=== PATIENT | male | born 1955 | race Caucasian/White ===

== ENCOUNTER 2022-02-07 07:04 | Outpatient (REF) | payer OTHER, MEDICARE, SELFPAY ==
[2022-02-07 11:17] LABS: MANUAL DIFF FLAG NO
[2022-02-07 11:39] LABS: Appearance Urine Clear; Basophils Absolute Auto 0.1 X10*3/uL (0.0-0.2); Basophils Percent Auto 1.2 % (0-2); Color Urine Yellow; Eosinophils Absolute Auto 0.2 X10*3/uL (0.0-0.4); Eosinophils Percent Auto 3.2 % (0-4); Glucose Urine UA Negative (Negative); Hematocrit 40.5 % (42.0-52.0); Hemoglobin 13.2 g/dl (14.0-18.0); Imm Gran Abs Auto 0.02 X10*3/uL (0.00-0.03); Imm Gran Pct Auto 0.4 % (0.0-0.4); Leukocyte Esterase Urine Trace (Negative); Lymphocytes Absolute Auto 1.5 X10*3/uL (1.2-4.9); Mean Corpuscular HGB Conc 32.6 g/dl (31.0-36.0); Mean Corpuscular Hemoglobin 32.6 pg (27.0-33.0); Mean Platelet Volume 10.6 fL (9.4-12.4); Monocytes Absolute Auto 0.7 X10*3/uL (0.1-1.2); Monocytes Percent Auto 13.9 % (2-11); Neutrophils Absolute Auto 2.6 x10*3/uL (2.0-8.3); Neutrophils Percent Auto 51.3 % (45-73); Nitrite Urine Negative (Negative); Platelet Count 344 X10*3/uL (160-400); Red Blood Count 4.05 X10*6/uL (4.60-5.80); Red Cell Distribution Width 12.6 % (11.0-16.0); Specific Gravity - Urine 1.015 (1.005-1.025); UMIC TRIGGER UA YES; Urine Blood Negative (Negative); Urine Ketones Negative (Negative); Urine Protein Negative (Neg-Trace)
[2022-02-07 11:46] LABS: Bacteria Urine None Seen (None Seen); Hyaline Casts Urine 0-2 /LPF (0-2); RBC Urine 0-2 /HPF (0-2); Squamous Epithelial Cell Urine 0-2 /HPF (0-2); WBC Urine 0-5 /HPF (0-5)
[2022-02-07 12:00] LABS: Alanine Aminotransferase 23 U/L (0-40); Alkaline Phosphatase 70 U/L (39-117); Anion Gap 15 (12-20); Aspartate Amino Transferase 21 U/L (5-37); Bilirubin Total 1.3 mg/dL (0.0-1.0); Blood Urea Nitrogen 19 mg/dL (9-16); Calcium 9.3 mg/dL (8.4-10.2); Carbon Dioxide 25 mmol/L (22-29); Chloride 103 mmol/L (96-108); Cholesterol 155 mg/dL; Estimated Glomerular Filt Rate > 60; Glucose Fasting 105 mg/dL (60-99); HDL Cholesterol 47 mg/dL; LDL Cholesterol Calculated 91 mg/dl; Potassium 4.3 mmol/L (3.3-5.1); Sodium 139 mmol/L (135-145); Total Protein 7.1 g/dL (6.5-8.0); Triglycerides 88 mg/dL
[2022-02-07 12:52] LABS: PSA,Total (Free>4and<10) 16.28 ng/mL (0.00-4.00)
== END 2022-02-07 07:05 | disposition home or self-care (01) ==
LOC: HO.HMGCLDS 07:04
PROVIDERS: PCP Internal Medicine; Visit Provider Internal Medicine
DX: E78.00 Pure hypercholesterolemia, unspecified (principal); E03.9 Hypothyroidism, unspecified; I10 Essential (primary) hypertension; N30.00 Acute cystitis without hematuria; R97.20 Elevated prostate specific antigen [PSA]; Z12.5 Encounter for screening for malignant neoplasm of prostate
CPT/HCPCS: 36415; 80053; 80061; 81001; 84153; 85025; 87086

== ENCOUNTER 2022-03-21 11:00 | Outpatient (REF) | payer OTHER, MEDICARE, SELFPAY ==
[2022-03-21 12:27] LABS: PSA,Total (Free>4and<10) 11.16 ng/mL (0.00-4.00)
== END 2022-03-21 11:01 | disposition home or self-care (01) ==
LOC: HO.LNP 11:00
PROVIDERS: Visit Provider Internal Medicine
DX: Z12.5 Encounter for screening for malignant neoplasm of prostate (principal); R97.20 Elevated prostate specific antigen [PSA]
CPT/HCPCS: 84153

== ENCOUNTER 2022-04-11 10:33 | Outpatient (REF) | payer OTHER, MEDICARE, SELFPAY ==
[2022-04-11 12:02] LABS: PSA,Total (Free>4and<10) 9.54 ng/mL (0.00-4.00)
[2022-04-12 09:10] LABS: Free Prostate Spec Ag 1.7 ng/mL; Percent Free Prostate Spec Ag NOT CALCULATED % (calc) (>25); Prostate Specific Ag Total 10.8 ng/mL (< OR = 4.0)
== END 2022-04-11 10:34 | disposition home or self-care (01) ==
LOC: HO.LNP 10:33
PROVIDERS: Visit Provider Internal Medicine
DX: Z12.5 Encounter for screening for malignant neoplasm of prostate (principal); R97.20 Elevated prostate specific antigen [PSA]
CPT/HCPCS: 84153; 84154

== ENCOUNTER 2022-12-06 11:31 | Outpatient (REF) | payer OTHER, MEDICARE, SELFPAY | END 2022-12-06 11:32 | disposition home or self-care (01) | LOC: HO.LNP 11:31 | PROVIDERS: Visit Provider Internal Medicine | DX: Z13.89 Encounter for screening for other disorder (principal) ==

== ENCOUNTER 2022-12-06 11:33 | Outpatient (REF) | payer MEDICARE, OTHER, SELFPAY ==
[2022-12-06 11:36] LABS: MANUAL DIFF FLAG NO
[2022-12-06 12:28] LABS: Basophils Percent Auto 0.7 % (0-2); Eosinophils Absolute Auto 0.3 X10*3/uL (0.0-0.4); Eosinophils Percent Auto 4.8 % (0-4); Hematocrit 43.4 % (42.0-52.0); Hemoglobin 14.3 g/dl (14.0-18.0); Imm Gran Abs Auto 0.02 X10*3/uL (0.00-0.03); Imm Gran Pct Auto 0.3 % (0.0-0.4); Lymphocytes Absolute Auto 1.6 X10*3/uL (1.2-4.9); Lymphocytes Percent Auto 26.6 % (20-40); Mean Corpuscular HGB Conc 32.9 g/dl (31.0-36.0); Mean Corpuscular Hemoglobin 32.8 pg (27.0-33.0); Mean Corpuscular Volume 99.5 fL (80.0-98.0); Mean Platelet Volume 10.7 fL (9.4-12.4); Monocytes Absolute Auto 0.8 X10*3/uL (0.1-1.2); Monocytes Percent Auto 13.1 % (2-11); Neutrophils Absolute Auto 3.2 x10*3/uL (2.0-8.3); Neutrophils Percent Auto 54.5 % (45-73); Platelet Count 242 X10*3/uL (160-400); Red Blood Count 4.36 X10*6/uL (4.60-5.80); Red Cell Distribution Width 12.9 % (11.0-16.0); White Blood Count 5.9 X10*3/uL (4.8-10.8)
[2022-12-06 12:29] LABS: Appearance Urine Clear; Color Urine Yellow; Glucose Urine UA Negative (Negative); Leukocyte Esterase Urine Negative (Negative); Nitrite Urine Negative (Negative); PH 6.5 (5.0-9.0); Specific Gravity - Urine 1.015 (1.005-1.025); Urine Blood Negative (Negative); Urine Ketones Negative (Negative); Urine Protein Negative (Neg-Trace)
[2022-12-06 12:37] LABS: Bacteria Urine None Seen (None Seen); Hyaline Casts Urine 0-2 /LPF (0-2); RBC Urine 0-2 /HPF (0-2); Squamous Epithelial Cell Urine 0-2 /HPF (0-2); WBC Urine 0-5 /HPF (0-5)
[2022-12-06 13:05] LABS: Alanine Aminotransferase 22 U/L (0-40); Albumin Level 4.3 g/dL (3.5-5.0); Alkaline Phosphatase 63 U/L (39-117); Anion Gap 12 (12-20); Aspartate Amino Transferase 23 U/L (5-37); Bilirubin Total 1.1 mg/dL (0.0-1.0); Blood Urea Nitrogen 16 mg/dL (9-16); Calcium 9.7 mg/dL (8.4-10.2); Carbon Dioxide 25 mmol/L (22-29); Chloride 103 mmol/L (96-108); Cholesterol 174 mg/dL; Estimated Glomerular Filt Rate > 60; Glucose Fasting 91 mg/dL (60-99); HDL Cholesterol 59 mg/dL; LDL Cholesterol Calculated 90 mg/dl; Sodium 136 mmol/L (135-145); Total Protein 7.5 g/dL (6.5-8.0); Triglycerides 127 mg/dL
[2022-12-06 13:24] LABS: TSH reflex Free T4 3.17 uIU/mL (0.32-4.0)
[2022-12-06 13:33] LABS: PSA,Total (Free>4and<10) 5.23 ng/mL (0.00-4.00)
[2022-12-08 12:29] LABS: Free Prostate Spec Ag 1.1 ng/mL; Percent Free Prostate Spec Ag 21 % (calc) (>25); Prostate Specific Ag Total 5.2 ng/mL (< OR = 4.0)
== END 2022-12-06 11:34 | disposition home or self-care (01) ==
LOC: HO.LNP 11:33
PROVIDERS: Visit Provider Internal Medicine
DX: Z00.00 Encounter for general adult medical examination without abnormal findings (principal); Z12.5 Encounter for screening for malignant neoplasm of prostate; E78.00 Pure hypercholesterolemia, unspecified; E03.9 Hypothyroidism, unspecified; I10 Essential (primary) hypertension
CPT/HCPCS: 80053; 80061; 81001; 84153; 84154; 84443; 85025

== ENCOUNTER 2023-06-12 12:48 | Outpatient (REF) | payer MEDICARE, OTHER, SELFPAY ==
[2023-06-12 13:30] LABS: Alanine Aminotransferase 26 U/L (0-40); Albumin Level 4.3 g/dL (3.5-5.0); Alkaline Phosphatase 62 U/L (39-117); Aspartate Amino Transferase 22 U/L (5-37); Bilirubin Direct 0.3 mg/dL (0.0-0.5); Bilirubin Total 0.6 mg/dL (0.0-1.0); Cholesterol 159 mg/dL (<200); HDL Cholesterol 53 mg/dL (>40); LDL Cholesterol Calculated 84 mg/dL (<100); Total Protein 7.5 g/dL (6.5-8.0); Triglycerides 114 mg/dL (<150)
[2023-06-12 14:48] LABS: Reflex LDLD? No
== END 2023-06-12 12:49 | disposition home or self-care (01) ==
LOC: HO.LNP 12:48
PROVIDERS: Visit Provider Internal Medicine
DX: E78.00 Pure hypercholesterolemia, unspecified (principal)
CPT/HCPCS: 80061; 80076

== ENCOUNTER 2023-12-11 10:41 | Outpatient (REF) | payer MEDICARE, OTHER, SELFPAY ==
[2023-12-11 10:43] LABS: MANUAL DIFF FLAG NO
[2023-12-11 10:58] LABS: Basophils Percent Auto 0.7 % (0-2); Eosinophils Absolute Auto 0.4 X10*3/uL (0.0-0.4); Eosinophils Percent Auto 6.2 % (0-4); Imm Gran Abs Auto 0.03 X10*3/uL (0.00-0.03); Imm Gran Pct Auto 0.5 % (0.0-0.4); Lymphocytes Absolute Auto 1.8 X10*3/uL (1.2-4.9); Mean Corpuscular HGB Conc 33.3 g/dl (31.0-36.0); Mean Corpuscular Hemoglobin 33.3 pg (27.0-33.0); Mean Corpuscular Volume 99.8 fL (80.0-98.0); Mean Platelet Volume 10.5 fL (9.4-12.4); Monocytes Absolute Auto 0.8 X10*3/uL (0.1-1.2); Monocytes Percent Auto 13.5 % (2-11); Neutrophils Absolute Auto 2.7 x10*3/uL (2.0-8.3); Neutrophils Percent Auto 47.1 % (45-73); Platelet Count 254 X10*3/uL (160-400); Red Blood Count 4.21 X10*6/uL (4.60-5.80); Red Cell Distribution Width 13.2 % (11.0-16.0); White Blood Count 5.7 X10*3/uL (4.8-10.8)
[2023-12-11 10:59] LABS: Appearance Urine Clear; Color Urine Yellow; Glucose Urine UA Negative (Negative); Leukocyte Esterase Urine Negative (Negative); Nitrite Urine Negative (Negative); PH 5.5 (5.0-9.0); Specific Gravity - Urine 1.015 (1.005-1.025); Urine Blood Negative (Negative); Urine Ketones Negative (Negative); Urine Protein Negative (Neg-Trace)
[2023-12-11 11:03] LABS: Bacteria Urine None Seen (None Seen); Hyaline Casts Urine 0-2 /LPF (0-2); RBC Urine 0-2 /HPF (0-2); Squamous Epithelial Cell Urine 0-2 /HPF (0-2); WBC Urine 0-5 /HPF (0-5)
[2023-12-11 11:16] LABS: Alanine Aminotransferase 28 U/L (0-40); Albumin Level 4.3 g/dL (3.5-5.0); Alkaline Phosphatase 59 U/L (39-117); Anion Gap 14 (12-20); Aspartate Amino Transferase 26 U/L (5-37); Bilirubin Total 0.4 mg/dL (0.0-1.0); Blood Urea Nitrogen 14 mg/dL (9-16); Calcium 9.5 mg/dL (8.4-10.2); Carbon Dioxide 22 mmol/L (22-29); Chloride 109 mmol/L (96-108); Cholesterol 150 mg/dL (<200); Estimated Glomerular Filt Rate > 60; Glucose Fasting 89 mg/dL (60-99); HDL Cholesterol 49 mg/dL (>40); LDL Cholesterol Calculated 79 mg/dL (<100); Potassium 3.9 mmol/L (3.3-5.1); Sodium 141 mmol/L (135-145); Total Protein 7.4 g/dL (6.5-8.0); Triglycerides 110 mg/dL (<150)
[2023-12-11 11:46] LABS: PSA,Total (Free>4and<10) 5.15 ng/mL (0.00-4.00)
[2023-12-11 12:19] LABS: Free T4 (Free Thyroxine) 0.95 ng/dL (0.71-1.85)
[2023-12-12 11:03] LABS: Free Prostate Spec Ag 1.6 ng/mL; Percent Free Prostate Spec Ag 26 % (calc) (>25); Prostate Specific Ag Total 6.2 ng/mL (< OR = 4.0)
== END 2023-12-11 10:42 | disposition home or self-care (01) ==
LOC: HO.LNP 10:41
PROVIDERS: Visit Provider Internal Medicine
DX: E78.00 Pure hypercholesterolemia, unspecified (principal); E03.9 Hypothyroidism, unspecified; I10 Essential (primary) hypertension; Z12.5 Encounter for screening for malignant neoplasm of prostate
CPT/HCPCS: 80053; 80061; 81001; 84153; 84154; 84439; 84443; 85025

== ENCOUNTER 2024-06-18 10:33 | Outpatient (REF) | payer MEDICARE, OTHER, SELFPAY ==
[2024-06-18 11:26] LABS: Alanine Aminotransferase 29 U/L (0-40); Albumin Level 4.1 g/dL (3.5-5.0); Alkaline Phosphatase 69 U/L (39-117); Aspartate Amino Transferase 29 U/L (5-37); Bilirubin Direct 0.2 mg/dL (0.0-0.5); Bilirubin Total 0.7 mg/dL (0.0-1.0); Cholesterol 182 mg/dL (<200); HDL Cholesterol 50 mg/dL (>40); LDL Cholesterol Calculated 95 mg/dL (<100); Total Protein 7.7 g/dL (6.5-8.0); Triglycerides 187 mg/dL (<150)
--- OUTSIDE RECORDS SUMMARY | 2024-06-18 11:39 | XMS_ITS ---
Author Organization Edd Benitez MD Address [address] [place] [phone] Care Team Providers Care Preparer Samples And Repairs Name Role Phone Edd Benitez Primary Care Provider [phone] REASON FOR VISIT refill Medications Medication SIG (Take, Route, Frequency, Duration) Notes Start Date End Date Status amLODIPine Besylate 5 MG TAKE 1 TABLET B Y MOUTH EVERY DAY FOR 90 DAYS Orally Once a day for 90 days Active Encounters Encounter Location Date Provider Diagnosis Edd Benitez MD [address] [place] [phone] 04/09/2024 Edd Benitez Primary hypertension I10 Assessments [...] days Next Appt Details Provider Name:Edd escamilla, 06/21/2024 10:45:00 AM, [address] [place] [address], [address], [phone], Provider Name:Edd escamilla, 12/13/2024 08:00:00 AM, [address] [place] [address], [address], [phone], Provider Name:Edd escamilla, 12/20/2024 11:00:00 AM, [address] [place] [address], [phone], Progress Notes * EMILIA CASILLAS ADOB:1955 (68 yo M)Acc No.[id number]:04/09/2024 Patient:?EMILIA CASILLAS :1955???Age:68 Y???Sex:Male Address:[address] [place] [address], [place] [address] * Refills? Refill amLODIPine Besylate Tablet, 5 MG, Orally, 90, TAKE 1 TABLET BY MOUTH EVERY DAY FOR 90 DAYS, Once a day, 90 days, Refills=3 * true * Date:? Generated for You harris/Phoenix/Benitting on:?06/18/2024 11:39 AM EST
--- OUTSIDE RECORDS SUMMARY | 2024-06-18 11:39 | XMS_ITS ---
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 Role Phone Edd Benitez Primary Care Provider REASON FOR VISIT FASTING LIPIDS Encounters Encounter Location Date Provider Diagnosis Edd Benitez MD [address] [place] [address] [place] [phone] 06/18/2024 Edd Benitez Hypercholesteremia E 78.00 Assessments Encounter Date Diagnosis (ICD Code) Assessment Notes Treatment Notes Treatment Clinical Notes Section Notes 06/18/2024 Hypercholesteremia (ICD-10 - E78.00) Plan Of Treatment Pending Test Test Name Order Date Liver Panel 06/18/2024 Lipid Panel with Reflex 06/18/2024 Next Appt Details Provider Name:Edd escamilla, 06/21/2024 10:45:00 AM, [address] [place] [address], [address], [phone], Provider Name:Edd escamilla, 12/13/2024 08:00:00 AM, [address] [place] [address], [address], [phone], Provider Name:Edd escamilla, 12/20/2024 11:00:00 AM, [address] [place] [address], [address], [phone], Progress Notes * EMILIA CASILLAS ADOB:1955 (69 yo M)Acc No.[id number]:06/18/2024 Progress Note Patient:?EMILIA CASILLAS Provider:?Edd Benitez MD :1955???Age:69 Y???Sex:Male Neil e:06/18/2024 Address:[address] [place], [place] [phone] Subjective: * Chief Complaints: * ???1. FASTING LIPIDS. * HPI: ???Communication Needs:?Communication Needs?Does the patient have a hearing impairment?Yes,?If yes, what is the hearing impairment??Other,?Does the patient have a vision impairment??No,?Does the patient have a cognition impairment??No.? * Medical History:? Objective: * Vitals:? Assessment: * Assessment: 1.?Hypercholesteremia - E78. 00??? Plan: * Treatment: * Procedure Codes:?81397 VENIP UNCT, ROUTINE* * * The named appointment provid er may or may not be the originator of this progress note, and it is not deemed complete until electronically signed by the appointment provider. Sign off status: Pending * Provider:?Edd Benitez MD Date:?0 06/18/2024 Generated for You harris/[place]hoenix/Benitting on:?06/18/2024 11:39 AM EST History and Physical Notes * HPI (History of Present Illness) Category Sub-Category Detail Notes Category Not es Communication Needs Communication Needs Does the patient have a hearing impairment: Yes ?If yes, what is the hearing impairment? : Other Does the patient have a vision impairmen t?: No Does the patient have a cognition impair ment?: No
--- OUTSIDE RECORDS SUMMARY | 2024-06-18 11:39 | XMS_ITS | Patient Health Record ---
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 Name Role Phone Edd Benitez MD Primary Care Provider Haleigh Rodriguez Unavailable [phone] Allergies No Known Allergies Reason For Referral No Information Medications Medication SIG (Take, Route, Frequency, Duration) Notes Start Date End Date Status Medrol wesley 4mg as directed orally a s directed for 6 days 06/07/2024 Active Omeprazole 20 MG 1 capsule 1/2 to 1 h our before morning meal Orally Once a day Active Levothyroxine Sodium 100 MCG 1 tablet in the morning on an empty stomach Orally Once a day Active amLODIPine Besylate 5 MG 1 tablet Orally Once a day Active Atorvastatin Calcium 40 MG 1 tablet Oral ly Once a day Active Ciclopirox Olamine 0.77 % 1 application Externally Twice a day to skin of feet including between the toes for 30 days Active Social History Tobacco Use: Social History Observation Description Date Details (start date - stop date) Never Smoker NA - NA Alcohol Screen Question Answer Notes Did you have a drink contain ing alcohol in the past year? Yes How often did you have a dri nk containing alcohol in the past year? 2 to 4 times a month (2 points) Points 2 Interpretation Negative Tobacco use other than smoking: Question Answer Notes Are you an other tobacco user? No Tobacco Control (Standard) Question Answer Notes Tobacco use: Nonsmoker Additional Findings: Tobacco non-user Current no nsmoker Problems Problem Type SNOMED Code ICD Code Onset Dates Problem Status W/U Status Risk Notes Problem Acquired hammer toe of right foot (9814297802263250 ) Other hammer toe(s) (acquired), right foot (M20.41) Active confirmed Problem Gout (80400568) Gout of left foot (M10.9) Active confirmed Rx drug management (4) Problem Gout (94062013) Gout of right foot (M10.9) Active confirmed Rx drug management (4) Problem 939184020 Arthritis of big toe (M19.079) Active confirmed Problem 837535037 Hallux malleus of right foot (M20.31) Active confirmed Problem Localized, primary osteoarthritis of the ankle and/or foot (755759574) Arthritis of joint of lesser toe, right (M19.071) Active confirmed Vital Signs Blood pressure diastolic 65 mm Hg 06/07/2024 Height 5ft 10in in 06/07/2024 Blood pressure systolic 129 mm Hg 06/07/2024 Weight 235 lbs 06/07/2024 BMI 33.72 kg/m2 06/07/2024 Encounters Encounter Location Date Provider Diagnosis [address] [phone] 03/14/2024 Haleigh Banks Pain in right toe(s) M79.674 ; Tinea pedis of both feet B35.3 ; Hallux malleus of right foot M20.31 and Arthritis of big toe M19.[address] [phone] 06/07/2024 Haleigh Banks Pain in joint involving left ankle and foot M25.572 and Gout of left foot M10.[address] [phone] 02/01/2024 Haleigh Banks [address] [phone] 06/04/2024 Haleigh Banks Assessments Encounter Date Diagnosis (ICD Code) Assessment Notes Treatment Notes Treatment Clinical Notes Section Notes 03/14/2024 Pain in right toe(s) (ICD-10 - M79.674) 03/14/2024 Tinea pedis of both feet (ICD-10 - B35.3) 06/07/2024 Gout of left foot (ICD-10 - M10.9) Rx drug management (4) Patient Educated with: GOUT.pdf (GOUT.pdf) Patient Educated with: LOW PURINE DIET.pdf (LOW PURINE DIET.pdf) 06/07/2024 Pain in joint involving left ankle and foot (ICD-10 - M25.572) 03/14/2024 Hallux malleus of right foot (ICD-10 - M20.31) 03/14/2024 Arthritis of big toe (ICD-10 - M19.079) 06/07/2024 Other Patient Educated with: GOUT.pdf (GOUT.pdf) Patient Educated with: LOW PURINE DIET.pdf (LOW PURINE DIET.pdf) Plan Of Treatment Pending Test Test Name Order Date *Uric Acid, Serum 06/07/2024 X ray : Foot, left 3V 06/07/2024 X ray : Foot, right 3V 06/07/2024 X ray : Foot, right 3V 03/14/2024 Insurance Providers Payer Name Payer Address Payer Phone Subscriber Number Group Number Insured Name Patient Relationship to Insured Coverage Start Date Coverage End Date Medicare [employer] [address] [place] [address] [id number] Tr Kim Self - patient is the insured Medical (General) History Medical History History ICD Code Back,Hip,and Knee pain Diverticulosis Gall bladder problems Gout High Blood Pressure Reflux ( GERD) Sciatica thyroid Measles Mumps Hearing loss Surgical History Surgery Date(Month/Year) Gall bladder removal 1994 tympanoplasty 1967
--- OUTSIDE RECORDS SUMMARY | 2024-06-18 11:40 | XMS_ITS ---
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 Name Role Phone Edd Benitez MD Primary Care Provider Haleigh Rodriguez Unavailable [phone] Allergies No Known Allergies REASON FOR VISIT Last PCP visit 01/2024, Foot pain Medications Medication SIG (Take, Route, Frequency, Duration) Notes Start Date End Date Status Medrol wesley 4mg as directed orally a s directed for 6 days 06/07/2024 Active Omeprazole 20 MG 1 capsule 1/2 to 1 h our before morning meal Orally Once a day Active Levothyroxine Sodium 100 MCG 1 tablet in the morning on an empty stomach Orally Once a day Active Atorvastatin Calcium 40 MG 1 tablet Oral ly Once a day Active Ciclopirox Olamine 0.77 % 1 application Externally Twice a day to skin of feet including between the toes for 30 days Active amLODIPine Besylate 5 MG 1 tablet Orally Once a day Active Social History Tobacco Use: Social History [...] Problem Status W/U Status Risk Notes Problem Gout (88632445) Gout of right foot (M10.9) Active confirmed Rx drug management (4) Problem Gout (23482191) Gout of left foot (M10.9) Active confirmed Rx drug management (4) Vital Signs Height 5ft 10in in 06/07/2024 Weight 235 lbs 06/07/2024 BMI 33.72 kg/m2 06/07/2024 Blood pressure systolic 129 mm Hg 06/07/19 25 Blood pressure diastolic 65 mm Hg 025 Encounters Encounter Location Date Provider Diagnosis [facility] [place] [address] [address] 06/07/2024 Haleigh Banks Pain in joint involving left ankle and foot M25.572 and Gout of left foot M10.9 Assessments Encounter Date Diagnosis (ICD Code) Assessment Notes Treatment Notes Treatment Clinical Notes Section Notes 06/07/2024 Pain in joint involving left ankle and foot (ICD-10 - M25.572) 06/07/2024 Gout of left foot (ICD-10 - M10.9) Rx drug management (4) Patient Educated with: GOUT.pdf (GOUT.pdf) Patient Educated with: LOW PURINE DIET.pdf (LOW PURINE DIET.pdf) 06/07/2024 Other Patient Educated with: GOUT.pdf (GOUT.pdf) Patient Educated with: LOW PURINE DIET.pdf (LOW PURINE DIET.pdf) Plan Of Treatment Medication Medication Name Sig Start Date Stop Date Notes Medrol wesley 4mg as directed orally as directed for 6 days 0 06/07/2024 Treatment Notes Assessment Notes Gout of left foot Patient Educated wit h: GOUT.pdf (GOUT.pdf) Patient Educated with: LOW PURINE DIET.pdf (LOW PURINE DIET.pdf) Other Patient Educated wit h: GOUT.pdf (GOUT.pdf) Patient Educated with: LOW PURINE DIET.pdf (LOW PURINE DIET.pdf) Pending Test Test Name Order Date *Uric Acid, Serum 06/07/2024 X ray : Foot, left 3V 06/07/2024 X ray : Foot, right 3V 06/07/2024 Next Appt Details Follow Up: prn, Reason: Progress Notes * Tr CASILLAS ADOB:1955 (68 yo M)Acc No.[id number]:06/07/2024 Progress Note Patient:?Tr CASILLAS Provider:?Haleigh Banks DPM :1955???Age:68 Y???Sex:Male Neil e:06/07/2024 Address:[address] [place] [address] vito [id number] Pcp:Edd Benitez MD Subjective: * Chief Complaints: * ???Last PCP visit 01/2024Foot pain * HPI: ???Foot Pain:?Nature:?aching, swelling, tenderness, throbbing.?Location:?Great toe joint, B/L.?Duration:?several days.?Onset:?sudden, unknown, denies trauma.?Course:?worse.?Aggravated:?any pressure.?Treatments:?rest/alter normal daily activity.? * ROS:?General/Constitutional:?Nausea?denies.?Vomiting?denies.?Hunger Thirst?denies.?Loss appetite?denies.?Chills?denies.?Fatigue?denies.?Fever?denies.?Night Sweats?denies.?Unexplained weight loss?denies.?Unexplained weight gain?denies.?HEENTM:?Dentures?denies.?Dizziness?denies.?Glasses/contacts?admits.?Retinopathy?de nies.?Blurred/double vision?denies.?TMJ?denies.?Discharge/drainage?denies.?Implants?denies.?Sore throat?denies.?Dental implants?denies.?Hard of hearing ?admits.?Difficulty chewing/swallowing/speaking?denies.?Nose bleeds?denies.?Sore mouth?denies.?Respiratory:?On Oxygen?denies.?Pneumonia/pleurisy?denies.?Bronchitis?denies.?Emphysema?denies.?C oughing?denies.?Cough blood?denies.?Shortness of breath?denies.?Wheezing?denies.?Cardiovascular:?Pacemaker?denies.?MVP?denies.?WPW?denies.?CHF?denies.?Heart attack?denies.?Septal defect?denies.?Rapid beat?denies.?Chest pain ?denies.?Atrial Fib.?denies.?Murmur/Palpitations?denies.?Gastrointestinal:?Hemorrhoids?admits.?Stomach/Abdominal pain?denies.?Dark blood stool?denies.?Irritable bowel ?denies.?Constipation?denies.?Diarrhea?denies.?Hematology:?Swelling?denies.?Clots?denies.?Varicose Veins?denies.?Bruising?denies.?Bleeding problem?denies.?Genitourinary:?Blood urine?denies.?Frequent/Painfu/urination/bladder control?denies.?Kidney stones?denies.?Infection (UTI)?denies.?Nephropathy?denies.?sex trans dis (STD)?denies.?Prostate?admits.?Musculoskeletal:?Hammertoes?denies.?Bunions?denies.?Back Pain?admits.?Muscle Cramps/ Resting?denies.?Muscle cramps / walking?denies.?Generalized aches and pains?denies.?Weakness?denies.?Integ.:?Contreras?denies.?Scars?denies.?Corns/calluses?admits.?Ingrown nails?denies.?Painful nails?denies.?Open Sores?denies.?Rashes?denies.?Neurologic:?Difficulty sleeping?denies.?Brain disorder?denies.?Numbness?denies.?Balance trouble?denies.?Confusion?denies.?Fainting/blackouts?denies.?Tingling?denies.?Tr emors?denies.? * Medical History:? * Surgical History:?Gall bladd er removal 1995tympanoplasty 1967 * Hospitalization/Major Diagno stic Procedure:?No Hospitalization History. * Family History:?Mother: dece ased, diagnosed with Unspecified essential hypertension, Unspecified cerebral artery occlusion with cerebral infarction, Family history of arthritis.?Father: , diagnosed with Other malignant neoplasm of unspecified site.?Siblings: Foot problems, diagnosed with Other malignant neoplasm of unspecified site.? * Social History:?Tobacco Use:?Tobacco use other than smoking?Are you an other tobacco user??No ?Tobacco Control (Standard)?Tobacco use:?Nonsmoker ?Additional Findings: Tobacco non-user?Current nonsmoker ???Drugs/Alcohol:?Drugs?Have you used drugs other than those for medical reasons in the past 12 months??No ?Alcohol Screen?Did you have a drink containing alcohol in the past year??Yes ?How often did you have a drink containing alcohol in the past year??2 to 4 times a month (2 points) ?Points?2 ?Interpretation?Negative ???Miscellaneous:?Caffeine: yes, 1-2 cups per day. ?Exercise: no. ?Marital status: single. 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 * Medications:?TakingOmeprazol e 20 MG Capsule Delayed Release 1 capsule 1/2 to 1 hour before morning meal Orally Once a day Levothyroxine Sodium 100 MCG Tablet 1 tablet in the morning on an empty stomach Orally Once a day amLODIPine Besylate 5 MG Tablet 1 tablet Orally Once a day Atorvastatin Calcium 40 MG Tablet 1 tablet Orally Once a day Ciclopirox Olamine 0.77 % Cream 1 application Externally Twice a day to skin of feet including between the toes Medication List reviewed and reconciled with the patientTaking Omeprazole 20 MG Capsule Delayed Release 1 capsule 1/2 to 1 hour before morning meal Orally Once a day Taking Levothyroxine Sodium 100 MCG Tablet 1 tablet in the morning on an empty stomach Orally Once a day Taking amLODIPine Besylate 5 MG Tablet 1 tablet Orally Once a day Taking Atorvastatin Calcium 40 MG Tablet 1 tablet Orally Once a day Taking Ciclopirox Olamine 0.77 % Cream 1 application Externally Twice a day to skin of feet including between the toes Medication List reviewed and reconciled with the patient * Allergies:?N.K.D.A.yes[Aller gies Verified] Objective: * Vitals:?Ht: 5ft 10in, Wt:235 , BMI:33.72, Shoe size: 11, BP:129/65mm Hg, Ht-cm: 177.8 cm, Wt-k.59 kg. * Examination: ???Orthopedic: ?MUSCLE STRENGTH:?5/5 all groups in a symmetrical fashion, B/L.?GAIT ABNORMALITY:? antalgic.?BUNION:? (+) Pain on palpation, inflammation present, ROM is guarded due to discomfort, 1st MPJ.?DIGITAL DEFORMITIES:?Digital contracture, PIPJ, 2-5 B/L, reducible with WB, or to push-up test, no over, nor underlapping, Hallux contracture at IPJ, right, tenderness with range motion.?FOOTWEAR:? shoe gear properties exacerbate patients foot/toe deformity.?Dermatologic: ?SKIN FINDINGS:?Skin shows sign(s) of,inflammation, erythema, edema and tenderness to first MPJ, Left foot.?X-Rays - IMAGING REPORT: ?Clinical Indication(s):? Evaluate for Fracture, Evaluate for Osteomyelitis,?Evaluate for possible Gout.?Views:?3 views of Foot, AP, LAT, MO??Taken by trained?Podiatric Parer (?[place]).?Findings:? increase in soft tissue contour and density at the symptomatic site, radiolucent soft tissue gas absent.?HAV:?there is no Quinton sign present in the 1st MTH.?Fracture:?Negative fractures identified.?Signs of Osteomyelitis?Absent.?General Examination: ?GENERAL APPEARANCE:?Reveals a pleasant, alert, well-nourished, well- developed, well hydrated individual, who demonstrates proper attention to hygiene/body habitus, and is in no acute distress, Pt serves as own?historian for office visit today.?ORIENTED:?person, place, and time.?Neurological: ?SENSORY:?Neurological exam reveals intact sensorium, pain sensation normal, vibration sensation intact, pinprick sensation is normal in the lower extremities, Pt denies, anesthesia, burning, paresthesia, tingling, B/L.?DEEP TENDON REFLEXES:?Achilles, 2/4, B/L.?Vascular: ?DP PULSES (B):?2/4, B/L.?PT PULSES (B):?2/4, B/L.?CAPILLARY FILL TIME:?immediate, all digits, B/L.?TROPHIC CONDITION-TEXTURE/ELASTICITY/TURGOR/HAIR GROWTH (B):?normal, B/L.?TEMPERTURE GRADIENT (C):?warm to cool, proximal to distal, B/L.?PIGMENTATION:?normal, B/L.?EDEMA (C):?absent, B/L.? Assessment: * Assessment: 1.?Gout of left foot - M10.9 (Primary)???Specify :Acute problem, Complicated w/ Multiple Tx Options(4) Dx New problem, Prognosis Uncertain (4)???Notes :Rx drug management (4)???2.?Pain in joint involving left ankle and foot - M25.572??? Plan: * Treatment: 2.?Pain in joint involving l eft ankle and foot?Imaging: X ray : Foot, left 3V 3.?Others? Notes: Patient Educated with: GOUT.pdf (GOUT.pdf) Patient Educated with: LOW PURINE DIET.pdf (LOW PURINE DIET.pdf)?? * Imaging:? * ?Imaging: X ray : Foot, right 3V * Procedure Codes:?48958 X-RAY EXAM OF LEFT FOOT 3V, Modifiers: 26 , LT * Preventive Medicine:? ??Counseling:?Discussion:?-14: Office or other outpatient visit for the evaluation and management of an established patient, which required a medically appropriate history and/or examination and MODERATE level of DECISION MAKING for: 1 OR MORE CHRONIC PROBLEM(S) THATS WORSENING, 2 STABLE CHRONIC PROBLEMS, A NEWLY DIAGNOSED PROBLEM WITH UNCERTAIN PROGNOSIS, AN ACUTE COMPLICATED INJURY WITH MULTIPLE TREATMENT OPTIONS, OR AN ACUTE PROBLEM WITH ACCOMPANYING SYSTEMIC SYMPTOMS, THAT POSE(S) A MODERATE RISK OF MORBIDITY. THIS CONDITION MAY ALSO INCLUDE RX DRUG MANAGEMENT, OR A DECISON FOR MINOR SURGERY. The visit on the day of the encounter encompassed interpreting the data and educating the patient as to the nature of their condition, treatment options available according to their individual PMH, meds, allergies, and overall health/living conditions, as well as any potential risks or complications that may occur from a failure to adhere to, and participate in, the recommended course of therapy. The discussion included a complete verbal, and/or written explanation of the examination results, any x-rays taken, the proposed diagnosis, and outline of the treatment plan. A schedule for future care needs was also explained. The patient verbalized an understanding of the instructions at this time and agreed to be an active participant in their treatment. If the patient should think of any questions or concerns after the visit, I have encouraged the patient to call the office.?Gout:?I explained to the patient the possible etiologies for Gout, including genetic, excess dietary protein, excess dietary sugar, alcohol, diuretic medications, dehydration, and/or previous surgery. An information sheet re: the foods to enjoy as well as avoid was dispensed and detailed at the time of visit. We discussed the risks/benefits of all the different treatment options for Gout including: No treatment at all, Rest, Ice, NSAIDs(only if well tolerated after meals), Oral steroids, Colchicine, New/supportive Shoegear, Foot/Ankle AFO Bracing, Arch support/shoe inserts, Custom orthoses, Topical analgesics including Aspercream/Voltaren gel/Custom compounded combination therapy, and Dietary modification. Advantages and disadvantages of each option were discussed and the patients questions re: shoegear, custom vs prefabricated inserts, activity level, PO vs Topical medications (and their respective potential complications/drug interactions/side effects including the possible interaction with statin medications ), diet, and consistency in home treatment regimens for optimal success were answered to their verbally confirmed satisfaction.?P.R.I.C.E.:?The patient was counseled on the use of P.R.I.C.E. and NSAIDS (if well tolerated) to aid in the recovery from their painful condition.?Steriod Injection:?I explained that a steroid and local anesthetic injections are administered to relieve pain and inflammation and thereby meant to improve function. I explained the possible complications including but not limited to signs/symptoms of steroid flare, infection, bruising, atrophy, discoloration of skin, change/deviation in toe position, and that additional injections may be necessary, cortisone post-injection informative educational handout was dispensed to and reviewed with the patient.? ??Screening/Special Tests:?Fall Risk?Screening:?No falls in the past year ?FALLS: Screening for Future Fall Risk?Have you had any falls with injury in the past year??No * Follow Up:?prn * Images: * Sign off status: Completed true * Provider:?Haleigh Banks DPM Date:?0 06/07/2024 Generated for You harris/[place]/Moni on:?06/18/2024 11:40 AM EST History and Physical Notes * HPI (History of Present Illness) Category Sub-Category Detail Notes Category Not es Foot Pain Nature: aching, swelling, tenderness , throbbing Location: Great toe joint, B/L Duration: several days Onset: sudden, unknown, den ies trauma Course: worse Aggravated: any pressure Treatments: rest/alter normal da ramo activity Examination Category Sub-Category Detail Notes Category Not es Neurological SENSORY: Neurological exa m reveals intact sensorium, pain sensation normal, vibration sensation intact, pinprick sensation is normal in the lower extremities, Pt denies, anesthesia, burning, paresthesia, tingling, B/L DEEP TENDON REFLEXES: Achilles, 2/4, B/L Dermatologic SKIN FINDINGS: Skin shows sign( s) of, inflammation, erythema, edema and tenderness to first MPJ, Left foot Orthopedic GAIT ABNORMALITY: antalgic BUNION: (+) Pain on palpatio n, inflammation present, ROM is guarded due to discomfort, 1st MPJ FOOTWEAR: shoe gear properties exacerbate patients foot/toe deformity DIGITAL DEFORMITIES: Digital contracture , PIPJ, 2-5 B/L, reducible with WB, or to push-up test, no over, nor underlapping, Hallux contracture at IPJ, right, tenderness with range motion MUSCLE STRENGTH: 5/5 all groups in a symmetrical fashion, B/L General Examination GENERAL APPEARANCE: Reveals a pleasant, alert, well- nourished, well-developed, well hydrated individual, who demonstrates proper attention to hygiene/body habitus, and is in no acute distress, Pt serves as own historian for office visit today ORIENTED: person, place, and t daina Vascular DP PULSES (B): 2/4, B/L PT PULSES (B): 2/4, B/L CAPILLARY FILL TIME: immediate, all digi ts, B/L TEMPERTURE GRADIENT (C): warm to cool, p roximal to distal, B/L TROPHIC CONDITION-TEXTURE/ELASTICITY/TURGOR/HAIR GROWTH (B): normal, B/L EDEMA (C): absent, B/L PIGMENTATION: normal, B/L X-Rays - IMAGING REPORT Findings: increase in soft tissue contour and density at the symptomatic site, radiolucent soft tissue gas absent Fracture: Negative fractures i dentified Signs of Osteomyelitis Absent HAV: there is no Quinton s ign present in the 1st MTH Views: 3 views of Foot, AP, LAT, MO Taken by trained Podiatric Parer ( [place]) Clinical Indication(s): Evaluate for Fra cture, Evaluate for Osteomyelitis, Evaluate for possible Gout
--- OUTSIDE RECORDS SUMMARY | 2024-06-18 11:40 | XMS_ITS ---
Author Organization [facility] jaqui Pendleton Address [address] [facility] [place] [address] Care Team Providers Care Innovation Analyst Name Role Phone Edd Benitez MD Primary Care Provider Haleigh Rodriguez Unavailable [phone] Allergies No Known Allergies REASON FOR VISIT Painful Toe(s), Skin Problem Medications Medication SIG (Take, Route, Frequency, Duration) Notes Start Date End Date Status Atorvastatin Calcium 40 MG 1 tablet Oral ly Once a day Active Levothyroxine Sodium 100 MCG 1 tablet in the morning on an empty stomach Orally Once a day Active amLODIPine Besylate 5 MG 1 tablet Orally Once a day Active Omeprazole 20 MG 1 capsule 1/2 to 1 h our before morning meal Orally Once a day Active Ciclopirox Olamine 0.77 % 1 application Externally Twice a day to skin of feet including between the toes for 30 days Active Social History Tobacco Use: Social History Observation Description Date Details (start date - stop date) Never Smoker NA - NA Tobacco Use/Smoking Question Answer Notes Are you a: nonsmoker Alcohol Screen Question Answer Notes Did you have a drink contain ing alcohol in the past year? Yes How often did you have a dri nk containing alcohol in the past year? 2 to 4 times a month (2 points) Points 2 Interpretation Negative Tobacco use other than smoking: Question Answer Notes Are you an other tobacco user? No Problems Problem Type SNOMED Code ICD Code Onset Dates Problem Status W/U Status Risk Notes Problem Acquired hammer toe of right foot (6981317600277012) Other hammer toe(s) (acquired), right foot (M20.41) Active confirmed Problem Localized, primary osteoarthritis of the ankle and/or foot (478879097) Arthritis of joint of lesser toe, right (M19.071) Active confirmed Problem [id number] Hallux malleus of right foot (M20.31) Active confirmed Problem 572926941 Arthritis of big toe (M19.079) Active confirmed Vital Signs Height 5ft 10in in 03/14/2024 Weight 240 lbs 03/14/2024 BMI 34.43 kg/m2 03/14/2024 Encounters Encounter Location Date Provider Diagnosis [facility] [place] [address] [address] 03/14/2024 Haleigh Banks Pain in right toe(s) M79.674 ; Tinea pedis of both feet B35.3 ; Hallux malleus of right foot M20.31 and Arthritis of big toe M19.079 Assessments Encounter Date Diagnosis (ICD Code) Assessment Notes Treatment Notes Treatment Clinical Notes Section Notes 03/14/2024 Pain in right toe(s) (ICD-10 - M79.674) 03/14/2024 Tinea pedis of both feet (ICD-10 - B35.3) 03/14/2024 Hallux malleus of right foot (ICD-10 - M20.31) 03/14/2024 Arthritis of big toe (ICD-10 - M19.079) Plan Of Treatment Medication Medication Name Sig Start Date Stop Date Notes Ciclopirox Olamine 0.77 % 1 application Externally Twice a day to skin of feet including between the toes for 30 days Pending Test Test Name Order Date X ray : Foot, right 3V 03/14/2024 Next Appt Details Follow Up: prn, Reason: Progress Notes * Tr CASILLAS ADOB:1955 (68 yo M)Acc No.[id number]:03/14/2024 Progress Notes Patient:?Tr Casillas Provider:?Haleigh Banks DPM :1955???Age:68 Y???Sex:Male Neil e:03/14/2024 Address:[address] [place] [id number] Pcp:Edd Benitez MD Subjective: * Chief Complaints: * ???Painful Toe(s)Skin Proble m * HPI: ???Toe pain:?Nature:?tenderness.?Location:?Right foot.?Duration:?several months.?Course:?worse.?Aggravated by:?any pressure, shoes.?Treatments:?rest/alter normal daily activity, change in shoes.?Skin problems:?Nature:?scaling , redness.?Location:?B/L .?Duration:?several days.?Course:?worse.? * ROS:?General/Constitutional:?Nausea?denies.?Vomiting?denies.?Hunger Thirst?denies.?Loss appetite?denies.?Chills?denies.?Fatigue?denies.?Fever?denies.?Night Sweats?denies.?Unexplained weight loss?denies.?Unexplained [...] removal 1995tympanoplasty 1967 * Hospitalization/Major Diagno stic Procedure:?Denies Past Hospitalization * Family History:?Mother: dece ased, diagnosed with Family history of arthritis, Unspecified essential hypertension, Unspecified cerebral artery occlusion with cerebral infarction.?Father: , diagnosed with Other malignant neoplasm of unspecified site.?Siblings: Foot problems, diagnosed with Other malignant neoplasm of unspecified site.? * Social History:?Tobacco Use:?Tobacco Use/Smoking?Are you a:?nonsmoker ?Tobacco use other than smoking?Are you an other tobacco user??No ???Drugs/Alcohol:?Drugs?Have you used drugs other than those for medical reasons in the past 12 months??No ?Alcohol Screen?Did you have a drink containing alcohol in the past year??Yes ?How often did you have a drink containing alcohol in the past year??2 to 4 times a month (2 points) ?Points?2 ?Interpretation?Negative ???Miscellaneous:?Caffeine: yes, 1-2 cups per day. ?no Exercise. ?Marital status: single. 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 * Medications:?TakingOmeprazol e 20 MG Capsule Delayed Release 1 capsule 1/2 to 1 hour before morning meal Orally Once a dayLevothyroxine Sodium 100 MCG Tablet 1 tablet in the morning on an empty stomach Orally Once a dayamLODIPine Besylate 5 MG Tablet 1 tablet Orally Once a dayAtorvastatin Calcium 40 MG Tablet 1 tablet Orally Once a dayTaking Omeprazole 20 MG Capsule Delayed Release 1 capsule 1/2 to 1 hour before morning meal Orally Once a dayTaking Levothyroxine Sodium 100 MCG Tablet 1 tablet in the morning on an empty stomach Orally Once a dayTaking amLODIPine Besylate 5 MG Tablet 1 tablet Orally Once a dayTaking Atorvastatin Calcium 40 MG Tablet 1 tablet Orally Once a day * Allergies:?N.K.D.A.yes[Aller gies Verified] Objective: * Vitals:?Ht: 5ft 10in, Wt:240 , BMI:34.43, Shoe size: 11, Ht-cm: 177.8 cm, Wt-k.86 kg. * Examination: ???General Examination: ?GENERAL APPEARANCE:?Reveals a pleasant, alert, well-nourished, well- developed, well hydrated individual, who demonstrates proper attention to hygiene/body habitus, and is in no acute distress, Pt serves as own?historian for office visit today.?ORIENTED:?person, place, and time.?Dermatologic: ?SKIN FINDINGS:? Skin shows sign(s) of, erythema, scaling, in a moccasin fashion, no fissure(s) present, B/L?.?Neurological: ?SENSORY:?Neurological exam reveals intact sensorium, pain sensation normal, vibration sensation intact, pinprick sensation is normal in the lower extremities, Pt denies, anesthesia, burning, paresthesia, tingling, B/L.?DEEP TENDON REFLEXES:?Achilles, 2/4, B/L.?Vascular: ?DP PULSES(B):?2/4, B/L.?PT PULSES(B):?2/4, B/L.?CAPILLARY FILL TIME:?immediate, all digits, B/L.?TROPHIC CONDITION-TEXTURE/ELASTICITY/TURGOR/HAIR GROWTH(B):?normal, B/L.?TEMPERTURE GRADIENT(C):?warm to cool, proximal to distal, B/L.?PIGMENTATION:?normal, B/L.?EDEMA(C):?absent, B/L.?Orthopedic: ?MUSCLE STRENGTH:?5/5 all groups in a symmetrical fashion, B/L.?DIGITAL DEFORMITIES:?Digital contracture, PIPJ, 2-5 B/L, reducible with WB, or to push-up test, no over, nor underlapping, Hallux contracture at IPJ, right, tenderness with range motion.?FOOTWEAR:? shoe gear properties exacerbate patients foot/toe deformity.?X-Rays - IMAGING REPORT: ?Clinical Indication(s):? Evaluate Biomechanical Deformity.?Views:? 3 views of Foot, AP, LO, MO, RIGHT.?Findings:? normal bone and soft tissue density consistent for patients age and sex.?Digits:?show asymmetrical joint space narrowing at the IPJ consistent with clinical finding of hammertoe deformity, hallux, show enlarged/hypertrophied phalangeal head(s) consistent for clinical finding of hammertoe deformity.?Fracture:? Negative fractures identified.? 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 Plan: * Treatment: 2.?Tinea pedis of both feet? Start Ciclopirox Olamine Cream, 0.77 %, 1 application, Externally, Twice a day to skin of feet including between the toes, 30 days, 60, Refills 2.?? * Procedure Codes:?58220 X-RAY EXAM OF RIGHT FOOT 3V, Modifiers: 26 , RT * Preventive Medicine:? ??Counseling:?Discussion:?-04: Office or other outpatient visit for the evaluation and management of a new patient, which required a medically appropriate history [...] have encouraged the patient to call the office.?Digital Surgery:?Digital surgery was discussed with the patient, including the risks of surgery(below), vs not having surgery (persistent pain, deformity, risk for skin ulceration/infection, loss of toe), the potential surg complications, the anesthesia, and the usual post-op course. No guarentees were given. We discussed the potential procedure complications including, but not limited to: pain, swelling, bleeding, scarring, numbness, infection, delayed/non healing, floppy/unstable/shorthened toe, recurrence, failure of the procedure, overcorrection leading to plantarflexed/downward positioned toe, recurrence, need for further surgery, as well as the possibility for loss of the toe itself. We discussed the use of local anesthesia, and the usual post-op course for healing. No guarentees were given. The patient verbally indicated a full understanding of the above conversation, and any other of their questions were answered to their satisfaction. Alternatives to the procedure were also discussed, including conservative care. I also discussed the usual post-operative course and gave no guarantees regarding outcome.?Digital Treatment:?HT- I explained to the patient the possible etiologies of Hammertoes, including genetics/foot type/shoegear/activity level/exercise routine and the risks/benefits of all the different treatment options for their pain including: No treatment at all, Rest, Ice, New/supportive/wider/deeper Shoegear, Digital Padding/Strapping/Taping/Bracing/Gel protective sleeves, Foot/Ankle AFO Bracing, Stretching exercises, Deep Tissue Massage, Arch support/shoe inserts with splay metatarsal padding, and Custom orthoses. I insisted that any digital devices be removed daily and not worn overnight for safety. The patient is to carefully examine the toes daily for any skin irritation while using any splinting or padding device. The advantages and disadvantages of each option were discussed and the patients questions re: shoegear, padding, custom vs prefabricated inserts, activity level, and consistency in home treatment regimens for optimal success were answered to their verbally confirmed satisfaction.?Shoe Gear Counseling:?The patient and I reviewed the types of shoes they should be wearing. My recommendation included obtaining a well-fitted shoe with a good supportive, non-foldable nor twistable sole, plenty of toe/room for the forefoot, and proper arch support. Based on todays examination, I recommended the patient look for new shoes, by having their feet professionally measured. We discussed that generally the best time of the day for a shoe fitting is the afternoon. Different shoes types and brands to best match the patients occupation and vocation were discussed. Specific brand selection will be up to the patient, their individual foot condition/deformities, and fit. The patient and I reviewed the standard new shoe break in period by wearing them for a few hours a day while checking for redness or sores as wear time is increased. The patient verbally confirmed to understanding the information discussed.?Tinea Pedis:?The patient was counseled on the diagnosis, potential etiologies, and treatment options for their skin condition. We discussed the risks and benefits of each option from performing no treatment, to utilizing OTC topical skin creams, prescription topical creams, customized compounded topical medications, and, if necessary, to utilize oral antifungal therapy. We discussed the advantages and disadvantages of each possible treatment and importance for adherence to all the recommended therapies for optimum success and avoid potential complications such as open sore/infection/possible hospitalization. We discussed the potential effectiveness of each topical preparation as well as each ones possible side effects and/or patient medication interactions if oral therapy is selected. Patient questions re: the advantages and disadvantages of each treatment choice, medication use/dosage, successful outcomes, and application consistency were reviewed and the patient verbalized that all answers were clearly understood. The patient was told they can help alleviate symptoms by utilizing moisture absorbant innersoles with activated charcoal and baking soda, applying antifungal sprays daily, aerating toe web spaces at night by putting cotton or lambs wool between the toes, alternating shoe gear daily if possible so they can dry out, changing socks at least once during the day, wearing well-ventilated shoes or sandals. The patient has decided to apply antifungal skin creams to their feet as directed. Rx was sent to their pharmacy at the time of visit.? * Follow Up:?prn * Images: * Sign off status: Completed true * Provider:Garcia Banks DPM Date:? Generated for You harris/Phoenix/Moni on:?06/18/2024 11:39 AM EST History and Physical Notes * HPI (History of Present Illness) Category Sub-Category Detail Notes Category Not es Toe pain Nature: tenderness Location: Right foot Duration: several months Course: worse Aggravated by: any pressure, shoes Treatments: rest/alter normal da ramo activity, change in shoes Skin problems Nature: scaling , redness Location: B/L Duration: several days Course: worse Examination Category Sub-Category Detail Notes Category Not es Neurological SENSORY: Neurological exa m reveals intact sensorium, pain sensation normal, vibration sensation intact, pinprick sensation is normal in the lower extremities, Pt denies, anesthesia, burning, paresthesia, tingling, B/L DEEP TENDON REFLEXES: Achilles, 2/4, B/L Dermatologic SKIN FINDINGS: Skin shows sign( s) of, erythema, scaling, in a moccasin fashion, no fissure(s) present, B/L Orthopedic FOOTWEAR: shoe gear proper ties exacerbate patients foot/toe deformity DIGITAL DEFORMITIES: Digital [...] normal, B/L X-Rays - IMAGING REPORT Findings: normal b one and soft tissue density consistent for patients age and sex Fracture: Negative fractures i dentified Digits: show asymmetrical jamee int space narrowing at the IPJ consistent with clinical finding of hammertoe deformity, hallux, show enlarged/hypertrophied phalangeal head(s) consistent for clinical finding of hammertoe deformity Views: 3 views of Foot, AP, LO, MO, RIGHT Clinical Indication(s): Evaluate Biomech anical Deformity
--- OUTSIDE RECORDS SUMMARY | 2024-06-18 11:40 | XMS_ITS ---
Author Organization Edd Benitez MD Address [address] [place] [address] Drive [address] [place] [phone] Care Team Providers Care Prehemmer Name Role Phone Edd Benitez Primary Care Provider Medications Medication SIG (Take, Route, Fr equency, Duration) Notes Start Date End Date Status Omeprazole 20 MG 1 capsule 30 minutes before morning meal Orally Once a day for 90 days 06/15/2023 Active Encounters Encounter Location Date Provider Diagnosis Edd Benitez MD [address] [place] [address] [place] [phone] 03/21/2024 Edd Benitez Gastroesophageal ref lux disease [...] 06/15/2023 Next Appt Details Provider Name:Edd escamilla, 06/21/2024 10:45:00 AM, [address] [place] [address], [address], [phone], Provider Name:Edd escamilla, 12/13/2024 08:00:00 AM, [address] [place] [address], [address], [phone], Provider Name:Edd escamilla, 12/20/2024 11:00:00 AM, [address] [place] [address], [address], [phone], Progress Notes * SONJAEMILIA FOLEY ADOB:1955 (68 yo M)Acc No.[id number]:03/21/2024 Patient:?EMILIA CASILLAS :1955???Age:68 Y???Sex:Male Address:[address] [place] [address], [address] * Refills? Refill Omeprazole Capsule Delayed Release, 20 MG, Orally, 90, 1 capsule 30 minutes before morning meal, Once a day, 90 days, Refills=4 * true * Date:? Generated for You harris/Phoenix/Shansmitting on:?06/18/2024 11:40 AM EST
--- OUTSIDE RECORDS SUMMARY | 2024-06-18 11:40 | XMS_ITS | Continuity of Care Document ---
Author Organization [facility] Address [address] [place] [address] Phone Care Team Providers Care Dredge Mate Name Role Phone Tanner Tierney MD Unavailable [...] Estab Mod-hi 2 [facility], [address] [place], [place], [id number] , tel: [phone] [place] [facility] BPH (chief complaint) Enlarged prostate without lower urinary tract symptoms 2 Niall Hart. [address] [facility], [address] [place] [address], [address], . tel:[phone] Referring Provider: Tanner Olmstead, [address] [facility] [address] [place] [address], [address]. tel:[phone] [facility], [address] [place], [place], [id number] , [place] tel: [phone] [place] [facility] BPH (chief complaint) Enlarged prostate without lower urinary tract symptoms 2 Niall Hart. [address] [place] [address], [address] [place] [address], [address], . tel:[phone] Referring Provider: Tanner Olmstead, [address] [place] [address] Suite [facility], [place], [address]. tel:[phone] Office E&m Estab Mod-hi 2 [facility], [address] [place], [place], [id number] , [place] tel: [phone] [place] [facility] 7 Kidney stones (chief complaint) Elevated prostate specific antigen [PSA]Calculus of kidneyEnlarged prostate without lower urinary tract symptoms 1 Niall Hart. [address] [place] [address], [address], [address], [place]. tel:[phone] Referring Provider: Tanner Olmstead, [address] [place] [address], [address]. tel:[phone] [facility], [address] [place], [place], [id number] , [place] tel: [phone] [facility] [facility] 7 Kidney stones (chief complaint) Calculus of kidney 1 Niall Hart. [address] [place] [address], [address], [address], [place]. tel:[phone] Referring Provider: Amos Shannon, [address], [place], [address]. tel:[phone] [facility], [address] [place] [address], [id number] , [place] tel: [phone] [place] [facility] No Information 1 Niall Hart. [address] [place] [address], [address], [address], [place]. tel:[phone] Office E&m Estab Mod-dc 2 [facility], [address] [place] [address], [id number] , [place] tel: [phone] [place] [facility] BPH (chief complaint)Er ectile dysfunction (chief complaint)Pr ostate cancer (chief complaint) Dietary counseling and surveillanceCalcu masood of kidney Dec-3 0-[address], [address], [address], [place]. tel:[phone] Referring Provider: Amos Shannon, [address], [place], [address]. tel:[phone] [facility], [address] [place] [address], [id number] , tel: [phone] [place] [facility] 7 Elevated PSA (chief complaint) Elevated prostate specific antigen [PSA] Dec-[address], [address], [address], [place]. tel:[phone] Referring Provider: Elisha Melton [address], [place], [address]. tel:[phone] Office E&m [facility] 2 [facility], [address] [place] [address], [id number] , [place] tel: [phone] [place] [facility] 7 BPH (chief complaint)Er ectile dysfunction (chief complaint)Pr ostate cancer (chief complaint) Enlarged prostate without lower urinary tract symptoms Sep[facility]0 [facility] [address], [address], [address], [place]. tel:[phone] Referring Provider: Elisha Melton [address], [place], [address]. tel:[phone] [facility], [address] [place] [address], [id number] , [place] tel: [phone] [place] [facility] No Information Sep-0 [address], [address], [address], . tel:[phone] Office E&m Estab Mod-hi 2 [facility], [address] [place], [place], [id number] , [place] tel: [phone] [place] [facility] 7 BPH (chief complaint)El evated PSA (chief complaint) Elevated prostate specific antigen [PSA] [address], [address], [address], [place]. tel:[phone] Referring Provider: Amos Shannon, [address], [place], [address]. tel:[phone] Office E&m Estab Mod-hi 2 [facility], [address] [place] [address], [id number] , [place] tel: [phone] [place] [facility] 7 Flank pain (chief complaint) Enlarged prostate without lower urinary tract symptoms [address], [address], [facility], . tel:[phone] Referring Provider: Amos Shannon, [address], [place], [address]. tel:[phone] [facility], [address] [place] [address], [id number] , [place] tel: [phone] [place] [facility] 7 Calculus of kidney [address], [address], [address], [place]. tel:[phone] Referring Provider: Amos Shannon, [address], [place], [address]. tel:[phone] Office E&m Estab Mod-hi 2 [facility], [address] [place] [address], [id number] , [place] tel: [phone] [place] [facility] 7 Flank pain (chief complaint) Calculus of kidney Sep-2 [address], [address], . tel:[phone] Referring Provider: Amos Shannon, [address], [place], [address]. tel:[phone] Office E&m [facility]-dc 2 [facility], [address] [place] [address], [id number] , tel: [phone] [place] [facility] 7 Elevated PSA (chief complaint) Dietary counseling and surveillanceEssen tial (primary) hypertensionEnlar ged prostate without lower urinary tract symptoms [address], [address], [place]. tel:[phone] Referring Provider: Amos Shannon, [address] [facility], [place], [facility]. tel:[phone] [facility] [place], [address] [place] [address], [id number] , tel: [phone] [place] [facility] 7 Elevated prostate specific antigen [PSA] [address], [address], [place]. tel:[phone] Office E&m [facility]-dc 2 [facility], [address] [place] [address], [id number] , tel: [phone] [place] [facility] 7 BPH (chief complaint)Ki dney stones (chief complaint) Elevated prostate specific antigen [PSA] [address], [address], [address], [place]. tel:[phone] Referring Provider: Amos Shannon, [address], [place], [facility]. tel:[phone] [facility], [address] [place] [address], [id number] , tel: [phone] [place] [facility] 7 Enlarged prostate without lower urinary tract symptoms [address], [place], [address], . tel:[phone] Referring Provider: Amos Shannon, [address], [place], [address]. tel:[phone] Office E&m [facility] [place], [address] [place] [address], [id number] , [place] tel:[phone] [place] [facility] 7 BPH (chief complaint)Ki dney stones (chief complaint) Calculus of kidney [address], [address], [address], [place]. tel:[phone] Referring Provider: Amos Shannon, [address] [facility], [place], [address]. tel:[phone] [facility], [address] [place] [address], [id number] , [place] tel: [phone] [place] [facility] 7 Enlarged prostate without lower urinary tract symptoms [address], [address], [address], [place]. tel:[phone] Referring Provider: Amos Shannon, [address], [place], [address]. tel:[phone] Office E&m [facility] [place], [address] [place] [address], [id number] , [place] tel:[phone] [place] [facility] 7 BPH (chief complaint) Enlarged prostate without lower urinary tract symptoms [address], [address], [address], [place]. tel:[phone] Referring Provider: Elisha Mel[address] [facility], [place], [address]. tel:[phone] [facility], [address] [place] [address], [id number] , [place] tel: [phone] [place] [facility] Elevated prostate specific antigen [PSA] [address], [address], [address], . tel:[phone] Referring Provider: [address], [place], [address]. tel:[phone] Offic Cons New/estab Low 30 Mi [facility], [facility] [place], [id number] , [place] tel: [phone] [place] [facility] 7 BPH (chief complaint)El evated PSA (chief complaint)Pr ostatitis (chief complaint) Elevated prostate specific antigen [PSA]Dietary counseling and surveillanceEssen tial (primary) hypertension [address], [address], [address], . tel:[phone] Referring Provider: [address], [place], [address]. tel:[phone] [facility], [address] [place] [address], [id number] , [place] tel: [phone] [place] [facility] No Information [address], [address], [address], . tel:[phone] Office E&m Estab Minor 10 [facility], [address] [place] [address], [id number] , [place] tel: [phone] [place] [facility] 7 Prostate Screening for Cancer [address], [address], [address], [place]. tel:[phone] Referring Provider: [address], [place], [address]. tel:[phone] [facility], [address] [place] [address], [id number] , tel: [phone] [place] [facility] 7 Renal Calculus Sep 5-200 9 [facility]. [address] [place] [address], [address] [place] [address], [address], [place]. tel:[phone] Referring Provider: Amos Shannon, [address], [place], [address]. tel:[phone] [facility], [address] [place], [id number] , [place] tel: [phone] [facility]. Renal Calculus 7200 9 Curttha Andrae. [address] [place], [address], [place]. tel:[phone] Referring Provider: Amos Shannon, [address], [place], [address]. tel:[phone] Office E&m Estab Low-mod [facility], [address] [place] [address], [id number] , [place] tel: [phone] [place] [facility] No Information 0200 9 Niall Hart. [address] [place] [address], [address], [address], [place]. tel:[phone] Referring Provider: Amos Shannon, [address], [place], [address]. tel:[phone] [facility], [address] [place] [address], [id number] , [place] tel: [phone] [place] [facility] Renal Calculus 200 9 Shantha Andrae. [address] [place], [address], [place]. tel:[phone] Referring Provider: Tanner Olmstead, [address] [facility] [address] [place] [address], [address]. tel:[phone] Level 4- [facility] Office [facility], [address] [place] [address], [id number] , [place] tel: [phone] [place] [facility] No Information 9 Niall Hart. [address] [place] [address], [address], [address], [place]. tel:[phone] Referring Provider: Amos Shannon, [address], [place], [address]. 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 emigdio RK on kub offe red litho no pain wants to wait psa end 2017 Related to Calculus of kidney tiny sebaceous cyst perineum no infection looks niormal normal layne Related to Elevated prostate specific antigen [PSA] Giving encouragement to exercise Related to Hypertension, Unspecified Giving encouragement to exercise 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 Patient Care Teams Name Effective Dates (start - stop) Status Members No Information
--- OUTSIDE RECORDS SUMMARY | 2024-06-18 11:40 | XMS_ITS | Patient Health Record ---
Author Organization Edd Benitez MD Address [address] [place], [place] [id number] Care Team Providers Care Adobe Architect Name Role Phone Edd Benitez Primary Care Provider Allergies No Known Allergies Results Component Value Reference Range Notes PSA Free and Total Reviewed date:12/12/2023 12:17:30 PM Interpretation: Performing Lab:[facility], [address] [place] [phone] Notes/Report: Prostate Specific Ag Total 6.2 < OR = 4.0 ng/ mL Percent Free Prostate Spec Ag 26 >25 % (calc ) PSA(ng/mL) Free PSA(%) Estimated(x) Probability of Cancer(as%) 0-2.5 (*) Approx. 1 2.6-4.0(1) 0-27(2) 24(3) 4.1-10(4) 0-10 56 11-15 28 16-20 20 21-25 16 >or =26 8 >10(+) N/A >50 References:(1)Yang et al.:Urology 60: 469-474 (2002) (2)Yang et al.:J.Urol 168: 922-925 (2001) Free PSA(%) Sensitivity(%) Specificity(%) < or = 25 85 19 < or = 30 93 9 (3)Yang et al.:AMISHA 277: 8456-3726 (1996) (4)Catalona et al.:AMISHA 279: 8105-1363 (1997) (x)These estimates vary with age, ethnicity, family history and PABLITO results. (*)The diagnostic usefulness of % Free PSA has not been established in patients with total PSA below 2.6 ng/mL (+)In men with PSA above 10 ng/mL, prostate cancer risk is determined by total PSA alone. The Total PSA value from this assay system is standardized against the equimolar PSA standard. The test result will be approximately 20% higher when compared to the WHO-standardized Total PSA (Siemens assay). Comparison of serial PSA results should be interpreted with this fact in mind. PSA was performed using the Tomi [place] Immunoassay method. Values obtained from different assay methods cannot be used interchangeably. PSA levels, regardless of value, should not be interpreted as absolute evidence of the presence or absence of disease. THIS TEST WAS PERFORMED AT: [facility] [address] [place] [phone] VAN RAMIREZ MD Free Prostate Spec Ag 1.6 Free T4 (Free Thyroxine) Reviewed date:12/11/2023 12:33:36 PM Interpretation: Performing Lab:[facility], [address] [place] [phone] Notes/Report: Free T4 (Free Thyroxine) 0.95 0.71-1.85 ng/dL Complete Blood Count Auto Di ff Reviewed date:12/11/2023 12:41:37 PM Interpretation: Performing Lab:[facility], [address] [place] [phone] Notes/Report: White Blood Count 5.7 4.8-10.8 X10*3/uL Red Blood Count 4.21 4.60-5.80 X10*6/uL Hemoglobin 14.0 14.0-18.0 g/dl Hematocrit 42.0 42.0-52.0 % Mean Corpuscular Volume 99.8 80.0-98.0 fL Mean Corpuscular Hemoglobin 33.3 27.0-33.0 pg Mean Corpuscular HGB Conc 33.3 31.0-36.0 g/dl Red Cell Distribution Width 13.2 11.0-16.0 % Platelet Count 254 160-400 X10*3/uL Mean Platelet Volume 10.5 9.4-12.4 fL Neutrophils Percent Auto 47.1 45-73 % Imm Gran Pct Auto 0.5 0.0-0.4 % Lymphocytes Percent Auto 32.0 20-40 % Monocytes Percent Auto 13.5 2-11 % Eosinophils Percent Auto 6.2 0-4 % Basophils Percent Auto 0.7 0-2 % NRBC Pct Auto 0.0 0.0-0.2 /100WBC Neutrophils Absolute Auto 2.7 2.0-8.3 x10*3/u L Imm Gran Abs Auto 0.03 0.00-0.03 X10*3/uL Lymphocytes Absolute Auto 1.8 1.2-4.9 X10*3/u L Monocytes Absolute Auto 0.8 0.1-1.2 X10*3/uL Eosinophils Absolute Auto 0.4 0.0-0.4 X10*3/u L Basophils Absolute Auto 0.0 0.0-0.2 X10*3/uL NRBC Abs Auto 0.000 0.0-0.012 X10*3/uL Comprehensive Darragh. Panel Fa Reviewed date:12/11/2023 12:40:59 PM Interpretation: Performing Lab:[address] [phone] Notes/Report: Sodium 141 135-145 mmol/L Potassium 3.9 3.3-5.1 mmol/L Chloride 109 96-108 mmol/L Carbon Dioxide 22 22-29 mmol/L Anion Gap 14 12-20 Blood Urea Nitrogen 14 9-16 mg/dL Creatinine 1.14 0.5-1.4 mg/dL Estimated Glomerular Filt Rate > 60 NOTE: For -Nepalese individuals, multiply the result by 1.210. Chronic Kidney Disease: Estimated GFR < 60 mL/min/1.73m2 Severe Kidney Disease: Estimated GFR < 15 mL/min/1.73m2 Glucose Fasting 89 60-99 mg/dL Calcium 9.5 8.4-10.2 mg/dL Bilirubin Total 0.4 0.0-1.0 mg/dL Aspartate Amino Transferase 26 5-37 U/L Alanine Aminotransferase 28 0-40 U/L Total Protein 7.4 6.5-8.0 g/dL Albumin Level 4.3 3.5-5.0 g/dL Alkaline Phosphatase 59 39-117 U/L Lipid Panel Reviewed date:12/11/2023 12:37:36 PM Interpretation: Performing Lab:[address] [phone] Notes/Report: Triglycerides 110 <150 mg/dL Desirable Triglyceride: less than 150 mg/dL Borderline High Triglyceride 150-199 mg/dL High Triglyceride: 200-499 mg/dL Very High Triglyceride: greater than or equal to 5OO mg/dL Cholesterol 150 <200 mg/dL Desirable Cholesterol: less than 200 mg/dL Borderline High Cholesterol: 200-239 mg/dL High Cholesterol: greater than 239 mg/dL LDL Cholesterol Calculated 79 <100 mg/dL Desirable LDL: less than 100 mg/dL Near Optimal/Above Optimal LDL: 110-129 mg/dL Borderline High LDL: 130-159 mg/dL High LDL: 160-189 mg/dL Very High LDL: greater than or equal to 190 mg/dL HDL Cholesterol 49 >40 mg/dL Desirable HDL: greater than 40 mg/dL Note: This HDL assay may give artificially low results in patients with liver disease. PSA,Total (Free>4and<10) Reviewed date:12/11/2023 12:36:31 PM Interpretation: Performing Lab:[facility], [address] [place] [phone] Notes/Report: PSA,Total (Free>4and<10) 5.15 0.00-4.00 ng/mL PSA methodology: [place] Alinity i Chemiluminescent Microparticle Immunoassay (CMIA) TSH reflex Free T4 Reviewed date:12/11/2023 12:34:30 PM Interpretation: Performing Lab:[facility], [address] [place] [phone] Notes/Report: TSH reflex Free T4 4.40 0.32-4.0 uIU/mL UA ClnCatch+Micro w/rflx Cul t Reviewed date:12/11/2023 05:37:16 PM Interpretation: Performing Lab:[facility], [address] [place] [phone] Notes/Report: Urine, Clean Catch Color Urine Yellow Appearance Urine Clear PH 5.5 5.0-9.0 Glucose Urine UA Negative Negative mg/dL Urine Blood Negative Negative Specific Munden - Urine 1.015 1.005-1.025 Urine Protein Negative Neg-Trace mg/dL Urine Ketones Negative Negative mg/dL Nitrite Urine Negative Negative Leukocyte Esterase Urine Negative Negative RBC Urine 0-2 0-2 /HPF WBC Urine 0-5 0-5 /HPF Squamous Epithelial Cell Urine 0-2 0-2 /HPF Bacteria Urine None Seen None Seen Hyaline Casts Urine 0-2 0-2 /LPF Occult Blood, Stool, Guaiac Reviewed date:01/15/2024 02:57:39 PM Interpretation:Negative Performing Lab: Notes/Report: Negative Occult Blood, Stool, Guaiac Neg x2 Hold Gold (Not yet reviewed by provider) Interpretation: Performing Lab:[facility], [address] [place] [phone] Notes/Report: Hold Gold See Note Specimen held untested for 24 hours; Call to request Chemistry testing. Reason For Referral No Information Medications Medication SIG (Take, Route, Frequency, Duration) Notes Start Date End Date Status Indomethacin 50 MG 1 capsule with food or milk Orally 3 times a day for 10 days 01/08/2024 Active amLODIPine Besylate 5 MG TAKE 1 TABLET B Y MOUTH EVERY DAY FOR 90 DAYS Orally Once a day for 90 days Active Omeprazole 20 MG 1 capsule 30 minutes before morning meal Orally Once a day for 90 days 06/15/2023 Active Levothyroxine Sodium 100 MCG TAKE 1 TABL ET BY MOUTH EVERY DAY IN THE MORNING ON EMPTY STOMACH Orally Once a day for 90 days Active Atorvastatin Calcium 40 MG TAKE 1 TABLET BY MOUTH EVERY DAY FOR 90 DAYS Orally Once a day Active Immunizations Vaccine Route Administration Date Status Comme nts SARS-COV-2 Moderna Unknown 07/08/2020 Administered SARS-COV-2 Moderna Unknown 08/05/2020 Administered SARS-COV-2 Moderna Unknown 03/17/2021 Administered Fluarix Quadrivalent Unknown 02/06/2022 Administered Influenza High Dose Unknown 12/30/2022 [facility] SARS-COV-2 Moderna Unknown 12/30/2022 [facility] RSV Unknown 05/17/2023 [facility] Prevnar 20 Unknown 12/01/2023 [facility] Social History Tobacco Use: Social History Observation Description Date Details (start date - stop date) Never Smoker NA - NA Tobacco Use/Smoking Question Answer Notes Patient is a nonsmoker Additional Findings: Tobacco Non-User Cu rrent non-smoker, currently using no form of tobacco Alcohol Screen Question Answer Notes Did you have a drink contain ing alcohol in the past year? Yes How often did you have a dri nk containing alcohol in the past year? Monthly or less (1 point) How many drinks did you have on a typical day when you were drinking in the past year? 1 or 2 drinks (0 point) How often did you have 6 or more drinks on one occasion in the past year? Never (0 point) Points 1 Interpretation Negative Problems Problem Type SNOMED Code ICD Code Onset Dates Problem Status W/U Status Risk Notes Problem 938910054 Lumbar disc dise ase (M51.9) Active confirmed Problem 113932620 Gastroesophageal reflux disease without esophagitis (K21.9) Active confirmed Problem 101586424 Acquired hypothyroidism (E03.9) Active confirmed Problem 15787604 Hypercholesterem ia (E78.00) Active confirmed Problem 46144189 Acute idiopathic gout involving toe, unspecified laterality (M10.079) Active confirmed Problem 095966514 Gastroesophageal reflux disease with esophagitis without hemorrhage (K21.00) Active confirmed Problem 46566115 Primary hyperten yusef (I10) Active confirmed Problem 77629033 Disc disease, degenerative, lumbar or lumbosacral (M51.37) Active confirmed Vital Signs Blood pressure diastolic 80 mm Hg 01/08/2024 rigoberto ght is down 5 pounds since 12-15-23 Height 70.5 in 01/08/2024 weight is down 5 pounds since 12-15-23 Blood pressure systolic 122 mm Hg 01/08/2024 weig ht is down 5 pounds since 12-15-23 Weight 245 lbs 01/08/2024 weight is down 5 pounds since 12-15-23 BMI 34.65 kg/m2 01/08/2024 weight is down 5 pounds since 12-15-23 Encounters Encounter Location Date Provider Diagnosis Edd Benitez MD [address] [place] [address] Drive [address] [place] [id number] 12/11/2023 Edd Benitez Hypercholesteremia E 78.00 ; Acquired hypothyroidism E03.9 and Primary hypertension I10 Edd Benitez MD [address] [place] [address] Drive [address] [place] [id number] 06/18/2024 Edd Benitez Hypercholesteremia E 78.00 Edd Benitez MD [address] [place] [address] Drive [address] [place] [id number] 12/15/2023 Edd Benitez Primary hypertension I10 ; Hypercholesteremia E78.00 ; Acquired hypothyroidism E03.9 ; Gastroesophageal reflux disease with esophagitis without hemorrhage K21.00 ; Colon cancer screening Z12.11 and Encounter for screening for depression Z13.31 Edd Benitez MD [address] [place] [id number] 01/08/2024 Edd Benitez Acute idiopathic gou t involving toe, unspecified laterality M10.079 Edd Benitez MD [address] [place] [id number] 09/11/2023 Edd Benitez MD [address] [place] [id number] 12/25/2023 Edd Benitez Colon cancer screeni ng Z12.11 Edd Benitez MD [address] [place] [id number] 02/16/2024 Edd Benitez Acquired hypothyroid ism E03.9 Edd Benitez MD [address] [place] [id number] 03/21/2024 Edd Benitez Gastroesophageal ref lux disease with esophagitis without hemorrhage K21.00 Edd Benitez MD [address] [place] [id number] 04/09/2024 Edd Benitez Primary hypertension I10 Assessments Encounter Date Diagnosis (ICD Code) Assessment Notes Treatment Notes Treatment Clinical Notes Section Notes 12/11/2023 Hypercholesteremia (ICD-10 - E78.00) 12/11/2023 Acquired hypothyroidism (ICD-10 - E03.9) 06/18/2024 Hypercholesteremia (ICD-10 - E78.00) 12/15/2023 Primary hypertension (ICD-10 - I10) has done well on meds, will contonue current regiment 12/15/2023 Hypercholesteremia (ICD-10 - E78.00) doing well, will continue current regiment 01/08/2024 Acute idiopathic gou t involving toe, unspecified laterality (ICD-10 - M10.079) patient verbalized understanding of medication and directions for use 12/25/2023 Colon cancer screening (ICD-10 - Z12.11) 02/16/2024 Acquired hypothyroidism (ICD-10 - E03.9) 03/21/2024 Gastroesophageal reflux disease with esophagitis without hemorrhage (ICD-10 - K21.00) 04/09/2024 Primary hypertension (ICD-10 - I10) 12/11/2023 Primary hypertension (ICD-10 - I10) 12/15/2023 Acquired hypothyroidism (ICD-10 - E03.9) doing well tsh slightly high. will observe 12/15/2023 Gastroesophageal reflux disease with esophagitis without hemorrhage (ICD-10 - K21.00) stable, will cntinbue current regiment 12/15/2023 Colon cancer screening (ICD-10 - Z12.11) no stool, sent home good cards, to return to office 12/15/2023 Encounter for screening for depression (ICD-10 - Z13.31) negative screen Plan Of Treatment Pending Test Test Name Order Date CT ABD WITH CONTRAST 02/18/2022 CT ABD W&WO CONTRAST 02/04/2022 CT ABD & PELVIS WWO CONTRAST 02/21/2022 Liver Panel 06/18/2024 Lipid Panel with Reflex 06/18/2024 Hold Gold 06/18/2024 Next Appt Details Provider Name:Edd alvarezr, 06/21/2024 10:45:00 AM, [address] [place] [address], [address], [phone], Provider Name:Edd Briggs ier, 12/13/2024 08:00:00 AM, [address] [place] [address], [address], [phone], Provider Name:Edd Briggs ier, 12/20/2024 11:00:00 AM, [address] [place] [address], [address], [phone], Insurance Providers Payer Name Payer Address Payer Phone Subscriber Number Group Number Insured Name Patient Relationship to Insured Coverage Start Date Coverage End Date MEDICARE NHIC [address] [place] [address] [id number] EMILIA CASILLAS Self - patient is the insured [facility] [address] [place] [address] [id number] EMILIA CASILLAS Self - patient is the insured Medical (General) History Medical History History ICD Code colonoscopy 2020 due in 2024 psa 2020 was 4
--- OUTSIDE RECORDS SUMMARY | 2024-06-18 11:40 | XMS_ITS ---
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 Generated for Billyi kimberly/Jenniferg/eTransmitting on:?06/18/2024 11:40 AM EST
--- OUTSIDE RECORDS SUMMARY | 2024-06-18 11:41 | XMS_ITS | Data Portability ---
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 Audiometric testing repeated today which shows bilateral mixed hearing loss, the majority of which is conductive in nature. We discussed the likelihood that the conductive component of the hearing loss could be due to ossicular erosion or fixation and that the conductive component of the hearing loss has a possibility of remedied surgically. Patient is very interested in learning more about surgical options, so I will obtain CT scan of the temporal bones to assess the status of the ossicular chain and middle ear spaces. We would then be able to discuss surgical options in more detail which could include ossiculoplasty versus laser stapedotomy with vein graft. [email or web address] Not available 11/09/2023 17:17:58 02/22/2024 02/22/2024 Both tympanic membranes show some scarring, but otherwise no signs of significant tympanic membrane or middle ear pathology. CAT scan of the temporal bones shows absent incus bilaterally, related to his childhood ear operations. No other signs of pathology in the middle ear or inner ear. Today I spoke with the patient at length about the physical findings, audiometric findings and radiologic findings. We went over his last audiogram in detail. We discussed the options of continued observation using his current hearing aid technology versus getting new hearing aids versus proceeding with transcanal ossiculoplasty. The pros and cons of each of these options were discussed at length. Risks and benefits of ossiculoplasty discussed in detail.. We specifically discussed the fact that he has a baseline level of high-frequency sensorineural hearing loss which will likely still require amplification even with a perfect ossiculoplasty result. We discussed the indications for ossiculoplasty and discussed some of the methods for reconstructing the ossicular chain, including the use of titanium or hydroxyapatite prostheses. We discussed the risks that despite the procedure, the patient may be left with a persistent hearing loss which can range from mild to severe. We discussed the risks, benefits, and complications associated with this surgery including the risks of bleeding, infection, implant extrusion or migration, taste disturbance, temporary or permanent facial nerve paralysis or paresis, cerebrospinal fluid leak, encephalocele, temporary or permanent tinnitus, temporary or permanent conductive or sensorineural hearing loss, temporary or permanent balance disturbance, and need for reoperation. After full discussion, he would like to go home and think about his options prior to considering any further intervention. I did offer to set up a hearing aid evaluation with one of our audiologists to discuss new hearing aid technology, but he did not want to set this up at the moment. He will contact us through the portal if he would like to proceed with a hearing aid evaluation or proceed with surgery. [email or web address] Not available 02/22/2024 14:25:44 Plan of Treatment Reminders Order Date Submit Date Provider Last Modified By Organization Details Last Modified Time Details Appointments None recorded. Lab None recorded. Referral None recorded. Procedures None recorded. Surgeries None recorded. Imaging CT, temporal bone, w/o contrast 2023 024 [email or web address] Not available 15:46:02 Medication Orders None recorded. Patient TargetsNo targets recorded. Patient InstructionsNo instructions recorded. Reason for Referral None Reported. Results Created Date Observation Date Name Description Value Unit Range Abnormal Flag Note LastModifiedBy Organization Detail LastModifiedTime 11/20/19 24 03/13/2023 audio gram No observ ation record ed. [email or web address] Not Available 05/2023 15:47:44 12/22/19 24 11/09/2023 audio gram No observ ation record ed. [email or web address] Not Available 2023 21:34:19 03/11/20 24 02/22/2024 CT, tempo ral bone, w/o contr ast No observ ation record ed. [email or web address] [facility] [address] [address], [place], [address], 03/12/2024 08:28:57 Result Notes None recorded. Problems Name Problem SNOMED Code Status Onset Date Resolution Date Notes Provider Name and Address Organization Details Recorded Time Mixed conductive and sensorineural hearing loss, bilateral 153741475 Active 2023 AWA BAILEY MD [address] [place] [address], [phone], [facility] 4 15:50:39 Partial loss of ear ossicles 96001697 Active 2023 AWA BAILEY MD [address] [place] [address], [phone], [facility] 14:23:59 Problem Notes None recorded. Procedures Surgical History Date Name Laterality Status Provider Name and Address Organization Details Recorded Time 02/22/[address] temporal bones - Xoran completed AWA BAILEY MD [address] [place] [address], [phone], [facility] 02/22/2024 13:36:35 02/22/20 24 Air & Bone Audio (96264) completed AWA BAILEY MD [address] [place] [address], [phone], [facility] 02/21/2024 21:34:31 02/22/20 24 Tymps & Reflexes (19828) completed AWA BAILEY MD [address] [place] [address], [phone], [facility] 02/21/2024 21:34:32 02/22/20 24 SRT & Speech Recognition (12599) completed AWA BAILEY MD [address] [place] [address], [phone], [facility] - [facility] 02/21/2024 21:34:32 11/09/19 24 Air & Bone Audio (93747) completed Carin Sanchez [place] - [facility] 11/09/2023 16:52:09 11/09/19 24 Tymps & Reflexes (97914) completed Carin Sanchez [place] - [facility] 11/09/2023 16:51:42 11/09/19 24 SRT & Speech Recognition (38536) completed Carin Sanchez [place] - [facility] 11/09/2023 16:52:24 Ear Surgery completed AWA BAILEY MD 100 [facility], [place], [phone], [facility] - [facility] 11/09/2023 16:55:22 cholecystectomy completed Connie Garber [place] - [facility] 11/09/2023 15:35:12 Imaging Results Imaging Date Name Status LastModified by Organiz ation Details LastModified Time 03/13/2023 audiogram completed [email or web address] Information not available 11/20/2023 15:47:44 11/09/2023 audiogram completed [email or web address] Information no t available 02/21/2024 21:34:19 02/22/2024 CT, temporal bone, w/o contrast completed [email or web address] [facility], [place], [address], 03/12/2024 08:28:57 Procedure Notes None recorded. Medical Equipment None Reported. Allergies No known drug allergies Medications Name Sig Start Date Stop Date Status Note LastModified by Organization Details LastModified Time atorvastatin 40 mg tablet Take 1 tablet every day by oral route. active Not Available Not Available No t Available amlodipine 5 mg tablet Take 1 tablet every day by oral route. active Not Available Not Available No t Available omeprazole 20 mg capsule,delayed release Take 1 capsule every day by oral route. active Not Available Not Available No t Available levothyroxine 100 mcg capsule Take 1 capsule every day by oral route. active Not Available Not Available No t Available Vitals Date Recorded Body height Body weight Provider Name and Address Organization Details Last Updated DateTime 11/09/2023 179.07 cm 173749.32 g Connie Garber [place] - [facility] 11/09/2023 15:37:06 Date Recorded Body height Body weight Provider Name and Address Organization Details Last Updated DateTime 02/22/2024 179.07 cm 261888.13 g Connie Garber [place] - [facility] 02/22/2024 13:59:32 Social History None recorded. Functional Status None recorded. Mental Status None recorded. Family History Nothing Reported. Medical History Condition Response Thyroid Problems Y Hypertension Y Kidney Disease Y GERD/Reflux Y Past Encounters Encounter ID Performer Location Encounter Start Date Encounter Closed Date Diagnosis/Indication Diagnosis SNOMED-CT Code Diagnosis ICD10 Code Diagnosis Note [id number] AWA BAILEY MD [facility] [address] [place] [address] 11/09/2023 14:56:16 11/09/2023 17:03:18 Mixed conductive and sensorineural hearing loss, bilateral 143619992 H90.6 Audiologic al evaluation results: Right ear: {{Normal* Mild Moder ate Modera tely-sever e Severe P rofound}} {{hearing sloping to a mild slopi ng to a moderate s loping to moderately severe slo ping to severe slo ping to profound* flat high frequency low frequency mid frequency cookie bite salazar curve}} {{with sen sorineural hearing loss with condu ctive hearing loss with mixed hearing loss with*}} {{excellen t* good fa ir poor no t measurable }} word recognitio n. Left ear: {{Normal M ild* Moder ate Modera tely-sever e Severe P rofound}} {{hearing sloping to a mild slopi ng to a moderate s loping to moderately severe slo ping to severe* sl oping to profound f lat high frequency low frequency mid frequency cookie bite salazar curve}} {{with sen sorineural hearing loss with condu ctive hearing loss with mixed hearing loss with*}} {{excellen t* good fa ir poor no t measurable }} word recognitio n. Tympanomet ry: Right Ear:{{Type A* Type As Type Ad Type C Type C, shallow & rounded Ty pe B Type B with large volume Cou ld not maintain a hermetic seal}} Left Ear:{{Type A* Type As Type Ad Type C Type C, shallow & rounded Ty pe B Type B with large volume Cou ld not maintain a hermetic seal}} AWA BAILEY MD [facility] [address] [place] [address] 02/22/2024 12:53:08 02/22/2024 14:24:26 Mixed conductive and sensorineural hearing loss, bilateral 043403891 H90.6 Partial lo ss of ear ossicles 18131049 H74.323 Health Concerns Section Related Observation LastModified by Organization Detai ls LastModified Time None Recorded Concern Status LastModified by Organization Details LastModified Time None Recorded Advance Directives Directive None Recorded Payers Encounter Date Sequence Insurance Name Policy Number Policy Ramirez Covered Member ID Ramirez Member ID Guarantor Name 11/09/2023 2 [place] [facility] Tr Julio [id number] Tr Julio 11/09/2023 1 [place] [employer] Robert Julio [id number] Tr Julio 02/22/2024 2 [place] [facility] Tr Julio [id number] Tr Julio 02/22/2024 1 [place] [employer] Robert Julio [id number] Tr Julio Notes Date Note Type Note Provider Name and Address Organization Details Recorded Time 11/09/2023 text/html 68-year-old male referred for evaluation of his hearing. Patient had chronic childhood ear infections requiring operations on both of his ears when he was in grade school. He began wearing hearing aids in his early 50s and is now on his third set of hearing aids. Currently moved to the area and establish care with [facility] [employer] [facility]. Audiogram 8 months ago showed bilateral mixed hearing loss with a rather significant conductive component bilaterally. Patient referred to me for further evaluation of his ears. No recent pain or discharge AWA BAILEY MD [address], [address], [place] - [facility] 11/09/2023 17:18:34 02/22/2024 text/html 68-year-old male referred for evaluation of his hearing. Patient had chronic childhood ear infections requiring operations on both of his ears when he was in grade school. He began wearing hearing aids in his early 50s and is now on his third set of hearing aids. Currently moved to the area and establish care with [facility]. Audiogram back in October showed bilateral mixed hearing loss with a rather significant conductive component bilaterally. Patient comes in today for CAT scan of the temporal bones to assess for the cause of the conductive component of his hearing loss in anticipation of possible surgical interventionThat currently using binaural BTE amplification better about 6 years old. Devices are being managed through [facility] [employer]. AWA BAILEY MD [address] [place] [address], [place], [address], [facility] - [facility] 02/22/2024 14:26:21
[2024-06-18 12:46] LABS: Uric Acid 9.7 mg/dL (3.4-7.0)
[2024-06-18 14:08] LABS: Reflex LDLD? No
== END 2024-06-18 10:34 | disposition home or self-care (01) ==
LOC: HO.LNP 10:33
PROVIDERS: Visit Provider Internal Medicine
DX: E78.00 Pure hypercholesterolemia, unspecified (principal)
CPT/HCPCS: 80061; 80076; 84550

== ENCOUNTER 2024-08-27 14:29 | Outpatient (AMB) | payer MEDICARE, MEDICAID, SELFPAY ==
--- NOTE | 2024-08-27 14:31 | A.OFFVIS_ITS ---
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 He has been fairly active in the past recently has been more sedentary. However says remains active in day-to-day life. He was no exertional symptoms of chest pain. He has longstanding history of hypertension and hyperlipidemia which as per him as both been well controlled. His last LDL in May this year was 95. He has never had any prior cardiovascular events. Denies any symptoms of worsening shortness of breath. No heart failure symptoms. Recently his twin brother was noted to have obstructive coronary artery disease that require treatment. He had also had couple of people in his near [place] who had recent cardiovascular events any got concerned. He denies any prolonged palpitations. Denies lightheadedness, syncope. [facility] Medical History Hyperlipidemia HTN (hypertension) Review of Systems Const Denies chills, Denies daytime sleepiness, Denies fatigue, Denies fever(s), Denies frequent falls, Denies poor appetite, Denies snoring, Denies stops breathing during sleep, Denies weakness, Denies weight gain and Denies weight loss Eyes Denies loss of vision ENT Denies dizziness and Denies hearing loss Card Denies chest pain, Denies claudication, Denies leg edema, Denies lightheadedness, Denies palpitations, Denies dyspnea, Denies dyspnea on exertion and Denies orthopnea Resp Denies cough, Denies excessive phlegm production, Denies dyspnea, Denies dyspnea on exertion, Denies snoring and Denies wheezing GI Denies abdominal pain, Denies hematochezia, Denies change in bowel habits, Denies nausea and Denies vomiting Denies dysuria and Denies urinary frequency Musc Denies arthralgias, Denies muscle weakness, Denies numbness and Denies other (frequent falls) Skin/Breast Denies nail changes and Denies rash Neuro Denies Abnormal speech present, Denies dizziness, Denies frequent falls, Denies loss of vision, Denies memory loss, Denies numbness and Denies weakness Psych Denies depression and Denies memory loss Endo Denies fatigue and Denies palpitations Fredo/Lymph Reports easy bruising and Reports other (anemia) Aller/Immun Denies wheezing Physical Exam Vital Signs: Last Vital Signs Pulse 83 08/27/24 14:32 BP 120/80 08/27/24 14:32 BMI result Body Mass Index 34.3 Const General: cooperative, comfortable, no acute distress, well developed, alert, awake, Physically active and well groomed Nutritional Appearance: well nourished and overweight Orientation/consciousness: patient oriented x3 Limitations: no limitations HEENT Head: Yes normocephalic and Yes atraumatic Neck Neck: Yes trachea midline, Yes supple and Yes no JVD Resp Effort & Inspection: normal respiratory effort Auscultation: clear to auscultation bilaterally Cardio Jugular venous distension: no JVD Palpation: normal PMI Rate: regular rate Rhythm: regular rhythm Heart sounds: S1 normal heart sound present, S2 normal heart sound present, no click, no gallops and no murmurs GI Auscultation: normal bowel sounds Skin General skin exam: no rashes or lesions noted Neuro General: patient oriented x3 and no focal motor deficits Speech: No Abnormal speech present Extrem General: Yes no clubbing, cyanosis or edema Psych Appearance: grossly normal Office Procedures EKG Details: EKG shows normal sinus rhythm with normal EKG 58187-[id number], Complete Assessment & Plan Assessment & Plan (1) Hyperlipidemia: Code(s): E78.5 - Hyperlipidemia, unspecified Category: Medical Plan: Longstanding hyperlipidemia as well as hypertension in this elderly gentleman with high likelihood of underlying coronary artery disease. His baseline EKGs normal in his apparently not having any obvious symptoms although his exercise activity has reduced in the last year or 2. I would suggest that undergo a stress test to evaluate for silent myocardial ischemia which could be prognostically significant that may require further intervention. If his stress test within normal limits also suggest him to pursue coronary calcium score for evaluation of underlying coronary atherosclerosis and for further prognostication. Although suggest an echocardiogram given longstanding hypertension to evaluate for hypertensive heart disease. This was discussed with him. Understands agrees. Meanwhile if he was underlying significant atherosclerosis his LDL target goal would be less than 55 mg/dL. Discussed with him. Blood pressure is currently well optimized encouraged to maintain activity level as tolerated and participate in weight loss program. Will follow up in the clinic in 6 weeks time, sooner p.r.n.. Thank you for allowing me to partake in his care Orders: Orders CA echo transthoracic complete Today I10 - Essential (primary) hypertension CT Coronary Calcium Score 4 Weeks E78.5 - Hyperlipidemia, unspecified CA stress test Today I10 - Essential (primary) hypertension Coding Level of Care Code New Pt Level 4 (96745) Complex EM visit Add On G2211 Diagnoses Hyperlipidemia E78.5 CPT Codes EKG - CPT: 19292-Sfjjohnbezqscxvpf, Complete ([id number])
[2024-08-27 14:32] VITALS: BP 120/80; PULSE 83; BMI 34.3
--- OUTSIDE RECORDS SUMMARY | 2024-08-27 17:38 | XMS_ITS ---
Author Organization Edd Benitez MD Address [address] [place], [place] [phone] Care Team Providers Care Grinding Machine Operator Portable Name Role Phone Edd Benitez Primary Care Provider Results Component Value Reference Range Notes Liver Panel Reviewed date:06/18/2024 02:31:04 PM Interpretation: Performing Lab:[facility], [address] [place] [id number] Notes/Report: Bilirubin Total 0.7 0.0-1.0 mg/dL Bilirubin Direct 0.2 0.0-0.5 mg/dL Aspartate Amino Transferase 29 5-37 U/L Alanine Aminotransferase 29 0-40 U/L Total Protein 7.7 6.5-8.0 g/dL Albumin Level 4.1 3.5-5.0 g/dL Alkaline Phosphatase 69 39-117 U/L Lipid Panel with Reflex Reviewed date:06/18/2024 04:29:16 PM Interpretation: Performing Lab:[facility], [address] [place] [phone] Notes/Report: Triglycerides 187 <150 mg/dL Desirable Triglyceride: [...] Location Date Provider Diagnosis Edd Benitez MD [address] [place] [address] [address] [place], [place] [phone] 06/18/2024 Edd Benitez Hypercholesteremia E 78.00 Assessments Encounter Date Diagnosis (ICD Code) Assessment Notes Treatment Notes Treatment Clinical Notes Section Notes 06/18/2024 Hypercholesteremia (ICD-10 - E78.00) Plan Of Treatment Next Appt Details Provider Name:Edd escamilla, 12/13/2024 08:00:00 AM, [address] [place] [address], [address], [place], [place], [phone], Provider Name:Edd escamilla, 12/20/2024 11:00:00 AM, [address] [place] [address], [address], [place], [place], [phone], Progress Notes * EMILIA CASILLAS ADOB:1955 (69 yo M)Acc No.[id number]:06/18/2024 Progress Note Patient:?EMILIA CASILLAS Provider:?Edd Benitez MD :1955???Age:69 Y???Sex:Male Neil e:06/18/2024 Address:[address] [place], [place] [phone] Subjective: * Chief Complaints: * ???1. FASTING LIPIDS. * HPI: ???Communication Needs:?Communication Needs?Does the patient have a hearing impairment?Yes,?If yes, what is the hearing impairment??Other,?Does the patient have a vision impairment??No,?Does the patient have a cognition impairment??No.? * Medical History:? Objective: * Vitals:? Assessment: * Assessment: 1.?Hypercholesteremia - E78. 00 (Primary)??? Plan: * Treatment: * Procedure Codes:?22393 VENIP UNCT, ROUTINE* * * The named appointment provid er may or may not be the originator of this progress note, and it is not deemed complete until electronically signed by the appointment provider. Sign off status: Pending * Provider:?Edd Benitez MD Date:?0 06/18/2024 Generated for You harris/Phoenix/Shansmcandace on:?08/27/2024 05:38 PM EDT History and Physical Notes * [...]
--- OUTSIDE RECORDS SUMMARY | 2024-08-27 17:38 | XMS_ITS ---
Author Organization Edd Benitez MD Address [address] [place] [phone] Care Team Providers Care Hydroelectric Operator Name Role Phone Edd Benitez Primary Care Provider REASON FOR VISIT refill Medications Medication SIG (Take, Route, Frequency, Duration) Notes Start Date End Date Status amLODIPine Besylate 5 MG TAKE 1 TABLET B Y MOUTH EVERY DAY FOR 90 DAYS Orally Once a day for 90 days Active Encounters Encounter Location Date Provider Diagnosis Edd Benitez MD [address] [place] [address] [place] [phone] 04/09/2024 Edd Benitez Primary hypertension I10 Assessments [...] Details Provider Name:Edd escamilla, 12/13/2024 08:00:00 AM, [address] [place] [address], [address], [phone], Provider Name:Edd escamilla, 12/20/2024 11:00:00 AM, [address] [place] [address], [address], [phone], Progress Notes * EMILIA CASILLAS ADOB:1955 (68 yo M)Acc No.[id number]:04/09/2024 Patient:?EMILIA CASILLAS :1955???Age:68 Y???Sex:Male Address:[address] [place] [address], [place], [phone] * Refills? Refill amLODIPine Besylate Tablet, 5 MG, Orally, 90, TAKE 1 TABLET BY MOUTH EVERY DAY FOR 90 DAYS, Once a day, 90 days, Refills=3 * true * Date:? Generated for You harris/Phoenix/eTransmitting on:?08/27/2024 05:38 PM EDT
--- OUTSIDE RECORDS SUMMARY | 2024-08-27 17:38 | XMS_ITS | Patient Health Record ---
Author Organization Edd Benitez MD Address [address] [place], [place] [id number] Care Team Providers Care Industrial Health And Safety Professor Name Role Phone Edd Benitez Primary Care Provider Allergies No Known Allergies Results Component Value Reference Range Notes PSA Free and Total Reviewed date:12/12/2023 12:17:30 PM Interpretation: Performing Lab:[facility], [address] [place] [phone] Notes/Report: Prostate Specific Ag Total 6.2 < OR = 4.0 ng/ mL Percent Free Prostate Spec Ag 26 >25 % (calc ) PSA(ng/mL) Free PSA(%) Estimated(x) Probability of Cancer(as%) 0-2.5 (*) Approx. 1 2.6-4.0(1) 0-27(2) 24(3) 4.1-10(4) 0-10 56 11-15 28 16-20 20 21-25 16 >or =26 8 >10(+) N/A >50 References:(1)Yang et al.:Urology 60: 469-474 (2002) (2)Shahidaona et al.:J.Urol 168: 922-925 (2001) Free PSA(%) Sensitivity(%) Specificity(%) < or = 25 85 19 < or = 30 93 9 (3)Yang et al.:AMISHA 277: 2904-4133 (1996) (4)Catalona et al.:AMISHA 279: 2032-4229 (1997) (x)These estimates vary with age, ethnicity, [...] mind. PSA was performed using the Tomi Cottonwood Immunoassay method. Values obtained from different assay methods cannot be used interchangeably. PSA levels, regardless of value, should not be interpreted as absolute evidence of the presence or absence of disease. THIS TEST WAS PERFORMED AT: [employer] [address] [place] [phone] VAN RAMIREZ MD Free Prostate Spec Ag 1.6 Free T4 (Free Thyroxine) Reviewed date:12/11/2023 12:33:36 PM Interpretation: Performing Lab:[facility], [address] [place] [phone] Notes/Report: Free T4 (Free Thyroxine) 0.95 0.71-1.85 ng/dL Complete Blood Count Auto Di ff Reviewed date:12/11/2023 12:41:37 PM Interpretation: Performing Lab:[facility], [address] [place] [phone] Notes/Report: White Blood Count 5.7 4.8-10.8 X10*3/uL [...] NRBC Abs Auto 0.000 0.0-0.012 X10*3/uL Comprehensive [place]. Panel Fa Reviewed date:12/11/2023 12:40:59 PM Interpretation: Performing Lab:[address] [phone] Notes/Report: Sodium 141 135-145 mmol/L Potassium 3.9 3.3-5.1 mmol/L Chloride 109 96-108 mmol/L Carbon Dioxide 22 22-29 mmol/L Anion Gap 14 12-20 Blood Urea Nitrogen 14 9-16 mg/dL Creatinine 1.14 0.5-1.4 mg/dL Estimated Glomerular Filt Rate > 60 NOTE: For -Nigerien individuals, multiply the result by 1.210. Chronic [...] Panel Reviewed date:12/11/2023 12:37:36 PM Interpretation: Performing Lab:[address] [phone] Notes/Report: Triglycerides 110 <150 mg/dL Desirable Triglyceride: [...] (Free>4and<10) Reviewed date:12/11/2023 12:36:31 PM Interpretation: Performing Lab:[facility], [address] [place] [phone] Notes/Report: PSA,Total (Free>4and<10) 5.15 0.00-4.00 ng/mL PSA methodology: Peraza Alinity i Chemiluminescent Microparticle Immunoassay (CMIA) TSH reflex Free T4 Reviewed date:12/11/2023 12:34:30 PM Interpretation: Performing Lab:[facility], [address] [place] [phone] Notes/Report: TSH reflex Free T4 4.40 0.32-4.0 uIU/mL UA ClnCatch+Micro w/rflx Cul t Reviewed date:12/11/2023 05:37:16 PM Interpretation: Performing Lab:[facility], [address] [place] [phone] Notes/Report: Urine, Clean Catch Color Urine Yellow Appearance Urine Clear PH 5.5 5.0-9.0 Glucose Urine UA Negative Negative mg/dL Urine Blood Negative Negative Specific [place] - Urine 1.015 1.005-1.025 Urine Protein Negative [...] Negative Occult Blood, Stool, Guaiac Neg x2 Uric Acid Reviewed date:06/18/2024 04:29:05 PM Interpretation: Performing Lab:[facility], [address] [place] [phone] Notes/Report: Uric Acid 9.7 3.4-7.0 mg/dL Hold Gold Reviewed date:06/18/2024 01:00:20 PM Interpretation: Performing Lab:[facility], [address] [place] [phone] Notes/Report: Hold Gold See Note Specimen held untested for 24 hours; Call to request Chemistry testing. Liver Panel Reviewed date:06/18/2024 02:31:04 PM Interpretation: Performing Lab:[facility], [address] [place] [phone] Notes/Report: Bilirubin Total 0.7 0.0-1.0 mg/dL Bilirubin Direct 0.2 0.0-0.5 mg/dL Aspartate Amino Transferase 29 5-37 U/L Alanine Aminotransferase 29 0-40 U/L Total Protein 7.7 6.5-8.0 g/dL Albumin Level 4.1 3.5-5.0 g/dL Alkaline Phosphatase 69 39-117 U/L Lipid Panel with Reflex Reviewed date:06/18/2024 04:29:16 PM Interpretation: Performing Lab:[facility], [address] [place] [phone] Notes/Report: Triglycerides 187 <150 mg/dL Desirable Triglyceride: [...] low results in patients with liver disease. Reason For Referral Reason HYPERCHOLESTERIMIA Diagnosis 1 Hypercholesteremia ( E78.00) Referral Organization Edd Benitez MD Referring Provider First Name Edd Referring Provider Last Name Emmanuel Referring Provider Speciality Internal edicine Referred Provider AUGUSTINA WARE Referred Provider Specialty Cardiology General Notes Sondra Workman 06/21/2024 11:22:25 AM >REFERRAL FAXED TO [facility], Sondra Workman 07/30/2024 10:05:35 AM >I CHECKED WITH KAILYN, HE HAS NOT BEEN SCHEDULED YET , WILL RECHECK, Sondra Workman 08/22/2024 01:25:40 PM >PER KAILYN AT [facility] , THEY HAVE LEFT HIM 2 MESSAGES AND HAVE NOT HEARD BACK YET. KAILYN SAID THEY WILL LEAVE ONE MORE MESSAGE, Sondra Workman 08/22/2024 01:31:56 PM >I ALSO LEFT FATHER SONJA A MESSAGE TO [facility] A 08/26/2024 09:45:18 AM >APPT SCHEDULED WITH [facility] PER KAILYN, PATIENT IS AWARE Referral Priority Routine Referral Appointment Date 08/27/2024 Reason needs a colonoscopy Diagnosis 1 Colon cancer screeni kimberly (Z12.11) Referral Organization Edd Benitez MD Referring Provider First Name Edd Referring Provider Last Name Emmanuel Referring Provider Speciality Internal edicine Referred Provider Lamont Moran Referred Provider Specialty Gastroentero logy General Notes Jennifer Castillo 0 07/29/2024 11:57:04 AM >info faxed, Jennifer Castillo 08/05/2024 08:15:40 AM >REFERRAL INFO MAILED TO PATIENT Referral Priority Routine Referral Appointment Date 11/20/2024 Medications Medication SIG (Take, Route, Frequency, Duration) [...] a day for 90 days 06/15/2023 Active Immunizations Vaccine Route Administration Date Status [...] Problem Status W/U Status Risk Notes Problem 447883555 Lumbar disc dise ase (M51.9) Active confirmed Problem 888460487 Gastroesophageal reflux disease without esophagitis (K21.9) Active confirmed Problem 766838313 Acquired hypothyroidism (E03.9) Active confirmed Problem 51129127 Hypercholesterem ia (E78.00) Active confirmed Problem 92897019 Acute idiopathic gout involving toe, unspecified laterality (M10.079) Active confirmed Problem 005487827 Gastroesophageal reflux disease with esophagitis without hemorrhage (K21.00) Active confirmed Problem 82099988 Primary hyperten yusef (I10) Active confirmed Problem 50793667 Disc disease, degenerative, lumbar or lumbosacral (M51.37) Active confirmed Problem 17952704 Controlled gout (M10.9) Active confirmed Vital Signs Blood pressure diastolic 78 mm Hg 06/21/2024 rigoberto ght is down 6 pounds since 01-08-24 Height 70.5 in 06/21/2024 weight is down 6 pounds since 01-08-24 Blood pressure systolic 122 mm Hg 06/21/2024 weig ht is down 6 pounds since 01-08-24 Weight 239 lbs 06/21/2024 weight is down 6 pounds since 01-08-24 BMI 33.8 kg/m2 06/21/2024 weight is down 6 pounds since 01-08-24 Encounters Encounter Location Date Provider Diagnosis Edd Benitez MD [address] [place] [id number] 12/11/2023 Edd Benitez Hypercholesteremia E 78.00 ; Acquired hypothyroidism E03.9 and Primary hypertension I10 Edd Benitez MD [address] [facility] [id number] 06/18/2024 Edd Benitez Hypercholesteremia E 78.00 Edd Benitez MD [address] [facility] [id number] 12/15/2023 Edd Benitez Primary hypertension I10 ; Hypercholesteremia E78.00 ; Acquired hypothyroidism E03.9 ; Gastroesophageal reflux disease with esophagitis without hemorrhage K21.00 ; Colon cancer screening Z12.11 and Encounter for screening for depression Z13.31 Edd Benitez MD [address] [facility] [place] [id number] 01/08/2024 Edd Benitez Acute idiopathic gou t involving toe, unspecified laterality M10.079 Edd Benitez MD [address] [facility] [place] [id number] 06/21/2024 Edd Benitez Gastroesophageal ref lux disease with esophagitis without hemorrhage K21.00 ; Controlled gout M10.9 and Hypercholesteremia E78.00 Edd Benitez MD [address] [place] [id number] 09/11/2023 Edd Benitez MD [address] [place] [id number] 12/25/2023 Edd Benitez Colon cancer screeni ng Z12.11 Edd Benitez MD [address] [place] [id number] 02/16/2024 Edd Benitez Acquired hypothyroid ism E03.9 Edd Benitez MD [address] [place] [id number] 03/21/2024 Edd Benitez Gastroesophageal ref lux disease with esophagitis without hemorrhage K21.00 Edd Benitez MD [address] [place] [id number] 04/09/2024 Edd Benitez Primary hypertension I10 Assessments [...] understanding of medication and directions for use 06/21/2024 Gastroesophageal reflux disease with esophagitis without hemorrhage (ICD-10 - K21.00) 06/21/2024 Controlled gout (ICD-10 - M10.9) discussed the treatment and doesn't appear to need an allopurinal 12/25/2023 Colon cancer screening (ICD-10 - Z12.11) 02/16/2024 Acquired hypothyroidism (ICD-10 - E03.9) 03/21/2024 Gastroesophageal reflux disease with esophagitis without hemorrhage (ICD-10 - K21.00) 04/09/2024 Primary hypertension (ICD-10 - I10) 12/11/2023 Primary hypertension (ICD-10 - I10) 12/15/2023 Acquired hypothyroidism (ICD-10 - E03.9) doing well tsh slightly high. will observe 06/21/2024 Hypercholesteremia (ICD-10 - E78.00) referral to dr peres/ REFERRAL FAXED TO [facility] 12/15/2023 Gastroesophageal reflux disease with esophagitis without [...] CT ABD & PELVIS WWO CONTRAST 02/21/2022 Next Appt Details Provider Name:Edd Briggs ier, 12/13/2024 08:00:00 AM, [address] [place] [address], [address], [phone], Provider Name:Edd Briggs ier, 12/20/2024 11:00:00 AM, [address] [place] [address], [place] [address], [place], [place], [phone], Insurance Providers Payer Name Payer Address Payer Phone Subscriber Number Group Number Insured Name Patient Relationship to Insured Coverage Start Date Coverage End Date [employer] [address] [place] [address] [id number] EMILIA CASILLAS Self - patient is the insured [facility] [address] [place] [address] [id number] EMILIA CASILLAS Self - patient is the insured Medical (General) History Medical History History ICD Code colonoscopy 2020 due in 2024 psa 2020 was 4
--- OUTSIDE RECORDS SUMMARY | 2024-08-27 17:38 | XMS_ITS | Patient Health Record ---
Author Organization [facility] jaqui [place] Address [address] [facility] [place] [address] Care Team Providers Care Merchandise Worker Name Role Phone Edd Benitez MD Primary Care Provider Haleigh Rodriguez Unavailable [phone] Allergies No Known Allergies Reason For Referral [...] Problem Acquired hammer toe of right foot (2853275998536610 ) Other hammer toe(s) (acquired), right foot (M20.41) Active confirmed Problem Gout (79436153) Gout of left foot (M10.9) Active confirmed Rx drug management (4) Problem Gout (72845701) Gout of right foot (M10.9) Active confirmed Rx drug management (4) Problem 948998839 Arthritis of big toe (M19.079) Active confirmed Problem 704027371 Hallux malleus of right foot (M20.31) Active confirmed Problem Localized, primary osteoarthritis of the ankle and/or foot (904288315) Arthritis of joint of lesser toe, right (M19.071) Active confirmed Vital Signs Blood pressure diastolic 65 mm Hg 06/07/2024 Height 5ft 10in in 06/07/2024 Blood pressure systolic 129 mm Hg 06/07/2024 Weight 235 lbs 06/07/2024 BMI 33.72 kg/m2 06/07/2024 Encounters Encounter Location Date Provider Diagnosis [address] [address] 03/14/2024 Haleigh Banks Pain in right toe(s) M79.674 ; Tinea pedis of both feet B35.3 ; Hallux malleus of right foot M20.31 and Arthritis of big toe M19.[address] [phone] 06/07/2024 Haleigh Banks Pain in joint involving left ankle and foot M25.572 and Gout of left foot M10.[address] [address] 02/01/2024 Haleigh Banks [address] [address] 06/04/2024 Haleigh Banks [address] [address] 06/20/2024 Haleigh Banks Assessments Encounter Date Diagnosis (ICD [...] Medicare [employer] [address] [place] [address] [id number] Tr Kim Self - patient is the insured Medical (General) History Medical History History ICD Code Back,Hip,and Knee pain Diverticulosis Gall bladder problems Gout High Blood Pressure Reflux ( GERD) Sciatica thyroid Measles Mumps Hearing loss Surgical History Surgery Date(Month/Year) Gall bladder removal 1994 tympanoplasty 1966
--- OUTSIDE RECORDS SUMMARY | 2024-08-27 17:39 | XMS_ITS ---
Author Organization [facility] jaqui [place] Address [address] [place] [address] Care Team Providers Care Brokerage Manager Name Role Phone Edd Benitez MD Primary Care Provider Haleigh Rodriguez Unavailable [phone] Allergies No Known Allergies REASON FOR VISIT [...] Status W/U Status Risk Notes Problem Gout (99414507) Gout of right foot (M10.9) Active confirmed Rx drug management (4) Problem Gout (01376146) Gout of left foot (M10.9) Active confirmed Rx drug management (4) Vital Signs Height 5ft 10in in 06/07/2024 Weight 235 lbs 06/07/2024 BMI 33.72 kg/m2 06/07/2024 Blood pressure systolic 129 mm Hg 06/07/19 25 Blood pressure diastolic 65 mm Hg 025 Encounters Encounter Location Date Provider Diagnosis [facility] [address] [address] 06/07/2024 Haleigh Banks Pain in joint involving [...] * Tr CASILLAS ADOB:1955 (68 yo M)Acc No.[id number]:06/07/2024 Progress Note Patient:?Tr CASILLAS Provider:?Haleigh Banks DPM :1955???Age:68 Y???Sex:Male Neil e:06/07/2024 Address:[address] [place] [address] vito [phone] Pcp:Edd Benitez MD Subjective: * Chief Complaints: [...] day. ?Exercise: no. ?Marital status: single. 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 * Medications:?TakingOmeprazol e 20 MG Capsule Delayed [...] of Foot, AP, LAT, MO??Taken by trained?Podiatric Application Support Developer (?[place]).?Findings:? increase in soft tissue contour and [...] ray : Foot, right 3V * Procedure Codes:?48527 X-RAY EXAM OF LEFT FOOT 3V, Modifiers: [...] DPM Date:?0 06/07/2024 Generated for You harris/Phoenix/Moni on:?08/27/2024 05:38 PM EDT History and Physical [...] is guarded due to discomfort, 1st MPJ FOOTWEAR EVALUATION: shoe gear propertie s exacerbate patients foot/toe deformity DIGITAL DEFORMITIES: Digital [...] AP, LAT, MO Taken by trained Podiatric Application Support Developer ( [place]) Clinical Indication(s): Evaluate for Fra cture, Evaluate for Osteomyelitis, Evaluate for possible Gout
--- OUTSIDE RECORDS SUMMARY | 2024-08-27 17:39 | XMS_ITS | Data Portability ---
Author Organization [place] [facility], [facility] Address [address] [place] [address] Care Team Providers Care Enterprise Application Administrator Name Role Phone HAILY KRISHNA Primary Care Provider Assessment Encounter Date Assessment Date Assessment LastModified [...] ossiculoplasty versus laser stapedotomy with vein graft. [email or web address] Not available 11/09/2023 17:17:58 02/22/2024 02/22/2024 Both [...] hearing aid evaluation or proceed with surgery. [email or web address] Not available 02/22/2024 14:25:44 Plan of Treatment Reminders Order Date Submit Date Provider Last Modified By Organization Details Last Modified Time Details Appointments None recorded. Lab None recorded. Referral None recorded. Procedures None recorded. Surgeries None recorded. Imaging CT, temporal bone, w/o contrast 2023 024 Not available 15:46:02 Medication Orders None recorded. Patient TargetsNo targets recorded. Patient InstructionsNo instructions recorded. Reason for Referral None Reported. Results Created Date Observation Date Name Description Value Unit Range Abnormal Flag Note LastModifiedBy Organization Detail LastModifiedTime 11/20/19 24 03/13/2023 audio gram No observ ation record ed. [email or web address] Not Available 05/2023 15:47:44 12/22/19 24 11/09/2023 audio gram No observ ation record ed. [email or web address] Not Available 2023 21:34:19 03/11/20 24 02/22/2024 CT, tempo ral bone, w/o contr ast No observ ation record ed. [email or web address] [facility] [address] [address], [place], [address], 03/12/2024 08:28:57 Result Notes None recorded. Problems Name Problem SNOMED Code Status Onset Date Resolution Date Notes Provider Name and Address Organization Details Recorded Time Mixed conductive and sensorineural hearing loss, bilateral 865526195 Active 2023 AWA BAILEY MD [address] [place] [address], [phone], [facility] [place] 4 15:50:39 Partial loss of ear ossicles 83187682 Active 2023 AWA BAILEY MD [address] [place] [address], [phone], [facility] 14:23:59 Problem Notes None recorded. Procedures Surgical History Date Name Laterality Status Provider Name and Address Organization Details Recorded Time 02/22/[address] temporal bones - Xoran completed AWA BAILEY MD [address] [place] [address], [phone], [facility] 02/22/2024 13:36:35 02/22/20 24 Air & Bone Audio (36709) completed AWA BAILEY MD [address] [place] [address], [phone], [facility] 02/21/2024 21:34:31 02/22/20 24 Tymps & Reflexes (57372) completed AWA BAILEY MD [address] [place] [address], [phone], [facility] 02/21/2024 21:34:32 02/22/20 24 SRT & Speech Recognition (63640) completed AWA BAILEY MD [address] [place] [address], [phone], [facility] - [facility] 02/21/2024 21:34:32 11/09/19 24 Air & Bone Audio (23073) completed Carin Sanchez [place] - [facility] 11/09/2023 16:52:09 11/09/19 24 Tymps & Reflexes (08104) completed Carin Sanchez [place] - [facility] 11/09/2023 16:51:42 11/09/19 24 SRT & Speech Recognition (25983) completed Carin Sanchez [place] - [facility] 11/09/2023 16:52:24 Ear Surgery completed AWA BAILEY MD [address] [facility], [place], [address], [facility] - [facility] 11/09/2023 16:55:22 cholecystectomy completed Connie Garber [place] - [facility] 11/09/2023 15:35:12 Imaging Results Imaging Date Name Status LastModified by Organiz ation Details LastModified Time 03/13/2023 audiogram completed [email or web address] Information not available 11/20/2023 15:47:44 11/09/2023 audiogram completed [email or web address] Information no t available 02/21/2024 21:34:19 02/22/2024 CT, temporal bone, w/o contrast completed [email or web address] [facility] [address] [facility], [place], [address], 03/12/2024 08:28:57 Procedure Notes None recorded. Medical [...] Details Last Updated DateTime 11/09/2023 179.07 cm 847860.32 g Connie Garber [place] - [facility] 11/09/2023 15:37:06 Date Recorded Body height Body weight Provider Name and Address Organization Details Last Updated DateTime 02/22/2024 179.07 cm 087260.13 g Connie Garber [place] - [facility] 02/22/2024 13:59:32 Social History None recorded. Functional Status None recorded. Mental Status None recorded. Family History Nothing Reported. Medical History Condition Response Kidney Disease Y Thyroid Problems Y GERD/Reflux Y Hypertension Y Past Encounters Encounter ID Performer Location Encounter Start Date Encounter Closed Date Diagnosis/Indication Diagnosis SNOMED-CT Code Diagnosis ICD10 Code Diagnosis Note [id number] AWA BAILEY MD [facility] [address] [place] [address] 11/09/2023 14:56:16 11/09/2023 17:03:18 Mixed conductive and sensorineural hearing loss, bilateral 115305791 H90.6 Audiologic al evaluation results: Right ear: [...] hermetic seal}} AWA BAILEY MD [facility] [address] [place] [address] 02/22/2024 12:53:08 02/22/2024 14:24:26 Mixed conductive and sensorineural hearing loss, bilateral 056851457 H90.6 Partial lo ss of ear ossicles 98451236 H74.323 Health Concerns Section Related Observation LastModified by Organization Detai ls LastModified Time None Recorded Concern Status LastModified by Organization Details LastModified Time None Recorded Advance Directives Directive None Recorded Payers Encounter Date Sequence Insurance Name Policy Number Policy Ramirez Covered Member ID Ramirez Member ID Guarantor Name 11/09/2023 2 [place] [facility] Tr Julio [id number] Tr Julio 11/09/2023 1 [place] [facility] Tr Turk Julio [id number] Tr Julio 02/22/2024 2 [place] [facility] Tr Julio [id number] Tr Julio 02/22/2024 1 [place] [facility] Robert Julio [id number] Tr Julio Notes Date Note Type Note [...] to the area and establish care with [facility]. Audiogram 8 months ago showed bilateral mixed hearing loss with a rather significant conductive component bilaterally. Patient referred to me for further evaluation of his ears. No recent pain or discharge AWA BAILEY MD [address], [address], [place] - [facility] 11/09/2023 17:18:34 02/22/2024 text/html 68-year-old male referred for evaluation of his hearing. Patient had chronic childhood ear infections requiring operations on both of his ears when he was in grade school. He began wearing hearing aids in his early 50s and is now on his third set of hearing aids. Currently moved to the area and establish care with [facility]. Audiogram back in October showed bilateral mixed hearing loss with a rather significant conductive component bilaterally. Patient comes in today for CAT scan of the temporal bones to assess for the cause of the conductive component of his hearing loss in anticipation of possible surgical interventionThat currently using binaural BTE amplification better about 6 years old. Devices are being managed through [facility]. AWA BAILEY MD [address] [place] [address], [place], [address], [facility] - [facility] 02/22/2024 14:26:21
--- OUTSIDE RECORDS SUMMARY | 2024-08-27 17:39 | XMS_ITS ---
Author Organization Edd Benitez MD Address [address] [place], [place] [id number] Care Team Providers Care Wire Coiler Name Role Phone Edd Benitez Primary Care Provider Allergies No Known Allergies Reason For Referral Reason HYPERCHOLESTERIMIA Diagnosis 1 Hypercholesteremia ( E78.00) Referral Organization Edd Benitez MD Referring Provider First Name Edd Referring Provider Last Name Emmanuel Referring Provider Speciality Internal M edicine Referred Provider AUGUSTINA WARE Referred Provider Specialty Cardiology General Notes Sondra Workman 06/21/2024 11:22:25 AM >REFERRAL FAXED TO [facility], Sondra Workman 07/30/2024 10:05:35 AM >I CHECKED WITH KAILYN, HE HAS NOT BEEN SCHEDULED YET , WILL RECHECK, Sondra Workman 08/22/2024 01:25:40 PM >PER KAILYN AT [facility] , THEY HAVE LEFT HIM 2 MESSAGES AND HAVE NOT HEARD BACK YET. KAILYN SAID THEY WILL LEAVE ONE MORE MESSAGE, Sondra Workman 08/22/2024 01:31:56 PM >I ALSO LEFT FATHER SONJA A MESSAGE TO [facility] Patti A 08/26/2024 09:45:18 AM >APPT SCHEDULED WITH [facility] PER KAILYN, PATIENT IS AWARE Referral [...] Problem Status W/U Status Risk Notes Problem 31216015 Controlled gout (M10.9) Active confirmed Vital Signs Blood pressure systolic 122 mm Hg 06/21/19 Blood pressure diastolic 78 mm Hg 025 Height 70.5 in 06/21/2024 Weight 239 lbs 06/21/2024 BMI 33.8 kg/m2 06/21/2024 weight is down 6 pounds [facility] e 01-08-24 Encounters Encounter Location Date Provider Diagnosis Edd Benitez MD [address] [place] [address] [address] [place], [place] [phone] 06/21/2024 Edd Benitez Gastroesophageal ref lux disease [...] referral to dr ellis/ REFERRAL FAXED TO [facility] Plan Of Treatment Medication Medication Name [...] to dr ellis / REFERRAL FAXED TO [facility] Referrals Referral Date Details 06/21/2024 06/21/2024, DENITA BERNAL Next Appt Details Provider Name:Edd Briggs iekathleen, 12/13/2024 08:00:00 AM, [address], [address], [place], [id number], Provider Name:Edd Briggs ier, 12/20/2024 11:00:00 AM, [address], [address], [place], [id number], Progress Notes * EMILIA CASILLAS ADOB:1955 (69 yo M)Acc No.[id number]:06/21/2024 Progress Notes Patient:?SONJAEMILIA DAVIS A Provider:?Edd Benitez MD :1955???Age:69 Y???Sex:Male Neil e:06/21/2024 Address:[address] [place], [place] [phone] Subjective: * Chief Complaints: * ???6 MO F/U * HPI: ???Symptom(s):?patient is a 69 yo male here? for 6 month follow up visit. feeling great. had something that was gout. went to [facility] and put on prednisone. * ROS:?General/Constitutional:?Denies?Chills.?Denies?Fatigue.?Denies?Fever.?Denies?Headache.?ENT:?Patient denies?decreased sense of smell, any loss of taste, sore throat.?Denies?Sore throat.?Respiratory:?Denies?Cough.?Denies?Shortness of breath at rest.?Denies?Shortness of breath with exertion.?Cardiovascular:?Denies?Chest pain at rest.?Denies?Chest pain with exertion.?Denies?Dizziness.?Denies?Palpitations.?Denies?Shortness of breath.?Gastrointestinal:?Denies?Diarrhea.?Denies?Nausea.?Musculoskeletal:?Patient denies?muscle aches.?Peripheral Vascular:?Patient denies?red and blue toes.? * Medical History:? * Surgical History:? * Hospitalization/Major Diagno stic Procedure:? * Medications:?TakingAtorvasta tin Calcium 40 MG Tablet TAKE 1 TABLET [...] * Allergies:?N.K.D.A.yes[Aller gies Verified] Objective: * Vitals:?Ht: 70.5, Wt: 239, B MN:33.8, BP:122/78, Wt-k.41. weight is down 6 pounds? since 01-08-24. * ???Past Orders: ???Lab:Liver Panel (Order Da te 06/18/2024) (Collection Date & Time - 06/18/2024 07:00 AM) ? Value Reference Range ?Bilirubin Total 0.7 0.0- 1.0 - mg/dL ?Bilirubin Direct 0.2 0.0 -0.5 - mg/dL ?Aspartate Amino Transferase 29 5-37 - U/L ?Alanine Aminotransferase 29 0-40 - U/L ?Total Protein 7.7 6.5-8. 0 - g/dL ?Albumin Level 4.1 3.5-5. 0 - g/dL ?Alkaline Phosphatase 69 39-117 - U/L ???Lab:Lipid Panel with Refl ex (Order Date - 06/18/2024) (Collection Date & Time - 06/18/2024 07:00 AM) ? Value Reference Range ?Triglycerides 187 H <150 - mg/dL ?Cholesterol 182 <200 - m g/dL ?LDL Cholesterol Calculated 95 <100 - mg/dL ?HDL Cholesterol 50 >40 - mg/dL * Examination: ???General Examination: ?GENERAL APPEARANCE:?alert, well hydrated, in no distress.?HEAD:?normocephalic.?SKIN:?good turgor.?HEART:?no murmurs, rubs, gallops, regular rate and rhythm.?LUNGS:?no wheezes, rales, rhonchi, good air movement, clear to auscultation bilaterally.? Assessment: * Assessment: 1.?Gastroesophageal reflux d isease with esophagitis without hemorrhage - K21.00 (Primary)???2.?Controlled gout - M10.9???3.?Hypercholesteremia - E78.00??? Plan: * Treatment: 2.?Controlled gout? Start Indomethacin Capsule, 50 MG, 1 capsule with food or milk, Orally, 3 times a day, 10 days, 30 Capsule, Refills 1.?? Notes: discussed the treatment and doesn't appear to need an allopurinal?? 3.?Hypercholesteremia? Notes: referral to dr ellis/ REFERRAL FAXED TO [facility]? Referral To:Torres Ellis??Cardiovascular Disease ?Reason:HYPERCHOLESTERIMIA * Procedure Codes:? * * Sign off status: Completed true * Provider:?Edd Benitez MD Date:?0 06/21/2024 Generated for [employer] kimberly/[place]/eTransmitting on:?08/27/2024 05:39 PM EDT History and Physical Notes * HPI (History of Present Illness) Category Sub-Category Detail Notes Category Not es Symptom(s) patient is a 69 yo male here for 6 month follow up visit. feeling great. had something that was gout. went to field secretary and put on prednisone Examination Category Sub-Category [...]
--- OUTSIDE RECORDS SUMMARY | 2024-08-27 17:39 | XMS_ITS | Patient Health Record ---
Author Organization [facility] Address [address] [facility] [address] [place] [address] Care Team Providers Care Site Manager Name Role Phone Humble Lazaro Unavailable [phone] Preeti CAMPBELL, Tyree Unavailable Unavailabl e Reason For Referral No Information Medications Medication SIG (Take, Route, Frequency, Duration) Notes Start Date End Date Status Advil oral *please review f or potential _update for e-prescription and drug interaction check* Active Levothyroxine Sodium 100 MCG Oral Active Allopurinol 100 MG Oral Active Famotidine 20 MG TAKE 1 TABLET BY MOUTH EVERY DAY AT BEDTIME NEEDED Active PriLOSEC oral *please review f or potential _update for e-prescription and drug interaction check* Active amLODIPine Besylate 5 MG 1 tablet Orally Once a day Active Atorvastatin Calcium 40 MG 1 tablet Orally Once a day Active Social History Social History Alcohol: Social Info Question Answer Notes Alcohol Current or past use of alcohol: Never Tobacco Use: Social Info Question Answer Notes . Are you a: never smoker Additional Details Category Social Info Options Details Migrated Social History Migrated Social History Marital Status :: Single , Substance Use :: Alcohol :: Current some day , Substance Use :: Tobacco :: Never Problems Problem Type SNOMED Code ICD Code Onset Dates Problem Status W/U Status Risk Notes Problem 379506660 GERD without esophagitis (K21.9) Active confirmed even on PPI. Will initiate nightly H2 blockers. Discussed lifestyle changes. Will do EGD for evaluation. Problem 402238293 Globus sensation (R09.89) 0 Active confirmed Due to post-nasal drainage, or more likely, stress-relat ed. Problem 902311200 Family history of colon cancer in father (Z80.0) Active confirmed father at age 50. Will do colonoscopy. Plan Of Treatment No Information Insurance Providers Payer Name Payer Address Payer Phone Subscriber Number Group Number Insured Name Patient Relationship to Insured Coverage Start Date Coverage End Date [place]is [place] [address] [place] [phone] [id number] EMILIA CASILLAS Self - patient is the insured Medical (General) History Medical History History ICD Code Diverticulosis; GERD; Hypothyroidism Hypertension Surgical History Surgery Date(Month/Year) Gallbladder Surgery; 2014-05-13 Colonoscopy; tics 2014-07-03
--- OUTSIDE RECORDS SUMMARY | 2024-08-27 17:39 | XMS_ITS ---
Author Organization [facility] Address [address] [place] [address] Care Team Providers Care Api Developer Name Role Phone Edd Benitez MD Primary Care Provider Haleigh Rodriguez [phone] REASON FOR VISIT Lab results Encounters Encounter Location Date Provider Diagnosis [facility] [address] [place] [address] 06/20/2024 Haleigh Banks Plan Of Treatment No Information Progress Notes * Tr CASILLAS ADOB:1955 (69 yo M)Acc No.[id number]:06/20/2024 Patient:?Tr CASILLAS :1955???Age:69 Y???Sex:Male Address:[address] [place] [address] [place] [address] * true * Date:? Generated for [employer] kimberly/[place]/eTransmitting on:?08/27/2024 05:38 PM EDT
--- OUTSIDE RECORDS SUMMARY | 2024-08-27 17:39 | XMS_ITS ---
Author Organization [facility] Address [address] [place] [address] Care Team Providers Care Soaking Pit Operator Name Role Phone Edd Benitez MD Primary Care Provider Haleigh Rodriguez Unavailable [phone] REASON FOR VISIT Joint pain Encounters Encounter Location Date Provider Diagnosis [address] [address] 06/04/2024 Haleigh Banks Plan Of Treatment No Information Progress Notes * Tr CASILLAS ADOB:1955 (68 yo M)Acc No.[id number]:06/04/2024 Patient:?Tr CASILLAS :1955???Age:68 Y???Sex:Male Address:[address] [place] [address] [place] [address] * true * Date:? Generated for [employer] kimberly/[place]/eTransmitting on:?08/27/2024 05:38 PM EDT
== END 2024-08-27 15:07 | disposition home or self-care (01) ==
LOC: HO.HCS 14:30
PROVIDERS: PCP Internal Medicine; Visit Provider Internal Medicine Cardiovascular Disease
DX: E78.5 Hyperlipidemia, unspecified (principal)
CPT/HCPCS: 93010; 99204; G2211

== ENCOUNTER → 2024-08-27 14:29 | Outpatient (BNVA) | payer MEDICARE, MEDICAID, OTHER, SELFPAY | PROVIDERS: PCP Internal Medicine; Visit Provider Internal Medicine Cardiovascular Disease | DX: E78.5 Hyperlipidemia, unspecified (principal) | CPT/HCPCS: 93005; 99202 ==

== ENCOUNTER → 2024-10-07 08:56 | Outpatient (REF) | payer MEDICARE, MEDICAID, SELFPAY ==
--- NOTE | 2024-10-07 08:59 | CA_ITS ---
Transthoracic Echocardiogram Patient (Last, First, Middle): Tr Kim A Gender: Male Date of : 1955 Age: 69 Procedure Date: 10/07/2024 Procedure Type: Transthoracic Echocardiogram Location: OP Height: 177.8 cm Weight: 111.13 kg BSA: 2.28 m2 Heart Rate: 75 bpm BP: 142 / 90 mmHg [place]: MARY JANE Referring MD: Torres Ellis MD Symptoms: I10 - Essential (primary) hypertension Study Quality: Adequate ECG Rhythm: Sinus Conclusions: - The left ventricular systolic function is normal. The calculated ejection fraction is 62% by biplane method. - The mid inferoseptal segment is hypokinetic. - No obvious valvular pathology seen on this study. - There is mild dilatation of the sinuses of Valsalva measuring 4.10 cm. - Small plaque is seen in the sino tubular ridge. Findings Left Ventricle Normal left ventricular cavity size. There is normal left ventricular wall thickness. The left ventricular systolic function is normal. The calculated ejection fraction is 62% by biplane method. Diastolic function is normal for age. There is mild septal asymmetric hypertrophy. Wall Motion Rest Echo Findings The mid inferoseptal segment is hypokinetic. Right Ventricle Mildly increased right ventricular cavity size. There is normal right ventricular systolic function. Atria Both atria are normal in size. Aortic Valve There is a normal trileaflet aortic valve. There is mild calcification of the aortic valve. There is no aortic valve stenosis. There is no aortic valve regurgitation. Mitral Valve There is mild mitral annular calcification. There is trace mitral valve regurgitation. There is no mitral valve stenosis. Pulmonic Valve The pulmonic valve is likely normal. Tricuspid Valve There is trace tricuspid valve regurgitation. There is no evidence of pulmonary hypertension. Great Vessels There is mild dilatation of the sinuses of Valsalva measuring 4.10 cm. Small plaque is seen in the sino tubular ridge. Top normal ascending aortic size at 3.9 cm. Venous The inferior vena cava is normal in size and collapses greater than 50% with inspiration. Pericardium/Pleural There is no evidence of pericardial effusion. Prior Study Comparison No prior study available for comparison. Recommendations, Care & Conclusions No obvious valvular pathology seen on this study. Measurements 2D Linear Measurements IVSd: 0.96 0.6-0.9/0.6-1.0 cm LVIDd: 4.86 3.9-5.3/4.2-5.9 cm LVIDd Index: 2.13 2.4-3.2/2.2-3.1 cm/m2 LVIDs: 3.06 2.0-3.6 cm LVPWd: 1.04 0.7-1.1 cm LA Diam: 3.60 2.7-3.8/3.0-4.0 cm LAIDs Index: 1.58 1.5-2.3 cm/m2 LV Mass: 215.77 67-162/88-224 g LV Mass Index: 94.64 43-95/49-115 g/m2 LVOT Diam: 2.00 3.0+(-)1.3 cm 2D Systolic Function EF 4C: 61.40 >55% EF 2C: 63.50 >55% EF BiP: 62.40 >55% Mitral Valve MV Pk E: 0.72 MV PK A: 0.72 MV Decel Time: 238.00 E/A: 1.00 E'Lateral: 9.36 E'Medial: 7.62 E/E' Med: 9.50 E/E' Lat: 7.70 PHT: 70.00 MVA PHT: 3.14 Decel Mchenry: 3.05 Aortic Valve AoV Pk Daniel: 1.20 AoV Mn Daniel: 0.86 AoV VTI: 0.26 AoV Pk Grad: 6.00 Aov Mn Grad: 3.00 KOLBY Cont.VTI: 2.35 LVOT LVOT Pk Daniel: 1.01 LVOT Mn Daniel: 0.70 LVOT VTI: 0.20 LVOT Pk Grad: 4.00 LVOT Mn Grad: 2.00 LVOT Diam: 2.00 LVOT Area: 3.14 Diastolic Function MV Pk E: 0.72 MV Pk A: 0.72 E/A: 1.00 E'Medial: 7.62 E/E' Med: 9.50 E' Laterial: 9.36 E/E' Lat: 7.70 Right Ventricle TAPSE (mm): 27.20 TVS' Daniel: 14.40 Tricuspid Valve RA Press: 3.00 Great Vessels Aorta Sinus of Valsalva: 4.10 2.0-3.5 cm Ao Asc: 3.90 2.1-3.4 cm Ao Arch: 3.10 Pulmonary Valve PV Pk Daniel: 1.05 Peak PV Grad: 4.00 Updated in Other Vendor System with Status of Final Dg Berger MD electronically signed on 10/07/2024 11:33:49 AM with status of Final
--- NOTE | 2024-10-07 08:59 | CA_ITS ---
Acquisition Time: 2024-10-07 09:34:45 Total Exercise Time: 00:06:00 Test Indications: HTN Medications: SEE H&P Protocol: PAOLO Max HR: 130 BPM 85% of Pred: 152 BPM Max BP: 164/84 mmHG Max Work Load: 7.0 METS Exercise stress test with exercise 6 mins of Paolo Protocol, achieving 86% MPHR, with reports of SOB, no chest pain, with frequent PVCs, with normotensive response to exercise. Without EKG changes meeting criteria for ischemia. In recovery, breathing quickly returned to baseline. Test reviewed with Dr. Reeves. Referred By: Torres Ellis Electronically Signed By: Modesto Parham
--- OUTSIDE RECORDS SUMMARY | 2024-10-07 09:06 | XMS_ITS | Patient Health Record ---
Author Organization Edd Benitez MD Address [address] [place], [place] [phone] Care Team Providers Care Transport Pilot Name Role Phone Edd Benitez Primary Care Provider Allergies No Known Allergies Results Component Value Reference Range Notes PSA Free and Total Reviewed date:12/12/2023 12:17:30 PM Interpretation: Performing Lab:[facility], [address] [place] [phone] Notes/Report: Prostate Specific Ag Total 6.2 < [...] 30 93 9 (3)Yang et al.:AMISHA 277: 5012-1088 (1996) (4)Catalona et al.:AMISHA 279: 8178-0935 (1997) (x)These estimates vary with age, ethnicity, [...] mind. PSA was performed using the Tomi Savannah Immunoassay method. Values obtained from different assay methods cannot be used interchangeably. PSA levels, regardless of value, should not be interpreted as absolute evidence of the presence or absence of disease. THIS TEST WAS PERFORMED AT: [facility] [address] [place] [phone] VAN RAMIREZ MD Free Prostate Spec Ag 1.6 Free T4 (Free Thyroxine) Reviewed date:12/11/2023 12:33:36 PM Interpretation: Performing Lab:[facility], [address] [place] [phone] Notes/Report: Free T4 (Free Thyroxine) 0.95 0.71-1.85 ng/dL Complete Blood Count Auto Di ff Reviewed date:12/11/2023 12:41:37 PM Interpretation: Performing Lab:[facility], [address] [place] [phone] Notes/Report: White Blood Count 5.7 4.8-10.8 X10*3/uL [...] NRBC Abs Auto 0.000 0.0-0.012 X10*3/uL Comprehensive [place]. Panel Fa Reviewed date:12/11/2023 12:40:59 PM Interpretation: Performing Lab:[address] [phone] Notes/Report: Sodium 141 135-145 mmol/L Potassium 3.9 3.3-5.1 mmol/L Chloride 109 96-108 mmol/L Carbon Dioxide 22 22-29 mmol/L Anion Gap 14 12-20 Blood Urea Nitrogen 14 9-16 mg/dL Creatinine 1.14 0.5-1.4 mg/dL Estimated Glomerular Filt Rate > 60 NOTE: For -Bel[place]ian individuals, multiply the result by 1.210. Chronic [...] Panel Reviewed date:12/11/2023 12:37:36 PM Interpretation: Performing Lab:[address] [phone] Notes/Report: Triglycerides 110 <150 mg/dL Desirable Triglyceride: [...] (Free>4and<10) Reviewed date:12/11/2023 12:36:31 PM Interpretation: Performing Lab:[facility], [address] [place] [phone] Notes/Report: PSA,Total (Free>4and<10) 5.15 0.00-4.00 ng/mL PSA methodology: Peraza Alinity i Chemiluminescent Microparticle Immunoassay (CMIA) TSH reflex Free T4 Reviewed date:12/11/2023 12:34:30 PM Interpretation: Performing Lab:[facility], [address] [place] [phone] Notes/Report: TSH reflex Free T4 4.40 0.32-4.0 uIU/mL UA ClnCatch+Micro w/rflx Cul t Reviewed date:12/11/2023 05:37:16 PM Interpretation: Performing Lab:[facility], [address] [place] [phone] Notes/Report: Urine, Clean Catch Color Urine Yellow Appearance Urine Clear PH 5.5 5.0-9.0 Glucose Urine UA Negative Negative mg/dL Urine Blood Negative Negative Specific Sharon - Urine 1.015 1.005-1.025 Urine Protein Negative [...] Acid Reviewed date:06/18/2024 04:29:05 PM Interpretation: Performing Lab:[facility], [address] [place] [phone] Notes/Report: Uric Acid 9.7 3.4-7.0 mg/dL Hold Gold Reviewed date:06/18/2024 01:00:20 PM Interpretation: Performing Lab:[facility], [address] [place] [phone] Notes/Report: Hold Gold See Note Specimen held untested for 24 hours; Call to request Chemistry testing. Liver Panel Reviewed date:06/18/2024 02:31:04 PM Interpretation: Performing Lab:[facility], [address] [place] [phone] Notes/Report: Bilirubin Total 0.7 0.0-1.0 mg/dL Bilirubin Direct 0.2 0.0-0.5 mg/dL Aspartate Amino Transferase 29 5-37 U/L Alanine Aminotransferase 29 0-40 U/L Total Protein 7.7 6.5-8.0 g/dL Albumin Level 4.1 3.5-5.0 g/dL Alkaline Phosphatase 69 39-117 U/L Lipid Panel with Reflex Reviewed date:06/18/2024 04:29:16 PM Interpretation: Performing Lab:[facility], [address] [place] [phone] Notes/Report: Triglycerides 187 <150 mg/dL Desirable Triglyceride: [...] Workman 06/21/2024 11:22:25 AM >REFERRAL FAXED TO [facility], Sondra Workman 07/30/2024 10:05:35 AM >I CHECKED WITH KAILYN, HE HAS NOT BEEN SCHEDULED YET , WILL RECHECK, Sondra Workman 08/22/2024 01:25:40 PM >PER KAILYN AT [facility] , THEY HAVE LEFT HIM 2 MESSAGES AND HAVE NOT HEARD BACK YET. KAILYN SAID THEY WILL LEAVE ONE MORE MESSAGE, Sondra Workman 08/22/2024 01:31:56 PM >I ALSO LEFT FATHER SONJA A MESSAGE TO [facility] Patti A 08/26/2024 09:45:18 AM >APPT SCHEDULED WITH [facility] PER KAILYN, PATIENT IS AWARE Referral [...] Problem Status W/U Status Risk Notes Problem 828483246 Lumbar disc dise ase (M51.9) Active confirmed Problem 973608027 Gastroesophageal reflux disease without esophagitis (K21.9) Active confirmed Problem 150847318 Acquired hypothyroidism (E03.9) Active confirmed Problem 93488471 Hypercholesterem ia (E78.00) Active confirmed Problem 52498023 Acute idiopathic gout involving toe, unspecified laterality (M10.079) Active confirmed Problem 670734568 Gastroesophageal reflux disease with esophagitis without hemorrhage (K21.00) Active confirmed Problem 94655877 Primary hyperten yusef (I10) Active confirmed Problem 79316790 Disc disease, degenerative, lumbar or lumbosacral (M51.37) Active confirmed Problem 07232499 Controlled gout (M10.9) Active confirmed Vital Signs [...] Edd Benitez MD [address] [place] [id number] 12/11/2023 Edd Benitez Hypercholesteremia E 78.00 ; Acquired hypothyroidism E03.9 and Primary hypertension I10 Edd Benitez MD [address] [id number] 06/18/2024 Edd Benitez Hypercholesteremia E 78.00 Edd Benitez MD [address] [phone] 12/15/2023 Edd Benitez Primary hypertension I10 ; Hypercholesteremia E78.00 ; Acquired hypothyroidism E03.9 ; Gastroesophageal reflux disease with esophagitis without hemorrhage K21.00 ; Colon cancer screening Z12.11 and Encounter for screening for depression Z13.31 Edd Benitez MD [address] [place] [id number] 01/08/2024 Edd Benitez Acute idiopathic gou t involving toe, unspecified laterality M10.079 Edd Benitez MD [address] [place] [id number] 06/21/2024 Edd Benitez Gastroesophageal ref lux disease with esophagitis without hemorrhage K21.00 ; Controlled gout M10.9 and Hypercholesteremia E78.00 Edd Benitez MD [address] [place] [id number] 12/25/2023 Edd Benitez Colon cancer screeni ng Z12.11 Edd Benitez MD [address] [place] [id number] 02/16/2024 Edd Benitez Acquired hypothyroid ism E03.9 Edd Benitez MD [address] [place] [id number] 03/21/2024 Edd Benitez Gastroesophageal ref lux disease with esophagitis without hemorrhage K21.00 Edd Benitez MD [address] [place] [id number] 04/09/2024 Edd Benitez Primary hypertension I10 Assessments [...] referral to dr peres/ REFERRAL FAXED TO [facility] 12/15/2023 Gastroesophageal reflux disease with esophagitis [...] CONTRAST 02/21/2022 Next Appt Details Provider Name:Edd escamilla, 12/13/2024 08:00:00 AM, [address] [place] [address], [address], [phone], Provider Name:Edd escamilla, 12/20/2024 11:00:00 AM, [address] [place] [address], [address], [place], [place], [phone], Insurance Providers Payer Name Payer Address Payer Phone Subscriber Number Group Number Insured Name Patient Relationship to Insured Coverage Start Date Coverage End Date [employer] [address] [place] [address] [id number] EMILIA CASILLAS Self - patient is the insured [facility] [address] [place] [address] [id number] EMILIA CASILLAS Self - patient is the insured Medical (General) History Medical History History ICD Code colonoscopy 2020 due in 2024 psa 2020 was 4
--- OUTSIDE RECORDS SUMMARY | 2024-10-07 09:06 | XMS_ITS ---
Author Organization Edd Benitez MD Address [address] [place], [place] [id number] Care Team Providers Care Swatch Cutter Name Role Phone Edd Benitez Primary Care Provider [phone] Allergies No Known Allergies Reason For Referral [...] BEEN SCHEDULED YET , WILL RECHECK, Sondra Wokrman 08/22/2024 01:25:40 PM >[facility] [...] Problem Status W/U Status Risk Notes Problem 16723023 Controlled gout (M10.9) Active confirmed Vital Signs Blood pressure systolic 122 mm Hg 06/21/19 Blood pressure diastolic 78 mm Hg 025 Height 70.5 in 06/21/2024 Weight 239 lbs 06/21/2024 BMI 33.8 kg/m2 06/21/2024 weight is down 6 pounds [facility] e 01-08-24 Encounters Encounter Location Date Provider Diagnosis Edd Benitez MD [address] [place] [address] [address] [place], [place] [id number] 06/21/2024 Edd Benitez Gastroesophageal ref lux disease [...] 08:00:00 AM, [address], [address], [place], [id number], Provider Name:Edd Briggs ier, 12/20/2024 11:00:00 AM, [address], [address], [place], [id number], Progress Notes * EMILIA CASILLAS ADOB:1955 (69 yo M)Acc No.[id number]:06/21/2024 Progress Notes Patient:?SONJAEMILIA DAVIS A Provider:?Edd Benitez MD :1955???Age:69 Y???Sex:Male Neil e:06/21/2024 Address:[address] [place], [place] [phone] Subjective: * Chief Complaints: * ???6 MO F/U * HPI: ???Symptom(s):?patient is a 69 yo male here? for 6 month follow up visit. feeling great. had something that was gout. went to affirmative action officer and put on prednisone. * ROS:?General/Constitutional:?Denies?Chills.?Denies?Fatigue.?Denies?Fever.?Denies?Headache.?ENT:?Patient denies?decreased [...] Objective: * Vitals:?Ht: 70.5, Wt: 239, B LA:33.8, BP:122/78, Wt-k.41. weight is down 6 pounds? [...] FAXED TO [facility]? Referral To:Torres Ellis??Cardiovascular Disease ?Reason:HYPERCHOLESTERIMIA * Procedure Codes:? * * Sign off status: Completed true * Provider:?Edd Benitez MD Date:?0 06/21/2024 Generated for Humouno kimberly/[place]/eTransmitting on:?10/07/2024 09:06 AM EDT History and Physical Notes * HPI (History of Present Illness) Category Sub-Category Detail Notes Category Not es Symptom(s) patient is a 69 yo male here for 6 month follow up visit. feeling great. had something that was gout. went to affirmative action officer and put on prednisone Examination Category Sub-Category [...]
--- OUTSIDE RECORDS SUMMARY | 2024-10-07 09:06 | XMS_ITS ---
Author Organization Edd Benitez MD Address [address] [place], [place] [phone] Care Team Providers Care Brim Shaper Name Role Phone Edd Benitez Primary Care Provider [phone] Results Component Value Reference Range Notes Liver Panel Reviewed date:06/18/2024 02:31:04 PM Interpretation: Performing Lab:[facility], [address] [place] [id number] Notes/Report: Bilirubin Total 0.7 0.0-1.0 mg/dL Bilirubin Direct 0.2 0.0-0.5 mg/dL Aspartate Amino Transferase 29 5-37 U/L Alanine Aminotransferase 29 0-40 U/L Total Protein 7.7 6.5-8.0 g/dL Albumin Level 4.1 3.5-5.0 g/dL Alkaline Phosphatase 69 39-117 U/L Lipid Panel with Reflex Reviewed date:06/18/2024 04:29:16 PM Interpretation: Performing Lab:[facility], [address] [place] [phone] Notes/Report: Triglycerides 187 <150 mg/dL Desirable Triglyceride: [...] Location Date Provider Diagnosis Edd Benitez MD [address] [place] [address] [address] [place], [place] [id number] 06/18/2024 Edd Benitez Hypercholesteremia E 78.00 Assessments Encounter Date Diagnosis (ICD Code) Assessment Notes Treatment Notes Treatment Clinical Notes Section Notes 06/18/2024 Hypercholesteremia (ICD-10 - E78.00) Plan Of Treatment Next Appt Details Provider Name:Edd escamilla, 12/13/2024 08:00:00 AM, [address] [place] [address], [address], [place], [place], [id number], Provider Name:Edd escamilla, 12/20/2024 11:00:00 AM, [address] [place] [address], [address], [place], [place], [id number], Progress Notes * EMILIA CASILLAS ADOB:1955 (69 yo M)Acc No.[id number]:06/18/2024 Progress Note Patient:?EMILIA CASILLAS Provider:?Edd Benitez MD :1955???Age:69 Y???Sex:Male Neil e:06/18/2024 Address:[address] [place], [place] [phone] Subjective: * Chief Complaints: * ???1. FASTING LIPIDS. * HPI: ???Communication Needs:?Communication Needs?Does the patient have a hearing impairment?Yes,?If yes, what is the hearing impairment??Other,?Does the patient have a vision impairment??No,?Does the patient have a cognition impairment??No.? * Medical History:? Objective: * Vitals:? Assessment: * Assessment: 1.?Hypercholesteremia - E78. 00 (Primary)??? Plan: * Treatment: * Procedure Codes:?82552 VENIP UNCT, ROUTINE* * * The named appointment provid er may or may not be the originator of this progress note, and it is not deemed complete until electronically signed by the appointment provider. Sign off status: Pending * Provider:?Edd Benitez MD Date:?0 06/18/2024 Generated for You harris/[place]/eTingrissmitting on:?10/07/2024 09:05 AM EDT History and Physical Notes * [...]
--- OUTSIDE RECORDS SUMMARY | 2024-10-07 09:06 | XMS_ITS | Continuity of Care Document ---
Author Organization [facility] Address [address] [place] [address] Phone Care Team Providers Care Cert Occupational Therapy Asst Name Role Phone Tanner Tierney MD Unavailable [...] Estab Mod-hi 2 [facility], [address] [place], [place], [id number] , [phone] [facility] 7 BPH (chief complaint) Enlarged prostate without lower urinary tract symptoms 2 Niall Hart. [address] [facility] [address] [place] [address], [address], . tel:[phone] Referring Provider: Tanner Olmstead, [address] [facility] [address] [place] [address], [address]. tel:[phone] [facility], [address] [place], [place], [id number] , [place] tel: [phone] [facility] 7 BPH (chief complaint) Enlarged prostate without lower urinary tract symptoms 2 Niall Hart. [address] [place] [address], [address] [place] [address], [address], [place]. tel:[phone] Referring Provider: Tanner Olmstead, [address] [place] [address], [place], [address]. tel:[phone] Office E&m Estab Mod-hi 2 [facility], [address] [place], [place], [id number] , [place] tel: [phone] [facility] 7 Kidney stones (chief complaint) Elevated prostate specific antigen [PSA]Calculus of kidneyEnlarged prostate without lower urinary tract symptoms 1 Niall Hart. [address] [place] [address], [address], [address], [place]. tel:[phone] Referring Provider: Tanner Olmstead, [address] [place] [address], [address]. tel:[phone] [facility], [address] [place], [place], [id number] , [place] tel: [phone] [facility] 7 Kidney stones (chief complaint) Calculus of kidney 1 Niall Hart. [address] [place] [address], [address], [address], [place]. tel:[phone] Referring Provider: Amos Shannon, [address] [place] [address], [address]. tel:[phone] [facility], [address] [place], [place], [id number] , [place] tel: [phone] [facility] 7 No Information 1 Niall Hart. [address] [place] [address], [address], [address], [place]. tel:[phone] Office E&m [facility]-[address] 2 [facility], [address] [place] [address], [id number] , tel: [phone] [facility] 7 BPH (chief complaint)Er ectile dysfunction (chief complaint)Pr ostate cancer (chief complaint) Dietary counseling and surveillanceCalcu masood of kidney Dec-3 0-[address], [address], [address], [place]. tel:[phone] Referring Provider: Amos Shannon, [address] [facility] [address], [place], [address]. tel:[phone] [facility], [address] [place] [address], [id number] , tel: [phone] [facility] 7 Elevated PSA (chief complaint) Elevated prostate specific antigen [PSA] Dec-[address], [address], [place]. tel:[phone] Referring Provider: Amos Shannon, [address] [facility] [address], [place], [address]. tel:[phone] Office E&m [facility] [facility], [address] [place] [address], [id number] , tel: [phone] [facility] 7 BPH (chief complaint)Er ectile dysfunction (chief complaint)Pr ostate cancer (chief complaint) Enlarged prostate without lower urinary tract symptoms Sep-[address], [address], [address], [place]. tel:[phone] Referring Provider: Amos Shannon, [address], [place], [place], [facility]. tel:[phone] [facility], [address] [place] [address], [id number] , tel: [phone] [facility] No Information Sep-[address], [address], [address], . tel:[phone] Office E&m [facility] Mod-[address] 2 [facility] [place], [address] [place] [address], [id number] , tel: [phone] [facility] 7 BPH (chief complaint)El evated PSA (chief complaint) Elevated prostate specific antigen [PSA] [address], [address], [address], [place]. tel:[phone] Referring Provider: Amos Shannon, [address] [facility] [address], [place], [address]. tel:[phone] Office E&m Estab [facility] 2 [facility], [address] [place] [address], [id number] , tel: [phone] [facility] 7 Flank pain (chief complaint) Enlarged prostate without lower urinary tract symptoms [address], [address], [address], [place]. tel:[phone] Referring Provider: Amos Shannon, [address] [facility] [address], [place], [place], [facility]. tel:[phone] [facility] [place], [address] [place] [address], [id number] , tel: [phone] [facility] 7 Calculus of kidney [address], [address], [address], [place]. tel:[phone] Referring Provider: Amos Shannon, [address] [facility] [address], [place], [address]. tel:[phone] Office E&m [facility] [address] [facility], [address] [place] [address], [id number] , tel: [phone] [facility] 7 Flank pain (chief complaint) Calculus of kidney [address], [address], [facility], . tel:[phone] Referring Provider: Amos Shannon, [address], [place], [address]. tel:[phone] Office E&m [facility] Mod-hi 2 [facility], [address] [place] [address], [id number] , tel: [phone] [facility] 7 Elevated PSA (chief complaint) Dietary counseling and surveillanceEssen tial (primary) hypertensionEnlar ged prostate without lower urinary tract symptoms [address], [address], [facility], . tel:[phone] Referring Provider: Amos Shannon, [address] [facility] [address], [place], [place], [facility]. tel:[phone] [facility], [address] [place] [address], [id number] , [place] tel: [phone] [facility] 7 Elevated prostate specific antigen [PSA] [address], [address], [address], [place]. tel:[phone] Office E&m [facility]-hi 2 [facility], [address] [place] [address], [id number] , tel: [phone] [facility] 7 BPH (chief complaint)Ki dney stones (chief complaint) Elevated prostate specific antigen [PSA] [address], [address], [address], [place]. tel:[phone] Referring Provider: Amos Shannon, [address] [facility] [address], [place], [facility]. tel:[phone] [facility], [address] [place] [address], [id number] , tel: [phone] [facility] 7 Enlarged prostate without lower urinary tract symptoms [address], [address], [address], [place]. tel:[phone] Referring Provider: Amos Shannon, [address] [facility] [place], [address]. tel:[phone] Office E&m [facility] [place], [address] [place] [address], [id number] , [place] tel:[phone] [facility] 7 BPH (chief complaint)Ki dney stones (chief complaint) Calculus of kidney [address], [address], [address], [place]. tel:[phone] Referring Provider: Amos Shannon, [address] [facility] [place], [address]. tel:[phone] [facility], [address] [place] [address], [id number] , [place] tel:[phone] [facility] 7 Enlarged prostate without lower urinary tract symptoms [address], [address], [address], [place]. tel:[phone] Referring Provider: Amos Shannon, [address] [facility] [place], [address]. tel:[phone] Office E&m [facility] [place], [address] [place] [address], [id number] , [place] tel:[phone] [facility] 7 BPH (chief complaint) Enlarged prostate without lower urinary tract symptoms [address], [address], [address], [place]. tel:[phone] Referring Provider: Amos Shannon, [address] [facility] [place], [address]. tel:[phone] [facility], [address] [place] [address], [id number] , tel: [phone] [facility] 7 Elevated prostate specific antigen [PSA] [address], [address], [address], . tel:[phone] Referring Provider: Amos Shannon, [address] [facility] [address], [place], [address]. tel:[phone] Offic Cons New/estab Low 30 Mi [facility], [address] [place] [address], [id number] , tel: [phone] [facility] 7 BPH (chief complaint)El evated PSA (chief complaint)Pr ostatitis (chief complaint) Elevated prostate specific antigen [PSA]Dietary counseling and surveillanceEssen tial (primary) hypertension [address], [facility], . tel:[phone] Referring Provider: Amos Shannon, [address] [facility] [address], [place], [address]. tel:[phone] [facility], [address] [place] [address], [id number] , tel: [phone] [facility] 7 No Information [address], [address], [address], . tel:[phone] Office E&m Estab Minor 10 [facility], [address] [place] [address], [id number] , [place] tel: [phone] [facility] 7 Prostate Screening for Cancer 3-[address], [address], [address], [place]. tel:[phone] Referring Provider: Amos Shannon, [address] [facility] [address], [place], [address]. tel:[phone] [facility], [address] [place] [address], [id number] , tel: [phone] [facility] 7 Renal Calculus Sep-2 5-200 9 Jenncarahiar Hart. [address] [place] [address], [address], [address], [place]. tel:[phone] Referring Provider: Amos Shannon, [address] [facility] [address], [place], [address]. tel:[phone] [facility], [address] [place] [address], [id number] , [place] tel: [phone] [facility] [place]. Renal Calculus Sep- 7-200 9 Shantha Andrae. [address] [place], [address], [place]. tel:[phone] Referring Provider: Amos Shannon, [address] [facility] [place], [address]. tel:[phone] Office E&m Estab Low-mod [facility], [address] [place] [address], [id number] , [place] tel: [phone] [facility] 7 No Information Sep-1 0-200 9 Niall Hart. [address] [place] [address], [address], [address], [place]. tel:[phone] Referring Provider: Amos Shannon, [address] [facility] [place], [address]. tel:[phone] [facility], [address] [place], [place], [id number] , [place] tel: [phone] [facility] 7 Renal Calculus Juan Diego-2 4-200 9 Shantha Andrae. [address] [place], [address], [place]. tel:[phone] Referring Provider: Tanner Olmstead, [address] [place] [address], [address]. tel:[phone] Level 4- New Office [facility], [address] [place] [address], [id number] , tel: [phone] [facility] 7 No Information 9 Niall Hart. [address] [facility] [address], [place], [address], [place]. tel:[phone] Referring Provider: Amos Shannon, [address] [facility] [address], [place], [address]. tel:[phone] Family History Family Member Type Diagnosis Age [...] name Insurance type Covered green party ID Authorcarmenza kareenrio(s) Doris [facility] [id number] Social History Type Description Quantity Date Captured [...] completed Future Order: Lab Order Calculi, Urinary ([id number]), Ordered on: Ordered History Of Present Illness [...] Giving encouragement to exercise Related to Dietary Surveil/christian counselor Giving encouragement to exercise Related to Hypertension, Unspecified Giving encouragement to exercise Related to Dietary Surveil/christian counselor emigdio SHEPARD on kub offe red litho no pain wants to wait psa end 2017 Related to Calculus of kidney tiny sebaceous cyst perineum no infection looks niormal normal layne Related to Elevated prostate specific antigen [PSA] Giving encouragement to exercise Related to Hypertension, Unspecified Giving encouragement to exercise Related to Dietary Surveil/christian counselor Assessments Type Assessment Date assessment Enlarged prostate without lower urinary tract symptoms impression flow good except in am no heme gets erections psa in 5 mo no change of sig x 13 yrs no fh Mental Status Date Cognitive Assessment Orientation - [place] ed to time, place, person, situation. Patient Care Teams Name Effective Dates (start - stop) Status Members No Information
--- OUTSIDE RECORDS SUMMARY | 2024-10-07 09:06 | XMS_ITS | Patient Health Record ---
Author Organization [facility] [place] Address [address] [place] [address] Care Team Providers Care Surveillance Dual Rate Officer Name Role Phone Edd Benitez MD Primary Care Provider Haleigh Rodriguez Unavailable [phone] Allergies No Known Allergies Reason For Referral [...] Problem Acquired hammer toe of right foot (9967595733950147 ) Other hammer toe(s) (acquired), right foot (M20.41) Active confirmed Problem Gout (55901516) Gout of left foot (M10.9) Active confirmed Rx drug management (4) Problem Gout (77798854) Gout of right foot (M10.9) Active confirmed Rx drug management (4) Problem 796664442 Arthritis of big toe (M19.079) Active confirmed Problem 220974997 Hallux malleus of right foot (M20.31) Active confirmed Problem Localized, primary osteoarthritis of the ankle and/or foot (364527536) Arthritis of joint of lesser toe, right (M19.071) Active confirmed Vital Signs Blood pressure diastolic 65 mm Hg 06/07/2024 Height 5ft 10in in 06/07/2024 Blood pressure systolic 129 mm Hg 06/07/2024 Weight 235 lbs 06/07/2024 BMI 33.72 kg/m2 06/07/2024 Encounters Encounter Location Date Provider Diagnosis [address] [address] 03/14/2024 Haleigh Banks Pain in right toe(s) M79.674 ; Tinea pedis of both feet B35.3 ; Hallux malleus of right foot M20.31 and Arthritis of big toe M19.[address] [address] 06/07/2024 Haleigh Banks Pain in joint involving left ankle and foot M25.572 and Gout of left foot M10.[address] [address] 02/01/2024 Haleigh Banks [address] [address] 06/04/2024 Haleigh Banks [address] [address] 06/20/2024 Haleigh Banks Assessments Encounter Date Diagnosis [...] Medicare National [employer] [address] [place] [address] [id number] Tr Kim Self - patient is the insured Medical (General) History Medical History History ICD Code Back,Hip,and Knee pain Diverticulosis Gall bladder problems Gout High Blood Pressure Reflux ( GERD) Sciatica thyroid Measles Mumps Hearing loss Surgical History Surgery Date(Month/Year) Gall bladder removal 1994 tympanoplasty 1966
--- OUTSIDE RECORDS SUMMARY | 2024-10-07 09:06 | XMS_ITS ---
Author Organization [facility] Address [address] [place] [address] Care Team Providers Care Christian Counselor Name Role Phone Edd Benitez MD Primary Care Provider Haleigh Rodriguez [phone] REASON FOR VISIT Lab results Encounters Encounter Location Date Provider Diagnosis [facility] [address] [place] [address] 06/20/2024 Haleigh Banks Plan Of Treatment No Information Progress Notes * Tr CASILLAS ADOB:1955 (69 yo M)Acc No.[id number]:06/20/2024 Patient:?Tr CASILLAS :1955???Age:69 Y???Sex:Male Address:[address] [place] [address] [place] [address] * true * Date:? Generated for Printi ng/Faannyg/eTransmitting on:?10/07/2024 09:06 AM EDT
--- OUTSIDE RECORDS SUMMARY | 2024-10-07 09:06 | XMS_ITS ---
Author Organization Edd Benitez MD Address [address] [place] [id number] Care Team Providers Care Orthopedic Surgeon Name Role Phone Edd Benitez Primary Care Provider REASON FOR VISIT refill Medications Medication SIG (Take, Route, Frequency, Duration) Notes Start Date End Date Status amLODIPine Besylate 5 MG TAKE 1 TABLET B Y MOUTH EVERY DAY FOR 90 DAYS Orally Once a day for 90 days Active Encounters Encounter Location Date Provider Diagnosis Edd Benitez MD [address] [place] [address] [place] [phone] 04/09/2024 Edd Benitez Primary hypertension I10 Assessments [...] Details Provider Name:Edd escamilla, 12/13/2024 08:00:00 AM, [address] [place] [address], [address], [phone], Provider Name:Edd escamilla, 12/20/2024 11:00:00 AM, [address] [place] [address], [address], [phone], Progress Notes * EMILIA CASILLAS ADOB:1955 (68 yo M)Acc No.[id number]:04/09/2024 Patient:?EMILIA CASILLAS :1955???Age:68 Y???Sex:Male Address:[address] [place] [address], [place], [address] * Refills? Refill amLODIPine Besylate Tablet, 5 MG, Orally, 90, TAKE 1 TABLET BY MOUTH EVERY DAY FOR 90 DAYS, Once a day, 90 days, Refills=3 * true * Date:? Generated for You harris/[place]/eTransmitting on:?10/07/2024 09:05 AM EDT
--- OUTSIDE RECORDS SUMMARY | 2024-10-07 09:06 | XMS_ITS ---
Author Organization [facility] Address [address] [place] [address] Care Team Providers Care Veterinary Inspector Name Role Phone Edd Benitez MD Primary Care Provider Haleigh Rodriguez Unavailable [phone] REASON FOR VISIT Joint pain Encounters Encounter Location Date Provider Diagnosis [address] [address] 06/04/2024 Haleigh Banks Plan Of Treatment No Information Progress Notes * Tr CASILLAS ADOB:1955 (68 yo M)Acc No.[id number]:06/04/2024 Patient:?Tr CASILLAS :1955???Age:68 Y???Sex:Male Address:[address] [place] [address] [place] [address] * true * Date:? Generated for Printi ng/Faannyg/eTransmitting on:?10/07/2024 09:06 AM EDT
--- OUTSIDE RECORDS SUMMARY | 2024-10-07 09:06 | XMS_ITS ---
Author Organization [facility] jaqui Banner Address [address] [facility] [place] [address] Care Team Providers Care Surgery Assistant Name Role Phone Edd Benitez MD Primary Care Provider Haleigh Rodriguez Unavailable [phone] Allergies No Known Allergies REASON FOR VISIT [...] Status W/U Status Risk Notes Problem Gout of right foot (M10.9) Active confirmed Rx drug management (4) Problem Gout of left foot (M10.9) Active confirmed Rx drug management (4) Vital Signs Height 5ft 10in in 06/07/2024 Weight 235 lbs 06/07/2024 BMI 33.72 kg/m2 06/07/2024 Blood pressure systolic 129 mm Hg 06/07/19 25 Blood pressure diastolic 65 mm Hg 025 Encounters Encounter Location Date Provider Diagnosis [facility] [place] [address] [place] [phone] 06/07/2024 Haleigh Banks Pain in joint involving [...] * Tr CASILLAS ADOB:1955 (68 yo M)Acc No.[id number]:06/07/2024 Progress Note Patient:?Tr CASILLAS Provider:?Haleigh Banks DPM :1955???Age:68 Y???Sex:Male Neil e:06/07/2024 [address] [facility] [phone] Pcp:Edd Benitez MD Subjective: * Chief Complaints: [...] day. ?Exercise: no. ?Marital status: single. 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 * Medications:?TakingOmeprazol e 20 MG Capsule Delayed [...] of Foot, AP, LAT, MO??Taken by trained?Podiatric Watch Supervisor (?[place]).?Findings:? increase in soft tissue contour and density at the symptomatic site, radiolucent soft tissue gas absent.?HAV:?there is no [place] sign present in the 1st MTH.?Fracture:?Negative fractures [...] ray : Foot, right 3V * Procedure Codes:?10941 X-RAY EXAM OF LEFT FOOT 3V, Modifiers: [...] DPM Date:?0 06/07/2024 Generated for You harris/Phoenix/Moni on:?10/07/2024 09:06 AM EDT History and Physical [...] AP, LAT, MO Taken by trained Podiatric Watch Supervisor ( [place]) Clinical Indication(s): Evaluate for Fra cture, Evaluate for Osteomyelitis, Evaluate for possible Gout
--- OUTSIDE RECORDS SUMMARY | 2024-10-07 09:07 | XMS_ITS | Patient Health Record ---
Author Organization [facility] Address [address] [facility] [address] [place] [address] Care Team Providers Care Stockbroker Name Role Phone Humble Lazaro Unavailable [phone] Preeti CAMPBELL, Tyree Unavailable Unavailabl e Reason For Referral No Information Medications Medication SIG (Take, Route, Frequency, Duration) Notes Start Date End Date Status Advil oral *please review f or potential _update for e-prescription and drug interaction check* Active Levothyroxine Sodium 100 MCG Tablet Oral Active Allopurinol 100 MG Tablet Oral Active Famotidine 20 MG Tablet TAKE 1 TABLET BY MOUTH EVERY DAY AT BEDTIME NEEDED Active PriLOSEC oral *please review f or potential _update for e-prescription and drug interaction check* Active amLODIPine Besylate 5 MG Tablet 1 tablet Orally Once a day Active Atorvastatin Calcium 40 MG Tablet 1 tablet Orally Once a day Active [...] Problem Status W/U Status Risk Notes Problem Gastroesophageal reflux disease (538488155) GERD without esophagitis (K21.9) Active confirmed even on PPI. Will initiate nightly H2 blockers. Discussed lifestyle changes. Will do EGD for evaluation. Problem Globus sensation (398120373) Globus sensation (R09.89) 020 Active confirmed Due to post-nasal drainage, or more likely, stress-rela oziel. Problem Family history of malignant neoplasm of gastrointestinal tract (185975643) Family history of colon cancer in father (Z80.0) Active confirmed father at age 50. Will do colonoscopy . Plan Of Treatment No Information Insurance Providers Payer Name Payer Address Payer Phone Subscriber Number Group Number Insured Name Patient Relationship to Insured Coverage Start Date Coverage End Date [place]is [place] [address] [place] [phone] [id number] EMILIA CASILLAS Self - patient is the insured Medical (General) History Medical History History ICD Code Diverticulosis; GERD; Hypothyroidism Hypertension Surgical History Surgery Date(Month/Year) Gallbladder Surgery; 2014-05-13 Colonoscopy; tics 2014-07-03
--- OUTSIDE RECORDS SUMMARY | 2024-10-07 09:07 | XMS_ITS | Data Portability ---
Author Organization ID - [facility], [facility] Address [address] [place] [address] Care Team Providers Care Product Development Manager Name Role Phone HAILY KRISHNA Primary Care [...] ossiculoplasty versus laser stapedotomy with vein graft. [email or web address] Not available 11/09/2023 17:17:58 02/22/2024 02/22/2024 Both [...] hearing aid evaluation or proceed with surgery. [email or web address] Not available 02/22/2024 14:25:44 Plan of Treatment Reminders Order Date Submit Date Provider Last Modified By Organization Details Last Modified Time Details Appointments None recorded. Lab None recorded. Referral None recorded. Procedures None recorded. Surgeries None recorded. Imaging CT, temporal bone, w/o contrast 2023 024 [email or web address] Not available 15:46:02 Medication Orders None recorded. Patient TargetsNo targets recorded. Patient InstructionsNo instructions recorded. Reason for Referral None Reported. Results Created Date Observation Date Name Description Value Unit Range Abnormal Flag Note LastModifiedBy Organization Detail LastModifiedTime 11/20/19 24 03/13/2023 audio gram No observ ation record ed. [email or web address] Not Available 05/2023 15:47:44 12/22/19 24 11/09/2023 audio gram No observ ation record ed. Not Available 2023 21:34:19 03/11/20 24 02/22/2024 CT, tempo ral bone, w/o contr ast No observ ation record ed. [email or web address] [facility] [address] [address], [place], [address], 03/12/2024 08:28:57 Result Notes None recorded. Problems Name Problem SNOMED Code Status Onset Date Resolution Date Notes Provider Name and Address Organization Details Recorded Time Mixed conductive and sensorineural hearing loss, bilateral 500865236 Active 2023 AWA BAILEY MD [address] [place] [address], [phone], [facility] - [facility] [place] 15:50:39 Partial loss of ear ossicles 94008608 Active 2023 AWA BAILEY MD [address] [place] [address], [phone], [facility] 14:23:59 Problem Notes None recorded. Procedures Surgical History Date Name Laterality Status Provider Name and Address Organization Details Recorded Time 02/22/[address] temporal bones - Xoran completed AWA BAILEY MD [address] [place] [address], [phone], [facility] 02/22/2024 13:36:35 02/22/20 24 Air & Bone Audio - 86608 completed AWA BAILEY MD [address] [place] [address], [phone], [facility] - [facility] 02/21/2024 21:34:31 02/22/20 24 Tymps & Reflexes - 85227 completed AWA BAILEY MD [address] [place] [address], [phone], [facility] 02/21/2024 21:34:32 02/22/20 24 SRT & Speech Recognition - 32445 completed AWA BAILEY MD [address] [place] [address], [phone], [facility] - [facility] 02/21/2024 21:34:32 11/09/19 24 Air & Bone Audio - 86834 completed Cairn Sanchez ID - [facility] 11/09/2023 16:52:09 11/09/19 24 Tymps & Reflexes - 67997 completed Carin Sanchez MA - [facility] 11/09/2023 16:51:42 11/09/19 24 SRT & Speech Recognition - 33510 completed Carin Sanchez MA - [facility] [place] [facility] 11/09/2023 16:52:24 Ear Surgery completed AWA BAILEY MD [address] [facility] [address], [place], [address], [facility] - [facility] 11/09/2023 16:55:22 cholecystectomy completed Connie Garber ID - [facility] 11/09/2023 15:35:12 Imaging Results Imaging Date Name Status LastModified by Organiz ation Details LastModified Time 03/13/2023 audiogram completed [email or web address] Information not available 11/20/2023 15:47:44 11/09/2023 audiogram completed [email or web address] Information no t available 02/21/2024 21:34:19 02/22/2024 CT, temporal bone, w/o contrast completed [email or web address] [facility] [address] [facility] [address], [place], [address], 03/12/2024 08:28:57 Procedure Notes None recorded. Medical [...] Details Last Updated DateTime 11/09/2023 179.07 cm 769663.32 g Connie Garber MA - [facility] 11/09/2023 15:37:06 Date Recorded Body height Body weight Provider Name and Address Organization Details Last Updated DateTime 02/22/2024 179.07 cm 531992.13 g Connie Garber MA - [facility] 02/22/2024 13:59:32 Social History None recorded. Functional Status None recorded. Mental Status None recorded. Family History Nothing Reported. Medical History Condition Response Thyroid Problems Y Hypertension Y Kidney Disease Y GERD/Reflux Y Past Encounters Encounter ID Performer Location Encounter Start Date Encounter Closed Date Diagnosis/Indication Diagnosis SNOMED-CT Code Diagnosis ICD10 Code Diagnosis Note [id number] AWA BAILEY MD [facility] [address] [address] 11/09/2023 14:56:16 11/09/2023 17:03:18 Mixed conductive and sensorineural hearing loss, bilateral 628806328 H90.6 Audiologic al evaluation results: Right ear: [...] hermetic seal}} AWA BAILEY MD [facility] [address] [address] 02/22/2024 12:53:08 02/22/2024 14:24:26 Mixed conductive and sensorineural hearing loss, bilateral 857049866 H90.6 Partial lo ss of ear ossicles 97762975 H74.323 Health Concerns Section Related Observation LastModified by Organization Detai ls LastModified Time None Recorded Concern Status LastModified by Organization Details LastModified Time None Recorded Advance Directives Directive None Recorded Payers Insurance Date Sequence Insurance Name Policy Number Policy Ramirez Covered Member ID Ramirez Member ID Guarantor Name 02/22/2024 2 [place] Tr Kennyziol [id number] Tr Kim 02/22/2024 1 [place] B[place] [employer] Tr Turk Julio [id number] Tr Kim Notes Date Note Type Note Provider Name [...] to the area and establish care with [facility]. Audiogram 8 months ago showed bilateral mixed hearing loss with a rather significant conductive component bilaterally. Patient referred to me for further evaluation of his ears. No recent pain or discharge AWA BAILEY MD [address] [place] [address], [phone], [facility] - [facility] 11/09/2023 17:18:34 02/22/2024 text/html 68-year-old male referred for evaluation of his hearing. Patient had chronic childhood ear infections requiring operations on both of his ears when he was in grade school. He began wearing hearing aids in his early 50s and is now on his third set of hearing aids. Currently moved to the area and establish care with [facility]. Audiogram back in October showed bilateral mixed hearing loss with a rather significant conductive component bilaterally. Patient comes in today for CAT scan of the temporal bones to assess for the cause of the conductive component of his hearing loss in anticipation of possible surgical interventionThat currently using binaural BTE amplification better about 6 years old. Devices are being managed through [employer]. AWA BAILEY MD [address] [place] [address], [place], [address], [facility] - [facility] 02/22/2024 14:26:21
== END ==
LOC: HO.CARD 08:56
PROVIDERS: PCP Internal Medicine; Visit Provider Internal Medicine Cardiovascular Disease
DX: I10 Essential (primary) hypertension (principal)
CPT/HCPCS: 93017; 93306

== ENCOUNTER → 2024-10-07 08:59 | Outpatient (BNV) | payer MEDICARE, MEDICAID, SELFPAY | PROVIDERS: PCP Internal Medicine; Visit Provider Internal Medicine | DX: I10 Essential (primary) hypertension (principal); R94.31 Abnormal electrocardiogram [ECG] [EKG]; I42.2 Other hypertrophic cardiomyopathy; I35.0 Nonrheumatic aortic (valve) stenosis; I34.81 Nonrheumatic mitral (valve) annulus calcification; I49.3 Ventricular premature depolarization | CPT/HCPCS: 93016; 93018; 93350 ==

== ENCOUNTER 2024-10-11 12:59 | Outpatient (AMB) | payer MEDICARE, MEDICAID, SELFPAY ==
--- OUTSIDE RECORDS SUMMARY | 2024-10-11 13:02 | XMS_ITS ---
Author Organization Edd Benitez MD Address [address] [place] [phone] Care Team Providers Care Personnel Analyst Name Role Phone Edd Benitez Primary Care Provider [phone] REASON FOR VISIT refill Medications Medication SIG (Take, Route, Frequency, Duration) Notes Start Date End Date Status amLODIPine Besylate 5 MG TAKE 1 TABLET B Y MOUTH EVERY DAY FOR 90 DAYS Orally Once a day for 90 days Active Encounters Encounter Location Date Provider Diagnosis Edd Benitez MD [address] [place] [address] [place] [id number] 04/09/2024 Edd Benitez Primary hypertension I10 Assessments [...] Details Provider Name:Edd escamilla, 12/13/2024 08:00:00 AM, [address] [place] [address], [address], [id number], Provider Name:Edd escamilla, 12/20/2024 11:00:00 AM, [address] [place] [address], [address], [phone], Progress Notes * EMILIA CASILLAS ADOB:1955 (68 yo M)Acc No.[id number]:04/09/2024 Patient:?EMILIA CASILLAS :1955???Age:68 Y???Sex:Male Address:[address] [place] [address], [place], [address] * Refills? Refill amLODIPine Besylate Tablet, 5 MG, Orally, 90, TAKE 1 TABLET BY MOUTH EVERY DAY FOR 90 DAYS, Once a day, 90 days, Refills=3 * true * Date:? Generated for You harris/Phoenix/eTransmitting on:?10/11/2024 01:01 PM EDT
[2024-10-11 13:05] VITALS: BP 112/70; PULSE 92; BMI 34.5
--- NOTE | 2024-10-11 13:05 | MHC.OFFVIS ---
Vital Signs 10/11/24 13:05 Height 5 ft 10.5 in Weight 243 lb 13.3 oz BMI 34.5 BP 112/70 Blood Pressure Location Lt brachial Position Sitting Pulse 92 Pulse Source Pulse Oximeter Intake Visit Reasons: f/up-calcium score/stress Intake Note: f/up- calcium score/stress/echo Credit Collections Analyst Required: No Accompanied by: Self / Same As Patient Allergies No Known Allergies Allergy (Verified 08/27/24 14:39) Medication List - Last Reconciled 10/11/24 by Modesto Parham NP amlodipine 5 mg PO DAILY atorvastatin 40 mg PO DAILY indomethacin 50 mg PO TID levothyroxine 100 mcg PO DAILY omeprazole 20 mg PO DAILY HPI Comments Details: This is a 69-year-old male patient coming in for a follow-up visit. Patient was previously seen for hyperlipidemia and twin brother who was recently diagnosed with coronary artery disease. Patient with history of hypertension, hyperlipidemia, and obesity. Since last visit, patient has undergone a stress test, echocardiogram, and a coronary calcium score. Today, patient is here to review those results. Patient is reporting feeling well overall and denies any cardiac symptoms including exertional chest pain, shortness of breath, palpitations, dizziness, orthopnea, PND, leg edema, presyncope, or syncope. Patient states he is compliant with all his medications. [facility] Medical History Hyperlipidemia HTN (hypertension) Review of Systems Const Denies chills, Denies fatigue, Denies fever(s), Denies frequent falls, Denies weakness, Denies weight gain and Denies weight loss ENT Denies dizziness Card Denies chest pain, Denies leg edema, Denies lightheadedness, Denies palpitations, Denies dyspnea and Denies dyspnea on exertion Resp Denies cough, Denies dyspnea and Denies dyspnea on exertion GI Denies hematochezia Musc Denies abnormal gait, Denies muscle weakness, Denies numbness, Denies radiating pain into limb and Denies tingling Neuro Denies abnormal gait, Denies dizziness, Denies frequent falls, Denies numbness, Denies tingling and Denies weakness Endo Denies fatigue and Denies palpitations Physical Exam Vital Signs: Last Vital Signs Pulse 92 10/11/24 13:05 BP 112/70 10/11/24 13:05 BMI result Body Mass Index 34.5 Const General: cooperative, healthy appearing, comfortable and no acute distress Orientation/consciousness: patient oriented x3 HEENT Head: Yes normal to inspection Neck Neck: Yes normal visual inspection, Yes trachea midline and Yes supple Chest Chest palpation & inspection: normal inspection of the chest Resp Effort & Inspection: normal respiratory effort Auscultation: clear to auscultation bilaterally, no crackles, no rales, no rhonchi and no wheezes Cardio Jugular venous distension: no JVD Palpation: normal PMI Rate: regular rate Rhythm: regular rhythm Heart sounds: S1 normal heart sound present, S2 normal heart sound present, no click, no gallops, no murmurs and no rubs Peripheral pulses: Peripheral pulses 2+ throughout GI Inspection: Yes normal to inspection Palpation (GI): Soft to palpation Auscultation: normal bowel sounds Skin General skin exam: no rashes or lesions noted Neuro General: patient oriented x3 Extrem General: Yes normal to inspection, No no pedal edema and No calf tenderness Psych Appearance: grossly normal Mental Status: mental status grossly normal Speech and movement: Normal speech and movement present Assessment & Plan Assessment & Plan (1) Abnormal echocardiogram: Code(s): R93.1 - Abnormal findings on diagnostic imaging of heart and coronary circulation Category: Medical Plan: 09/19/2024-patient underwent a coronary calcium score with a score of 348. 10/07/2024-patient underwent a treadmill stress test with moderate workload. With shortness of breath and no EKG changes. 10/07/2024-echo study showed normal LV systolic function with an ejection fraction at 62%, hypokinetic mid inferior septal segment, small plaque in the sinotubular ridge, and mild dilation of the sinuses of Valsalva at 4 point 1 cm. Given above findings and multiple risk factors, we will evaluate this further with a coronary CTA. Clinically stable. (2) Hyperlipidemia: Code(s): E78.5 - Hyperlipidemia, unspecified Category: Medical Plan: Most recent LDL at 95. Continue statin therapy. We will add Zetia to his regimen. We will repeat a lipid profile in 3 months. Ideally, LDL goal less than 70. (3) HTN (hypertension): Code(s): I10 - Essential (primary) hypertension Category: Medical Plan: Blood pressure today is well-controlled. Continue current regimen. Advised monitoring blood pressures at home with a goal of less than 130/80. Advised heart healthy diet, regular exercise, losing weight, med compliance, and aggressive mnagement of vascular risk factors. Follow-up after the following tests. In the interim, patient will call the office with any concerns or change in symptoms. Advised seeking ER care in case of exertional chest not resolved with rest. This note was generated using voice recognition software. While every effort has been made to ensure accuracy and proper marketing manager health communications, there may be occasional errors that could affect the content or meaning of the described symptoms. Orders: Orders Lipid Panel 3 Months E78.5 - Hyperlipidemia, unspecified Basic Metabolic Panel Today E78.5 - Hyperlipidemia, unspecified, R93.1 - Abnormal findings on diagnostic imaging of heart and coronary circulation CT Cardiac Coronary Angio Today E78.5 - Hyperlipidemia, unspecified, R93.1 - Abnormal findings on diagnostic imaging of heart and coronary circulation Medications: New ezetimibe 10 mg PO DAILY 90 tabs 3RF aspirin 81 mg PO DAILY 90 tabs 3RF Coding Level of Care Code Est Pt Level 4 (66416) Complex EM visit Add On G2211 Diagnoses Abnormal echocardiogram R93.1 Hyperlipidemia E78.5 HTN (hypertension) I10 Time Spent (min) 32 Comment Time spent in reviewing the chart, test results, assessment, counseling and documentation.
== END 2024-10-11 13:50 | disposition home or self-care (01) ==
LOC: HO.HCS 12:59
PROVIDERS: PCP Internal Medicine
DX: R93.1 Abnormal findings on diagnostic imaging of heart and coronary circulation (principal); E78.5 Hyperlipidemia, unspecified; I10 Essential (primary) hypertension
CPT/HCPCS: 99214; G2211

== ENCOUNTER → 2024-10-11 12:59 | Outpatient (BNVA) | payer MEDICARE, MEDICAID, OTHER, SELFPAY | PROVIDERS: PCP Internal Medicine | DX: I10 Essential (primary) hypertension (principal); E78.5 Hyperlipidemia, unspecified; E66.9 Obesity, unspecified; R93.1 Abnormal findings on diagnostic imaging of heart and coronary circulation; Z68.34 Body mass index [BMI] 34.0-34.9, adult | CPT/HCPCS: 99212 ==

== ENCOUNTER 2024-11-20 12:38 | Outpatient (REF) | payer MEDICARE, MEDICAID, SELFPAY ==
--- OUTSIDE RECORDS SUMMARY | 2021-08-12 07:20 | XMS_ITS | Continuity of Care Document ---
Author Organization [facility] Address [address] [place] [address] Phone Care Team Providers Care Die Repairer Forging Name Role Phone Tanner Tierney MD Unavailable [...] Estab Mod-hi 2 [facility], [address], [place], [id number] , [phone] Wall [facility] 7 BPH (chief complaint) Enlarged prostate without lower urinary tract symptoms 2 Niall Hart. [address] [facility], [address] [place] [address], [address], . tel:[phone] Referring Provider: Tanner Olmstead, [address] [facility] [address] [place] [address], [address]. tel:[phone] [facility], [address], [place], [id number] , [place] tel: [phone] Wall [facility] 7 BPH (chief complaint) Enlarged prostate without lower urinary tract symptoms 2 Niall Hart. [address] [place] [address], [address] [place] [address], [address], [place]. tel:[phone] Referring Provider: Tanner Olmstead, [address] [place] [address], [place], [address]. tel:[phone] Office E&m Estab Mod-hi 2 [facility], [address], [place], [id number] , [place] tel: [phone] Wall [facility] 7 Kidney stones (chief complaint) Elevated prostate specific antigen [PSA]Calculus of kidneyEnlarged prostate without lower urinary tract symptoms 1 Niall Hart. [address] [place] [address], [address], [address], [place]. tel:[phone] Referring Provider: Tanner Olmstead, [address] [place] [address], [address]. tel:[phone] [facility], [address], [place], [id number] , [place] tel: [phone] Wall [facility] 7 Kidney stones (chief complaint) Calculus of kidney 1 Niall Hart. [address] [place] [address], [address], [address], [place]. tel:[phone] Referring Provider: Amos Shannon, [address] [place] [address], [address]. tel:[phone] [facility], [address], [place], [id number] , [place] tel: [phone] Wall [facility] 7 No Information 1 Niall Hart. [address] [place] [address], [address], [address], [place]. tel:[phone] Office E&m [facility]-ak 2 [facility], [address] [place] [address], [id number] , tel: [phone] Wall [facility] 7 BPH (chief complaint)Er ectile dysfunction (chief complaint)Pr ostate cancer (chief complaint) Dietary counseling and surveillanceCalcu masood of kidney Dec-3 0-[address], [address], [address], [place]. tel:[phone] Referring Provider: Amos Shannon, [address] [facility] [address], [place], [address]. tel:[phone] [facility], [address] [place] [address], [id number] , tel: [phone] Wall [facility] 7 Elevated PSA (chief complaint) Elevated prostate specific antigen [PSA] Dec-[address], [address], [place]. tel:[phone] Referring Provider: Amos Shannon, [address] [facility] [address], [place], [address]. tel:[phone] Office E&m [facility]-ak 2 [facility], [address] [place] [address], [id number] , tel: [phone] Wall [facility] 7 BPH (chief complaint)Er ectile dysfunction (chief complaint)Pr ostate cancer (chief complaint) Enlarged prostate without lower urinary tract symptoms Sep-[address], [address], [address], [place]. tel:[phone] Referring Provider: Amos Shannon, [address], [place], [facility]. tel:[phone] [facility], [address] [place] [address], [id number] , tel: [phone] Wall [facility] 7 No Information Sep-[address], [address], [address], . tel:[phone] Office E&m Estab Mod-ak 2 [facility], [address] [place] [address], [id number] , tel: [phone] Wall [facility] 7 BPH (chief complaint)El evated PSA (chief complaint) Elevated prostate specific antigen [PSA] [address], [address], [address], [place]. tel:[phone] Referring Provider: Amos Shannon, [address] [facility] [address], [place], [address]. tel:[phone] Office E&m Estab [facility] 2 [facility], [address] [place] [address], [id number] , tel: [phone] Wall Office 7 Flank pain (chief complaint) Enlarged prostate without lower urinary tract symptoms [address], [address], [address], [place]. tel:[phone] Referring Provider: Amos Shannon, [address] [facility] [address], [place], [facility]. tel:[phone] [facility], [address] [place] [address], [id number] , tel: [phone] Wall [facility] 7 Calculus of kidney [address], [address], [address], [place]. tel:[phone] Referring Provider: Amos Shannon, [address] [facility] [address], [place], [address]. tel:[phone] Office E&m [facility]-ak 2 [facility] [place], [address] [place] [address], [id number] , tel: [phone] Wall [facility] 7 Flank pain (chief complaint) Calculus of kidney [address], [address], [facility], . tel:[phone] Referring Provider: Amos Shannon, [address], [place], [address]. tel:[phone] Office E&m [facility] Mod-hi 2 [facility] [place], [address] [place] [address], [id number] , tel: [phone] Wall [facility] 7 Elevated PSA (chief complaint) Dietary counseling and surveillanceEssen tial (primary) hypertensionEnlar ged prostate without lower urinary tract symptoms [address], [address], [facility], . tel:[phone] Referring Provider: Amos Shannon, [address] [facility] [address], [place], [facility]. tel:[phone] [facility] [place], [address] [place] [address], [id number] , [place] tel: [phone] Wall [facility] 7 Elevated prostate specific antigen [PSA] [address], [address], [address], [place]. tel:[phone] Office E&m [facility]-hi 2 [facility], [address] [place] [address], [id number] , tel: [phone] Wall [facility] 7 BPH (chief complaint)Ki dney stones (chief complaint) Elevated prostate specific antigen [PSA] [address], [address], [address], [place]. tel:[phone] Referring Provider: Amos Shannon, [address] [facility] [address], [place], [facility]. tel:[phone] [facility], [address] [place] [address], [id number] , tel: [phone] Wall [facility] 7 Enlarged prostate without lower urinary tract symptoms [address], [address], [address], [place]. tel:[phone] Referring Provider: Amos Shannon, [address] [facility] [place], [address]. tel:[phone] Office E&m [facility] [place], [address] [place] [address], [id number] , [place] tel:[phone] Wall [facility] 7 BPH (chief complaint)Ki dney stones (chief complaint) Calculus of kidney [address], [address], [address], [place]. tel:[phone] Referring Provider: Amos Shannon, [address] [facility] [place], [address]. tel:[phone] [facility], [address] [place] [address], [id number] , [place] tel:[phone] Wall [facility] 7 Enlarged prostate without lower urinary tract symptoms [address], [address], [address], [place]. tel:[phone] Referring Provider: Amos Shannon, [address] [facility] [place], [address]. tel:[phone] Office E&m [facility] [place], [address] [place] [address], [id number] , [place] tel:[phone] Wall [facility] 7 BPH (chief complaint) Enlarged prostate without lower urinary tract symptoms [address], [address], [address], [place]. tel:[phone] Referring Provider: Amos Shannon, [address] [facility] [place], [address]. tel:[phone] [facility], [address] [place] [address], [id number] , tel: [phone] Wall [facility] 7 Elevated prostate specific antigen [PSA] [address], [address], [address], . tel:[phone] Referring Provider: Amos Shannon, [address] [facility] [address], [place], [address]. tel:[phone] Offic Cons New/estab Low 30 Mi [facility], [address] [place] [address], [id number] , tel: [phone] Wall [facility] 7 BPH (chief complaint)El evated PSA (chief complaint)Pr ostatitis (chief complaint) Elevated prostate specific antigen [PSA]Dietary counseling and surveillanceEssen tial (primary) hypertension [address], [facility], . tel:[phone] Referring Provider: Amos Shannon, [address] [facility] [address], [place], [address]. tel:[phone] [facility], [address] [place] [address], [id number] , tel: [phone] Wall [facility] 7 No Information [address], [address], [address], . tel:[phone] Office E&m Estab Minor 10 [facility], [address] [place] [address], [id number] , [place] tel: [phone] Wall [facility] 7 Prostate Screening for Cancer 3-[address], [address], [address], [place]. tel:[phone] Referring Provider: Amos Shannon, [address] [facility] [address], [place], [address]. tel:[phone] [facility], [address] [place] [address], [id number] , tel: [phone] Wall [facility] 7 Renal Calculus Sep-2 5-200 9 Jenncarahira Hart. [address] [place] [address], [address], [address], [place]. tel:[phone] Referring Provider: Amos Shannon, [address] [facility] [address], [place], [address]. tel:[phone] [facility], [address] [place] [address], [id number] , [place] tel: [phone] [facility]. Renal Calculus Sep- 7-200 9 Shantha Andrae. [address] [place], [address], [place]. tel:[phone] Referring Provider: Amos Shannon, [address] [facility] [place], [address]. tel:[phone] Office E&m Estab Low-mod [facility], [address] [place] [address], [id number] , [place] tel: [phone] Wall [facility] 7 No Information Sep-1 0-200 9 Niall Hart. [address] [place] [address], [address], [address], [place]. tel:[phone] Referring Provider: Amos Shannon, [address] [facility] [place], [address]. tel:[phone] [facility], [address], [place], [id number] , [place] tel: [phone] Wall [facility] 7 Renal Calculus Juan Diego-2 4-200 9 Shantha Andrae. [address] [place], [address], [place]. tel:[phone] Referring Provider: Tanner Olmstead, [address] [place] [address], [address]. tel:[phone] Level 4- New Office [facility], [address] [place] [address], [id number] , tel: [phone] Wall [facility] 7 No Information 9 Niall Hart. [address] [facility], [address], [place], [address], [place]. tel:[phone] Referring Provider: Amos Shannon, [address] [facility] [address], [place], [address]. 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 Giving encouragement to exercise Related to Hypertension, Unspecified emigdio SHEPARD on kub offe red litho no pain wants to wait psa end 2017 Related to Calculus of kidney tiny sebaceous cyst perineum no infection looks niormal normal layne Related to Elevated prostate specific antigen [PSA] Giving encouragement to exercise 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 Patient Care Teams Name Effective Dates (start - stop) Status Members No Information
--- OUTSIDE RECORDS SUMMARY | 2024-04-09 05:19 | XMS_ITS ---
Author Organization Edd Benitez MD Address [address] [place] [phone] Care Team Providers Care Exhaust Emissions Inspector Name Role Phone Edd Benitez Primary Care Provider [phone] REASON FOR VISIT refill Medications Medication SIG (Take, Route, Frequency, Duration) Notes Start Date End Date Status amLODIPine Besylate 5 MG TAKE 1 TABLET B Y MOUTH EVERY DAY FOR 90 DAYS Orally Once a day for 90 days Active Encounters Encounter Location Date Provider Diagnosis Edd Benitez MD [address] [place] [address] [place] [phone] 04/09/2024 Edd Benitez Primary hypertension I10 Assessments [...] days Next Appt Details Provider Name:Edd escamilla, 12/13/2024 08:00:00 AM, [address] [place] [address], [address], [phone], Provider Name:Edd escamilla, 12/20/2024 11:00:00 AM, [address] [place] [address], [address], [phone], Progress Notes * EMILIA CASILLAS ADOB:1955 (68 yo M)Acc No.[id number]:04/09/2024 Patient: EMILIA MONTIEL :1955 A ge:68 Y S ex:Male Address:[address] [place] [address], [facility] * Refills Refill amLODIPine Besylate Tablet, 5 MG, Orally, 90, TAKE 1 TABLET BY MOUTH EVERY DAY FOR 90 DAYS, Once a day, 90 days, Refills=3 * true * Date: Generated for You harris/Phoenix/Moni on: 0 11/20/2024 01:08 PM EDT
--- OUTSIDE RECORDS SUMMARY | 2024-11-20 13:09 | XMS_ITS | Patient Health Record ---
Author Organization [facility] Address [address] [address] [place] [address] Care Team Providers Care Manager Mall Name Role Phone Gareth Baker Unavailable [phone] Allergies No Known Allergies Reason For Referral No Information Medications Medication SIG (Take, Route, Frequency, Duration) Notes Start Date End Date Status NexIUM 20 MG TAKE 1 CAPSULE BY MO UTH EVERY DAY (STOP TAKING 20MG CAPS) Active Social History Tobacco Use: Social History Observation Description Date Details (start date - stop date) Never Smoker NA - NA Tobacco Use/Smoking Question Answer Notes Are you a nonsmoker Alcohol Screen (Audit-C) Question Answer Notes Did you have a drink containing alcohol in the p ast year? No Points 0 Interpretation Negative Problems Problem Type SNOMED Code ICD Code Onset Dates Problem Status W/U Status Risk Notes Problem Postnasal drip (94182449) Postnasal drip (R09.82) Active confirmed Problem Allergic rhinitis (71494116) Allergic rhinitis (J30.9) Active confirmed Problem Laryngopharyngeal reflux (030356174) LPRD (laryngophary ngeal reflux disease) (K21.9) Active confirmed Plan Of Treatment No Information Insurance Providers Payer Name Payer Address Payer Phone Subscriber Number Group Number Insured Name Patient Relationship to Insured Coverage Start Date Coverage End Date [employer] [address] [place] [address] [id number] Tr Kim Self - patient is the insured Medical (General) History Medical History History ICD Code Chronic GERD K21.9 Surgical History Surgery Date(Month/Year)
--- OUTSIDE RECORDS SUMMARY | 2024-11-20 13:09 | XMS_ITS | Patient Health Record ---
Author Organization [facility] Address [address] [facility] [place] [address] Care Team Providers Care Husbandry Person Name Role Phone Emmanuel CAMPBELL, Edd Primary Care Provider Haleigh Rodriguez Unavailable [phone] Allergies No Known Allergies Reason For Referral No Information Medications Medication SIG (Take, Route, Frequency, Duration) Notes Start Date End Date Status Medrol wesley 4mg as directed orally a s directed; Duration: 6 days 06/07/2024 Active Omeprazole 20 MG [...] to skin of feet including between the toes; Duration: 30 days Active Social History Tobacco Use: [...] Problem Acquired hammer toe of right foot (8291685375971544 ) Other hammer toe(s) (acquired), right foot (M20.41) Active confirmed Problem Gout (45360949) Gout of left foot (M10.9) Active confirmed Rx drug management (4) Problem Gout (97228885) Gout of right foot (M10.9) Active confirmed Rx drug management (4) Problem Localized, primary osteoarthritis of the ankle and/or foot (597808052) Arthritis of big toe (M19.079) Active confirmed Problem Acquired hallux varus (86389955) Hallux malleus of right foot (M20.31) Active confirmed Problem Localized, primary osteoarthritis of the ankle and/or foot (706122895) Arthritis of joint of lesser toe, right (M19.071) Active confirmed Vital Signs Blood pressure diastolic 65 mm Hg 06/07/2024 Height 5ft 10in in 06/07/2024 Blood pressure systolic 129 mm Hg 06/07/2024 Weight 235 lbs 06/07/2024 BMI 33.72 kg/m2 06/07/2024 Encounters Encounter Location Date Provider Diagnosis [address] [address] 03/14/2024 Haleigh Banks Pain in right toe(s) M79.674 ; Tinea pedis of both feet B35.3 ; Hallux malleus of right foot M20.31 and Arthritis of big toe M19.[address] [address] 06/07/2024 Haleigh Banks Pain in joint involving left ankle and foot M25.572 and Gout of left foot M10.[address] [address] 02/01/2024 Haleigh Banks [address] [address] 06/04/2024 Haleigh Banks [address] [address] 06/20/2024 Haleigh Banks Assessments Encounter Date Diagnosis [...] Medicare [employer] [address] [place] [address] [id number] Tr Kim Self - patient is the insured Medical (General) History Medical History History ICD Code Back,Hip,and Knee pain Diverticulosis Gall bladder problems Gout High Blood Pressure Reflux ( GERD) Sciatica thyroid Measles Mumps Hearing loss Surgical History Surgery Date(Month/Year) Gall bladder removal 1994 tympanoplasty 1966
--- OUTSIDE RECORDS SUMMARY | 2024-11-20 13:09 | XMS_ITS | Patient Health Record ---
Author Organization [facility] Address [address] [place] [address] Support Name Relationship Address Phone Tr Kim Guarantor Unknown [phone] Reason For Referral No Information Medications Medication SIG (Take, Route, Frequency, Duration) Notes Start Date End Date Status Cipro 500 MG 1 tablet Orally Twic e a day; Duration: 3 days 11/03/2015 Active Immunizations Vaccine Route Administration Date Status Comme nts TRAVEL Tdap IM Intramuscular 11/03/2015 Administered Typhoid, unspecified formulation IM Intramuscular 11/03/2015 Administered Plan Of Treatment No Information
--- OUTSIDE RECORDS SUMMARY | 2024-11-20 13:10 | XMS_ITS | Patient Health Record ---
Author Organization [facility] Address [address] [place] [address] Support Name Relationship Address Phone Unavailable Emergency Contact Unknown [id number] Tr Kim Guarantor Unknown [phone] Reason For Referral No Information Medications Medication SIG (Take, Route, Frequency, Duration) Notes Start Date End Date Status Omeprazole 20 MG Oral Prescription/Di yola arge Order 12/06/2010 Active Plan Of Treatment No Information Insurance Providers Payer Name Payer Address Payer Phone Subscriber Number Group Number Insured Name Patient Relationship to Insured Coverage Start Date Coverage End Date Cigrad Reddy [id number] [place] [id number] Tr Kim Self - patient is the insured 6
--- OUTSIDE RECORDS SUMMARY | 2024-11-20 13:10 | XMS_ITS | Patient Health Record ---
Author Organization [facility] Address [address] [facility] [address] [place] [address] Care Team Providers Care Full Stack Software Developer Name Role Phone Humble Lazaro Unavailable [phone] Preeti CAMPBELL, Tyree Unavailable Unavailabl e Reason [...] Status Risk Notes Problem Gastroesophageal reflux disease (184797754) GERD without esophagitis (K21.9) Active confirmed even on PPI. Will initiate nightly H2 blockers. Discussed lifestyle changes. Will do EGD for evaluation. Problem Globus sensation (791715507) Globus sensation (R09.89) 020 Active confirmed Due to post-nasal drainage, or more likely, stress-rela oziel. Problem Family history of malignant neoplasm of gastrointestinal tract (431112968) Family history of colon cancer in father (Z80.0) Active confirmed father at age 50. Will do colonoscopy . Encounters Encounter Location Date Provider Diagnosis [facility] [address] [place], [place] [phone] 11/20/2024 Humble Lazaro Plan Of Treatment No Information Insurance Providers Payer Name Payer Address Payer Phone Subscriber Number Group Number Insured Name Patient Relationship to Insured Coverage Start Date Coverage End Date Doris [place] [address] [place] [phone] [id number] EMILIA CASILLAS Self - patient is the insured Medical (General) History Medical History History ICD Code Diverticulosis; GERD; Hypothyroidism Hypertension Surgical History Surgery Date(Month/Year) Colonoscopy; tics 2014-07-03 Gallbladder Surgery; 2014-05-13
[2024-11-20 14:15] LABS: Anion Gap 15 (12-20); Blood Urea Nitrogen 13 mg/dL (9-16); Calcium 9.4 mg/dL (8.4-10.2); Carbon Dioxide 25 mmol/L (22-29); Chloride 104 mmol/L (96-108); Cholesterol 149 mg/dL (<200); Estimated Glomerular Filt Rate > 60; HDL Cholesterol 56 mg/dL (>40); Potassium 3.8 mmol/L (3.3-5.1); Sodium 140 mmol/L (135-145); Triglycerides 89 mg/dL (<150)
== END 2024-11-20 12:39 | disposition home or self-care (01) ==
LOC: HO.LAB 12:38
PROVIDERS: PCP Internal Medicine
DX: E78.5 Hyperlipidemia, unspecified (principal); R93.1 Abnormal findings on diagnostic imaging of heart and coronary circulation
CPT/HCPCS: 36415; 80048; 80061

== ENCOUNTER 2024-12-13 10:21 | Outpatient (REF) | payer MEDICARE, MEDICAID, SELFPAY ==
--- OUTSIDE RECORDS SUMMARY | 2024-12-13 04:00 | XMS_ITS ---
Author Organization Edd Benitez MD Address [address] [place], [place] [phone] Care Team Providers Care Forest Fire Specialist Supervisor Name Role Phone Edd Benitez Primary Care Provider [phone] Results Component Value Reference Range Notes Complete Blood Count Auto Di ff (Not yet reviewed by provider) Interpretation: Performing Lab:[facility], [address] [place] [phone] Notes/Report: White Blood Count 5.6 4.8-10.8 X10*3/uL [...] X10*3/uL NRBC Abs Auto 0.000 0.0-0.012 X10*3/uL REASON FOR VISIT FASTING LABS PSA Encounters Encounter Location Date Provider Diagnosis Edd Benitez MD [address] [place], [place] [phone] 12/13/2024 Edd Benitez Hypercholesteremia E 78.00 ; Acquired hypothyroidism E03.9 and Primary hypertension I10 Assessments Encounter Date Diagnosis (ICD Code) Assessment Notes Treatment Notes Treatment Clinical Notes Section Notes 12/13/2024 Hypercholesteremia (ICD-10 - E78.00) 12/13/2024 Acquired hypothyroidism (ICD-10 - E03.9) 12/13/2024 Primary hypertension (ICD-10 - I10) Plan Of Treatment Pending Test Test Name Order Date Complete Blood Count Auto Diff 5 Comprehensive [place]. Panel Fast 5 Lipid Panel 12/13/2024 PSA,Total (Free>4and<10) 12/13/2024 TSH reflex Free T4 12/13/2024 UA ClnCatch+Micro w/rflx Cult 12/13/2024 Next Appt Details Provider Name:Edd Briggs ier, 12/20/2024 11:00:00 AM, [address] [place] [address] Drive, [address], [place], [place], [phone], Progress Notes * EMILIA CASILLAS ADOB:1955 (69 yo M)Acc No.[id number]:12/13/2024 Progress Note Patient: EMILIA MONTIEL Provider: Maria Fernanda Benitez MD :1955 A ge:69 Y S ex:Male Date:12/13/2024 Address:[address] [place] [address] Subjective: * Chief Complaints: * 1 . [...] - 12/13/2024 08:00 AM) L AB: Comprehensive [place]. Panel Fast L AB: Lipid Panel L AB: PSA,Total (Free>4and<10) L AB: TSH reflex Free T4 L AB: UA ClnCatch+Micro w/rflx Cult 3. P rimary hypertension L AB: Complete Blood Count Auto Diff (Collection Date & Time - 12/13/2024 08:00 AM) L AB: Comprehensive [place]. Panel Fast L AB: Lipid Panel L AB: PSA,Total (Free>4and<10) L AB: TSH reflex Free T4 L AB: UA ClnCatch+Micro w/rflx Cult * * The named appointment provid er may or may not be the originator of this progress note, and it is not deemed complete until electronically signed by the appointment provider. Sign off status: Pending * Provider: Maria Fernanda Benitez MD Date: 12/13/2024 Generated for You harris/Phoenix/Benitting on: 12/13/2024 10:40 AM EDT
[2024-12-13 10:32] LABS: MANUAL DIFF FLAG NO
[2024-12-13 10:36] LABS: Hematocrit 43.6 % (42.0-52.0); Hemoglobin 14.6 g/dl (14.0-18.0); Imm Gran Abs Auto 0.01 X10*3/uL (0.00-0.03); Imm Gran Pct Auto 0.2 % (0.0-0.4); Lymphocytes Absolute Auto 1.5 X10*3/uL (1.2-4.9); Mean Corpuscular HGB Conc 33.5 g/dl (31.0-36.0); Mean Corpuscular Hemoglobin 33.2 pg (27.0-33.0); Mean Corpuscular Volume 99.1 fL (80.0-98.0); NRBC Abs Auto 0.000 X10*3/uL (0.0-0.012); NRBC Pct Auto 0.0 /100WBC (0.0-0.2); Platelet Count 232 X10*3/uL (160-400); Red Blood Count 4.40 X10*6/uL (4.60-5.80); White Blood Count 5.6 X10*3/uL (4.8-10.8)
--- OUTSIDE RECORDS SUMMARY | 2024-12-13 10:41 | XMS_ITS | Patient Health Record ---
Author Organization [facility] Address [address] [facility] [place] [address] Care Team Providers Care Overhead Garage Door Hanger Name Role Phone Emmanuel CAMPBELL, Edd Primary Care Provider Haleigh Rodriguez Unavailable [phone] Allergies No Known Allergies Reason For Referral [...] Problem Acquired hammer toe of right foot (5095549697669408 ) Other hammer toe(s) (acquired), right foot (M20.41) Active confirmed Problem Gout (76873298) Gout of left foot (M10.9) Active confirmed Rx drug management (4) Problem Gout (18784070) Gout of right foot (M10.9) Active confirmed Rx drug management (4) Problem Localized, primary osteoarthritis of the ankle and/or foot (680256530) Arthritis of big toe (M19.079) Active confirmed Problem Acquired hallux varus (66426184) Hallux malleus of right foot (M20.31) Active confirmed Problem Localized, primary osteoarthritis of the ankle and/or foot (503337188) Arthritis of joint of lesser toe, right (M19.071) Active confirmed Vital Signs Blood pressure diastolic 65 mm Hg 06/07/2024 Height 5ft 10in in 06/07/2024 Blood pressure systolic 129 mm Hg 06/07/2024 Weight 235 lbs 06/07/2024 BMI 33.72 kg/m2 06/07/2024 Encounters Encounter Location Date Provider Diagnosis [address] [address] 03/14/2024 Haleigh Banks Pain in right toe(s) M79.674 ; Tinea pedis of both feet B35.3 ; Hallux malleus of right foot M20.31 and Arthritis of big toe M19.[address] [address] 06/07/2024 Haleigh Banks Pain in joint involving left ankle and foot M25.572 and Gout of left foot M10.[address] [address] 02/01/2024 Haleigh Banks [address] [address] 06/04/2024 Haleigh Banks [address] [address] 06/20/2024 Haleigh Banks Assessments Encounter Date Diagnosis [...] Medicare National [employer] [address] [place] [address] [id number] Tr Kim Self - patient is the insured Medical (General) History Medical History History ICD Code Back,Hip,and Knee pain Diverticulosis Gall bladder problems Gout High Blood Pressure Reflux ( GERD) Sciatica thyroid Measles Mumps Hearing loss Surgical History Surgery Date(Month/Year) Gall bladder removal 1994 tympanoplasty 1966
--- OUTSIDE RECORDS SUMMARY | 2024-12-13 10:42 | XMS_ITS | Patient Health Record ---
Author Organization [facility] Address [address] [facility] [address] [place] [address] Care Team Providers Care Sorting Machine Attendant Name Role Phone Humble Lazaro Unavailable [phone] Preeti CAMPBELL, Tyree Unavailable Unavailabl e Reason [...] Status Risk Notes Problem Gastroesophageal reflux disease (345723118) GERD without esophagitis (K21.9) Active confirmed even on PPI. Will initiate nightly H2 blockers. Discussed lifestyle changes. Will do EGD for evaluation. Problem Globus sensation (681056454) Globus sensation (R09.89) 020 Active confirmed Due to post-nasal drainage, or more likely, stress-rela oziel. Problem Family history of malignant neoplasm of gastrointestinal tract (915478071) Family history of colon cancer in father (Z80.0) Active confirmed father at age 50. Will do colonoscopy . Encounters Encounter Location Date Provider Diagnosis [facility] [address] [facility] [address] [place], [place] [phone] 11/20/2024 Humble Lazaro Plan Of Treatment No Information Insurance Providers Payer Name Payer Address Payer Phone Subscriber Number Group Number Insured Name Patient Relationship to Insured Coverage Start Date Coverage End Date Doris [place] [address] [place] [phone] [id number] EMILIA CASILLAS Self - patient is the insured Medical (General) History Medical History History ICD Code Diverticulosis; GERD; Hypothyroidism Hypertension Surgical History Surgery Date(Month/Year) Gallbladder Surgery; 2014-05-13 Colonoscopy; tics 2014-07-03
--- OUTSIDE RECORDS SUMMARY | 2024-12-13 10:42 | XMS_ITS | Data Portability ---
Author Organization [place] - [facility], [facility] Address [address] [place] [address] Care Team Providers Care Herd Tester Name Role Phone HAILY KRISHNA Primary Care [...] ossiculoplasty versus laser stapedotomy with vein graft. [email or web address] Not available 11/09/2023 17:17:58 02/22/2024 02/22/2024 Both [...] hearing aid evaluation or proceed with surgery. [email or web address] Not available 02/22/2024 14:25:44 Plan of Treatment Reminders Order Date Submit Date Provider Last Modified By Organization Details Last Modified Time Details Appointments None recorded. Lab None recorded. Referral None recorded. Procedures None recorded. Surgeries None recorded. Imaging CT, temporal bone, w/o contrast 2023 024 [email or web address] Not available 15:46:02 Medication Orders None recorded. Patient TargetsNo targets recorded. Patient InstructionsNo instructions recorded. Reason for Referral None Reported. Results Created Date Observation Date Name Description Value Unit Range Abnormal Flag Note LastModifiedBy Organization Detail LastModifiedTime 11/20/1903/13/2023 audio gram No observ ation record ed. [email or web address] Not Available 05/2023 15:47:44 12/22/19 24 11/09/2023 audio gram No observ ation record ed. Not Available 2023 21:34:19 03/11/20 24 02/22/2024 CT, tempo ral bone, w/o contr ast No observ ation record ed. [email or web address] [facility] [address], [place], [address], 03/12/2024 08:28:57 Result Notes None recorded. Problems Name Problem SNOMED Code Status Onset Date Resolution Date Notes Provider Name and Address Organization Details Recorded Time Mixed conductive and sensorineural hearing loss, bilateral 160190275 Active 2023 AWA BAILEY MD [address] [place] [address], [place], [phone], [facility] - [facility] 15:50:39 Partial loss of ear ossicles 93278136 Active 2023 AWA BAILEY MD [address] [place] [address], [phone], [facility] - [facility] 14:23:59 Problem Notes None recorded. Procedures Surgical History Date Name Laterality Status Provider Name and Address Organization Details Recorded Time 02/22/[address] temporal bones - Xoran completed AWA BAILEY MD [address] [place] [address], [phone], [facility] - [facility] 02/22/2024 13:36:35 02/22/20 24 Air & Bone Audio - [address] completed AWA BAILEY MD [address] [place] [address], [phone], [facility] - [facility] 02/21/2024 21:34:31 02/22/20 24 Tymps & Reflexes - 18866 completed AWA BAILEY MD [address] [place] [address], [phone], [facility] - [facility] 02/21/2024 21:34:32 02/22/20 24 SRT & Speech Recognition - 24110 completed AWA BAILEY MD [address] [place] [address],[address], [address], [facility] - [facility] 02/21/2024 21:34:32 11/09/19 24 Air & Bone Audio - 83527 completed Carin Sanchez [place] - [facility] 11/09/2023 16:52:09 11/09/19 24 Tymps & Reflexes - 59893 completed Carin Sanchez [place] - [facility] 11/09/2023 16:51:42 11/09/19 24 SRT & Speech Recognition - 08664 completed Carin Sanchez [place] - [facility] 11/09/2023 16:52:24 Ear Surgery completed AWA BAILEY MD [address] [place] [address], [phone] - [facility] 11/09/2023 16:55:22 cholecystectomy completed Connie Garber [place] - [facility] 11/09/2023 15:35:12 Imaging Results None recorded. Procedure Notes None recorded. Medical Equipment None [...] Details Last Updated DateTime 11/09/2023 179.07 cm 063141.32 g Connie Garber MA [facility] 11/09/2023 15:37:06 Date Recorded Body height Body weight Provider Name and Address Organization Details Last Updated DateTime 02/22/2024 179.07 cm 217578.13 g Connie Garber MA [facility] 02/22/2024 13:59:32 Social History None recorded. Functional Status None recorded. Mental Status None recorded. Family History Nothing Reported. Medical History Condition Response Thyroid Problems Y Hypertension Y GERD/Reflux Y Kidney Disease Y Past Encounters Encounter ID Performer Location Encounter Start Date Encounter Closed Date Diagnosis/Indication Diagnosis SNOMED-CT Code Diagnosis ICD10 Code Diagnosis Note [id number] AWA BAILEY MD [facility] [address] [address] 11/09/2023 14:56:16 11/09/2023 17:03:18 Mixed conductive and sensorineural hearing loss, bilateral 849675782 H90.6 Audiologic al evaluation results: Right ear: Normal sloping to profound mixed hearing loss with excellent word recognitio n. Left ear: Mild sloping to severe mixed hearing loss with excellent word recognitio n. Tympanomet ry: Right Ear:Type A Left Ear:Type A AWA BAILEY MD [facility] [address] [address] 02/22/2024 12:53:08 02/22/2024 14:24:26 Mixed conductive and sensorineural hearing loss, bilateral 997957455 H90.6 Partial lo ss of ear ossicles 03855162 H74.323 Health Concerns Section Related Observation LastModified by Organization Detai ls LastModified Time None Recorded Concern Status LastModified by Organization Details LastModified Time None Recorded Advance Directives Directive None Recorded Payers Insurance Date Sequence Insurance Name Policy Number Policy Ramirez Covered Member ID Ramirez Member ID Guarantor Name 02/22/2024 2 [place] [facility] Tr Kim [id number] Tr Kim 02/22/2024 1 MEDICARE B-[place] [employer] Tr Kim [id number] Tr Kim Notes Date Note Type Note [...] to the area and establish care with [facility]. Audiogram 8 months ago showed bilateral mixed hearing loss with a rather significant conductive component bilaterally. Patient referred to me for further evaluation of his ears. No recent pain or discharge AWA BAILEY MD [address] [place] [address], [address], [facility] - [facility] 11/09/2023 17:18:34 02/22/2024 text/html 68-year-old male referred for evaluation of his hearing. Patient had chronic childhood ear infections requiring operations on both of his ears when he was in grade school. He began wearing hearing aids in his early 50s and is now on his third set of hearing aids. Currently moved to the area and establish care with [facility]. Audiogram back in October showed bilateral mixed hearing loss with a rather significant conductive component bilaterally. Patient comes in today for CAT scan of the temporal bones to assess for the cause of the conductive component of his hearing loss in anticipation of possible surgical interventionThat currently using binaural BTE amplification better about 6 years old. Devices are being managed through [facility]. AWA BAILEY MD [address] [place] [address], [place], [address], [facility] - [facility] 02/22/2024 14:26:21
--- OUTSIDE RECORDS SUMMARY | 2024-12-13 10:42 | XMS_ITS | Patient Health Record ---
Author Organization [facility] Address [address] [place] [address] Care Team Providers Care Precast Worker Name Role Phone Edd Benitez MD Primary Care Provider Lamont Hodgosn Unavailable [phone] Allergies No Known Allergies Reason For Referral No Information Medications Medication SIG (Take, Route, Frequency, Duration) Notes Start Date End Date Status Atorvastatin Calcium 40 MG 1 tablet Oral ly Once a day for 30 day(s) 11/20/2024 Active Levothyroxine Sodium 100 MCG 1 tablet in the morning on an empty stomach Orally Once a day for 30 day(s) 11/20/2024 Active amLODIPine Besylate 5 MG 1 tablet Orally Once a day for 30 day(s) 11/20/2024 Active Omeprazole 10 MG 1 capsule 1/2 to 1 h our before morning meal Orally Once a day for 30 day(s) 11/20/2024 Active Aspirin 81 81 MG 1 tablet Orally Once a day for 30 day(s) 11/20/2024 Active Immunizations Vaccine Route Administration Date Status Comme nts Influenza Unknown 02/06/2024 Administered Social History Tobacco Use: Social History Observation Description Date Details (start date - stop date) Never Smoker NA - NA Tobacco Control (Standard) Question Answer Notes Tobacco use: Nonsmoker AUDIT-C (Standard) Question Answer Notes Did you have a drink contain ing alcohol in the past year? Yes How often did you have a dri nk containing alcohol in the past year? Daily or almost daily (4 points) How many drinks did you have on a typical day when you were drinking in the past year? 1 or 2 drinks (0 point) How often did you have six o r more drinks on one occasion in the past year? Never (0 point) Points 4 Interpretation Positive Problems Problem Type SNOMED Code ICD Code Onset Dates Problem Status W/U Status Risk Notes Problem Colon cancer screening (430966068) Colon cancer screening (Z12.11) Active confirmed Problem Preprocedural examination (058635886481599) Preprocedural examination (Z01.818) Active confirmed Problem Long-term current use of aspirin (542946444469689) Aspirin long-term use (Z79.82) Active confirmed Problem Family history of malignant neoplasm of gastrointestinal tract (027609169) Family history of colon cancer in father (Z80.0) Active confirmed Vital Signs Temperature 98.0 degrees Fahrenheit 11/20/2024 Blood pressure diastolic 01 mm Hg 11/20/2024 Height 70.5 in 11/20/2024 Blood pressure systolic 001 mm Hg 11/20/2024 Weight 240 lbs 11/20/2024 BMI 33.95 kg/m2 11/20/2024 Procedures Procedure Date Ordered Date Performed Result Body Sit e COLONOSCOPY 11/20/2024 N/A Encounters Encounter Location Date Provider Diagnosis [facility] [address] [place] [address] 11/20/2024 Lamont Moran Preprocedural examination Z01.818 ; Aspirin long-term use Z79.82 ; Family history of colon cancer in father Z80.0 and Colon cancer screening Z12.11 Assessments Encounter Date Diagnosis (ICD Code) Assessment Notes Treatment Notes Treatment Clinical Notes Section Notes 11/20/2024 Preprocedural examination (ICD-10 - Z01.818) Overall, Emilia appears quite well. Given his significant family history of his father having had colon cancer at a relatively early age and Emilia's last colonoscopy being just about 5 years ago, I did recommend a follow-up colonoscopy for further screening purposes. We did review the rationale for this in regard to colon cancer prevention. Full consent has been taken for this, including risks of bleeding and perforation. The procedure will be done with monitored anesthesia care. He was advised to stop aspirin a day or 2 before the procedure. We will obtain a cardiac clearance letter for the colonoscopy from Dr. Ellis once the patient's cardiac testing has been completed. Emilia was comfortable with this plan. Thank you again for allowing me to participate in Emilia's care. I shall continue to keep you advised of his progress. 11/20/2024 Aspirin long-term use (ICD-10 - Z79.82) Overall, Emilia appears quite well. Given his significant family history of his father having had colon cancer at a relatively early age and Emilia's last colonoscopy being just about 5 years ago, I did recommend a follow-up colonoscopy for further screening purposes. We did review the rationale for this in regard to colon cancer prevention. Full consent has been taken for this, including risks of bleeding and perforation. The procedure will be done with monitored anesthesia care. He was advised to stop aspirin a day or 2 before the procedure. We will obtain a cardiac clearance letter for the colonoscopy from Dr. Ellis once the patient's cardiac testing has been completed. Emilia was comfortable with this plan. Thank you again for allowing me to participate in Emilia's care. I shall continue to keep you advised of his progress. 11/20/2024 Family history of colon cancer in father (ICD-10 - Z80.0) Overall, Emilia appears quite well. Given his significant family history of his father having had colon cancer at a relatively early age and Emilia's last colonoscopy being just about 5 years ago, I did recommend a follow-up colonoscopy for further screening purposes. We did review the rationale for this in regard to colon cancer prevention. Full consent has been taken for this, including risks of bleeding and perforation. The procedure will be done with monitored anesthesia care. He was advised to stop aspirin a day or 2 before the procedure. We will obtain a cardiac clearance letter for the colonoscopy from Dr. Ellis once the patient's cardiac testing has been completed. Emilia was comfortable with this plan. Thank you again for allowing me to participate in Emilia's care. I shall continue to keep you advised of his progress. 11/20/2024 Colon cancer screening (ICD-10 - Z12.11) Overall, Emilia appears quite well. Given his significant family history of his father having had colon cancer at a relatively early age and Emilia's last colonoscopy being just about 5 years ago, I did recommend a follow-up colonoscopy for further screening purposes. We did review the rationale for this in regard to colon cancer prevention. Full consent has been taken for this, including risks of bleeding and perforation. The procedure will be done with monitored anesthesia care. He was advised to stop aspirin a day or 2 before the procedure. We will obtain a cardiac clearance letter for the colonoscopy from Dr. Ellis once the patient's cardiac testing has been completed. Emilia was comfortable with this plan. Thank you again for allowing me to participate in Emilia's care. I shall continue to keep you advised of his progress. Plan Of Treatment Pending Test Test Name Order Date COLONOSCOPY 11/20/2024 Next Appt Details Provider Name:Lamont Moran , 02/28/2025 10:30:00 AM, [address] [facility] , [place], [place], [phone], Insurance Providers Payer Name Payer Address Payer Phone Subscriber Number Group Number Insured Name Patient Relationship to Insured Coverage Start Date Coverage End Date MED[place]ARE [place] [address] [place] [address] [phone] [id number] SONJA EMILIA Self - patient is the insured 2 MEDICAID OF [facility] [address] [place] [address] [id number] SONJA EMILIA Self - patient is the insured Medical (General) History Medical History History ICD Code Kidney stones HTN Hyperlipidemia GERD Having cardiac w/u with Dr. Ellis Summer 2024 Hypothyroidism Denies [place],DM,CVA,Lung disease,renal dise ase Elevated PSA-sees Urologist Negative colonoscopies in 2010, 2015, an d 2019 in [place] Surgical History Surgery Date(Month/Year) Ear surgery as a child Cholecystectomy 1994
--- OUTSIDE RECORDS SUMMARY | 2024-12-13 10:42 | XMS_ITS | Patient Health Record ---
Author Organization [facility] Address [address] [place] [address] Support Name Relationship Address Phone Tr Kim Guarantor Unknown [phone] Reason For Referral No Information Medications Medication SIG (Take, Route, Frequency, Duration) Notes Start Date End Date Status Cipro 500 MG 1 tablet Orally Twic e a day; Duration: 3 days 11/03/2015 Active Immunizations Vaccine Route Administration Date Status Comme nts Typhoid, unspecified formulation IM Intramuscular 11/03/2015 Administered TRAVEL Tdap IM Intramuscular 11/03/2015 Administered Plan Of Treatment No Information
--- OUTSIDE RECORDS SUMMARY | 2024-12-13 10:42 | XMS_ITS | Patient Health Record ---
Author Organization [facility] Address [address] [address] [place] [address] Care Team Providers Care Archeologist Name Role Phone Gareth Baker Unavailable [phone] Allergies No Known Allergies Reason For Referral [...] W/U Status Risk Notes Problem Postnasal drip (41218373) Postnasal drip (R09.82) Active confirmed Problem Allergic rhinitis (91733004) Allergic rhinitis (J30.9) Active confirmed Problem Laryngopharyngeal reflux (842224803) LPRD (laryngophary ngeal reflux disease) (K21.9) Active confirmed Plan Of Treatment No Information Insurance Providers Payer Name Payer Address Payer Phone Subscriber Number Group Number Insured Name Patient Relationship to Insured Coverage Start Date Coverage End Date [employer] [address] [place] [address] [phone] [id number] Tr Kim Self - patient is the insured Medical (General) History Medical History History ICD Code Chronic GERD K21.9 Surgical History Surgery Date(Month/Year)
--- OUTSIDE RECORDS SUMMARY | 2024-12-13 10:42 | XMS_ITS | Patient Health Record ---
Author Organization [facility] Address [address] [place] [address] Support Name Relationship Address Phone Unavailable Emergency Contact Unknown [id number] Tr Kim Guarantor Unknown [phone] Reason For Referral No Information Medications Medication SIG (Take, Route, Frequency, Duration) Notes Start Date End Date Status Omeprazole 20 MG Oral Prescription/Di yola arge Order 12/06/2010 Active Plan Of Treatment No Information Insurance Providers Payer Name Payer Address Payer Phone Subscriber Number Group Number Insured Name Patient Relationship to Insured Coverage Start Date Coverage End Date Cigrad Reddy [id number] CHAO Jung [id number] Tr Kim Self - patient is the insured 6
[2024-12-13 10:53] LABS: Appearance Urine Clear; Glucose Urine UA Negative (Negative); PH 6.0 (5.0-9.0); Specific Gravity - Urine 1.010 (1.005-1.025)
[2024-12-13 10:56] LABS: Alanine Aminotransferase 46 U/L (0-40); Albumin Level 4.8 g/dL (3.5-5.0); Alkaline Phosphatase 71 U/L (39-117); Anion Gap 14 (12-20); Aspartate Amino Transferase 50 U/L (5-37); Blood Urea Nitrogen 12 mg/dL (9-16); Calcium 9.5 mg/dL (8.4-10.2); Carbon Dioxide 24 mmol/L (22-29); Chloride 106 mmol/L (96-108); Cholesterol 146 mg/dL (<200); Estimated Glomerular Filt Rate > 60; HDL Cholesterol 57 mg/dL (>40); Potassium 4.1 mmol/L (3.3-5.1); Sodium 140 mmol/L (135-145); Total Protein 7.7 g/dL (6.5-8.0); Triglycerides 104 mg/dL (<150)
[2024-12-13 11:12] LABS: PSA,Total (Free>4and<10) 8.39 ng/mL (0.00-4.00)
[2024-12-16 14:39] LABS: Free Prostate Spec Ag 1.3 ng/mL; Percent Free Prostate Spec Ag 18 % (calc) (>25)
== END 2024-12-13 10:22 | disposition home or self-care (01) ==
LOC: HO.LNP 10:21
PROVIDERS: Visit Provider Internal Medicine
DX: I10 Essential (primary) hypertension (principal); E78.00 Pure hypercholesterolemia, unspecified; E03.9 Hypothyroidism, unspecified
CPT/HCPCS: 80053; 80061; 81001; 84153; 84154; 84443; 85025

== ENCOUNTER 2024-12-20 12:43 | Outpatient (AMB) | payer MEDICARE, MEDICAID, SELFPAY ==
--- OUTSIDE RECORDS SUMMARY | 2021-08-12 07:20 | XMS_ITS | Continuity of Care Document ---
Author Organization [facility] Address [address] [place] [address] Phone Care Team Providers Care Imaging Aide Name Role Phone Tanner Tierney MD Unavailable Unavailable Allergies, Adverse Reactions, Alerts Substance Reaction Status Criticality No Known Allergies Active No Inform ation Medications Medication Instructions Dosage Effective Dates (start - stop) Status Comments Flomax 0.4 mg capsule take 1 capsule by oral route every day 1/2 hour following the same meal each day 0.4 MG - Active Bactrim DS 800 mg-160 mg tablet take 1 tablet by oral route every 12 hours 1.00 tablet - Active allopurinol 100 mg tablet take 1 tablet by oral route 3 times every day 100 MG - Active amlodipine 5 mg tablet take 1 tablet by oral route every day 5 MG - Active omeprazole 20 mg capsule,delayed release take 1 capsule by oral route every day before a meal 20 MG - Active atorvastatin 40 mg tablet take 1 tablet by oral route every day 40 MG - Active Procedures Procedure Date Office E&m Estab Mod-hi 2 Prostate Spec Antig; Tot Office E&m Estab Mod-hi 2 Prostate Spec Antig; Tot Office E&m Estab Mod-hi 2 Prostate Spec Antig; Tot PVR &/or Bladder Cap By Portable U/S, No n-imaging Office E&m Estab Mod-hi 2 UA auto w/o micro Prostate Spec Antig; Tot Office E&m Estab Mod-hi 2 Office E&m Estab Mod-hi 2 Prostate Spec Antig; Tot Prostate Spec Antig; Tot KUB - Radiologic Ex Abd 1 View 19 Office E&m Estab Mod-hi 2 Office E&m Estab Mod-hi 2 Prostate Spec Antig; Tot Office E&m Estab Mod-hi 2 Prostate Spec Antig; Tot Radiologic Ex Abd 1 View Office E&m Estab Low-mod Prostate Spec Antig; Tot UA auto w/o micro Office E&m Estab Low-mod Prostate Spec Antig; Tot UA auto w/o micro Offic Cons New/estab Low 30 Mi 17 Prostate Spec Antig; Tot Office E&m Estab Minor 10 KUB Postop F/u Vis Norm Incl Global 009 Renal Ultrasound ESWL - kidney Office E&m Estab Low-mod Level 4- New Office UA dipstick w/o micro KUB Advance Directives Directive Yes / No Effective Date File Name No Information Encounters Encounter Description Practice Location Reason(s) For Visit Diagnoses Date Provider Providers Copied on Encounter Office E&m Estab Mod-hi 2 [facility], [address] [place], [place], [id number] , [phone] [facility] BPH (chief complaint) Enlarged prostate without lower urinary tract symptoms 2 Niall Hart. [address] [facility], [address] [place] [address], [address], . tel:[phone] Referring Provider: Tanner Olmstead, [address] [facility] [address] [place] [address], [address]. tel:[phone] [facility], [address] [place], [place], [id number] , [place] tel: [phone] [facility] BPH (chief complaint) Enlarged prostate without lower urinary tract symptoms 2 Niall Hart. [address] [place] [address], [address] [place] [address], [address], [place]. tel:[phone] Referring Provider: Tanner Olmstead, [address] [place] [address], [place], [address]. tel:[phone] Office E&m Estab Mod-hi 2 [facility], [address], [place], [id number] , [place] tel: [phone] [facility] Kidney stones (chief complaint) Elevated prostate specific antigen [PSA]Calculus of kidneyEnlarged prostate without lower urinary tract symptoms 1 Niall Hart. [address] [place] [address], [address], [address], [place]. tel:[phone] Referring Provider: Tanner Olmstead, [address] [place] [address], [address]. tel:[phone] [facility], [address] [place], [place], [id number] , [place] tel: [phone] [facility] Kidney stones (chief complaint) Calculus of kidney 1 Niall Hart. [address] [place] [address], [address], [address], [place]. tel:[phone] Referring Provider: Amos Shannon, [address] [place] [address], [address]. tel:[phone] [facility], [address] [place], [place], [id number] , [place] tel: [phone] [facility] No Information 1 Niall Hart. [address] [place] [address], [address], [address], [place]. tel:[phone] Office E&m [facility] 2 [facility], [address] [place] [address], [id number] , tel: [phone] [facility] BPH (chief complaint)Er ectile dysfunction (chief complaint)Pr ostate cancer (chief complaint) Dietary counseling and surveillanceCalcu masood of kidney Dec-3 0-[address], [address], [address], [place]. tel:[phone] Referring Provider: Amos Shannon, [address], [place], [address]. tel:[phone] [facility], [address] [place] [address], [id number] , tel: [phone] [facility] Elevated PSA (chief complaint) Elevated prostate specific antigen [PSA] Dec-[address], [address], [place]. tel:[phone] Referring Provider: Amos Shannon, [address], [place], [address]. tel:[phone] Office E&m [facility] 2 [facility], [address] [place] [address], [id number] , tel: [phone] [facility] BPH (chief complaint)Er ectile dysfunction (chief complaint)Pr ostate cancer (chief complaint) Enlarged prostate without lower urinary tract symptoms Sep-[address], [address], [address], [place]. tel:[phone] Referring Provider: Amos Shannon, [address] [place] [address], [place], [place], [facility]. tel:[phone] [facility], [address] [place] [address], [id number] , tel: [phone] [facility] No Information Sep-[address], [address], [address], . tel:[phone] Office E&m Estab Mod-tn 2 [facility] [place], [address] [place] [address], [id number] , tel: [phone] [facility] BPH (chief complaint)El evated PSA (chief complaint) Elevated prostate specific antigen [PSA] [address], [address], [address], [place]. tel:[phone] Referring Provider: Amos Shannon, [address], [place], [address]. tel:[phone] Office E&m Estab [facility] [place], [address] [place] [address], [id number] , tel: [phone] [facility] Flank pain (chief complaint) Enlarged prostate without lower urinary tract symptoms [address], [address], [address], [place]. tel:[phone] Referring Provider: Amos Shannon, [address] [facility] [address], [place], [facility]. tel:[phone] [facility] [place], [address] [place] [address], [id number] , tel: [phone] [facility] Calculus of kidney [address], [address], [address], [place]. tel:[phone] Referring Provider: Amos Shannon, [address] [facility] [address], [place], [address]. tel:[phone] Office E&m [facility] 2 [facility] [place], [address] [place] [address], [id number] , tel: [phone] [facility] Flank pain (chief complaint) Calculus of kidney [address], [address], [facility], . tel:[phone] Referring Provider: Amos Shannon, [address] [place] [address], [place], [address]. tel:[phone] Office E&m [facility] Mod-hi 2 [facility] [place], [address] [place] [address], [id number] , tel: [phone] [facility] Elevated PSA (chief complaint) Dietary counseling and surveillanceEssen tial (primary) hypertensionEnlar ged prostate without lower urinary tract symptoms [address], [address], [facility], . tel:[phone] Referring Provider: Amos Shannon, [address] [facility] [address], [place], [facility]. tel:[phone] [facility] [place], [address] [place] [address], [id number] , [place] tel: [phone] [facility] Elevated prostate specific antigen [PSA] [address], [address], [address], [place]. tel:[phone] Office E&m [facility] 2 [facility] [place], [address] [place] [address], [id number] , tel: [phone] [facility] BPH (chief complaint)Ki dney stones (chief complaint) Elevated prostate specific antigen [PSA] [address], [address], [address], [place]. tel:[phone] Referring Provider: Amos Shannon, [address] [facility] [address], [place], [facility]. tel:[phone] [facility] [place], [address] [place] [address], [id number] , tel: [phone] [facility] Enlarged prostate without lower urinary tract symptoms [address], [address], [address], [place]. tel:[phone] Referring Provider: Amos Shannon, [address] [facility] [place], [address]. tel:[phone] Office E&m [facility] [place], [address] [place] [address], [id number] , [place] tel:[phone] [facility] BPH (chief complaint)Ki dney stones (chief complaint) Calculus of kidney [address], [address], [address], [place]. tel:[phone] Referring Provider: Amos Shannon, [address] [facility] [address] [place], [address]. tel:[phone] [facility] [place], [address] [place] [address], [id number] , [place] tel:[phone] [facility] Enlarged prostate without lower urinary tract symptoms [address], [address], [address], [place]. tel:[phone] Referring Provider: Amos Shannon, [address] [facility] [address] [place], [address]. tel:[phone] Office E&m [facility] [place], [address] [place] [address], [id number] , [place] tel:[phone] [facility] BPH (chief complaint) Enlarged prostate without lower urinary tract symptoms [address], [address], [address], [place]. tel:[phone] Referring Provider: Amos Shannon, [address] [facility] [address] [place], [address]. tel:[phone] [facility], [address] [place] [address], [id number] , tel: [phone] [facility] Elevated prostate specific antigen [PSA] [address], [address], [address], . tel:[phone] Referring Provider: Amos Shannon, [address] [facility] [address], [place], [address]. tel:[phone] Offic Cons New/estab Low 30 Mi [facility], [address] [place] [address], [id number] , tel: [phone] [facility] BPH (chief complaint)El evated PSA (chief complaint)Pr ostatitis (chief complaint) Elevated prostate specific antigen [PSA]Dietary counseling and surveillanceEssen tial (primary) hypertension [address], [facility], . tel:[phone] Referring Provider: Amos Shannon, [address] [facility] [address], [place], [address]. tel:[phone] [facility], [address] [place] [address], [id number] , tel: [phone] [facility] No Information [address], [address], [address], . tel:[phone] Office E&m Estab Minor 10 [facility], [address] [place] [address], [id number] , [place] tel: [phone] [facility] Prostate Screening for Cancer 3-[address], [address], [address], [place]. tel:[phone] Referring Provider: Amos Shannon, [address], [place], [address]. tel:[phone] [facility], [address] [place] [address], [id number] , tel: [phone] [facility] Renal Calculus Sep-2 5-200 9 Jenncarahira Hart. [address] [place] [address], [address], [address], [place]. tel:[phone] Referring Provider: Amos Shannon, [address] [facility] [address], [place], [address]. tel:[phone] [facility], [address] [place] [address], [id number] , [place] tel: [phone] [facility]. Renal Calculus Sep- 7-200 9 Shantha Andrae. [address] [place], [address], [place]. tel:[phone] Referring Provider: Amos Shannon, [address] [facility] [place], [address]. tel:[phone] Office E&m Estab Low-mod [facility], [address] [place] [address], [id number] , [place] tel: [phone] [facility] No Information Sep-1 0-200 9 Niall Hart. [address] [place] [address], [address], [address], [place]. tel:[phone] Referring Provider: Amos Shannon, [address] [facility] [place], [address]. tel:[phone] [facility], [address] [place], [place], [id number] , [place] tel: [phone] [facility] Renal Calculus Juan Diego-2 4-200 9 Shantha Andrae. [address] [place], [address], [place]. tel:[phone] Referring Provider: Tanner Olmstead, [address] [place] [address], [address]. tel:[phone] Level 4- New Office [facility], [address] [place] [address], [id number] , tel: [phone] [facility] No Information 9 Niall Hart. [address] [facility], [address], [place], [address], [place]. tel:[phone] Referring Provider: Amos Shannon, [address], [place], [address]. tel:[phone] Family History Family Member Type Diagnosis Age [...] Provid er Payers Payer name Insurance type Covered democrat ID Authorcarmenza kareenrio(s) Doris [facility] [id number] Social History Type Description Quantity Date Captured Comments Alcohol Use Details Unknown Caffeine Use Details Unknown Tobacco Use Status No Information Smoking Status Never smoker Sex Male Gender Identity Male Chief Complaint And Reason For Visit From encounter dated '08/12/2021 11:20'. BPH (chief complaint). Description: Additional information: discussed mri and psa s. Reason For Referral Reason For Referral No Information Plan Of Treatment Date Type Action Status [...] completed Future Order: Lab Order Calculi, Urinary ([id number]), Ordered on: Ordered History Of Present Illness Encounter Date Complaint History Of Prese nt Illness BPH Additional infor renettageorge: discussed mri and psa s. BPH Kidney [...] frequency and urinary straining. Functional Status Date Functional Assessmen t No Information Instructions Date Instruction Additional Infor javed Giving encouragement to exercise Related to Dietary Surveil/intake counselor Giving encouragement to exercise Related to Hypertension, Unspecified Giving encouragement to exercise Related to Dietary Surveil/intake counselor emigdio SHEPARD on kub offe red litho no pain wants to wait psa end 2017 Related to Calculus of kidney tiny sebaceous cyst perineum no infection looks niormal normal layne Related to Elevated prostate specific antigen [PSA] Giving encouragement to exercise Related to Hypertension, Unspecified Giving encouragement to exercise Related to Dietary Surveil/intake counselor Assessments Type Assessment Date assessment Enlarged prostate without lower urinary tract symptoms impression flow good except in am no heme gets erections psa in 5 mo no change of sig x 13 yrs no fh Mental Status Date Cognitive Assessment Orientation - [place] ed to time, place, person, situation. Patient Care Teams Name Effective Dates (start - stop) Status Members No Information
--- OUTSIDE RECORDS SUMMARY | 2024-12-13 04:00 | XMS_ITS ---
Author Organization Edd Benitez MD Address [address] [place], [place] [address] Care Team Providers Care Sound Effects Manager Name Role Phone Edd Benitez Primary Care Provider Results Component Value Reference Range Notes Complete Blood Count Auto Di ff Reviewed date:12/13/2024 09:31:02 PM Interpretation: Performing Lab:[facility], [address] [place] [phone] Notes/Report: White Blood Count 5.6 4.8-10.8 X10*3/uL [...] NRBC Abs Auto 0.000 0.0-0.012 X10*3/uL Comprehensive Honor. Panel Fa st Reviewed date:12/20/2024 11:37:38 AM Interpretation:soha 12/20/24 Performing Lab:[facility], [address] [place] [phone] Notes/Report: Sodium 140 135-145 mmol/L Potassium 4.1 [...] Panel Reviewed date:12/13/2024 09:07:24 PM Interpretation: Performing Lab:[address] [phone] Notes/Report: Triglycerides 104 <150 mg/dL Desirable Triglyceride: [...] (Free>4and<10) Reviewed date:12/20/2024 11:53:37 AM Interpretation:12-20-2024 Performing Lab:[facility], [address] [place] [phone] Notes/Report: PSA,Total (Free>4and<10) 8.39 0.00-4.00 ng/mL PSA methodology: Peraza Alinity i Chemiluminescent Microparticle Immunoassay (CMIA) TSH reflex Free T4 Reviewed date:12/13/2024 09:07:33 PM Interpretation: Performing Lab:[facility], [address] [place] [phone] Notes/Report: TSH reflex Free T4 3.29 0.32-4.0 uIU/mL UA ClnCatch+Micro w/rflx Cul t Reviewed date:12/13/2024 09:09:08 PM Interpretation: Performing Lab:[facility], [address] [place] [phone] Notes/Report: Urine, Clean Catch Color Urine Yellow Appearance Urine Clear PH 6.0 5.0-9.0 Glucose Urine UA Negative Negative mg/dL Urine Blood Negative Negative Specific [place] - Urine 1.010 1.005-1.025 Urine Protein Negative [...] Edd Benitez MD [address] [place] [phone] 12/13/2024 Edd Benitez Hypercholesteremia E 78.00 ; Acquired hypothyroidism E03.9 and Primary hypertension I10 Assessments Encounter Date Diagnosis (ICD Code) Assessment Notes Treatment Notes Treatment Clinical Notes Section Notes 12/13/2024 Hypercholesteremia (ICD-10 - E78.00) 12/13/2024 Acquired hypothyroidism (ICD-10 - E03.9) 12/13/2024 Primary hypertension (ICD-10 - I10) Plan Of Treatment Next Appt Details Provider Name:Edd escamilla, 06/20/2025 08:00:00 AM, [address] [place] [address], [address] [place] [address], [phone], Provider Name:Edd escamilla, 06/27/2025 10:00:00 AM, [address] [place] [address], [address] [place] [address], [phone], Provider Name:Edd escamilla, 11/24/2025 07:15:00 AM, [address] [place] [address], [address] [place] [address], [phone], Provider Name:Edd escamilla, 12/26/2025 09:30:00 AM, [address] [place] [address], [address] [place] [address], [phone], Progress Notes * EMILIA CASILLAS ADOB:1955 (69 yo M)Acc No.[id number]:12/13/2024 Progress Note Patient: EMILIA MONTIEL Provider: Maria Fernanda Benitez MD :1955 A ge:69 Y S ex:Male Date:12/13/2024 Address:[address] [place], [place] [phone] Subjective: * Chief Complaints: * 1 . [...] - 12/13/2024 08:00 AM) L AB: Comprehensive Honor. Panel Fast (Collection Date & Time - [...] - 12/13/2024 08:00 AM) L AB: Comprehensive Honor. Panel Fast (Collection Date & Time - [...] 0 12/13/2024 Generated for You harris/Phoenix/Benitting on: 12/20/2024 12:45 PM EDT
--- OUTSIDE RECORDS SUMMARY | 2024-12-20 12:46 | XMS_ITS | Patient Health Record ---
Author Organization [facility] Address [address] [place] [address] Care Team Providers Care Deputy Felony Clerk Name Role Phone Emmanuel CAMPBELL, Edd Primary Care Provider Haleigh Rodriguez Unavailable [phone] Allergies No Known Allergies Reason For Referral [...] Problem Acquired hammer toe of right foot (3449746256195514 ) Other hammer toe(s) (acquired), right foot (M20.41) Active confirmed Problem Gout (59993877) Gout of left foot (M10.9) Active confirmed Rx drug management (4) Problem Gout (69386088) Gout of right foot (M10.9) Active confirmed Rx drug management (4) Problem Localized, primary osteoarthritis of the ankle and/or foot (646071400) Arthritis of big toe (M19.079) Active confirmed Problem Acquired hallux varus (52961125) Hallux malleus of right foot (M20.31) Active confirmed Problem Localized, primary osteoarthritis of the ankle and/or foot (487787264) Arthritis of joint of lesser toe, right (M19.071) Active confirmed Vital Signs Blood pressure diastolic 65 mm Hg 06/07/2024 Height 5ft 10in in 06/07/2024 Blood pressure systolic 129 mm Hg 06/07/2024 Weight 235 lbs 06/07/2024 BMI 33.72 kg/m2 06/07/2024 Encounters Encounter Location Date Provider Diagnosis [address] [address] 03/14/2024 Haleigh Banks Pain in right toe(s) M79.674 ; Tinea pedis of both feet B35.3 ; Hallux malleus of right foot M20.31 and Arthritis of big toe M19.[address] [address] 06/07/2024 Haleigh Banks Pain in joint involving left ankle and foot M25.572 and Gout of left foot M10.[address] [address] 02/01/2024 Haleigh Banks [address] [address] 06/04/2024 Haleigh Banks [address] [address] 06/20/2024 Haleigh Banks Assessments Encounter Date Diagnosis [...] Medicare [employer] [address] [place] [address] [id number] Tr Kim Self - patient is the insured Medical (General) History Medical History History ICD Code Back,Hip,and Knee pain Diverticulosis Gall bladder problems Gout High Blood Pressure Reflux ( GERD) Sciatica thyroid Measles Mumps Hearing loss Surgical History Surgery Date(Month/Year) Gall bladder removal 1994 tympanoplasty 1966
--- OUTSIDE RECORDS SUMMARY | 2024-12-20 12:46 | XMS_ITS | Patient Health Record ---
Author Organization [facility] Address [address] [place] [address] Support Name Relationship Address Phone Tr Kim Guarantor Unknown [phone] Reason For Referral No Information Medications Medication [...]
--- OUTSIDE RECORDS SUMMARY | 2024-12-20 12:46 | XMS_ITS | Patient Health Record ---
Author Organization [facility] Address [address] [address] [place] [address] Care Team Providers Care Criminal Defense Attorney Name Role Phone Gareth Baker Unavailable [phone] Allergies No Known Allergies Reason For Referral [...] W/U Status Risk Notes Problem Postnasal drip (R09.82) Active confirmed Problem Allergic rhinitis (31557804) Allergic rhinitis (J30.9) Active confirmed Problem Laryngopharyngeal reflux (829877982) LPRD (laryngophary ngeal reflux disease) (K21.9) Active confirmed Plan Of Treatment No Information Insurance Providers Payer Name Payer Address Payer Phone Subscriber Number Group Number Insured Name Patient Relationship to Insured Coverage Start Date Coverage End Date C[employer] [address] [place] [address] [phone] [id number] Tr Kim Self - patient is the insured Medical (General) History Medical History History ICD Code Chronic GERD K21.9 Surgical History Surgery Date(Month/Year)
--- OUTSIDE RECORDS SUMMARY | 2024-12-20 12:46 | XMS_ITS | Patient Health Record ---
Author Organization [facility] Address [address] [facility] [address] [place] [address] Care Team Providers Care Double Back Operator Name Role Phone Humble Lazaro Unavailable [phone] Preeti CAMPBELL, Tyree Unavailable Unavailabl e Reason [...] Status Risk Notes Problem Gastroesophageal reflux disease (663632048) GERD without esophagitis (K21.9) Active confirmed even on PPI. Will initiate nightly H2 blockers. Discussed lifestyle changes. Will do EGD for evaluation. Problem Globus sensation (332192022) Globus sensation (R09.89) 020 Active confirmed Due to post-nasal drainage, or more likely, stress-rela oziel. Problem Family history of malignant neoplasm of gastrointestinal tract (683760501) Family history of colon cancer in father (Z80.0) Active confirmed father at age 50. Will do colonoscopy . Encounters Encounter Location Date Provider Diagnosis [facility] [address] [facility] [address] [place], [place] [id number] 11/20/2024 Humble Lazaro Plan Of Treatment No Information Insurance Providers Payer Name Payer Address Payer Phone Subscriber Number Group Number Insured Name Patient Relationship to Insured Coverage Start Date Coverage End Date Doris [place] [address] [place] [phone] [id number] EMILIA CASILLAS Self - patient is the insured Medical (General) History Medical History History ICD Code Diverticulosis; GERD; Hypothyroidism Hypertension Surgical History Surgery Date(Month/Year) Colonoscopy; tics 2014-07-03 Gallbladder Surgery; 2014-05-13
--- OUTSIDE RECORDS SUMMARY | 2024-12-20 12:46 | XMS_ITS | Patient Health Record ---
Author Organization [facility] Address [address] [place] [address] Support Name Relationship Address Phone Unavailable Emergency Contact Unknown [id number] Tr Kim Guarantor Unknown [phone] Reason For Referral No Information Medications Medication SIG (Take, Route, Frequency, Duration) Notes Start Date End Date Status Omeprazole 20 MG Oral Prescription/Di yola arge Order 12/06/2010 Active Plan Of Treatment No Information Insurance Providers Payer Name Payer Address Payer Phone Subscriber Number Group Number Insured Name Patient Relationship to Insured Coverage Start Date Coverage End Date Cigrad Reddy [id number] [place] [id number] Tr Kim Self - patient is the insured 6
--- OUTSIDE RECORDS SUMMARY | 2024-12-20 12:46 | XMS_ITS | Patient Health Record ---
Author Organization [facility] Address [address] [place] [address] Care Team Providers Care Car Rider Name Role Phone Edd Benitez MD Primary Care Provider Lamont Hodgson Unavailable [phone] Allergies No Known Allergies Reason For Referral [...] Status Risk Notes Problem Colon cancer screening (652842792) Colon cancer screening (Z12.11) Active confirmed Problem Preprocedural examination (621419978349986) Preprocedural examination (Z01.818) Active confirmed Problem Long-term current use of aspirin (427595700135419) Aspirin long-term use (Z79.82) Active confirmed Problem Family history of malignant neoplasm of gastrointestinal tract (799137283) Family history of colon cancer in father (Z80.0) Active confirmed Vital Signs Temperature 98.0 degrees Fahrenheit 11/20/2024 Blood pressure diastolic 01 mm Hg 11/20/2024 Height 70.5 in 11/20/2024 Blood pressure systolic 001 mm Hg 11/20/2024 Weight 240 lbs 11/20/2024 BMI 33.95 kg/m2 11/20/2024 Procedures Procedure Date Ordered Date Performed Result Body Sit e COLONOSCOPY 11/20/2024 N/A Encounters Encounter Location Date Provider Diagnosis [facility] [address] [place] [address] 11/20/2024 Lamont Moran Preprocedural examination Z01.818 ; [...] Name:Lamont Moran , 02/28/2025 10:30:00 AM, [address] [facility] , [place], [place], [phone], Insurance Providers Payer Name Payer Address Payer Phone Subscriber Number Group Number Insured Name Patient Relationship to Insured Coverage Start Date Coverage End Date [place] [address] [place] [address] [id number] SONJA EMILIA Self - patient is the insured 2 MEDICAID OF [facility] [address] [place] [address] [id number] SONJA EMILIA Self - patient is the insured Medical (General) History Medical History History ICD Code Kidney stones HTN Hyperlipidemia GERD Having cardiac w/u with Dr. Ellis Summer 2024 Hypothyroidism Denies [place],DM,CVA,Lung disease,renal dise ase Elevated PSA-sees Urologist Negative colonoscopies in 2010, 2015, an d 2019 in [place] Surgical History Surgery Date(Month/Year) Ear surgery as a child Cholecystectomy 1994
--- NOTE | 2024-12-20 13:06 | MHC.OFFVIS ---
Vital Signs 12/20/24 13:07 Height 5 ft 10 in Weight 235 lb 14.314 oz BMI 33.8 BP 124/80 Blood Pressure Location Lt brachial Position Sitting Pulse 82 Pulse Source Pulse Oximeter Intake Visit Reasons: follow up/ CTA/ Labs Allergies No Known Allergies Allergy (Verified 08/27/24 14:39) Medication List - Last Reconciled 12/20/24 by Modesto Parham NP amlodipine 5 mg PO DAILY aspirin 81 mg PO DAILY atorvastatin 40 mg PO DAILY ezetimibe 10 mg PO DAILY indomethacin 50 mg PO TID PRN levothyroxine 100 mcg PO DAILY omeprazole 20 mg PO DAILY HPI Comments Details: This is a 69-year-old male patient coming in for a follow-up visit. Patient with a history of hypertension, hyperlipidemia, and obesity. Patient has a twin brother who was recently diagnosed with coronary artery disease and therefore wanted a cardiac evaluation. Patient underwent stress test, echocardiogram, and coronary calcium score. Following abnormal finding, patient underwent a coronary CTA which he is here to review the results for. Today patient continues to feel well overall and denies any cardiac symptoms including exertional chest pain, shortness breath, palpitations, dizziness, orthopnea, PND, leg edema, presyncope, or syncope. Patient states that he is compliant with all his medications. [facility] Medical History Hyperlipidemia HTN (hypertension) Review of Systems Const Denies weakness ENT Denies dizziness Card Denies chest pain, Denies chest pain with activity, Denies syncope, Denies rapid heart rate, Denies pedal edema, Denies edema, Denies leg edema, Denies lightheadedness, Denies palpitations, Denies dyspnea, Denies dyspnea on exertion and Denies orthopnea Resp Denies cough, Denies dyspnea and Denies dyspnea on exertion GI Denies hematochezia and Denies change in stool character Musc Denies abnormal gait, Denies muscle cramps, Denies muscle weakness, Denies numbness, Denies radiating pain into limb and Denies tingling Neuro Denies abnormal gait, Denies dizziness, Denies syncope, Denies numbness, Denies tingling and Denies weakness Endo Denies palpitations Physical Exam Vital Signs: Last Vital Signs Pulse 82 12/20/24 13:07 BP 124/80 12/20/24 13:07 BMI result Body Mass Index 33.8 Const General: cooperative, healthy appearing, comfortable and no acute distress Orientation/consciousness: patient oriented x3 HEENT Head: Yes normal to inspection Neck Neck: Yes normal visual inspection, Yes trachea midline and Yes supple Chest Chest palpation & inspection: normal inspection of the chest Resp Effort & Inspection: normal respiratory effort Auscultation: clear to auscultation bilaterally, no crackles, no rales, no rhonchi and no wheezes Cardio Jugular venous distension: no JVD Palpation: normal PMI Rate: regular rate Rhythm: regular rhythm Heart sounds: S1 normal heart sound present, S2 normal heart sound present, no click, no gallops, no murmurs and no rubs Peripheral pulses: Peripheral pulses 2+ throughout GI Inspection: Yes normal to inspection Palpation (GI): Soft to palpation Auscultation: normal bowel sounds Skin General skin exam: no rashes or lesions noted Neuro General: patient oriented x3 Extrem General: Yes normal to inspection, No no pedal edema and No calf tenderness Psych Appearance: grossly normal Mental Status: mental status grossly normal Speech and movement: Normal speech and movement present Assessment & Plan Assessment & Plan (1) Coronary artery disease: Code(s): I25.10 - Atherosclerotic heart disease of elim ira coronary artery without angina pectoris Category: Medical (2) Abnormal finding on imaging: Code(s): R93.89 - Abnormal findings on diagnostic imaging of other specified body structures (3) HTN (hypertension): Code(s): I10 - Essential (primary) hypertension Category: Medical (4) Hyperlipidemia: Code(s): E78.5 - Hyperlipidemia, unspecified Category: Medical Plan 09/19/2024-patient underwent a coronary calcium score with a score of 348. 10/07/2024-patient underwent a treadmill stress test with moderate workload. With shortness of breath and no EKG changes. 10/07/2024-echo study showed normal LV systolic function with an ejection fraction at 62%, hypokinetic mid inferior septal segment, small plaque in the sinotubular ridge, and mild dilation of the sinuses of Valsalva at 4 point 1 cm. 12/12/2024-patient underwent coronary CTA that showed minimal stenosis of the proximal to mid LAD, proximal 1st diagonal, proximal left circumflex, and mid RCA. It also revealed hepatic steatosis, possible esophageal dysmotility, and 3 mm left lower solid pulmonary nodule. Clinically stable and without any anginal symptoms. Continue aspirin, statin, and Zetia therapy. Patient would also like to repeat an echo to recheck on the wall motion abnormality. Most recent LDL at 65, within goal of LDL less than 70. Blood pressure is well-controlled. Continue current regimen. Ideally, blood pressure goal less than 130/80. Advised heart healthy diet, regular exercise, med compliance, losing weight, avoiding alcohol use, and management of vascular risk factors. To further address the findings from the coronary CTA, patient we will contact Dr. Moran office. We will send a copy of this report and office note to their office. We will also send a copy to the PCP's office to further evaluate the pulmonary nodule given the fact that patient has significant family history of malignancy. Follow up in 6 months. In the interim, patient will call the office with any concerns or change in symptoms. This note was generated using voice recognition software. While every effort has been made to ensure accuracy and proper solar fabrication technician, there may be occasional errors that could affect the content or meaning of the described symptoms. Orders: Orders CA echo transthoracic complete 6 Months I10 - Essential (primary) hypertension Coding Level of Care Code Est Pt Level 4 (83248) Complex EM visit Add On G2211 Diagnoses Coronary artery disease I25.10 Abnormal finding on imaging R93.89 HTN (hypertension) I10 Hyperlipidemia E78.5 Time Spent (min) 32 Comment Time spent in reviewing the chart, test results, assessment, counseling and documentation.
[2024-12-20 13:07] VITALS: BP 124/80; PULSE 82; BMI 33.8
== END 2024-12-20 13:26 | disposition home or self-care (01) ==
LOC: HO.HCS 12:44
PROVIDERS: PCP Internal Medicine
DX: I25.10 Atherosclerotic heart disease of native coronary artery without angina pectoris (principal); R93.89 Abnormal findings on diagnostic imaging of other specified body structures; I10 Essential (primary) hypertension; E78.5 Hyperlipidemia, unspecified
CPT/HCPCS: 99214; G2211

== ENCOUNTER → 2024-12-20 12:43 | Outpatient (BNVA) | payer MEDICARE, MEDICAID, OTHER, SELFPAY | PROVIDERS: PCP Internal Medicine | DX: I25.10 Atherosclerotic heart disease of native coronary artery without angina pectoris (principal); I10 Essential (primary) hypertension; R93.89 Abnormal findings on diagnostic imaging of other specified body structures; E78.5 Hyperlipidemia, unspecified | CPT/HCPCS: 99212 ==

== ENCOUNTER 2025-02-18 09:31 | Outpatient (REF) | payer MEDICARE, MEDICAID, SELFPAY ==
--- OUTSIDE RECORDS SUMMARY | 2021-08-12 07:20 | XMS_ITS | Continuity of Care Document ---
Author Organization [facility] Address [address] [place] [address] Phone Care Team Providers Care News Production Assistant Name Role Phone Tanner Tierney MD Unavailable [...] Estab Mod-hi 2 [facility], [address] [place], [place], [id number] , [phone] [facility] BPH (chief complaint) Enlarged prostate without lower urinary tract symptoms 2 Niall Hart. [address] [facility], [address] [place] [address], [address], . tel:[phone] Referring Provider: Tanner Olmstead, [address] [facility] [address] [place] [address], [address]. tel:[phone] [facility], [address] [place], [place], [id number] , [place] tel: [phone] [facility] BPH (chief complaint) Enlarged prostate without lower urinary tract symptoms 2 Niall Hart. [address] [place] [address], [address] [place] [address], [address], [place]. tel:[phone] Referring Provider: Tanner Olmstead, [address] [place] [address], [place], [address]. tel:[phone] Office E&m Estab Mod-hi 2 [facility], [address] [place], [place], [id number] , [place] tel: [phone] [facility] Kidney stones (chief complaint) Elevated prostate specific antigen [PSA]Calculus of kidneyEnlarged prostate without lower urinary tract symptoms 1 Niall Hart. [address] [place] [address], [address], [address], [place]. tel:[phone] Referring Provider: Tanner Olmstead, [address] [place] [address], [address]. tel:[phone] [facility], [address] [place], [place], [id number] , [place] tel: [phone] [facility] Kidney stones (chief complaint) Calculus of kidney 1 Niall Hart. [address] [place] [address], [address], [address], [place]. tel:[phone] Referring Provider: Amos Shannon, [address] [place] [address], [address]. tel:[phone] [facility], [address] [place], [place], [id number] , [place] tel: [phone] [facility] No Information 1 Niall Hart. [address] [place] [address], [address], [address], [place]. tel:[phone] Office E&m [facility] 2 [facility], [address] [place] [address], [id number] , tel: [phone] [facility] BPH (chief complaint)Er ectile dysfunction (chief complaint)Pr ostate cancer (chief complaint) Dietary counseling and surveillanceCalcu masood of kidney Dec-3 0-[address], [address], [address], [place]. tel:[phone] Referring Provider: Amos Shannon, [address] [facility] [address], [place], [address]. tel:[phone] [facility], [address] [place] [address], [id number] , tel: [phone] [facility] Elevated PSA (chief complaint) Elevated prostate specific antigen [PSA] Dec-[address], [address], [place]. tel:[phone] Referring Provider: Amos Shannon, [address] [facility] [address], [place], [address]. tel:[phone] Office E&m [facility] 2 [facility], [address] [place] [address], [id number] , tel: [phone] [facility] BPH (chief complaint)Er ectile dysfunction (chief complaint)Pr ostate cancer (chief complaint) Enlarged prostate without lower urinary tract symptoms Sep-[address], [address], [address], [place]. tel:[phone] Referring Provider: Amos Shannon, [address], [place], [place], [facility]. tel:[phone] [facility], [address] [place] [address], [id number] , tel: [phone] [facility] No Information Sep-[address], [address], [address], . tel:[phone] Office E&m Estab Mod-ny 2 [facility] [place], [address] [place] [address], [id number] , tel: [phone] [facility] BPH (chief complaint)El evated PSA (chief complaint) Elevated prostate specific antigen [PSA] [address], [address], [address], [place]. tel:[phone] Referring Provider: Amos Shannon, [address] [facility] [address], [place], [address]. tel:[phone] Office E&m Estab [facility] [place], [address] [place] [address], [id number] , tel: [phone] [facility] Flank pain (chief complaint) Enlarged prostate without lower urinary tract symptoms [address], [address], [address], [place]. tel:[phone] Referring Provider: Amos Shannon, [address] [facility] [address], [place], [facility]. tel:[phone] [facility] [place], [address] [place] [address], [id number] , tel: [phone] [facility] Calculus of kidney [address], [address], [address], [place]. tel:[phone] Referring Provider: Amos Shannon, [address] [facility] [address], [place], [address]. tel:[phone] Office E&m [facility] 2 [facility] [place], [address] [place] [address], [id number] , tel: [phone] [facility] Flank pain (chief complaint) Calculus of kidney [address], [address], [facility], . tel:[phone] Referring Provider: Amos Shannon, [address], [place], [address]. tel:[phone] Office E&m [facility] Mod-hi 2 [facility] [place], [address] [place] [address], [id number] , tel: [phone] [facility] Elevated PSA (chief complaint) Dietary counseling and surveillanceEssen tial (primary) hypertensionEnlar ged prostate without lower urinary tract symptoms [address], [address], [facility], . tel:[phone] Referring Provider: Amos Shannon, [address] [facility] [address], [place], [facility]. tel:[phone] [facility] [place], [address] [place] [address], [id number] , [place] tel: [phone] [facility] Elevated prostate specific antigen [PSA] [address], [address], [address], [place]. tel:[phone] Office E&m [facility] 2 [facility] [place], [address] [place] [address], [id number] , tel: [phone] [facility] BPH (chief complaint)Ki dney stones (chief complaint) Elevated prostate specific antigen [PSA] [address], [address], [address], [place]. tel:[phone] Referring Provider: Amos Shannon, [address] [facility] [address], [place], [facility]. tel:[phone] [facility] [place], [address] [place] [address], [id number] , tel: [phone] [facility] Enlarged prostate without lower urinary tract symptoms [address], [address], [address], [place]. tel:[phone] Referring Provider: Amos Shannon, [address] [facility] [place], [address]. tel:[phone] Office E&m [facility] [place], [address] [place] [address], [id number] , [place] tel:[phone] [facility] BPH (chief complaint)Ki dney stones (chief complaint) Calculus of kidney [address], [address], [address], [place]. tel:[phone] Referring Provider: Amos Shannon, [address] [facility] [place], [address]. tel:[phone] [facility] [place], [address] [place] [address], [id number] , [place] tel:[phone] [facility] Enlarged prostate without lower urinary tract symptoms [address], [address], [address], [place]. tel:[phone] Referring Provider: Amos Shannon, [address] [facility] [place], [address]. tel:[phone] Office E&m [facility] [place], [address] [place] [address], [id number] , [place] tel:[phone] [facility] BPH (chief complaint) Enlarged prostate without lower urinary tract symptoms [address], [address], [address], [place]. tel:[phone] Referring Provider: Amos Shannon, [address] [facility] [place], [address]. tel:[phone] [facility], [address] [place] [address], [id number] , tel: [phone] [facility] Elevated prostate specific antigen [PSA] [address], [address], [address], . tel:[phone] Referring Provider: Amos Shannon, [address] [facility] [address], [place], [address]. tel:[phone] Offic Cons New/estab Low 30 Mi [facility], [address] [place] [address], [id number] , tel: [phone] [facility] BPH (chief complaint)El evated PSA (chief complaint)Pr ostatitis (chief complaint) Elevated prostate specific antigen [PSA]Dietary counseling and surveillanceEssen tial (primary) hypertension [address], [facility], . tel:[phone] Referring Provider: Amos Shannon, [address] [facility] [address], [place], [address]. tel:[phone] [facility], [address] [place] [address], [id number] , tel: [phone] [facility] No Information [address], [address], [address], . tel:[phone] Office E&m Estab Minor 10 [facility], [address] [place] [address], [id number] , [place] tel: [phone] [facility] Prostate Screening for Cancer 3-[address], [address], [address], [place]. tel:[phone] Referring Provider: Amos Shannon, [address] [facility] [address], [place], [address]. tel:[phone] [facility], [address] [place] [address], [id number] , tel: [phone] [facility] Renal Calculus Sep-2 5-200 9 Jenncarahira Hart. [address] [place] [address], [address], [address], [place]. tel:[phone] Referring Provider: Amos Shannon, [address] [facility] [address], [place], [address]. tel:[phone] [facility], [address] [place] [address], [id number] , [place] tel: [phone] [facility]. Renal Calculus Sep- 7-200 9 Shantha Andrae. [address] [place], [address], [place]. tel:[phone] Referring Provider: Amos Shannon, [address] [facility] [place], [address]. tel:[phone] Office E&m Estab Low-mod [facility], [address] [place] [address], [id number] , [place] tel: [phone] [facility] No Information Sep-1 0-200 9 Niall Hart. [address] [place] [address], [address], [address], [place]. tel:[phone] Referring Provider: Amos Shannon, [address] [facility] [place], [address]. tel:[phone] [facility], [address] [place], [place], [id number] , [place] tel: [phone] [facility] Renal Calculus Juan Diego-2 4-200 9 Shantha Andrae. [address] [place], [address], [place]. tel:[phone] Referring Provider: Tanner Olmstead, [address] [place] [address], [address]. tel:[phone] Level 4- New Office [facility], [address] [place] [address], [id number] , tel: [phone] [facility] No Information 9 Niall Hart. [address] [facility], [address], [place], [address], [place]. tel:[phone] Referring Provider: Amos Shannon, [address] [facility] [address], [place], [address]. 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 emigdio SHEPARD on kub offe red litho no pain wants to wait psa end 2017 Related to Calculus of kidney tiny sebaceous cyst perineum no infection looks niormal normal layne Related to Elevated prostate specific antigen [PSA] Giving encouragement to exercise 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 Patient Care Teams Name Effective Dates (start - stop) Status Members No Information
--- OUTSIDE RECORDS SUMMARY | 2024-06-18 03:00 | XMS_ITS ---
Author Organization Edd Benitez MD Address [address] [place], [place] [phone] Care Team Providers Care Chronometer Assembler And Adjuster Name Role Phone Edd Benitez Primary Care Provider Results Component Value Reference Range Notes Liver Panel Reviewed date:06/18/2024 02:31:04 PM Interpretation: Performing Lab:[facility], [address] [place] [phone] Notes/Report: Bilirubin Total 0.7 0.0-1.0 mg/dL Bilirubin Direct 0.2 0.0-0.5 mg/dL Aspartate Amino Transferase 29 5-37 U/L Alanine Aminotransferase 29 0-40 U/L Total Protein 7.7 6.5-8.0 g/dL Albumin Level 4.1 3.5-5.0 g/dL Alkaline Phosphatase 69 39-117 U/L Lipid Panel with Reflex Reviewed date:06/18/2024 04:29:16 PM Interpretation: Performing Lab:[facility], [address] [place] [phone] Notes/Report: Triglycerides 187 <150 mg/dL Desirable Triglyceride: [...] Location Date Provider Diagnosis Edd Benitez MD [address] [place] [address] [place] [phone] 06/18/2024 Edd Benitez Hypercholesteremia E 78.00 Assessments Encounter Date Diagnosis (ICD Code) Assessment Notes Treatment Notes Treatment Clinical Notes Section Notes 06/18/2024 Hypercholesteremia (ICD-10 - E78.00) Plan Of Treatment Next Appt Details Provider Name:Edd escamilla, 06/20/2025 08:00:00 AM, [address] [place] [address], [address], [phone], Provider Name:Edd escamilla, 06/27/2025 10:00:00 AM, [address] [place] [address], [address], [phone], Provider Name:Edd escamilla, 11/24/2025 07:15:00 AM, [address] [place] [address], [address], [phone], Provider Name:Edd escamilla, 12/26/2025 09:30:00 AM, [address] [place] [address], [address], [phone], Progress Notes * EMILIA CASILLAS ADOB:1955 (69 yo M)Acc No.[id number]:06/18/2024 Progress Note Patient: EMILIA MONTIEL Provider: Maria Fernanda Benitez MD :1955 A ge:69 Y S ex:Male Date:06/18/2024 Address:[address] [place], [place] [phone] Subjective: * Chief Complaints: * 1 . [...] MD Date: 0 06/18/2024 Generated for You harris/Phoenix/Benitting on: 0 02/18/2025 10:17 AM EDT History and Physical Notes * HPI (History of Present Illness) Category Sub-Category Detail Notes Category Not es Communication Needs Communication Needs Does the patient have a hearing impairment: Yes If yes, what is the hearing impairment?: Other Does the patient have a vision impairmen t?: No Does the patient have a cognition impair ment?: No
--- OUTSIDE RECORDS SUMMARY | 2024-06-21 06:45 | XMS_ITS ---
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 Name Role Phone Edd eBnitez Primary Care Provider [phone] Allergies No Known Allergies Reason For Referral Reason HYPERCHOLESTERIMIA Diagnosis 1 Hypercholesteremia ( E78.00) Referral Organization Edd Benitez MD Referring Provider First Name Edd Referring Provider Last Name Emmanuel Referring Provider Speciality Internal M edicine Referred Provider AUGUSTINA WARE Referred Provider Specialty Cardiology General Notes Sondra Workman 06/21/2024 11:22:25 AM >REFERRAL FAXED TO [facility], Sondra Workman 07/30/2024 10:05:35 AM >I CHECKED WITH KAILYN, HE HAS NOT BEEN SCHEDULED YET , WILL RECHECK, Sondra Workman 08/22/2024 01:25:40 PM >PER KAILYN AT [facility] , THEY HAVE LEFT HIM 2 MESSAGES AND HAVE NOT HEARD BACK YET. KAILYN SAID THEY WILL LEAVE ONE MORE MESSAGE, Sondra Workman 08/22/2024 01:31:56 PM >I ALSO LEFT FATHER SONJA A MESSAGE TO CALL [facility] CARD[facility]OLOGYJacinta Patti A 08/26/2024 09:45:18 AM >APPT SCHEDULED WITH [facility] PER KAILYN, PATIENT IS AWARE Referral [...] Problem Status W/U Status Risk Notes Problem [id number] Controlled gout (M10.9) Active confirmed Vital Signs Blood pressure systolic 122 mm Hg 06/21/19 Blood pressure diastolic 78 mm Hg 025 Height 70.5 in 06/21/2024 Weight 239 lbs 06/21/2024 BMI 33.8 kg/m2 06/21/2024 weight is down 6 pounds [facility] 01-08-24 Encounters Encounter Location Date Provider Diagnosis Edd Benitez MD [address] [place] [address] [address] [place], [place] [phone] 06/21/2024 Edd Benitez Gastroesophageal ref lux disease [...] referral to dr ellis/ REFERRAL FAXED TO [facility] Plan Of Treatment Medication Medication Name [...] to dr ellis / REFERRAL FAXED TO [facility] Referrals Referral Date Details 06/21/2024 06/21/2024, HYPERCHO ALEYDATERIMIA, DENITANATALIE WARE Next Appt Details Provider Name:Edd Briggs ier, 06/20/2025 08:00:00 AM, [address], [address], [place], [place], [phone], Provider Name:Edd Briggs ier, 06/27/2025 10:00:00 AM, [address], [address], [place], [place], [phone], Provider Name:Edd Briggs ier, 11/24/2025 07:15:00 AM, [address], [address], [place], [place], [phone], Provider Name:Edd Briggs kimr, 12/26/2025 09:30:00 AM, [address], [address], [place], [place], [phone], Progress Notes * EMILIA CASILLAS ADOB:1955 (69 yo M)Acc No.[id number]:06/21/2024 Progress Notes Patient: EMILIA MONTIEL Provider: Maria Fernanda Benitez MD :1955 A ge:69 Y S ex:Male Date:06/21/2024 Address:[address] [place], [place] [phone] Subjective: * Chief Complaints: * 6 MO F/U * HPI: S ymptom(s): patient is a 69 yo male here for 6 month follow up visit. feeling great. had something that was gout. 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 * ROS: G [...] referral to dr ellis/ REFERRAL FAXED TO [facility] ? Referral To:Torres Ellis Cardiovascular Disease Reason:HYPERCHOLESTERIMIA * Procedure Codes: * * Sign off status: Completed true * Provider: Maria Fernanda Benitez MD Date: 06/21/2024 Generated for You harris/Phoenix/eTransmitting on: 02/18/2025 10:18 AM EDT History and Physical Notes * HPI (History of Present Illness) Category Sub-Category Detail Notes Category Not es Symptom(s) patient is a 69 yo male here for 6 month follow up visit. feeling great. had something that was gout. 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
--- OUTSIDE RECORDS SUMMARY | 2024-12-13 04:00 | XMS_ITS ---
Author Organization Edd Benitez MD Address [address] [place], [place] [phone] Care Team Providers Care Portrait Artist Name Role Phone Edd Benitez Primary Care Provider Results Component Value Reference Range Notes Complete Blood Count Auto Di ff Reviewed date:12/13/2024 09:31:02 PM Interpretation: Performing Lab:[facility], [address] [place] [phone] Notes/Report: White Blood Count 5.6 4.8-10.8 X10*3/uL [...] NRBC Abs Auto 0.000 0.0-0.012 X10*3/uL Comprehensive [place]. Panel Fa st Reviewed date:12/20/2024 11:37:38 AM Interpretation:soha 12/20/24 Performing Lab:[facility], [address] [place] [phone] Notes/Report: Sodium 140 135-145 mmol/L Potassium 4.1 [...] Panel Reviewed date:12/13/2024 09:07:24 PM Interpretation: Performing Lab:[address] [phone] Notes/Report: Triglycerides 104 <150 mg/dL Desirable Triglyceride: [...] (Free>4and<10) Reviewed date:12/20/2024 11:53:37 AM Interpretation:12-20-2024 Performing Lab:[facility], [address] [place] [phone] Notes/Report: PSA,Total (Free>4and<10) 8.39 0.00-4.00 ng/mL PSA methodology: [place] Alinity i Chemiluminescent Microparticle Immunoassay (CMIA) TSH reflex Free T4 Reviewed date:12/13/2024 09:07:33 PM Interpretation: Performing Lab:[facility], [address] [place] [phone] Notes/Report: TSH reflex Free T4 3.29 0.32-4.0 uIU/mL UA ClnCatch+Micro w/rflx Cul t Reviewed date:12/13/2024 09:09:08 PM Interpretation: Performing Lab:[facility], [address] [place] [phone] Notes/Report: Urine, Clean Catch Color Urine Yellow Appearance Urine Clear PH 6.0 5.0-9.0 Glucose Urine UA Negative Negative mg/dL Urine Blood Negative Negative Specific [place] - Urine 1.010 1.005-1.025 Urine Protein Negative [...] Edd Benitez MD [address] [place] [phone] 12/13/2024 Edd Benitez Hypercholesteremia E 78.00 ; Acquired hypothyroidism E03.9 and Primary hypertension I10 Assessments Encounter Date Diagnosis (ICD Code) Assessment Notes Treatment Notes Treatment Clinical Notes Section Notes 12/13/2024 Hypercholesteremia (ICD-10 - E78.00) 12/13/2024 Acquired hypothyroidism (ICD-10 - E03.9) 12/13/2024 Primary hypertension (ICD-10 - I10) Plan Of Treatment Next Appt Details Provider Name:Edd escamilla, 06/20/2025 08:00:00 AM, [address] [place] [address], [address] [place] [address], [phone], Provider Name:Edd escamilla, 06/27/2025 10:00:00 AM, [address] [place] [address], [address], [phone], Provider Name:Edd escamilla, 11/24/2025 07:15:00 AM, [address] [place] [address], [address], [phone], Provider Name:Edd escamilla, 12/26/2025 09:30:00 AM, [address] [place] [address], [address], [phone], Progress Notes * EMILIA CASILLAS ADOB:1955 (69 yo M)Acc No.[id number]:12/13/2024 Progress Note Patient: EMILIA MONTIEL Provider: Maria Fernanda Benitez MD :1955 A ge:69 Y S ex:Male Date:12/13/2024 Address:[address] [place], [place] [phone] Subjective: * Chief Complaints: * 1 . [...] - 12/13/2024 08:00 AM) L AB: Comprehensive [place]. Panel Fast (Collection Date & Time - [...] - 12/13/2024 08:00 AM) L AB: Comprehensive [place]. Panel Fast (Collection Date & Time - [...] 0 12/13/2024 Generated for You harris/Phoenix/Benitting on: 0 02/18/2025 10:17 AM EDT
--- OUTSIDE RECORDS SUMMARY | 2024-12-20 07:00 | XMS_ITS ---
Author Organization Edd Benitez MD Address [address] [place], [place] [phone] Care Team Providers Care Organ Grinder Name Role Phone Edd Benitez Primary Care [...] Location Date Provider Diagnosis Edd Benitez MD [address] [place] [address] Drive [address] [place], [place] [phone] 12/20/2024 Edd Benitez Controlled gout M10. 9 [...] 08:00:00 AM, [address], [address], [place], [place], [id number], Provider Name:Edd Briggs kimr, 06/27/2025 10:00:00 AM, [address], [address], [place], [id number], Provider Name:Edd Briggs kimr, 11/24/2025 07:15:00 AM, [address], [address], [place], [id number], Provider Name:Edd Briggs kimr, 12/26/2025 09:30:00 AM, [address], [address], [place], [id number], Progress Notes * EMILIA CASILLAS ADOB:1955 (69 yo M)Acc No.[id number]:12/20/2024 Patient: EMILIA MONTIEL Provider: Maria Fernanda Benitez MD :1955 A ge:69 Y S ex:Male Date:12/20/2024 Address:[address] [place], [place] [phone] Subjective: * Chief Complaints: * r eview [...] Marital status: single. Travel outside of the [place]: no. * Medications: T akingEzetimibe 10 [...] mg/dL Urine Blood Negative Negative - Specific [place] - Urine 1.010 1.005-1.025 - Urine Protein [...] 0 12/20/2024 Generated for You harris/Phoenix/Benitting on: 0 02/18/2025 10:18 AM EDT History and Physical [...]
--- OUTSIDE RECORDS SUMMARY | 2024-12-24 10:51 | XMS_ITS ---
Author Organization Edd Benitez MD Address [address] [place] [address] [place] [phone] Care Team Providers Care Spanish Language Lecturer Name Role Phone Edd Benitez Primary Care Provider [phone] heart order for 2025 Encounters Encounter Location Date Provider Diagnosis Edd Benitez MD [address] [place] [address] [place] [phone] 12/24/2024 Edd Benitez Hyperlipidemia E78.5 Assessments Encounter Date Diagnosis (ICD Code) Assessment Notes Treatment Notes Treatment Clinical Notes Section Notes 12/24/2024 Hyperlipidemia (ICD-10 - E78.5) Plan Of Treatment Pending Test Test Name Order Date CT Coronary Calcium Score 12/24/2024 Next Appt Details Provider Name:Edd escamilla, 06/20/2025 08:00:00 AM, [address] [place] [address], [address], [id number], Provider Name:Edd escamilla, 06/27/2025 10:00:00 AM, [address] [place] [address], [address], [phone], Provider Name:Edd escamilla, 11/24/2025 07:15:00 AM, [address] [place] [address], [address], [phone], Provider Name:Edd escamilla, 12/26/2025 09:30:00 AM, [address] [place] [address], [id number], Progress Notes * EMILIA CASILLAS ADOB:1955 (69 yo M)Acc No.[id number]:12/24/2024 Patient: EMILIA MONTIEL :1955 A ge:69 Y S ex:Male Address:[address] [place] [address], [place] [address] Subjective: * Chief Complaints: * C t heart order for 2025 * Medical History: * Surgical History: * Hospitalization/Major Diagno stic Procedure: * Medications: Objective: * Vitals: * Physical Examination: Assessment: * Assessment: 1. H erlipidemia - E78.5 Plan: * Treatment: * Procedure Codes: * true * Date: Generated for You harris/Phoenix/Moni on: 0 02/18/2025 10:18 AM EDT
--- OUTSIDE RECORDS SUMMARY | 2025-02-18 10:17 | XMS_ITS | Continuity of Care Document ---
Author Organization [place] - [facility], [facility] Address [address] [place] [address] Care Team Providers Care Day Habilitation Specialist Name Role Phone LEAHHAILY US Primary Care Provider [phone] Assessment Encounter Date Assessment Date Assessment LastModified by Organization Details LastModified Time 02/13/2025 02/13/2025 Audiometric testing shows stable bilateral mixed hearing loss. Physical exam is also stable with scarring bilaterally and evidence of prior surgery. Today we discussed that while surgical intervention may be able to reduce the conductive component of his hearing loss, he still has enough of a baseline sensorineural hearing loss that he would still need amplification. As such, I recommended he consider getting new hearing aids, as his current devices are currently about 6 years old and the right one is not functioning at the moment. I suspect that with new amplification he will see a significant improvement in his auditory performance and will eliminate the echoing sensation he is noticing in the right ear. Patient would like to learn more about amplification technology so we will set him up for hearing aid evaluation. He is medically cleared for amplification bilaterally. [email or web address] Not available 02/13/2025 14:49:55 Plan of Treatment Reminders Order Date Submit Date Provider Last Modified By Organization Details Last Modified Time Details Appointments Establish ed 15 2024 09:30A Aysha Enriquez, DO Not available Not available Not available Lab None recorded. Referral None recorded. Procedures None recorded. Surgeries None recorded. Imaging None recorded. Medication Orders None recorded. Patient TargetsNo targets recorded. Patient InstructionsNo instructions recorded. Reason for Referral None Reported. Results Created Date Observation Date Name Description Value Unit Range Abnormal Flag Note LastModifiedBy Organization Detail LastModifiedTime 02/14/20 audio gram No observ ation record ed. BARCODE Not Available 2024 15:08:55 Result Notes None recorded. Problems Name Problem SNOMED Code Status Onset Date Resolution Date Notes Provider Name and Address Organization Details Recorded Time Mixed conductive and sensorineural hearing loss, bilateral 285269400 Active 2023 AWA BAILEY MD [address], [place], [address], [place] - [facility] [place] 5 14:50:29 Partial loss of ear ossicles 02405742 Active 2023 AWA BAILEY MD [address] [facility], [place], [address], [place] [facility] [place] 5 22:39:07 Hoarse 07398731 Active 2024 Romeo Enriquez DO [address] [facility],[address], [place], [address], [place] [facility] [place] 5 23:00:34 Laryngopharyng eal reflux 468380731 Active 2024 Romeo Enriquez DO [address] [facility],[address], [place], [address], [place] [facility] [place] 5 09:38:34 Gastroesophage al reflux disease without esophagitis 288937642 Active 2024 Romeo Enriquez DO [address] [facility],[address], [place], [address], [facility] - [facility] [place] 5 09:38:34 Edema of larynx 60096659 Active 2024 Romeo Enriquez DO [address] [facility],[address], [place], [address], [place] [facility] 5 09:38:34 Mixed conductive AND sensorineural hearing loss 69459410 Active 2024 MARIA ISABEL PATE [address], [place], [address], [place] [facility] 13:42:36 Sensorineural hearing loss of bilateral ears 324039076 Active 2024 PACO ZHANG, AUD [address] [facility] [address], [place], [address], [place] [facility] 13:59:00 Problem Notes None recorded. Procedures Surgical History Date Name Laterality Status Provider Name and Address Organization Details Recorded Time 02/14/20 25 Comp Audio with Tymps - 34120 & 74918 completed PACO ZHANG, AUD [address] [facility],[address], [address], [place] - [facility] 02/13/2025 13:40:23 01/15/20 FOL_Reflux_DHL completed Romeo Enriquez, DO [address] [facility],[address], [address], [place] - [facility] 01/14/2025 09:40:56 02/22/20 CT temporal bones - Xoran completed AWA BAILEY MD [address] [facility],[address], [address], [place] [facility] 02/22/2024 13:36:35 02/22/20 24 Air & Bone Audio - 21790 completed AWA BAILEY MD [address] [facility],[address], [address], [place] [facility] 02/21/2024 21:34:31 02/22/20 24 Tymps & Reflexes - 02932 completed AWA BAILEY MD [address] [facility],[address], [address], [place] [facility] 02/21/2024 21:34:32 02/22/20 24 SRT & Speech Recognition - 39299 completed AWA BAILEY MD [address] [place] [address],[address], [address], [place] [facility] 02/21/2024 21:34:32 11/09/19 24 Air & Bone Audio - 54020 completed Carin Sanchez [place] - [facility] 11/09/2023 16:52:09 11/09/19 24 Tymps & Reflexes - 85737 completed Carin Sanchez [place] - [facility] 11/09/2023 16:51:42 11/09/19 24 SRT & Speech Recognition - 06825 completed Carin Sanchez [place] - [facility] 11/09/2023 16:52:24 Ear Surgery completed AWA BAILEY MD [address] [place] [address], [address] [place] - [facility] [place] 11/09/2023 16:55:22 cholecystectomy completed Connie Garber [place] - [facility] 11/09/2023 15:35:12 Imaging Results None recorded. Procedure [...] Available No t Available omeprazole 20 mg capsule,jennifer yed release Take 1 capsule twice a day by oral route. 2024 active Not Available Not Available Not Avai lable omeprazole 20 mg tablet,delay ed release TAKE 1 TABLET BY MOUTH TWICE A DAY 02/13 completed Not Available Not Available Not Available levothyroxin e 100 mcg capsule Take 1 capsule every day by oral route. 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 None [email or web address] Information not available 02/13/2025 Do You Have Any Pets? No [email or web address] Information not available 02/13/2025 Are You Passively Exposed To Smoke? No [email or web address] Information not available 02/13/2025 Are There Any Smokers In Your House? Yes [email or web address] Information not available 02/13/2025 Sex: Unknown Functional Status Question Answer Note LastModified by Organizat ion Details LastModified Time Do you use any illicit or recreational drugs? No [email or web address] Information not available 02/13/2025 Do you or have you ever used any other forms of tobacco or nicotine? No [email or web address] Information not available 02/13/2025 What is your level of alcohol consumption? Moderate [email or web address] Information not available 02/13/2025 Mental Status None recorded. Family History Nothing Reported. Medical History Condition Response Allergies/Hayfever N Heart Problems N Anxiety N Tonsil Infections N Emphysema N Migraines N Thyroid Problems Y Glaucoma N Depression N COPD N Developmental Delay N Nasal or Sinus Problems N Anemia N Immune System Disorder N Anesthesia Complications N Heart Attack (AL) N Other Skin Condition N Diabetes N Rhinitis N Bleeding Disorder N Food Allergy N Arthritis N Hearing Loss Y Hyperlipidemia Y Cancer N Stroke N Dementia N Nasal polyps N Asthma N Sleep Disorder N GERD/Reflux Y High Cholesterol Y Liver Disease N Headaches N Fibromyalgia N Hypertension Y Speech Delay N Kidney Disease Y Past Encounters Encounter ID Performer Location Encounter Start Date Encounter Closed Date Diagnosis/Indication Diagnosis SNOMED-CT Code Diagnosis ICD10 Code Diagnosis IMO Codes Diagnosis Note [id number] Romeo Enriquez DO [facility] of [address] [address] 01/14/2025 09:05:04 01/14/2025 09:42:05 Hoarse 83936031 R49.0 348668 Laryngopha ryngeal reflux 892383133 K21.9 5063794 Edema of larynx 18059936 J38.4 00953 [id number] AWA BAILEY MD [facility] of [address] [address] 02/13/2025 13:21:36 02/14/2025 14:08:49 Partial loss of ear ossicles 80202018 H74.323 Mixed cond uctive and sensorineural hearing loss, bilateral 798843578 H90.6 Right Ear:Normal hearing through 500 Hz sloping to a profound SNHL with excellent speech discrimina tion.Type A tympanogra m.Left Ear:Normal hearing through 1K Hz sloping to a mild SNHL with excellent speech discrimina tion.Type A tympanogra m. [id number] MARIA ISABEL PATE [facility] of [address] [place] [address] 02/13/2025 13:36:30 02/14/2025 12:35:44 Mixed conductive AND sensorineural hearing loss 45376587 H90.A32 02613614 Sensorineu ral hearing loss of bilateral ears 734921079 H90.3 92336814 Right Ear:Normal hearing through 500 Hz sloping to a profound SNHL with excellent speech discrimina tion.Type A tympanogra m.Left Ear:Mild to profound SNHL with excellent speech discrimina tion.Type A tympanogra m. Health Concerns Section Related Observation LastModified by Organization Detai ls LastModified Time None Recorded Concern Status LastModified by Organization Details LastModified Time None Recorded Payers Encounter Date Sequence Insurance Name Policy Number Policy Ramirez Covered Member ID Ramirez Member ID Guarantor Name 02/13/2025 2 [place] [facility] Tr Kim [id number] Tr Kim 02/13/2025 1 [place] B-[place]: [employer] Tr Kim [id number] Tr Kim Notes Date Note Type Note Provider Name and Address Organization Details Recorded Time 02/13/2025 text/html 69-year-old male referred for evaluation of his hearing. Patient had chronic childhood ear infections requiring operations on both of his ears when he was in grade school. He began wearing hearing aids in his early 50s and is now on his third set of hearing aids, managed through [employer]. The right device is currently broken. 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 We discussed at length options of continued observation with amplification versus transcanal ossiculoplasty. He comes back today for reevaluation. Patient has been noticing some autophagy and echoing sensation in the right ear since his right hearing aid has been broken. AWA BAILEY MD [address] [place] [address], [place], [address], [facility] - [facility] 02/13/2025 14:50:38
--- OUTSIDE RECORDS SUMMARY | 2025-02-18 10:18 | XMS_ITS | Continuity of Care Document ---
Author Organization [place] - [facility], [facility] Address [address] [place] [address] Care Team Providers Care Public Works Commissioner Name Role Phone HAILY KRISHNA Primary Care Provider Assessment No assessment recorded. Plan of Treatment Reminders Order Date Submit Date Provider Last Modified By Organization Details Last Modified Time Details Appointments Establish ed 15 2024 09:30A M Romeo Enriquez, DO Not available Not available Not [...] Mixed conductive and sensorineural hearing loss, bilateral 536651409 Active 2023 AWA BAILEY MD [address] [place] [address], [facility] [place], [address], [facility] - [facility] 14:50:29 Partial loss of ear ossicles 82222656 Active 2023 AWA BAILEY MD [address] [place] [address], [facility] [place] [place], [address], [facility] - [facility] 22:39:07 Hoarse 06340118 Active 2024 Romeo Enriquez DO [address] [place], [place], [address], [facility] - [facility] [place] 23:00:34 Laryngopharyng eal reflux 608929698 Active 2024 Romeo Enriquez, DO [address], [place], [address], [facility] - [facility] [place] 09:38:34 Gastroesophage al reflux disease without esophagitis 274024720 Active 2024 Romeo Enriquez, DO [address] [place],[address], [place], [address], [place] [facility] [place] 09:38:34 Edema of larynx 80088994 Active 2024 Romeo Enriquez DO [address] [facility] [place], [place], [address], [facility] - [facility] [place] 09:38:34 Mixed conductive AND sensorineural hearing loss 48037380 Active 2024 PACO ZHANG, AUD [address] [facility] [place], [place], [address], [facility] - [facility] [place] 13:42:36 Sensorineural hearing loss of bilateral ears 697537021 Active 2024 PACO ZHANG, AUD [address] [facility] [place], [place], [address], [facility] - [facility] [place] 13:59:00 Problem Notes None recorded. Procedures Surgical History Date Name Laterality Status Provider Name and Address Organization Details Recorded Time 02/14/20 Comp Audio with Tymps - 26606 & 70187 completed PACO ZHANG, AUD [address] [facility] [place] [address], [place], [address], [facility] - [facility] [place] 02/13/2025 13:40:23 01/15/20 FOL_Reflux_DHL completed Romeo Enriquez, DO [address] [facility] [place],[address], [address], [place] [facility] [place] 01/14/2025 09:40:56 02/22/[address] temporal bones - Xoran completed AWA BAILEY MD [address] [place] [address],[address], [address], [place] [facility] 02/22/2024 13:36:35 02/22/20 24 Air & Bone Audio - 67459 completed AWA BAILEY MD [address] [place] [address],[address], [address], [place] [facility] 02/21/2024 21:34:31 02/22/20 24 Tymps & Reflexes - 41308 completed AWA BAILEY MD [address] [place] [address],[address], [address], [place] [facility] 02/21/2024 21:34:32 02/22/20 24 SRT & Speech Recognition - 37179 completed AWA BAILEY MD [address] [place] [address],[address], [address], [place] [facility] 02/21/2024 21:34:32 11/09/19 24 Air & Bone Audio - 22999 completed Carin Sanchez [place] - [facility] [place] 11/09/2023 16:52:09 11/09/19 24 Tymps & Reflexes - 83893 completed Carin Sanchez [place] - [facility] [place] 11/09/2023 16:51:42 11/09/19 24 SRT & Speech Recognition - 26483 completed Carin Sanchez [place] - [facility] [place] 11/09/2023 16:52:24 Ear Surgery completed AWA BAILEY MD [address] [place] [address],[address], [address], [place] [facility] 11/09/2023 16:55:22 cholecystectomy completed Connie Garber [place] - [facility] [place] 11/09/2023 15:35:12 Imaging Results None recorded. Procedure [...] Tobacco Smoking Status Never Smoker Connie jones [place] - [facility] 11/09/2023 15:34:59 What Type Of Sanding Machine Tender Automatic Do You Use? None [email or web address] Information not available 02/13/2025 Do You Have Any Pets? No [email or web address] Information not available 02/13/2025 Are You Passively Exposed To Smoke? No [email or web address] Information not available 02/13/2025 Are There Any Smokers In Your House? Yes [email or web address] Information not available 02/13/2025 Sex: Unknown Functional Status Question Answer Note LastModified by Organizat ion Details LastModified Time Do you use any illicit or recreational drugs? No [email or web address] Information not available 02/13/2025 Do you or have you ever used any other forms of tobacco or nicotine? No [email or web address] Information not available 02/13/2025 What is your level of alcohol consumption? Moderate [email or web address] Information not available 02/13/2025 Mental Status None recorded. Family History Nothing Reported. Medical History Condition Response Allergies/Hayfever N Heart Problems N Anxiety N Tonsil Infections N Emphysema N Migraines N Thyroid Problems Y COPD N Depression N Developmental Delay N Glaucoma N Nasal or Sinus Problems N Anemia N Immune System Disorder N Anesthesia Complications N Heart Attack (AL) N Other Skin Condition N Diabetes N Rhinitis N Bleeding Disorder N Food Allergy N Hearing Loss Y Arthritis N Hyperlipidemia Y Cancer N Stroke N Dementia N Nasal polyps N Asthma N Sleep Disorder N High Cholesterol Y GERD/Reflux Y Liver Disease N Headaches N Fibromyalgia N Hypertension Y Speech Delay N Kidney Disease Y Past Encounters Encounter ID Performer Location Encounter Start Date Encounter Closed Date Diagnosis/Indication Diagnosis SNOMED-CT Code Diagnosis ICD10 Code Diagnosis IMO Codes Diagnosis Note [id number] Romeo Enriquez DO [facility] [address] [address] 01/14/2025 09:05:04 01/14/2025 09:42:05 Hoarse 15715483 R49.0 909714 Laryngopha ryngeal reflux 163819730 K21.9 2415649 Edema of larynx 08078004 J38.4 29153 [id number] AWA BAILEY MD [facility] [address] [address] 02/13/2025 13:21:36 02/14/2025 14:08:49 Partial loss of ear ossicles 88219455 H74.323 Mixed cond uctive and sensorineural hearing loss, bilateral 601469028 H90.6 Right Ear:Normal hearing through 500 Hz sloping to a profound SNHL with excellent speech discrimina tion.Type A tympanogra m.Left Ear:Normal hearing through 1K Hz sloping to a mild SNHL with excellent speech discrimina tion.Type A tympanogra m. [id number] MARIA ISABEL PATE [facility] of [address] [address] 02/13/2025 13:36:30 02/14/2025 12:35:44 Mixed conductive AND sensorineural hearing loss 70355042 H90.A32 50201258 Sensorineu ral hearing loss of bilateral ears 329703947 H90.3 60040884 Right Ear:Normal hearing through 500 Hz sloping [...] Ramirez Member ID Guarantor Name 02/13/2025 2 MEDICAID[place]: [place] [id number] Tr Kim 02/13/2025 1 MEDICARE B-[place]: [facility] Tr Kim [id number] Tr Kim Notes Date Note Type Note [...] third set of hearing aids, managed through [employer]. The right device is currently broken. I [...] aid has been broken. AWA BAILEY MD [address] [place] [address], [address], [facility] - [facility] 02/13/2025 14:50:38
--- OUTSIDE RECORDS SUMMARY | 2025-02-18 10:18 | XMS_ITS | Data Portability ---
Author Organization [place] - [facility], Allergy Address [address] [place] [address] Care Team Providers Care Cargo Service Agent Name Role Phone HAILY KRISHNA Primary Care Provider [phone] Assessment Encounter Date Assessment Date Assessment LastModified [...] ossiculoplasty versus laser stapedotomy with vein graft. [email or web address] Not available 11/09/2023 17:17:58 02/22/2024 02/22/2024 Both [...] hearing aid evaluation or proceed with surgery. [email or web address] Not available 02/22/2024 14:25:44 01/14/2025 01/14/2025 Tr is a 69-year-old male who presents today with weeks of dysphonia and globus sensation. 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 We discussed vocal hygiene today and the importance of this for his job and livelihood. Flexible laryngoscopy revealed mild laryngopharyngeal reflux as well as an anterior glottic gap. And a possible left anterior sulcus. 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 [email or web address] Not available 01/14/2025 09:42:21 02/13/2025 02/13/2025 Audiometric test ing shows stable bilateral mixed hearing loss. Physical [...] He is medically cleared for amplification bilaterally. [email or web address] Not available 02/13/2025 14:49:55 Plan of Treatment Reminders Order Date Submit Date Provider Last Modified By Organization Details Last Modified Time Details Appointments Establish ed 15 2024 09:30A M Romeo Enriquez, DO Not available Not available Not available Lab None recorded. Referral speech therapy referral 2024 025 CAREY [place], [address] [place], [address], 01/14/2025 12:00:06 Procedures None recorded. Surgeries None recorded. Imaging CT, temporal bone, w/o contrast 2023 024 [email or web address] Not available 12/21/2023 15:46:02 Medication Orders omeprazol e 20 mg tablet,de layed release 2024 025 [email or web address] j 32 [facility] #[id number], [address] [place] [address], [address], 02/13/2025 14:10:02 Patient TargetsNo targets recorded. Patient InstructionsNo instructions recorded. Reason for Referral Referring Physician: Romeo Enriquez, Otolaryngology, Encounter Date: 01/14/2025 Results Created Date Observation Date Name Description Value Unit Range Abnormal Flag Note LastModifiedBy Organization Detail LastModifiedTime 11/20/1903/13/2023 audio gram No observ ation record ed. [email or web address] Not Available 05/2023 15:47:44 12/22/19 24 11/09/2023 audio gram No observ ation record ed. [email or web address] Not Available 2023 21:34:19 03/11/20 24 02/22/2024 CT, tempo ral bone, w/o contr ast No observ ation record ed. [email or web address] [facility] [address], [place], [address], 03/12/2024 08:28:57 02/14/20 audio gram No observ ation record ed. BARCODE Not Available 2024 15:08:55 Result Notes None recorded. Problems Name Problem SNOMED Code Status Onset Date Resolution Date Notes Provider Name and Address Organization Details Recorded Time Mixed conductive and sensorineural hearing loss, bilateral 282340005 Active 2023 AWA BAILEY MD 100 [facility], [place], [address], [facility] 14:50:29 Partial loss of ear ossicles 93545261 Active 2023 AWA BAILEY MD 100 [facility], [address], [place], [address], [facility] - [facility] 5 22:39:07 Hoarse 53051759 Active 2024 Romeo Enriquez DO [address] [address], [place], [address], [facility] - [facility] 5 23:00:34 Laryngopharyng eal reflux 066782958 Active 2024 Romeo Enriquez DO 100 [facility] [address], [place], [address], [facility] - [facility] 5 09:38:34 Gastroesophage al reflux disease without esophagitis 633647016 Active 2024 Romeo Enriquez DO 100 [facility], E [facility], [place], [address], [facility] - [facility] 5 09:38:34 Edema of larynx 21100296 Active 2024 Romeo Enriquez DO 100 [facility], [address], [place], [address], [facility] - [facility] 09:38:34 Mixed conductive AND sensorineural hearing loss 09698733 Active 2024 MARIA ISABEL PATE 100 [facility],[address] [address], [place], [address], [facility] - [facility] 13:42:36 Sensorineural hearing loss of bilateral ears 583601266 Active 2024 PACO ZHANG, AUD 100 [facility],[address] [address], [place], [address], [facility] - [facility] 13:59:00 Problem Notes None recorded. Procedures Surgical History Date Name Laterality Status Provider Name and Address Organization Details Recorded Time 02/14/20 25 Comp Audio with Tymps - 27993 & 85223 completed PACO ZHANG MARIA ISABEL 100 [facility],[address], [address], [facility] - [facility] 02/13/2025 13:40:23 01/15/20 FOL_Reflux_DHL completed Romeo Enriquez DO [address] [place] [address],[address], [address], [place] - [facility] 01/14/2025 09:40:56 02/22/[address] temporal bones - Xoran completed AWA BAILEY MD [address] [place] [address],[address], [address], [place] - [facility] 02/22/2024 13:36:35 02/22/20 24 Air & Bone Audio - 37528 completed AWA BAILEY MD [address] [place] [address],[address], [address], [place] [facility] 02/21/2024 21:34:31 02/22/20 24 Tymps & Reflexes - 15845 completed AWA BAILEY MD [address] [place] [address],[address], [address], [facility] - [facility] 02/21/2024 21:34:32 02/22/20 24 SRT & Speech Recognition - 37563 completed AWA BAILEY MD [address] [place] [address],[address] [place], [address], [place] [facility] 02/21/2024 21:34:32 11/09/19 24 Air & Bone Audio - 84538 completed Carin Sanchez [facility] 11/09/2023 16:52:09 11/09/19 24 Tymps & Reflexes - 95804 completed Carin Sanchez [place] - [facility] 11/09/2023 16:51:42 11/09/19 24 SRT & Speech Recognition - 15174 completed Carin Sanchez [facility] 11/09/2023 16:52:24 Ear Surgery completed AWA BAILEY MD [address], [address], [place] - [facility] 11/09/2023 16:55:22 cholecystectomy completed Connie Garber [facility] 11/09/2023 15:35:12 Imaging Results None recorded. Procedure [...] Details Last Updated DateTime 11/09/2023 179.07 cm 736025.32 g Connie Garber [place] [facility] 11/09/2023 15:37:06 Date Recorded Body height Body weight Provider Name and Address Organization Details Last Updated DateTime 02/22/2024 179.07 cm 744156.13 g Connie Mills [facility] 02/22/2024 13:59:32 Social History Question Answer Notes LastModified by Organizat ion Details LastModified Time Tobacco Smoking Status Never Smoker Connie jones [place] - [facility] 11/09/2023 15:34:59 What Type Of Resident Programs Assistant Do You Use? None [email or web address] Information not available 02/13/2025 Do You Have Any Pets? No [email or web address] Information not available 02/13/2025 Are You Passively Exposed To Smoke? No [email or web address] Information not available 02/13/2025 Are There Any Smokers In Your House? Yes [email or web address] Information not available 02/13/2025 Sex: Unknown Functional Status Question Answer Note LastModified by Organizat ion Details LastModified Time Do you use any illicit or recreational drugs? No [email or web address] Information not available 02/13/2025 Do you or have you ever used any other forms of tobacco or nicotine? No [email or web address] Information not available 02/13/2025 What is your level of alcohol consumption? Moderate [email or web address] Information not available 02/13/2025 Mental Status None recorded. Family History Nothing Reported. Medical History Condition Response Allergies/Hayfever N Heart Problems N Anxiety N Tonsil Infections N Emphysema N Migraines N Thyroid Problems Y Glaucoma N Depression N COPD N Developmental Delay N Nasal or Sinus Problems N Anemia N Immune System Disorder N Anesthesia Complications N Heart Attack ([place]) N Other Skin Condition N Diabetes N [...] ICD10 Code Diagnosis IMO Codes Diagnosis Note [id number] AWA BAILEY MD [facility] [address] [address] 11/09/2023 14:56:16 11/09/2023 17:03:18 Mixed conductive and sensorineural hearing loss, bilateral 126295422 H90.6 Audiologic al evaluation results: Right ear: Normal sloping to profound mixed hearing loss with excellent word recognitio n. Left ear: Mild sloping to severe mixed hearing loss with excellent word recognitio n. Tympanomet ry: Right Ear:Type A Left Ear:Type A AWA BAILEY MD [facility] [address] [address] 02/22/2024 12:53:08 02/22/2024 14:24:26 Mixed conductive and sensorineural hearing loss, bilateral 598568322 H90.6 Partial lo ss of ear ossicles 18790582 H74.323 [id number] Romeo Enriquez DO [facility] [address] [address] 01/14/2025 09:05:04 01/14/2025 09:42:05 Hoarse 58297242 R49.0 509791 Laryngopha ryngeal reflux 661907323 K21.9 3943700 Edema of larynx 91089448 J38.4 52546 [id number] AWA BAILEY MD [facility] [address] [address] 02/13/2025 13:21:36 02/14/2025 14:08:49 Partial loss of ear ossicles 77960278 H74.323 Mixed cond uctive and sensorineural hearing loss, bilateral 367881729 H90.6 Right Ear:Normal hearing through 500 Hz sloping to a profound SNHL with excellent speech discrimina tion.Type A tympanogra m.Left Ear:Normal hearing through 1K Hz sloping to a mild SNHL with excellent speech discrimina tion.Type A tympanogra m. [id number] MARIA ISABEL PATE [facility] [address] [address] 02/13/2025 13:36:30 02/14/2025 12:35:44 Mixed conductive AND sensorineural hearing loss 47951556 H90.A32 62040393 Sensorineu ral hearing loss of bilateral ears 094756074 H90.3 25538072 Right Ear:Normal hearing through 500 Hz sloping [...] Member ID Ramirez Member ID Guarantor Name 02/12/2025 2 [place] Tr Kim [id number] Tr Kim 02/12/2025 1 [place] B[place] [employer] Tr Kim [id number] Tr Kim Notes Date Note Type Note [...] to the area and establish care with [facility]. Audiogram 8 months ago showed bilateral mixed hearing loss with a rather significant conductive component bilaterally. [place] of [place]. No recent pain or discharge AWA BAILEY MD [address] [place] [address], [address], [facility] 11/09/2023 17:18:34 02/22/2024 text/html 68-year-old male referred for evaluation of his hearing. Patient had chronic childhood ear infections requiring operations on both of his ears when he was in grade school. He began wearing hearing aids in his early 50s and is now on his third set of hearing aids. Currently moved to the area and establish care with [facility]. Audiogram back in October showed bilateral mixed hearing loss with a rather significant conductive component bilaterally. Patient comes in today for CAT scan of the temporal bones to assess for the cause of the conductive component of his hearing loss in anticipation of possible surgical interventionThat currently using binaural BTE amplification better about 6 years old. Devices are being managed through [facility]. AWA BAILEY MD [address] [place] [address],[address], [address], [place] - [facility] 02/22/2024 14:26:21 01/14/2025 text/html ROS as noted in the HPI Tr is a 69M presenting with concerns of hoarseness. The patient presents with throat concerns today. 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 Romeo Enriquez DO 100 [facility],[address], [address], [place] - [facility] 01/14/2025 09:42:36 02/13/2025 text/html 69-year-old male referred for evaluation of his hearing. Patient had chronic childhood ear infections requiring operations on both of his ears when he was in grade school. He began wearing hearing aids in his early 50s and is now on his third set of hearing aids, managed through [employer] The right device is currently broken. I [...] aid has been broken. AWA BAILEY MD 100 [facility],[address], [address], [place] - [facility] 02/13/2025 14:50:38
--- OUTSIDE RECORDS SUMMARY | 2025-02-18 10:18 | XMS_ITS | Patient Health Record ---
Author Organization [facility] Address [address] [place] [address] Care Team Providers Care Laundry Pricing Clerk Name Role Phone Edd Benitez MD Primary Care Provider Lamont Hodgson Unavailable [phone] Allergies No Known Allergies Reason For Referral [...] Status Risk Notes Problem Colon cancer screening (151651579) Colon cancer screening (Z12.11) Active confirmed Problem Preprocedural examination (261494982147543) Preprocedural examination (Z01.818) Active confirmed Problem Long-term current use of aspirin (510351001069821) Aspirin long-term use (Z79.82) Active confirmed Problem Family history of malignant neoplasm of gastrointestinal tract (196995022) Family history of colon cancer in father (Z80.0) Active confirmed Vital Signs Temperature 98.0 degrees Fahrenheit 11/20/2024 Blood pressure diastolic 01 mm Hg 11/20/2024 Height 70.5 in 11/20/2024 Blood pressure systolic 001 mm Hg 11/20/2024 Weight 240 lbs 11/20/2024 BMI 33.95 kg/m2 11/20/2024 Procedures Procedure Date Ordered Date Performed Result Body Sit e COLONOSCOPY 11/20/2024 N/A Encounters Encounter Location Date Provider Diagnosis [facility] [address] [place] [address] 11/20/2024 Lamont Moran Preprocedural examination Z01.818 ; [...] Name:Lamont Moran , 02/28/2025 10:30:00 AM, [address] [facility] , [place], [place], [id number], Insurance Providers Payer Name Payer Address Payer Phone Subscriber Number Group Number Insured Name Patient Relationship to Insured Coverage Start Date Coverage End Date MEDICARE OF [place] [address] [place] [address] [id number] SONJA EMILIA Self - patient is the insured 2 MEDICAID OF [facility] [address] [place] [address] [id number] SONJA EMILIA Self - patient is the insured Medical (General) History Medical History History ICD Code Kidney stones HTN Hyperlipidemia GERD Having cardiac w/u with Dr. Ellis Summer 2024 Hypothyroidism Denies HI,DM,CVA,Lung disease,renal dise ase Elevated PSA-sees Urologist Negative colonoscopies in 2010, 2015, an d 2019 in [place] Surgical History Surgery Date(Month/Year) Ear surgery as a child Cholecystectomy 1994
--- OUTSIDE RECORDS SUMMARY | 2025-02-18 10:18 | XMS_ITS | Patient Health Record ---
Author Organization [facility] Address [address] [address] [place] [address] Care Team Providers Care Permit Review Assistant Name Role Phone Gareth Baker Unavailable [phone] Allergies No Known Allergies Reason For Referral [...] W/U Status Risk Notes Problem Postnasal drip (24191887) Postnasal drip (R09.82) Active confirmed Problem Allergic rhinitis (74381767) Allergic rhinitis (J30.9) Active confirmed Problem Laryngopharyngeal reflux (328667430) LPRD (laryngophary ngeal reflux disease) (K21.9) Active confirmed Plan Of Treatment No Information Insurance Providers Payer Name Payer Address Payer Phone Subscriber Number Group Number Insured Name Patient Relationship to Insured Coverage Start Date Coverage End Date [employer] [address] [place] [address] [id number] Tr Kim Self - patient is the insured Medical (General) History Medical History History ICD Code Chronic GERD K21.9 Surgical History Surgery Date(Month/Year)
--- OUTSIDE RECORDS SUMMARY | 2025-02-18 10:18 | XMS_ITS | Patient Health Record ---
Author Organization [facility] Address [address] [place] [address] Support Name Relationship Address Phone Tr Kim Guarantor Unknown [phone] Reason For Referral No Information Medications Medication [...]
--- OUTSIDE RECORDS SUMMARY | 2025-02-18 10:20 | XMS_ITS | Patient Health Record ---
Author Organization Edd Benitez MD Address [address] [place], [place] [address] Care Team Providers Care Concession Stand Attendant Name Role Phone Edd Benitez Primary Care Provider [phone] Allergies No Known Allergies Results Component Value Reference Range Notes Uric Acid Reviewed date:06/18/2024 04:29:05 PM Interpretation: Performing Lab:[facility], [address] [place] [phone] Notes/Report: Uric Acid 9.7 3.4-7.0 mg/dL Hold Gold Reviewed date:06/18/2024 01:00:20 PM Interpretation: Performing Lab:[address] [phone] Notes/Report: Hold Gold See Note Specimen held untested for 24 hours; Call to request Chemistry testing. Liver Panel Reviewed date:06/18/2024 02:31:04 PM Interpretation: Performing Lab:[facility], [address] [place] [phone] Notes/Report: Bilirubin Total 0.7 0.0-1.0 mg/dL Bilirubin Direct 0.2 0.0-0.5 mg/dL Aspartate Amino Transferase 29 5-37 U/L Alanine Aminotransferase 29 0-40 U/L Total Protein 7.7 6.5-8.0 g/dL Albumin Level 4.1 3.5-5.0 g/dL Alkaline Phosphatase 69 39-117 U/L Lipid Panel with Reflex Reviewed date:06/18/2024 04:29:16 PM Interpretation: Performing Lab:[facility], [address] [place] [phone] Notes/Report: Triglycerides 187 <150 mg/dL Desirable Triglyceride: [...] low results in patients with liver disease. Basic Metabolic Panel Reviewed date:11/20/2024 06:16:10 PM Interpretation: Performing Lab:[facility], [address] [place] [phone] Notes/Report: Sodium 140 135-145 mmol/L Potassium 3.8 3.3-5.1 mmol/L Chloride 104 96-108 mmol/L Carbon Dioxide 25 22-29 mmol/L Anion Gap 15 12-20 Blood Urea Nitrogen 13 9-16 mg/dL Creatinine 1.07 0.5-1.4 mg/dL Estimated Glomerular Filt Rate > 60 Chronic Kidney Disease: Estimated GFR < 60 mL/min/1.73m2 Severe Kidney Disease: Estimated GFR < 15 mL/min/1.73m2 Glucose Random 88 60-115 mg/dL Calcium 9.4 8.4-10.2 mg/dL Lipid Panel Reviewed date:11/20/2024 06:15:40 PM Interpretation: Performing Lab:[facility], [address] [place] [phone] Notes/Report: Triglycerides 89 <150 mg/dL Desirable Triglyceride: less than 150 mg/dL Borderline High Triglyceride 150-199 mg/dL High Triglyceride: 200-499 mg/dL Very High Triglyceride: greater than or equal to 5OO mg/dL Cholesterol 149 <200 mg/dL Desirable Cholesterol: less than 200 mg/dL Borderline High Cholesterol: 200-239 mg/dL High Cholesterol: greater than 239 mg/dL LDL Cholesterol Calculated 76 <100 mg/dL Desirable LDL: less than 100 mg/dL Near Optimal/Above Optimal LDL: 110-129 mg/dL Borderline High LDL: 130-159 mg/dL High LDL: 160-189 mg/dL Very High LDL: greater than or equal to 190 mg/dL HDL Cholesterol 56 >40 mg/dL Desirable HDL: greater than 40 mg/dL Note: This HDL assay may give artificially low results in patients with liver disease. Complete Blood Count Auto Di ff Reviewed date:12/13/2024 09:31:02 PM Interpretation: Performing Lab:[facility], [address] [place] [phone] Notes/Report: White Blood Count 5.6 4.8-10.8 X10*3/uL [...] NRBC Abs Auto 0.000 0.0-0.012 X10*3/uL Comprehensive [place]. Panel Fa st Reviewed date:12/20/2024 11:37:38 AM Interpretation:soha 12/20/24 Performing Lab:[facility], [address] [place] [phone] Notes/Report: Sodium 140 135-145 mmol/L Potassium 4.1 [...] Panel Reviewed date:12/13/2024 09:07:24 PM Interpretation: Performing Lab:[facility], [address] [place] [phone] Notes/Report: Triglycerides 104 <150 mg/dL Desirable Triglyceride: [...] (Free>4and<10) Reviewed date:12/20/2024 11:53:37 AM Interpretation:12-20-2024 Performing Lab:[facility], [address] [place] [phone] Notes/Report: PSA,Total (Free>4and<10) 8.39 0.00-4.00 ng/mL PSA methodology: Peraza Alinity i Chemiluminescent Microparticle Immunoassay (CMIA) TSH reflex Free T4 Reviewed date:12/13/2024 09:07:33 PM Interpretation: Performing Lab:[facility], [address] [place] [phone] Notes/Report: TSH reflex Free T4 3.29 0.32-4.0 uIU/mL UA ClnCatch+Micro w/rflx Cul t Reviewed date:12/13/2024 09:09:08 PM Interpretation: Performing Lab:[facility], [address] [place] [phone] Notes/Report: Urine, Clean Catch Color Urine Yellow Appearance Urine Clear PH 6.0 5.0-9.0 Glucose Urine UA Negative Negative mg/dL Urine Blood Negative Negative Specific [place] - Urine 1.010 1.005-1.025 Urine Protein Negative Neg-Trace mg/dL Urine Ketones Trace Negative mg/dL Nitrite Urine Negative Negative Leukocyte Esterase Urine Negative Negative RBC Urine 0-2 0-2 /HPF WBC Urine 0-5 0-5 /HPF Squamous Epithelial Cell Urine 0-2 0-2 /HPF Bacteria Urine None Seen None Seen Hyaline Casts Urine 0-2 0-2 /LPF PSA Free and Total Reviewed date:12/16/2024 05:35:03 PM Interpretation: Performing Lab:[address] [phone] Notes/Report: Prostate Specific Ag Total 7.1 < OR = 4.0 ng/ mL Percent Free Prostate Spec Ag 18 >25 % (calc ) PSA(ng/mL) Free PSA(%) Estimated(x) Probability of Cancer(as%) 0-2.5 (*) Approx. 1 2.6-4.0(1) 0-27(2) 24(3) 4.1-10(4) 0-10 56 11-15 28 16-20 20 21-25 16 >or =26 8 >10(+) N/A >50 References:(1)Yang et al.:Urology 60: 469-474 (2001) (2)Yang et al.:J.Urol 168: 922-925 (2001) Free PSA(%) Sensitivity(%) Specificity(%) < or = 25 85 19 < or = 30 93 9 (3)Catalona et al.:AMISHA 277: 0557-7800 (1996) (4)Catalona et al.:AMISHA 279: 4310-9762 (1997) (x)These estimates vary with age, ethnicity, [...] mind. PSA was performed using the Tomi Hastings Immunoassay method. Values obtained from different assay methods cannot be used interchangeably. PSA levels, regardless of value, should not be interpreted as absolute evidence of the presence or absence of disease. THIS TEST WAS PERFORMED AT: [facility] [address] [address] VAN RAMIREZ MD Free Prostate Spec Ag 1.3 Reason For Referral Reason HYPERCHOLESTERIMIA Diagnosis 1 Hypercholesteremia ( E78.00) Referral Organization Edd Benitez MD Referring Provider First Name Edd Referring Provider Last Name Emmanuel Referring Provider Speciality Internal M edicine Referred Provider AUGUSTINA WARE Referred Provider Specialty Cardiology General Notes Sondra Workman 06/21/2024 11:22:25 AM >REFERRAL [facility] Patti A 07/30/2024 10:05:35 AM >I CHECKED WITH KAILYN, HE HAS NOT BEEN SCHEDULED YET , WILL RECHECKJacinta Patti A 08/22/2024 01:25:40 PM >PER KAILYN AT [facility] , THEY HAVE LEFT HIM 2 MESSAGES AND HAVE NOT HEARD BACK YET. KAILYN SAID THEY WILL LEAVE ONE MORE MESSAGE, Sondra Workman 08/22/2024 01:31:56 PM >I ALSO LEFT FATHER SONJA Turk MESSAGE TO CALL [facility], Sondra Workman 08/26/2024 09:45:18 AM >APPT SCHEDULED WITH [facility] PER KAILYN, PATIENT IS AWARE Referral Priority Routine Referral Appointment Date 08/27/2024 Reason needs a colonoscopy Diagnosis 1 Colon cancer screeni kimberly (Z12.11) Referral Organization Edd Benitez MD Referring Provider First Name Edd Referring Provider Last Name Emmanuel Referring Provider Speciality Internal M edicine Referred Provider Lamont Moran Referred Provider Specialty Gastroentero logy General Notes Jennifer Castillo 0 07/29/2024 11:57:04 AM >info faxed, Jennifer Castillo 08/05/2024 08:15:40 AM >REFERRAL INFO MAILED TO PATIENT, Sondra Workman 12/09/2024 09:18:51 AM >OFFICE NOTE RECD Referral Priority Routine Referral Appointment Date 11/20/2024 Medications Medication SIG (Take, Route, Frequency, Duration) Notes Start Date End Date Status Levothyroxine Sodium 100 MCG TAKE 1 TABLET BY MOUTH EVERY DAY IN THE MORNING ON EMPTY STOMACH for 90 Active Ezetimibe 10 MG 1 tablet Orally [...] Once a day for 90 days Active Immunizations Vaccine Route Administration Date Status [...] Problem Status W/U Status Risk Notes Problem 551217794 Lumbar disc dise ase (M51.9) Active confirmed Problem 149399142 Gastroesophageal reflux disease without esophagitis (K21.9) Active confirmed Problem 179790052 Acquired hypothyroidism (E03.9) Active confirmed Problem Hyperlipidemia (95026900) Hyperlipidemia (E78.5) Active confirmed Problem 27501760 Hypercholesterem ia (E78.00) Active confirmed Problem 18975391 Acute idiopathic gout involving toe, unspecified laterality (M10.079) Active confirmed Problem 114531417 Gastroesophageal reflux disease with esophagitis without hemorrhage (K21.00) Active confirmed Problem 15786301 Primary hyperten yusef (I10) Active confirmed Problem 54353353 Disc disease, degenerative, lumbar or lumbosacral (M51.37) Active confirmed Problem 66200884 Controlled gout (M10.9) Active confirmed Vital Signs Blood pressure diastolic 78 mm Hg 12/20/2024 Height 70.5 in 12/20/2024 Blood pressure systolic 122 mm Hg 12/20/2024 Weight 239 lbs 12/20/2024 BMI 33.8 kg/m2 12/20/2024 Encounters Encounter Location Date Provider Diagnosis Edd Benitez MD [address] [place] [address] [place] [id number] 06/18/2024 Edd Benitez Hypercholesteremia E 78.00 Edd Benitez MD [address] [place] [id number] 12/13/2024 Edd Benitez Hypercholesteremia E 78.00 ; Acquired hypothyroidism E03.9 and Primary hypertension I10 Edd Benitez MD [address] [place] [id number] 06/21/2024 Edd Benitez Gastroesophageal ref lux disease with esophagitis without hemorrhage K21.00 ; Controlled gout M10.9 and Hypercholesteremia E78.00 Edd Benitez MD [address] [place] [id number] 12/20/2024 Edd Benitez Controlled gout M10. 9 ; Primary hypertension I10 ; Hypercholesteremia E78.00 ; Acquired hypothyroidism E03.9 ; Gastroesophageal reflux disease without esophagitis K21.9 ; Colon cancer screening Z12.11 ; Depression screening Z13.31 and Elevated LFTs R79.89 Edd Benitez MD [address] [place] [id number] 03/21/2024 Edd Benitez Gastroesophageal ref lux disease with esophagitis without hemorrhage K21.00 Edd Benitez MD [address] [place] [id number] 04/09/2024 Edd Benitez Primary hypertension I10 Edd Benitez MD [address] [place] [id number] 12/24/2024 Edd Benitez Hyperlipidemia E78.5 Assessments Encounter Date Diagnosis (ICD Code) Assessment Notes Treatment Notes Treatment Clinical Notes Section Notes 06/18/2024 Hypercholesteremia (ICD-10 - E78.00) 12/13/2024 Hypercholesteremia (ICD-10 - E78.00) 06/21/2024 Gastroesophageal reflux disease with esophagitis without hemorrhage (ICD-10 - K21.00) 06/21/2024 Controlled gout (ICD-10 - M10.9) discussed the treatment and doesn't appear to need an allopurinal 12/20/2024 Controlled gout (ICD-10 - M10.9) 12/20/2024 Primary hypertension (ICD-10 - I10) well controlled 03/21/2024 Gastroesophageal reflux disease with esophagitis without hemorrhage (ICD-10 - K21.00) 04/09/2024 Primary hypertension (ICD-10 - I10) 12/24/2024 Hyperlipidemia (ICD-10 - E78.5) 12/13/2024 Acquired hypothyroidism (ICD-10 - E03.9) 06/21/2024 Hypercholesteremia (ICD-10 - E78.00) referral to dr peres/ REFERRAL FAXED TO [facility] 12/20/2024 Hypercholesteremia (ICD-10 - E78.00) cholesterol is good on meds 12/13/2024 Primary hypertension (ICD-10 - I10) 12/20/2024 Acquired hypothyroidism (ICD-10 - E03.9) tsh is good 12/20/2024 Gastroesophageal reflux disease without esophagitis (ICD-10 - K21.9) takig omeoprazole 12/20/2024 Colon cancer screening (ICD-10 - Z12.11) getting colooscopy in 2 mo 12/20/2024 Depression screening (ICD-10 - Z13.31) 12/20/2024 Elevated LFTs (ICD-1 0 - R79.89) thinks he may be drinking too much and is going to change that. may be related to the statins and his obesity Plan Of Treatment Pending Test Test Name Order Date CT ABD WITH CONTRAST 02/18/2022 CT ABD W&WO CONTRAST 02/04/2022 CT ABD & PELVIS WWO CONTRAST 02/21/2022 CT Coronary Calcium Score 12/24/2024 Next Appt Details Provider Name:Edd escamilla, 06/20/2025 08:00:00 AM, [address] [place] [address], [address] [place] [address], [phone], Provider Name:Edd escamilla, 06/27/2025 10:00:00 AM, [address] [place] [address], Suite [facility], [place], [place], [phone], Provider Name:dEd escamilla, 11/24/2025 07:15:00 AM, [address] [place] [address], [address] [place] [address], [phone], Provider Name:Edd escamilla, 12/26/2025 09:30:00 AM, [address], [address], [place], [place], [phone], Insurance Providers Payer Name Payer Address Payer Phone Subscriber Number Group Number Insured Name Patient Relationship to Insured Coverage Start Date Coverage End Date [employer] [address] [place] [address] [id number] EMILIA CASILLAS Self - patient is the insured [address] [address] [id number] EMILIA CASILLAS Self - patient is the insured Medical (General) History Medical History History ICD Code colonoscopy 2020 due in 2024 psa 2019 was 4
--- OUTSIDE RECORDS SUMMARY | 2025-02-18 10:20 | XMS_ITS | Patient Health Record ---
Author Organization [facility] Address [address] [place] [address] Care Team Providers Care Claims Sorter Name Role Phone Emmanuel CAMPBELL, Edd Primary Care Provider Haleigh Rodriguez Unavailable [phone] Allergies No Known Allergies Reason For Referral [...] Problem Acquired hammer toe of right foot (8181041274065397 ) Other hammer toe(s) (acquired), right foot (M20.41) Active confirmed Problem Gout (20728673) Gout of left foot (M10.9) Active confirmed Rx drug management (4) Problem Gout (61868902) Gout of right foot (M10.9) Active confirmed Rx drug management (4) Problem Localized, primary osteoarthritis of the ankle and/or foot (491238731) Arthritis of big toe (M19.079) Active confirmed Problem Acquired hallux varus (57091265) Hallux malleus of right foot (M20.31) Active confirmed Problem Localized, primary osteoarthritis of the ankle and/or foot (868142296) Arthritis of joint of lesser toe, right (M19.071) Active confirmed Vital Signs Blood pressure diastolic 65 mm Hg 06/07/2024 Height 5ft 10in in 06/07/2024 Blood pressure systolic 129 mm Hg 06/07/2024 Weight 235 lbs 06/07/2024 BMI 33.72 kg/m2 06/07/2024 Encounters Encounter Location Date Provider Diagnosis [address] [address] 03/14/2024 Haleigh Banks Pain in right toe(s) M79.674 ; Tinea pedis of both feet B35.3 ; Hallux malleus of right foot M20.31 and Arthritis of big toe M19.[address] [address] 06/07/2024 Haleigh Banks Pain in joint involving left ankle and foot M25.572 and Gout of left foot M10.[address] [address] 06/04/2024 Haleigh Banks [facility] [address] [place] [address] 06/20/2024 Haleigh Banks Assessments Encounter Date Diagnosis [...] Medicare National [employer] [address] [place] [address] [id number] Tr Kim Self - patient is the insured Medical (General) History Medical History History ICD Code Back,Hip,and Knee pain Diverticulosis Gall bladder problems Gout High Blood Pressure Reflux ( GERD) Sciatica thyroid Measles Mumps Hearing loss Surgical History Surgery Date(Month/Year) Gall bladder removal 1994 tympanoplasty 1966
--- OUTSIDE RECORDS SUMMARY | 2025-02-18 10:20 | XMS_ITS | Clinical Summary ---
Author Organization [address] [facility] Address [address] [place] [address] Phone Care Team Providers Care Casting Agent Name Role Phone Edd Benitez MD Primary Care Provider Encounters Date Type Department Care Team Description 01/15/2025 Lab Requisition [facility] Lab [address] [place] [phone] Antonio Puentes MD Urinary tract infection, site not specified 01/10/2025 Lab Requisition [facility] Lab [address] [place] [address] Buster Wilburn PA Urinary tract infection, site not specified from Last 3 Months Social History Tobacco Use Types Packs/Day Years Used Date Smoking Tobacco: Never Assessed Sex and Gender Information Value Date Recorded Sex Assigned at Not on file Legal Sex Male 12:28 PM EDT Gender Identity Not on file Sexual Orientation Not on file Plan of Treatment Health Maintenance Due Date Last Done Comments Colorectal Cancer Screening: Colonoscopy 1956 DTaP,Tdap,and Td Vaccines (1 - Tdap) 1975 Pneumococcal Vaccine: 50+ Ye ars (1 of 1 - PCV) 2006 Zoster Vaccines (1 of 2) 2006 Depression Screening 05/22/2024 Abdominal Aortic Aneurysm (A AA) Screen 01/10/2025 Cholesterol Screening (Lipid Panel) 01/10/2025 Falls Risk Assessment 01/10/2025 Hepatitis C Screening 01/10/2025 Medicare Annual Wellness Visit 01/10/2025 Social Influencers of Health Screening 01/10/2025 COVID-19 Vaccine (1 - 2023-2 5 season) 2025 Influenza Vaccine (#1) 2025 RSV Immunization Adult Patie nts (1 - 1-dose 75+ series) 2031 HIB Vaccines Aged Out No longer eligi ble based on patient's age to complete this topic HPV Vaccines Aged Out No longer eligi ble based on patient's age to complete this topic Hepatitis A Vaccines Aged Out No long er eligible based on patient's age to complete this topic Hepatitis B Vaccines Aged Out No long er eligible based on patient's age to complete this topic IPV Vaccines Aged Out No longer eligi ble based on patient's age to complete this topic MMR Vaccines Aged Out No longer eligi ble based on patient's age to complete this topic Meningococcal ACWY Vaccine Aged Out N o longer eligible based on patient's age to complete this topic Meningococcal B Vaccine Aged Out No l onger eligible based on patient's age to complete this topic RSV Immunization Patients Un mark 20 months Aged Out No longer eligible b ased on patient's age to complete this topic Varicella Vaccines Aged Out No longer eligible based on patient's age to complete this topic Procedures Procedure Name Priority Date/Time Associated Diagnosis Comments CULTURE URINE Routine 01/15/2025 12:00 AM EDT Urinary tract infection, site not specified CULTURE URINE Routine 01/10/2025 9:20 AM EDT Urinary tract infection, site not specified from Last 3 Months Results * Culture urine (01/15/2025 12:00 AM EDT) Only the most recent of2 resultswithin the time period is included. Culture, Urine No growth 01/16/2025 1:56 PM EDT [facility] Urine Urine specimen obtained by clean catch procedure / Unknown 01/15/2025 01/15/2025 5:55 PM EDT us Antonio Puentes MD LAB MICROBIOLOGY - GENERAL [facility] Final Result [facility]) [facility] [address] [place] [address], [place] [phone] from Last 3 Months Insurance MEDICAID - [place] MEDICARE Care Teams Casting Agent Relationship Specialty Start Date End Date Edd Benitez MD [address] [place] [address] PCP - General Internal Medicine 01/10/25
--- OUTSIDE RECORDS SUMMARY | 2025-02-18 10:20 | XMS_ITS | Encounter Summary ---
Author Organization [facility] Address [address] [place] [address] Care Team Providers Care Mental Health Assistant Name Role Phone Edd Benitez MD Primary Care Provider [phone] Encounter Details Date Type Department Care Team (Late st Contact Info) Description 01/10/2025 Lab Requisition [facility] - Main Lab [address] [facility] [place] [address] Buster Wilburn, PA [address] [place], [place] [phone] Urinary tract infection, site not specified Social History Tobacco Use Types Packs/Day Years Used Date Smoking Tobacco: Never Assessed Sex and Gender Information Value Date Recorded Sex Assigned at Not on file Legal Sex Male 12:28 PM EDT Gender Identity Not on file Sexual Orientation Not on file documented as of this encounter Plan of Treatment Not on file documented as of this encounter Procedures Procedure Name Priority Date/Time Associated Diagnosis Comments CULTURE URINE Routine 01/10/2025 9:20 AM EDT Urinary tract infection, site not specified documented in this encounter Results * (ABNORMAL) Culture urine (01/10/2025 9:20 AM EDT) Culture, Urine >=100,000 CFU/mL Escherichia coli(A) KANDICE 01/12/2025 9:06 AM EDT [facility] ([facility] Urine Urine specimen obtained by clean catch procedure / Unknown 01/10/2025 9:20 AM EDT 01/10/2025 12:31 PM EDT Narrative Organism Antibiotic Method Susceptibility Escherichia coli Amoxicillin/Clavulanate KANDICE 8 ug/ml: Susceptible Escherichia coli Ampicillin/Sulbactam KANDICE 16 ug/ml: Intermediate Escherichia coli Piperacillin/Tazobactam KANDICE <=4 ug/ml: Susceptible Escherichia coli Cefazolin (Urine) KANDICE 2 ug/ml: Susceptible Escherichia coli Cefoxitin KANDICE <=4 ug/ml: Susceptible Escherichia coli Ceftazidime KANDICE <=0.5 ug/ml: Susceptible Escherichia coli Ceftriaxone KANDICE <=0.25 ug/ml: Susceptible Escherichia coli Cefepime KANDICE <=0.12 ug/ml: Susceptible Escherichia coli Meropenem KANDICE <=0.25 ug/ml: Susceptible Escherichia coli Amikacin KANDICE <=1 ug/ml: Susceptible Escherichia coli Gentamicin KANDICE <=1 ug/ml: Susceptible Escherichia coli Ciprofloxacin KANDICE <=0.06 ug/ml: Susceptible Escherichia coli Levofloxacin KANDICE <=0.12 ug/ml: Susceptible Escherichia coli Nitrofurantoin KANDICE 32 ug/ml: Susceptible Escherichia coli Trimethoprim/Sulfamethoxazole KANDICE <=20 ug/ml: Susceptible [facility] LAB MICROBIOLOGY - [facility] Final Result Performing Organization Address City/State/[facility] Co de Phone Number [facility] ([facility]) [facility] [address] [place] [address], documented in this encounter Visit Diagnoses Diagnosis Urinary tract infection, site not specified documented in this encounter Care Teams Mental Health Assistant Relationship Specialty Start Date End Date Edd Benitez MD [address] [place] [address] PCP - General Internal Medicine 01/10/25 documented as of this encounter
--- OUTSIDE RECORDS SUMMARY | 2025-02-18 10:20 | XMS_ITS | Encounter Summary ---
Author Organization [facility] Address [address] [place] [address] Care Team Providers Care Entry Level Programmer Name Role Phone Edd Benitez MD Primary Care Provider Encounter Details Date Type Department Care Team (Late st Contact Info) Description 01/15/2025 Lab Requisition [facility] - Main Lab [address] [facility] [email or web address] [address] Antonio Puentes MD [address] [place] [phone] Urinary tract infection, site not specified Social [...] specified documented in this encounter Results * Culture urine (01/15/2025 12:00 AM EDT) Culture, Urine No growth 01/16/2025 1:56 PM EDT [facility] ([facility] Urine Urine specimen obtained by clean catch procedure / Unknown 01/15/2025 01/15/2025 5:55 PM EDT Antonio Puentes MD LAB MICROBIOLOGY - GENERAL [facility] Final Result [facility] ([facility] LAB [address] [place] [address], documented in this encounter Visit Diagnoses Diagnosis Urinary tract infection, site not specified documented in this encounter Care Teams Entry Level Programmer Relationship Specialty Start Date End Date Edd Benitez MD [address] [place] [address] [address] [place] [address] PCP - General Internal Medicine 01/10/25 documented as of this encounter
--- OUTSIDE RECORDS SUMMARY | 2025-02-18 10:20 | XMS_ITS | Patient Health Record ---
Author Organization [facility] Address [address] [place] [address] Support Name Relationship Address Phone Unavailable Emergency Contact Unknown 000-000-[id number] Tr Kim Guarantor Unknown [phone] Reason For Referral No Information Medications Medication SIG (Take, Route, Frequency, Duration) Notes Start Date End Date Status Omeprazole 20 MG Oral Prescription/Di yola arge Order 12/06/2010 Active Plan Of Treatment No Information Insurance Providers Payer Name Payer Address Payer Phone Subscriber Number Group Number Insured Name Patient Relationship to Insured Coverage Start Date Coverage End Date Cigard Reddy [id number] CHAO Jung [id number] Tr Kim Self - patient is the insured 6
== END 2025-02-18 09:32 | disposition home or self-care (01) ==
LOC: HO.HAP 09:31
PROVIDERS: Visit Provider Internal Medicine
DX: Z13.89 Encounter for screening for other disorder (principal)

== ENCOUNTER 2025-02-21 15:04 | Outpatient (REF) | payer SELFPAY ==
--- OUTSIDE RECORDS SUMMARY | 2024-06-18 03:00 | XMS_ITS ---
Author Organization Edd Benitez MD Address [address] [place], [place] [phone] Care Team Providers Care Senior Interactive Developer Name Role Phone Edd Benitez Primary Care Provider [phone] Results Component Value Reference Range Notes Liver Panel Reviewed date:06/18/2024 02:31:04 PM Interpretation: Performing Lab:[facility], [address] [place] [phone] Notes/Report: Bilirubin Total 0.7 0.0-1.0 mg/dL Bilirubin Direct 0.2 0.0-0.5 mg/dL Aspartate Amino Transferase 29 5-37 U/L Alanine Aminotransferase 29 0-40 U/L Total Protein 7.7 6.5-8.0 g/dL Albumin Level 4.1 3.5-5.0 g/dL Alkaline Phosphatase 69 39-117 U/L Lipid Panel with Reflex Reviewed date:06/18/2024 04:29:16 PM Interpretation: Performing Lab:[facility], [address] [place] [phone] Notes/Report: Triglycerides 187 <150 mg/dL Desirable Triglyceride: [...] Date Provider Diagnosis Edd Benitez MD [address] [place] [address] [place] [phone] 06/18/2024 Edd Benitez Hypercholesteremia E 78.00 Assessments Encounter Date Diagnosis (ICD Code) Assessment Notes Treatment Notes Treatment Clinical Notes Section Notes 06/18/2024 Hypercholesteremia (ICD-10 - E78.00) Plan Of Treatment Next Appt Details Provider Name:Edd escamilla, 06/20/2025 08:00:00 AM, [address] [place] [address], [address], [phone], Provider Name:Edd escamilla, 06/27/2025 10:00:00 AM, [address] [place] [address], [address], [phone], Provider Name:Edd escamilla, 11/24/2025 07:15:00 AM, [address] [place] [address], [address], [phone], Provider Name:Edd escamilla, 12/26/2025 09:30:00 AM, [address] [place] [address], [address], [phone], Progress Notes * EMILIA CASILLAS ADOB:1955 (69 yo M)Acc No.[id number]:06/18/2024 Progress Note Patient: EMILIA MONTIEL Provider: Maria Fernanda Benitez MD :1955 A ge:69 Y S ex:Male Date:06/18/2024 Address:[address] [place], [place] [phone] Subjective: * Chief Complaints: * 1 . [...] 0 06/18/2024 Generated for You harris/Phoenix/Moni on: 03:07 PM EDT History and Physical Notes * HPI (History of Present Illness) Category Sub-Category Detail Notes Category Not es Communication Needs Communication Needs Does the patient have a hearing impairment: Yes If yes, what is the hearing impairment?: Other Does the patient have a vision impairmen t?: No Does the patient have a cognition impair ment?: No
--- OUTSIDE RECORDS SUMMARY | 2024-06-21 06:45 | XMS_ITS ---
Author Organization Edd Benitez MD Address [address] [place], [place] [phone] Care Team Providers Care Bobj Developer Name Role Phone Edd Benitez Primary Care Provider Allergies No Known Allergies Reason For Referral Reason HYPERCHOLESTERIMIA Diagnosis 1 Hypercholesteremia ( E78.00) Referral Organization Edd Benitez MD Referring Provider First Name Edd Referring Provider Last Name Emmanuel Referring Provider Speciality Internal M edicine Referred Provider AUGUSTINA WARE Referred Provider Specialty Cardiology General Notes Sondra Workman 06/21/2024 11:22:25 AM >REFERRAL FAXED TO [facility], Sondra Workman 07/30/2024 10:05:35 AM >I CHECKED WITH KAILYN, HE HAS NOT BEEN SCHEDULED YET , WILL RECHECK, Sondra Workman 08/22/2024 01:25:40 PM >PER KAILYN AT [facility] , THEY HAVE LEFT HIM 2 MESSAGES AND HAVE NOT HEARD BACK YET. KAILYN SAID THEY WILL LEAVE ONE MORE MESSAGE, Sondra Workman 08/22/2024 01:31:56 PM >I ALSO LEFT FATHER SONJA A MESSAGE TO [facility]YJacinta Patti A 08/26/2024 09:45:18 AM >APPT SCHEDULED WITH [facility] PER KAILYN, PATIENT IS AWARE Referral [...] Problem Status W/U Status Risk Notes Problem [id number] Controlled gout (M10.9) Active confirmed Vital Signs Blood pressure systolic 122 mm Hg 06/21/19 Blood pressure diastolic 78 mm Hg 025 Height 70.5 in 06/21/2024 Weight 239 lbs 06/21/2024 BMI 33.8 kg/m2 06/21/2024 weight is down 6 pounds [facility] e 01-08-24 Encounters Encounter Location Date Provider Diagnosis Edd Benitez MD [address] [place] [address] [address] [place], [place] [phone] 06/21/2024 Edd Benitez Gastroesophageal ref lux disease [...] referral to dr ellis/ REFERRAL FAXED TO [facility] Plan Of Treatment Medication Medication Name [...] to dr ellis / REFERRAL FAXED TO [facility] Referrals Referral Date Details 06/21/2024 06/21/2024, HYPERCHO ALEYDATERIMIA, DENITANATALIE WARE Next Appt Details Provider Name:Edd Briggs ier, 06/20/2025 08:00:00 AM, [address], [address], [place], [place], [phone], Provider Name:Edd Briggs ier, 06/27/2025 10:00:00 AM, [address], [address], [place], [place], [phone], Provider Name:Edd Briggs ier, 11/24/2025 07:15:00 AM, [address], [address], [place], [place], [phone], Provider Name:Edd Briggs kimr, 12/26/2025 09:30:00 AM, [address], [address], [place], [place], [phone], Progress Notes * EMILIA CASILLAS ADOB:1955 (69 yo M)Acc No.[id number]:06/21/2024 Progress Notes Patient: EMILIA MONTIEL Provider: Maria Fernanda Benitez MD :1955 A ge:69 Y S ex:Male Date:06/21/2024 Address:[address] [place], [place] [phone] Subjective: * Chief Complaints: * 6 MO F/U * HPI: S ymptom(s): patient is a 69 yo male here for 6 month follow up visit. feeling great. had something that was gout. 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 * ROS: G [...] referral to dr ellis/ REFERRAL FAXED TO [facility] ? Referral To:Torres Ellis Cardiovascular Disease Reason:HYPERCHOLESTERIMIA * Procedure Codes: * * Sign off status: Completed true * Provider: Maria Fernanda Benitez MD Date: 0 06/21/2024 Generated for You harris/Phoenix/eTransmitting on: 1 03:08 PM EDT History and Physical Notes * HPI (History of Present Illness) Category Sub-Category Detail Notes Category Not es Symptom(s) patient is a 69 yo male here for 6 month follow up visit. feeling great. had something that was gout. went to criminal records technician and put on prednisone Examination Category Sub-Category [...]
--- OUTSIDE RECORDS SUMMARY | 2024-12-13 04:00 | XMS_ITS ---
Author Organization Edd Benitez MD Address [address] [place], [place] [phone] Care Team Providers Care Truck Driver Salesperson Name Role Phone Edd Benitez Primary Care Provider [phone] Results Component Value Reference Range Notes Complete Blood Count Auto Di ff Reviewed date:12/13/2024 09:31:02 PM Interpretation: Performing Lab:[facility], [address] [place] [phone] Notes/Report: White Blood Count 5.6 4.8-10.8 X10*3/uL [...] NRBC Abs Auto 0.000 0.0-0.012 X10*3/uL Comprehensive [place]. Panel Fa st Reviewed date:12/20/2024 11:37:38 AM Interpretation:soha 12/20/24 Performing Lab:[facility], [address] [place] [phone] Notes/Report: Sodium 140 135-145 mmol/L Potassium 4.1 [...] Panel Reviewed date:12/13/2024 09:07:24 PM Interpretation: Performing Lab:[address] [phone] Notes/Report: Triglycerides 104 <150 mg/dL Desirable Triglyceride: [...] (Free>4and<10) Reviewed date:12/20/2024 11:53:37 AM Interpretation:12-20-2024 Performing Lab:[facility], [address] [place] [phone] Notes/Report: PSA,Total (Free>4and<10) 8.39 0.00-4.00 ng/mL PSA methodology: [place] Alinity i Chemiluminescent Microparticle Immunoassay (CMIA) TSH reflex Free T4 Reviewed date:12/13/2024 09:07:33 PM Interpretation: Performing Lab:[facility], [address] [place] [phone] Notes/Report: TSH reflex Free T4 3.29 0.32-4.0 uIU/mL UA ClnCatch+Micro w/rflx Cul t Reviewed date:12/13/2024 09:09:08 PM Interpretation: Performing Lab:[facility], [address] [place] [phone] Notes/Report: Urine, Clean Catch Color Urine Yellow Appearance Urine Clear PH 6.0 5.0-9.0 Glucose Urine UA Negative Negative mg/dL Urine Blood Negative Negative Specific Trail - Urine 1.010 1.005-1.025 Urine Protein Negative [...] Edd Benitez MD [address] [place] [phone] 12/13/2024 Edd Benitez Hypercholesteremia E 78.00 ; Acquired hypothyroidism E03.9 and Primary hypertension I10 Assessments Encounter Date Diagnosis (ICD Code) Assessment Notes Treatment Notes Treatment Clinical Notes Section Notes 12/13/2024 Hypercholesteremia (ICD-10 - E78.00) 12/13/2024 Acquired hypothyroidism (ICD-10 - E03.9) 12/13/2024 Primary hypertension (ICD-10 - I10) Plan Of Treatment Next Appt Details Provider Name:Edd escamilla, 06/20/2025 08:00:00 AM, [address] [place] [address], [address] [place] [address], [phone], Provider Name:Edd escamilla, 06/27/2025 10:00:00 AM, [address] [place] [address], [address], [phone], Provider Name:Edd escamilla, 11/24/2025 07:15:00 AM, [address] [place] [address], [address], [phone], Provider Name:Edd escamilla, 12/26/2025 09:30:00 AM, [address] [place] [address], [address], [phone], Progress Notes * EMILIA CASILLAS ADOB:1955 (69 yo M)Acc No.[id number]:12/13/2024 Progress Note Patient: EMILIA MONTIEL Provider: Maria Fernanda Benitez MD :1955 A ge:69 Y S ex:Male Date:12/13/2024 Address:[address] [place], [place] [phone] Subjective: * Chief Complaints: * 1 . [...] - 12/13/2024 08:00 AM) L AB: Comprehensive [place]. Panel Fast (Collection Date & Time - [...] - 12/13/2024 08:00 AM) L AB: Comprehensive [place]. Panel Fast (Collection Date & Time - [...] 12/13/2024 Generated for You harris/Phoenix/Benitting on: 1 03:07 PM EDT
--- OUTSIDE RECORDS SUMMARY | 2024-12-20 07:00 | XMS_ITS ---
Author Organization Edd Benitez MD Address [address] [place], [place] [phone] Care Team Providers Care Orchard Sprayer Name Role Phone Edd Benitez Primary Care Provider [phone] Allergies No Known Allergies REASON FOR VISIT [...] Date Provider Diagnosis Edd Benitez MD [address] [place] [address] Drive [address] [place], [place] [phone] 12/20/2024 Edd Benitez Controlled gout M10. 9 [...] 08:00:00 AM, [address], [address], [place], [place], [id number], Provider Name:Edd Briggs kimr, 06/27/2025 10:00:00 AM, [address], [address], [place], [id number], Provider Name:Edd Briggs kimr, 11/24/2025 07:15:00 AM, [address], [address], [place], [id number], Provider Name:Edd Briggs kimr, 12/26/2025 09:30:00 AM, [address], [address], [place], [id number], Progress Notes * EMILIA CASILLAS ADOB:1955 (69 yo M)Acc No.[id number]:12/20/2024 Patient: EMILIA MONTIEL Provider: Maria Fernanda Benitez MD :1955 A ge:69 Y S ex:Male Date:12/20/2024 Address:[address] [place], [place] [phone] Subjective: * Chief Complaints: * r eview [...] Marital status: single. Travel outside of the [place]: no. * Medications: T akingEzetimibe 10 [...] mg/dL Urine Blood Negative Negative - Specific [place] - Urine 1.010 1.005-1.025 - Urine Protein [...] MD Date: 0 12/20/2024 Generated for You harris/Phoenix/Benitting on: 1 03:08 PM EDT History and [...] Total Score: 0 Interpretation and Intervention Depression Shahla latif Findings: Negative Follow-Up for Depression: : review [...]
--- OUTSIDE RECORDS SUMMARY | 2024-12-24 10:51 | XMS_ITS ---
Author Organization Edd Benitez MD Address [address] [place] [address] [place] [phone] Care Team Providers Care Bobcat Driver/Labor Name Role Phone Edd Benitez Primary Care Provider [phone] heart order for 2025 Encounters Encounter Location Date Provider Diagnosis Edd Benitez MD [address] [place] [address] [place] [phone] 12/24/2024 Edd Benitez Hyperlipidemia E78.5 Assessments Encounter Date Diagnosis (ICD Code) Assessment Notes Treatment Notes Treatment Clinical Notes Section Notes 12/24/2024 Hyperlipidemia (ICD-10 - E78.5) Plan Of Treatment Pending Test Test Name Order Date CT Coronary Calcium Score 12/24/2024 Next Appt Details Provider Name:Edd escamilla, 06/20/2025 08:00:00 AM, [address] [place] [address], [address], [phone], Provider Name:Edd escamilla, 06/27/2025 10:00:00 AM, [address] [place] [address], [address], [phone], Provider Name:Edd escamilla, 11/24/2025 07:15:00 AM, [address] [place] [address], [address], [phone], Provider Name:Edd escamilla, 12/26/2025 09:30:00 AM, [address] [place] [address], [phone], Progress Notes * EMILIA CASILLAS ADOB:1955 (69 yo M)Acc No.[id number]:12/24/2024 Patient: EMILIA MONTIEL :1955 A ge:69 Y S ex:Male Address:[address] [place] [address], [place] [address] Subjective: * Chief Complaints: * C t heart order for 2025 * Medical History: * Surgical History: * Hospitalization/Major Diagno stic Procedure: * Medications: Objective: * Vitals: * Physical Examination: Assessment: * Assessment: 1. H erlipidemia - E78.5 Plan: * Treatment: * Procedure Codes: * true * Date: Generated for You harris/Phoenix/Moni on: 03:08 PM EDT
--- OUTSIDE RECORDS SUMMARY | 2025-02-21 15:07 | XMS_ITS | Encounter Summary ---
Author Organization [facility] Address [address] [place] [address] Care Team Providers Care Supervisor Audit Clerks Name Role Phone Edd Benitez MD Primary Care Provider Encounter Details Date Type Department Care Team (Late st Contact Info) Description 01/10/2025 Lab Requisition [facility] - Main Lab [address] [facility] [place] [address] Buster Wilburn, PA [address], [address] [place], [place] [id number] Urinary tract infection, site not specified Social [...] Escherichia coli(A) KANDICE 01/12/2025 9:[address] [facility] ([facility] Urine Urine specimen obtained by [...] Escherichia coli Trimethoprim/Sulfamethoxazole KANDICE <=20 ug/ml: Susceptible [facility] LAB MICROBIOLOGY - [facility] JORGE LUIS [facility] Final Result Performing Organization Address City/State/[facility] Co de Phone Number [facility] [address] [place] [address], documented in this encounter Visit Diagnoses Diagnosis Urinary tract infection, site not specified documented in this encounter Care Teams Supervisor Audit Clerks Relationship Specialty Start Date End Date Edd Benitez MD [address] [place] [address] PCP - General Internal Medicine 01/10/25 documented as of this encounter
--- OUTSIDE RECORDS SUMMARY | 2025-02-21 15:07 | XMS_ITS | Patient Health Record ---
Author Organization [facility] Address [address] [place] [address] Care Team Providers Care Computer Designer Name Role Phone Edd Benitez MD Primary Care Provider Haleigh Rodriguez Unavailable [phone] Allergies No Known Allergies Reason For Referral [...] Problem Acquired hammer toe of right foot (2020251106297178 ) Other hammer toe(s) (acquired), right foot (M20.41) Active confirmed Problem Gout (20009155) Gout of left foot (M10.9) Active confirmed Rx drug management (4) Problem Gout (43569461) Gout of right foot (M10.9) Active confirmed Rx drug management (4) Problem Localized, primary osteoarthritis of the ankle and/or foot (755389856) Arthritis of big toe (M19.079) Active confirmed Problem Acquired hallux varus (72444107) Hallux malleus of right foot (M20.31) Active confirmed Problem Localized, primary osteoarthritis of the ankle and/or foot (677890192) Arthritis of joint of lesser toe, right (M19.071) Active confirmed Vital Signs Blood pressure diastolic 65 mm Hg 06/07/2024 Height 5ft 10in in 06/07/2024 Blood pressure systolic 129 mm Hg 06/07/2024 Weight 235 lbs 06/07/2024 BMI 33.72 kg/m2 06/07/2024 Encounters Encounter Location Date Provider Diagnosis [address] [address] 03/14/2024 Haleigh Banks Pain in right toe(s) M79.674 ; Tinea pedis of both feet B35.3 ; Hallux malleus of right foot M20.31 and Arthritis of big toe M19.[address] [address] 06/07/2024 Haleigh Banks Pain in joint involving left ankle and foot M25.572 and Gout of left foot M10.[address] [address] 06/04/[address] [facility] [address] [place] [address] 06/20/2024 Haleigh Banks Assessments Encounter Date Diagnosis [...] Medicare National [employer]t [employer] [address] [facility] [address] [id number] Tr Kim Self - patient is the insured Medical (General) History Medical History History ICD Code Back,Hip,and Knee pain Diverticulosis Gall bladder problems Gout High Blood Pressure Reflux ( GERD) Sciatica thyroid Measles Mumps Hearing loss Surgical History Surgery Date(Month/Year) Gall bladder removal 1994 tympanoplasty 1966
--- OUTSIDE RECORDS SUMMARY | 2025-02-21 15:07 | XMS_ITS | Clinical Summary ---
Author Organization [address] [facility] Address [address] [place] [address] Phone Care Team Providers Care Fixed Wing Aircraft Flight Engineer Name Role Phone Edd Benitez MD Primary Care Provider [phone] Encounters Date Type Department Care Team Description 01/15/2025 Lab Requisition [facility] [address] [place] [phone] Antonio Puentes MD Urinary tract infection, site not specified 01/10/2025 Lab Requisition [facility] Lab [address] [place] [address] Buster Wilburn PA Urinary tract [...] Urine No growth 01/16/2025 1:56 PM EDT [facility] Urine Urine specimen obtained by clean catch procedure / Unknown 01/15/2025 01/15/2025 5:55 PM EDT us Antonio Puentes MD LAB MICROBIOLOGY - GENERAL JORGE LUIS [facility]KINS Final Result [facility]) [facility] [address] [place] [address], [place] [phone] from Last 3 Months Insurance MEDICAID - [place] MEDICARE Care Teams Fixed Wing Aircraft Flight Engineer Relationship Specialty Start Date End Date Edd Benitez MD [address] [place] [address] PCP - General Internal Medicine 01/10/25
--- OUTSIDE RECORDS SUMMARY | 2025-02-21 15:08 | XMS_ITS | Patient Health Record ---
Author Organization Edd Benitez MD Address [address] [place], [place] [phone] Care Team Providers Care Hearing Screener Name Role Phone Edd Benitez Primary Care Provider [phone] Allergies No Known Allergies Results Component Value Reference Range Notes Uric Acid Reviewed date:06/18/2024 04:29:05 PM Interpretation: Performing Lab:[facility], [address] [place] [phone] Notes/Report: Uric Acid 9.7 3.4-7.0 mg/dL Hold Gold Reviewed date:06/18/2024 01:00:20 PM Interpretation: Performing Lab:[address] [address] Notes/Report: Hold Gold See Note Specimen held untested for 24 hours; Call to request Chemistry testing. Liver Panel Reviewed date:06/18/2024 02:31:04 PM Interpretation: Performing Lab:[facility], [address] [place] [phone] Notes/Report: Bilirubin Total 0.7 0.0-1.0 mg/dL Bilirubin Direct 0.2 0.0-0.5 mg/dL Aspartate Amino Transferase 29 5-37 U/L Alanine Aminotransferase 29 0-40 U/L Total Protein 7.7 6.5-8.0 g/dL Albumin Level 4.1 3.5-5.0 g/dL Alkaline Phosphatase 69 39-117 U/L Lipid Panel with Reflex Reviewed date:06/18/2024 04:29:16 PM Interpretation: Performing Lab:[facility], [address] [place] [phone] Notes/Report: Triglycerides 187 <150 mg/dL Desirable Triglyceride: [...] Panel Reviewed date:11/20/2024 06:16:10 PM Interpretation: Performing Lab:[facility], [address] [place] [phone] Notes/Report: Sodium 140 135-145 mmol/L Potassium 3.8 [...] Panel Reviewed date:11/20/2024 06:15:40 PM Interpretation: Performing Lab:[facility], [address] [place] [phone] Notes/Report: Triglycerides 89 <150 mg/dL Desirable Triglyceride: [...] ff Reviewed date:12/13/2024 09:31:02 PM Interpretation: Performing Lab:[facility], [address] [place] [phone] Notes/Report: White Blood Count 5.6 4.8-10.8 X10*3/uL [...] NRBC Abs Auto 0.000 0.0-0.012 X10*3/uL Comprehensive [place]. Panel Fa st Reviewed date:12/20/2024 11:37:38 AM Interpretation:soha 12/20/24 Performing Lab:[facility], [address] [place] [phone] Notes/Report: Sodium 140 135-145 mmol/L Potassium 4.1 [...] Panel Reviewed date:12/13/2024 09:07:24 PM Interpretation: Performing Lab:[facility], [address] [place] [phone] Notes/Report: Triglycerides 104 <150 mg/dL Desirable Triglyceride: [...] (Free>4and<10) Reviewed date:12/20/2024 11:53:37 AM Interpretation:12-20-2024 Performing Lab:[facility], [address] [place] [phone] Notes/Report: PSA,Total (Free>4and<10) 8.39 0.00-4.00 ng/mL PSA methodology: Peraza Alinity i Chemiluminescent Microparticle Immunoassay (CMIA) TSH reflex Free T4 Reviewed date:12/13/2024 09:07:33 PM Interpretation: Performing Lab:[facility], [address] [place] [phone] Notes/Report: TSH reflex Free T4 3.29 0.32-4.0 uIU/mL UA ClnCatch+Micro w/rflx Cul t Reviewed date:12/13/2024 09:09:08 PM Interpretation: Performing Lab:[facility], [address] [place] [phone] Notes/Report: Urine, Clean Catch Color Urine Yellow Appearance Urine Clear PH 6.0 5.0-9.0 Glucose Urine UA Negative Negative mg/dL Urine Blood Negative Negative Specific [place] - Urine 1.010 1.005-1.025 Urine Protein Negative Neg-Trace mg/dL Urine Ketones Trace Negative mg/dL Nitrite Urine Negative Negative Leukocyte Esterase Urine Negative Negative RBC Urine 0-2 0-2 /HPF WBC Urine 0-5 0-5 /HPF Squamous Epithelial Cell Urine 0-2 0-2 /HPF Bacteria Urine None Seen None Seen Hyaline Casts Urine 0-2 0-2 /LPF PSA Free and Total Reviewed date:12/16/2024 05:35:03 PM Interpretation: Performing Lab:[address] [address] Notes/Report: Prostate Specific Ag Total 7.1 < [...] 30 93 9 (3)Catalona et al.:AMISHA 277: [id number] (1996) (4)Catalona et al.:AMISHA 279: [id number] (1997) (x)These estimates vary with age, ethnicity, [...] mind. PSA was performed using the Tomi [place] Immunoassay method. Values obtained from different assay methods cannot be used interchangeably. PSA levels, regardless of value, should not be interpreted as absolute evidence of the presence or absence of disease. THIS TEST WAS PERFORMED AT: [facility] [address] [address] VAN RAMIREZ MD Free Prostate Spec Ag 1.3 Reason For Referral Reason HYPERCHOLESTERIMIA Diagnosis 1 Hypercholesteremia ( E78.00) Referral Organization Edd Benitez MD Referring Provider First Name Edd Referring Provider Last Name Emmanuel Referring Provider Speciality Internal M edicine Referred Provider AUGUSTINA WARE Referred Provider Specialty Cardiology General Notes Sondra Workman 06/21/2024 11:22:25 AM >REFERRAL FAXED TO [facility]inta Patti A 07/30/2024 10:05:35 AM >I CHECKED WITH KAILYN, HE HAS NOT BEEN SCHEDULED YET , WILL RECHECKJacinta Patti A 08/22/2024 01:25:40 PM >PER KAILYN AT [facility] , THEY HAVE LEFT HIM 2 MESSAGES AND HAVE NOT HEARD BACK YET. KAILYN SAID THEY WILL LEAVE ONE MORE MESSAGE, Sondra Workman 08/22/2024 01:31:56 PM >I ALSO LEFT FATHER SONJA Turk MESSAGE TO CALL [facility], Sondra Workman 08/26/2024 09:45:18 AM >APPT SCHEDULED WITH [facility] PER KAILYN, PATIENT IS AWARE Referral [...] Problem Status W/U Status Risk Notes Problem 472444527 Lumbar disc dise ase (M51.9) Active confirmed Problem 802724349 Gastroesophageal reflux disease without esophagitis (K21.9) Active confirmed Problem 252753224 Acquired hypothyroidism (E03.9) Active confirmed Problem Hyperlipidemia (70603044) Hyperlipidemia (E78.5) Active confirmed Problem 94871572 Hypercholesterem ia (E78.00) Active confirmed Problem 32823479 Acute idiopathic gout involving toe, unspecified laterality (M10.079) Active confirmed Problem 016178658 Gastroesophageal reflux disease with esophagitis without hemorrhage (K21.00) Active confirmed Problem 43290081 Primary hyperten yusef (I10) Active confirmed Problem 88575767 Disc disease, degenerative, lumbar or lumbosacral (M51.37) Active confirmed Problem 95030194 Controlled gout (M10.9) Active confirmed Vital Signs Blood pressure diastolic 78 mm Hg 12/20/2024 Height 70.5 in 12/20/2024 Blood pressure systolic 122 mm Hg 12/20/2024 Weight 239 lbs 12/20/2024 BMI 33.8 kg/m2 12/20/2024 Encounters Encounter Location Date Provider Diagnosis Edd Benitez MD [address] [place] [address] [place] [id number] 06/18/2024 Edd Benitez Hypercholesteremia E 78.00 dEd Benitez MD [address] [place] [id number] 12/13/2024 Edd Benitez Hypercholesteremia E 78.00 ; Acquired hypothyroidism E03.9 and Primary hypertension I10 Edd Benitez MD [address] [place] [id number] 06/21/2024 Edd Benitez Gastroesophageal ref lux disease with esophagitis without hemorrhage K21.00 ; Controlled gout M10.9 and Hypercholesteremia E78.00 Edd Benitez MD [address] [place] [id number] 12/20/2024 Edd Benitez Controlled gout M10. 9 ; Primary hypertension I10 ; Hypercholesteremia E78.00 ; Acquired hypothyroidism E03.9 ; Gastroesophageal reflux disease without esophagitis K21.9 ; Colon cancer screening Z12.11 ; Depression screening Z13.31 and Elevated LFTs R79.89 Edd Benitez MD [address] [place] [id number] 03/21/2024 Edd Benitez Gastroesophageal ref lux disease with esophagitis without hemorrhage K21.00 Edd Benitez MD [address] [place] [id number] 04/09/2024 Edd Benitez Primary hypertension I10 Edd Benitez MD [address] [place] [id number] 12/24/2024 Edd Benitez Hyperlipidemia E78.5 Assessments Encounter [...] referral to dr peres/ REFERRAL FAXED TO [facility] 12/20/2024 Hypercholesteremia (ICD-10 - E78.00) cholesterol [...] Details Provider Name:Edd escamilla, 06/20/2025 08:00:00 AM, [address] [place] [address], [address] [place] [address], [id number], Provider Name:Edd escamilla, 06/27/2025 10:00:00 AM, [address] [place] [address], [address] [facility] [place], [place], [phone], Provider Name:Edd escamilla, 11/24/2025 07:15:00 AM, [address] [place] [address], [address] [place] [address], [id number], Provider Name:Edd escamilla, 12/26/2025 09:30:00 AM, [address], [address], [place], [place], [id number], Insurance Providers Payer Name Payer Address Payer Phone Subscriber Number Group Number Insured Name Patient Relationship to Insured Coverage Start Date Coverage End Date MEDIC[employer] [address] [place] [address] [id number] EMILIA CASILLAS Self - patient is the insured [address] [address] [id number] EMILIA CASILLAS Self - patient is the insured Medical (General) History Medical History History ICD Code colonoscopy 2020 due in 2024 psa 2019 was 4
--- OUTSIDE RECORDS SUMMARY | 2025-02-21 15:08 | XMS_ITS | Encounter Summary ---
Author Organization [facility] Address [address] [place] [address] Care Team Providers Care Toy Designer Name Role Phone Edd Benitez MD Primary Care Provider Encounter Details Date Type Department Care Team (Late st Contact Info) Description 01/15/2025 Lab Requisition [facility] - Main Lab [address] [facility] [place] [address] Antonio Puentes MD [address] [place] [phone] Urinary tract infection, site not specified Social [...] No growth 01/16/2025 1:56 PM EDT [facility] ([facility]) [facility] Urine Urine specimen obtained by clean catch procedure / Unknown 01/15/2025 01/15/2025 5:55 PM EDT Antonio Puentes MD LAB MICROBIOLOGY - GENERAL [facility] Final Result [facility] ([facility] H[facility] LAB [address] [place] [address], documented in this encounter Visit Diagnoses Diagnosis Urinary tract infection, site not specified documented in this encounter Care Teams Toy Designer Relationship Specialty Start Date End Date Edd Benitez MD [address] [place] [address] [address] [place] [address] PCP - General Internal Medicine 01/10/25 documented as of this encounter
--- OUTSIDE RECORDS SUMMARY | 2025-02-21 15:08 | XMS_ITS | Patient Health Record ---
Author Organization [facility] Address [address] [place] [address] Support Name Relationship Address Phone Tr Kim Guarantor Unknown [phone] Reason For Referral No Information Medications Medication [...]
--- OUTSIDE RECORDS SUMMARY | 2025-02-21 15:08 | XMS_ITS | Patient Health Record ---
Author Organization [facility] Address [address] [place] [address] Support Name Relationship Address Phone Unavailable Emergency Contact Unknown 000-000-Ce Tr Kim Guarantor Unknown [phone] Reason For Referral No Information Medications Medication SIG (Take, Route, Frequency, Duration) Notes Start Date End Date Status Omeprazole 20 MG Oral Prescription/Di yola arge Order 12/06/2010 Active Plan Of Treatment No Information Insurance Providers Payer Name Payer Address Payer Phone Subscriber Number Group Number Insured Name Patient Relationship to Insured Coverage Start Date Coverage End Date Cigrad Reddy [id number] CHAO Jung [id number] Tr Kim Self - patient is the insured 6
--- OUTSIDE RECORDS SUMMARY | 2025-02-21 15:08 | XMS_ITS | Patient Health Record ---
Author Organization [facility] Address [address] [address] [place] [address] Care Team Providers Care Burnt Lime Drawer Name Role Phone Gareth Baker Unavailable [phone] Allergies No Known Allergies Reason For Referral [...] W/U Status Risk Notes Problem Postnasal drip (61193107) Postnasal drip (R09.82) Active confirmed Problem Allergic rhinitis (07400943) Allergic rhinitis (J30.9) Active confirmed Problem Laryngopharyngeal reflux (755984509) LPRD (laryngophary ngeal reflux disease) (K21.9) Active confirmed Plan Of Treatment No Information Insurance Providers Payer Name Payer Address Payer Phone Subscriber Number Group Number Insured Name Patient Relationship to Insured Coverage Start Date Coverage End Date [employer] [address] [place] [address] [id number] Tr Kim Self - patient is the insured Medical (General) History Medical History History ICD Code Chronic GERD K21.9 Surgical History Surgery Date(Month/Year)
--- OUTSIDE RECORDS SUMMARY | 2025-02-21 15:08 | XMS_ITS | Patient Health Record ---
Author Organization [facility] Address [address] [place] [address] Care Team Providers Care Transportation Museum Helper Name Role Phone Edd Benitez MD Primary Care Provider Lamont Hodgson Unavailable [phone] Allergies No Known Allergies Reason For Referral [...] Status Risk Notes Problem Colon cancer screening (411397960) Colon cancer screening (Z12.11) Active confirmed Problem Preprocedural examination (003139816465817) Preprocedural examination (Z01.818) Active confirmed Problem Long-term current use of aspirin (577668360946483) Aspirin long-term use (Z79.82) Active confirmed Problem Family history of malignant neoplasm of gastrointestinal tract (154708315) Family history of colon cancer in father (Z80.0) Active confirmed Vital Signs Temperature 98.0 degrees Fahrenheit 11/20/2024 Blood pressure diastolic 01 mm Hg 11/20/2024 Height 70.5 in 11/20/2024 Blood pressure systolic 001 mm Hg 11/20/2024 Weight 240 lbs 11/20/2024 BMI 33.95 kg/m2 11/20/2024 Procedures Procedure Date Ordered Date Performed Result Body Sit e COLONOSCOPY 11/20/2024 N/A Encounters Encounter Location Date Provider Diagnosis [facility] [address] [place] [address] 11/20/2024 Lamont Moran Preprocedural examination Z01.818 ; [...] Name:Lamont Moran , 02/28/2025 10:30:00 AM, [address] [facility] , [place], [place], [id number], Insurance Providers Payer Name Payer Address Payer Phone Subscriber Number Group Number Insured Name Patient Relationship to Insured Coverage Start Date Coverage End Date MEDICARE OF [place] [address] [place] [address] [id number] SONJA EMILIA Self - patient is the insured 2 MEDICAID OF [facility] [address] [place] [address] [id number] SONJA EMILIA Self - patient is the insured Medical (General) History Medical History History ICD Code Kidney stones HTN Hyperlipidemia GERD Having cardiac w/u with Dr. Ellis Summer 2024 Hypothyroidism Denies AL,DM,CVA,Lung disease,renal dise ase Elevated PSA-sees Urologist Negative colonoscopies in 2010, 2015, an d 2019 in [place] Surgical History Surgery Date(Month/Year) Ear surgery as a child Cholecystectomy 1994
== END 2025-02-21 15:05 | disposition home or self-care (01) ==
LOC: HO.HAP 15:04
PROVIDERS: Visit Provider Internal Medicine
DX: Z46.1 Encounter for fitting and adjustment of hearing aid (principal)
CPT/HCPCS: V5299

== ENCOUNTER 2025-02-28 08:19 | Day surgery (SDC) | payer MEDICARE, MEDICAID, SELFPAY ==
--- OUTSIDE RECORDS SUMMARY | 2024-12-13 04:00 | XMS_ITS ---
Author Organization Edd Benitez MD Address [address] [place], [place] [phone] Care Team Providers Care Ell Tutor Name Role Phone Edd Benitez Primary Care Provider [phone] Results Component Value Reference Range Notes Complete Blood Count Auto Di ff Reviewed date:12/13/2024 09:31:02 PM Interpretation: Performing Lab:[facility], [address] [place] [phone] Notes/Report: White Blood Count 5.6 4.8-10.8 X10*3/uL [...] NRBC Abs Auto 0.000 0.0-0.012 X10*3/uL Comprehensive [place]. Panel Fa st Reviewed date:12/20/2024 11:37:38 AM Interpretation:soha 12/20/24 Performing Lab:[facility], [address] [place] [phone] Notes/Report: Sodium 140 135-145 mmol/L Potassium 4.1 [...] Panel Reviewed date:12/13/2024 09:07:24 PM Interpretation: Performing Lab:[address] [phone] Notes/Report: Triglycerides 104 <150 mg/dL Desirable Triglyceride: [...] (Free>4and<10) Reviewed date:12/20/2024 11:53:37 AM Interpretation:12-20-2024 Performing Lab:[facility], [address] [place] [phone] Notes/Report: PSA,Total (Free>4and<10) 8.39 0.00-4.00 ng/mL PSA methodology: [place] Alinity i Chemiluminescent Microparticle Immunoassay (CMIA) TSH reflex Free T4 Reviewed date:12/13/2024 09:07:33 PM Interpretation: Performing Lab:[facility], [address] [place] [phone] Notes/Report: TSH reflex Free T4 3.29 0.32-4.0 uIU/mL UA ClnCatch+Micro w/rflx Cul t Reviewed date:12/13/2024 09:09:08 PM Interpretation: Performing Lab:[facility], [address] [place] [phone] Notes/Report: Urine, Clean Catch Color Urine Yellow Appearance Urine Clear PH 6.0 5.0-9.0 Glucose Urine UA Negative Negative mg/dL Urine Blood Negative Negative Specific [place] - Urine 1.010 1.005-1.025 Urine Protein Negative [...] Edd Benitez MD [address] [place] [phone] 12/13/2024 Edd Benitez Hypercholesteremia E 78.00 ; Acquired hypothyroidism E03.9 and Primary hypertension I10 Assessments Encounter Date Diagnosis (ICD Code) Assessment Notes Treatment Notes Treatment Clinical Notes Section Notes 12/13/2024 Hypercholesteremia (ICD-10 - E78.00) 12/13/2024 Acquired hypothyroidism (ICD-10 - E03.9) 12/13/2024 Primary hypertension (ICD-10 - I10) Plan Of Treatment Next Appt Details Provider Name:Edd escamilla, 06/20/2025 08:00:00 AM, [address] [place] [address], [address] [place] [address], [phone], Provider Name:Edd escamilla, 06/27/2025 10:00:00 AM, [address] [place] [address], [address], [phone], Provider Name:Edd escamilla, 11/24/2025 07:15:00 AM, [address] [place] [address], [address], [phone], Provider Name:Edd escamilla, 12/26/2025 09:30:00 AM, [address] [place] [address], [address], [phone], Progress Notes * EMILIA CASILLAS ADOB:1955 (69 yo M)Acc No.[id number]:12/13/2024 Progress Note Patient: EMILIA MONTIEL Provider: Maria Fernanda Benitez MD :1955 A ge:69 Y S ex:Male Date:12/13/2024 Address:[address] [place], [place] [phone] Subjective: * Chief Complaints: * 1 . [...] - 12/13/2024 08:00 AM) L AB: Comprehensive [place]. Panel Fast (Collection Date & Time - [...] - 12/13/2024 08:00 AM) L AB: Comprehensive [place]. Panel Fast (Collection Date & Time - [...] 0 12/13/2024 Generated for You harris/Phoenix/Benitting on: 01/10/2025 08:04 AM EDT
--- OUTSIDE RECORDS SUMMARY | 2025-01-10 08:05 | XMS_ITS | Patient Health Record ---
Author Organization [facility] Address [address] [facility] [place] [address] Care Team Providers Care Separator Tender Name Role Phone Emmanuel CAMPBELL, Edd Primary Care Provider Haleigh Rodriguez Unavailable [phone] Allergies No Known Allergies Reason For Referral [...] Problem Acquired hammer toe of right foot (4572945358776525 ) Other hammer toe(s) (acquired), right foot (M20.41) Active confirmed Problem Gout (61535813) Gout of left foot (M10.9) Active confirmed Rx drug management (4) Problem Gout (72630266) Gout of right foot (M10.9) Active confirmed Rx drug management (4) Problem Localized, primary osteoarthritis of the ankle and/or foot (417089384) Arthritis of big toe (M19.079) Active confirmed Problem Acquired hallux varus (07967534) Hallux malleus of right foot (M20.31) Active confirmed Problem Localized, primary osteoarthritis of the ankle and/or foot (568551158) Arthritis of joint of lesser toe, right (M19.071) Active confirmed Vital Signs Blood pressure diastolic 65 mm Hg 06/07/2024 Height 5ft 10in in 06/07/2024 Blood pressure systolic 129 mm Hg 06/07/2024 Weight 235 lbs 06/07/2024 BMI 33.72 kg/m2 06/07/2024 Encounters Encounter Location Date Provider Diagnosis [address] [phone] 03/14/2024 Haleigh Banks Pain in right toe(s) M79.674 ; Tinea pedis of both feet B35.3 ; Hallux malleus of right foot M20.31 and Arthritis of big toe M19.[address] [address] 06/07/2024 Haleigh Banks Pain in joint involving left ankle and foot M25.572 and Gout of left foot M10.[address] [address] 02/01/2024 Haleigh Banks [address] [address] 06/04/2024 Haleigh Banks [address] [address] 06/20/2024 Haleigh Banks Assessments Encounter Date Diagnosis [...] Medicare National [employer] [address] [place] [address] [id number] Tr iKm Self - patient is the insured Medical (General) History Medical History History ICD Code Back,Hip,and Knee pain Diverticulosis Gall bladder problems Gout High Blood Pressure Reflux ( GERD) Sciatica thyroid Measles Mumps Hearing loss Surgical History Surgery Date(Month/Year) Gall bladder removal 1994 tympanoplasty 1966
--- OUTSIDE RECORDS SUMMARY | 2025-01-10 08:05 | XMS_ITS | Patient Health Record ---
Author Organization [facility] Address [address] [place] [address] Care Team Providers Care Order Fulfillment Specialist Name Role Phone Edd Benitez MD Primary Care Provider Lamont Hodgson Unavailable [phone] Allergies No Known Allergies Reason For Referral [...] Status Risk Notes Problem Colon cancer screening (756897739) Colon cancer screening (Z12.11) Active confirmed Problem Preprocedural examination (313916171682290) Preprocedural examination (Z01.818) Active confirmed Problem Long-term current use of aspirin (390270982987275) Aspirin long-term use (Z79.82) Active confirmed Problem Family history of malignant neoplasm of gastrointestinal tract (091828540) Family history of colon cancer in father (Z80.0) Active confirmed Vital Signs Temperature 98.0 degrees Fahrenheit 11/20/2024 Blood pressure diastolic 01 mm Hg 11/20/2024 Height 70.5 in 11/20/2024 Blood pressure systolic 001 mm Hg 11/20/2024 Weight 240 lbs 11/20/2024 BMI 33.95 kg/m2 11/20/2024 Procedures Procedure Date Ordered Date Performed Result Body Sit e COLONOSCOPY 11/20/2024 N/A Encounters Encounter Location Date Provider Diagnosis [facility] [address] [place] [address] 11/20/2024 Lamont Moran Preprocedural examination Z01.818 ; [...] Name:Lamont Moran , 02/28/2025 10:30:00 AM, [address] [facility] , [place], [place], [phone], Insurance Providers Payer Name Payer Address Payer Phone Subscriber Number Group Number Insured Name Patient Relationship to Insured Coverage Start Date Coverage End Date [place] [address] [place] [address] [id number] SONJA EMILIA Self - patient is the insured 2 MEDICAID OF [facility] [address] [place] [address] [id number] SONJA EMILIA Self - patient is the insured Medical (General) History Medical History History ICD Code Kidney stones HTN Hyperlipidemia GERD Having cardiac w/u with Dr. Ellis Summer 2024 Hypothyroidism Denies [place],DM,CVA,Lung disease,renal dise ase Elevated PSA-sees Urologist Negative colonoscopies in 2010, 2015, an d 2019 in [place] Surgical History Surgery Date(Month/Year) Ear surgery as a child Cholecystectomy 1994
--- OUTSIDE RECORDS SUMMARY | 2025-01-10 08:06 | XMS_ITS | Patient Health Record ---
Author Organization [facility] Address [address] [address] [place] [address] Care Team Providers Care Experimental Aircraft Mechanic Name Role Phone Gareth Baker Unavailable [phone] Allergies No Known Allergies Reason For Referral [...] W/U Status Risk Notes Problem Postnasal drip (92903676) Postnasal drip (R09.82) Active confirmed Problem Allergic rhinitis (71382129) Allergic rhinitis (J30.9) Active confirmed Problem Laryngopharyngeal reflux (376027477) LPRD (laryngophary ngeal reflux disease) (K21.9) Active confirmed Plan Of Treatment No Information Insurance Providers Payer Name Payer Address Payer Phone Subscriber Number Group Number Insured Name Patient Relationship to Insured Coverage Start Date Coverage End Date [employer] [address] [place] [address] [id number] Tr Kim Self - patient is the insured Medical (General) History Medical History History ICD Code Chronic GERD K21.9 Surgical History Surgery Date(Month/Year)
--- OUTSIDE RECORDS SUMMARY | 2025-01-10 08:06 | XMS_ITS | Patient Health Record ---
Author Organization [facility] Address [address] [place] [address] Support Name Relationship Address Phone Tr Kim Guarantor Unknown [phone] Reason For Referral No Information Medications Medication [...]
--- OUTSIDE RECORDS SUMMARY | 2025-01-10 08:06 | XMS_ITS | Patient Health Record ---
Author Organization [facility] Address [address] [place] [address] Support Name Relationship Address Phone Unavailable Emergency Contact Unknown [id number] Tr Kim Guarantor Unknown [phone] Reason For Referral No Information Medications Medication SIG (Take, Route, Frequency, Duration) Notes Start Date End Date Status Omeprazole 20 MG Oral Prescription/Di yola arge Order 12/06/2010 Active Plan Of Treatment No Information Insurance Providers Payer Name Payer Address Payer Phone Subscriber Number Group Number Insured Name Patient Relationship to Insured Coverage Start Date Coverage End Date Cigrad Reddy [id number] CHAO Jung [id number] Tr Kim Self - patient is the insured 6
--- OUTSIDE RECORDS SUMMARY | 2025-01-10 08:07 | XMS_ITS | Patient Health Record ---
Author Organization [facility] Address [address] [facility] [address] [place] [address] Care Team Providers Care Crane Hooker Name Role Phone Humble Lazaro Unavailable [phone] Preeti CAMPBELL, Tyree Unavailable Unavailabl e Reason [...] Status Risk Notes Problem Gastroesophageal reflux disease (423852895) GERD without esophagitis (K21.9) Active confirmed even on PPI. Will initiate nightly H2 blockers. Discussed lifestyle changes. Will do EGD for evaluation. Problem Globus sensation (282495687) Globus sensation (R09.89) 020 Active confirmed Due to post-nasal drainage, or more likely, stress-rela oziel. Problem Family history of malignant neoplasm of gastrointestinal tract (644405386) Family history of colon cancer in father (Z80.0) Active confirmed father at age 50. Will do colonoscopy . Encounters Encounter Location Date Provider Diagnosis [facility] [address] [facility] [address] [place], [place] [id number] 11/20/2024 Humble Lazaro Plan Of Treatment No Information Insurance Providers Payer Name Payer Address Payer Phone Subscriber Number Group Number Insured Name Patient Relationship to Insured Coverage Start Date Coverage End Date Doris Del Rio [address] [place] [phone] [id number] EMILIA CASILLAS Self - patient is the insured Medical (General) History Medical History History ICD Code Diverticulosis; GERD; Hypothyroidism Hypertension Surgical History Surgery Date(Month/Year) Colonoscopy; tics 2014-07-03 Gallbladder Surgery; 2014-05-13
[2025-02-27 06:56] VITALS: BMI 33.9
--- NOTE | 2025-02-27 09:45 | HO.ANESPROP2 ---
Documented by User: Niesha Maki NP 02/27/25 09:46 HPI - Anesthesia Eval Consult details Narrative: 69yo M for Upper Endoscopy and Colonoscopy Follows [facility] [place] Cardiology for eval of CAD (fam hx) with abnormal findings. Stable at 12/2024 office visit for 6 month f/u [facility] Active Problems Active Problems: All Active Problems Coronary artery disease (Acute) Abnormal echocardiogram (Acute) Hyperlipidemia (Acute) HTN (hypertension) (Acute) Past Medical History Medical History Gout Elevated PSA Thyroid disease GERD (gastroesophageal reflux disease) Kidney stones Hyperlipidemia HTN (hypertension) Surgical History Surgical History Hx of cholecystectomy History of ear surgery H/O colonoscopy Social History Social History Patient Tobacco Use Status: Never used Tobacco Use of substances other than those prescribed or required for medical reasons: No Advance Directives: No Advance Directives Information Provided: Yes Meds Allergies Allergy/AdvReac Type Severity Reaction Status Date / Time No Known Allergies Allergy Verified 08/27/24 14:39 Home Medications ?Medication ?Instructions ?Recorded ?Confirmed ?Last Taken ?Type amlodipine 5 mg tablet 5 mg PO DAILY 08/27/24 02/28/25 02/28/25 07:00 History atorvastatin 40 mg tablet 40 mg PO DAILY 08/27/24 02/27/25 Unknown History levothyroxine 100 mcg tablet 100 mcg PO DAILY 08/27/24 02/28/25 02/28/25 07:00 History omeprazole 20 mg capsule,delayed 10 mg PO DAILY 08/27/24 02/27/25 Unknown History release indomethacin 50 mg capsule 50 mg PO TID PRN Pain 12/20/24 02/28/25 09/24/24 08:00 History Exam Height,Weight and Vital Signs: Height 5 ft 10.5 in Weight 108.862 kg Narrative Narrative: EKG 08/2024 normal sinus rhythm with normal EKG 09/19/2024-patient underwent a coronary calcium score with a score of 348. 10/07/2024-patient underwent a treadmill stress test with moderate workload. With shortness of breath and no EKG changes. 10/07/2024-echo study showed normal LV systolic function with an ejection fraction at 62%, hypokinetic mid inferior septal segment, small plaque in the sinotubular ridge, and mild dilation of the sinuses of Valsalva at 4 point 1 cm. 12/12/2024-patient underwent coronary CTA that showed minimal stenosis of the proximal to mid LAD, proximal 1st diagonal, proximal left circumflex, and mid RCA. It also revealed hepatic steatosis, possible esophageal dysmotility, and 3 mm left lower solid pulmonary nodule. Assessment and Plan Assessment Anesthesia Assessment: Chart Reviewed Documented by User: Jack Felipe MD 02/28/25 09:43 [facility] Past Medical History Medical History Gout Elevated PSA Thyroid disease GERD (gastroesophageal reflux disease) Kidney stones Hyperlipidemia HTN (hypertension) Functional capacity: independent ambulation Family History Family history of problems with anesthesia: Unobtainable Surgical History Surgical History Hx of cholecystectomy History of ear surgery H/O colonoscopy History of Problems with Anesthesia: No Social History Social History Patient Tobacco Use Status: Never used Tobacco Use of substances other than those prescribed or required for medical reasons: No Advance Directives: No Advance Directives Information Provided: Yes Travel History History of recent travel: No Recent Travel in [facility] Within the Last 8 Weeks: No Recent Out of Country Travel Within the Last 8 Weeks: No Exposure or Possible Exposure to Illness During Travel: No History of Being in a Healthcare Facility as a Patient, Worker, or Visitor during Travel: No Medical Treatment Received for Symptoms/Illness Related to Travel: No Meds Allergies Allergy/AdvReac Type Severity Reaction Status Date / Time No Known Allergies Allergy Verified 08/27/24 14:39 Home Medications ?Medication ?Instructions ?Recorded ?Confirmed ?Last Taken ?Type amlodipine 5 mg tablet 5 mg PO DAILY 08/27/24 02/28/25 02/28/25 07:00 History atorvastatin 40 mg tablet 40 mg PO DAILY 08/27/24 02/27/25 Unknown History levothyroxine 100 mcg tablet 100 mcg PO DAILY 08/27/24 02/28/25 02/28/25 07:00 History omeprazole 20 mg capsule,delayed 10 mg PO DAILY 08/27/24 02/27/25 Unknown History release indomethacin 50 mg capsule 50 mg PO TID PRN Pain 12/20/24 02/28/25 09/24/24 08:00 History Exam Exam Date and Time: 02/28/2025 Airway Mallampati Class: II TM Dist: >3cm Neck ROM: Full Heart: normal Lungs: normal Other: normal Assessment and Plan Assessment Anesthesia Assessment: Anesthesia Plan Discussed Final Anesthetic Review Family History of Problems with Anesthesia: Unobtainable History of Problems with Anesthesia: No NPO: Yes ASA Class: II Final Preanesthetic Review: No Changes in Pt Med Stat, Meds/Allgs Chart Reviewed, Consent Obtained/Reviewed and Anes Risks/Benef Reviewed Patient Risk: Low Procedure Risk: Low Anesthetic Plan Anesthetic Plan: MAC: Disposition: Standard PACU
[2025-02-28] VITALS (7 sets, daily range): BP systolic 89–120; BP diastolic 59–79; PULSE 60–85; RESP 16; TEMP 36.1–36.6; O2SAT 94–100; BMI 30.4
[2025-02-28] MEDS: Lactated Ringers 1,000 ML 100 ML IVCONT (08:43)
--- NOTE | 2025-02-28 11:18 | P.BOP_ITS ---
Brief Operative Note Date of Service: 02/28/25 Pre-op diagnosis: GERD, Screening Post-op diagnosis: other (Hiatal hernia, GERD, Diverticulosis) Procedure: EGD with biopsies, Colonoscopy to the cecum and TI Surgeon: Lamont Moran MD Anesthesia: MAC Was an Conservation Science Officer used for this Procedure?: No Estimated blood loss (mL): 2.0 Pathology: other (A. EG Junction at 39cm B. Gastric antrum) Condition: stable Disposition: PACU
--- NOTE | 2025-02-28 21:36 | OP_ITS ---
DATE OF SERVICE: 02/28/2025 SURGEON: Lamont Moran MD INDICATIONS: The patient presents for evaluation of gastroesophageal reflux and colorectal cancer screening. Full consent has been obtained from him for this, including risks of bleeding and perforation. PREOPERATIVE DIAGNOSIS: POSTOPERATIVE DIAGNOSIS: PROCEDURE PERFORMED: ESTIMATED BLOOD LOSS: COMPLICATIONS: ANESTHESIA: Medication used, monitored anesthesia care. ASSISTANTS: SPECIMENS: PREOPERATIVE DIAGNOSES: Gastroesophageal reflux, family history of colon cancer, colorectal cancer screening. POSTOPERATIVE DIAGNOSES: Gastroesophageal reflux, family history of colon cancer, colorectal cancer screening, small hiatal hernia, mild gastritis, diverticulosis, and internal hemorrhoids. PROCEDURES PERFORMED: Esophagogastroduodenoscopy with biopsies and colonoscopy to the cecum and terminal ileum. DESCRIPTION OF PROCEDURE: The patient was placed in the left lateral decubitus position. The Olympus video gastroscope was passed in the posterior oropharynx and upper esophagus under direct vision. The scope was passed slowly to the distal esophagus. The gastroesophageal junction was seen at 39 cm. There was some slight irregularity consistent with reflux but no evidence of any esophagitis nor any definitive Perry's mucosa. The scope entered the stomach. There was a small hiatal hernia. The scope was advanced to the pylorus, and the duodenum was cannulated to the descending portion. The duodenum including the bulb appeared normal without mass or ulceration. The scope was withdrawn back into the stomach. The gastric antrum and body of the stomach had some areas of erythema and edema, but no erosions or ulceration. There was good peristalsis. Biopsies were obtained from the antrum. The scope was retroflexed visualizing the proximal stomach carefully, which appeared normal, without any sign of mass or ulceration. The scope was straightened and withdrawn back into the esophagus. Biopsies were obtained at the EG junction at 39 cm. Proximal to this, the esophageal mucosa appeared normal. The scope was withdrawn from the patient. He was he was turned around for the colonoscopy. The digital rectal exam revealed no abnormalities. The Olympus video pediatric colonoscope was entered into the rectum and advanced easily to the cecum. Once in the cecum, I did identify normal-appearing cecal pouch with appendiceal orifice and a normal-appearing ileocecal valve, other than the valve appearing lipomatous. It was quite soft when probed by the biopsy forceps. The overlying mucosa appeared normal. The terminal ileum was cannulated and appeared normal. Scope was withdrawn back in the colon. The scope was then slowly withdrawn assessing all mucosal surfaces carefully. Preparation was excellent. I did not visualize any sign of polyps, colitis, nor angiodysplasia. There was a mild amount of sigmoid diverticulosis. In the rectum, scope was retroflexed visualizing internal hemorrhoids, but no other pathology. The rectal mucosa appeared normal. The scope was straightened and withdrawn from the patient. He tolerated both procedures well and was returned to the recovery area in stable condition. IMPRESSION: 1. Small hiatal hernia, gastroesophageal reflux. 2. Mild changes of gastritis. 3. Diverticulosis. 4. Internal hemorrhoids. PLAN: The results of the biopsies will be checked. I advised him to continue his omeprazole. I would recommend a repeat colonoscopy in 5 years. He will otherwise see me as needed. MD DAVI Muir/MAGALI / [id number] MTDD
== END 2025-02-28 12:41 | disposition home or self-care (01) ==
PROVIDERS: PCP Internal Medicine; Visit Provider Internal Medicine
PROC: (CPT 43239; principal; 2025-02-28 09:30)
DX: Z12.11 Encounter for screening for malignant neoplasm of colon (principal); Z80.0 Family history of malignant neoplasm of digestive organs; K57.30 Diverticulosis of large intestine without perforation or abscess without bleeding; K64.8 Other hemorrhoids; K21.9 Gastro-esophageal reflux disease without esophagitis; K29.60 Other gastritis without bleeding; K44.9 Diaphragmatic hernia without obstruction or gangrene; R97.20 Elevated prostate specific antigen [PSA]; I10 Essential (primary) hypertension; E78.5 Hyperlipidemia, unspecified; E03.9 Hypothyroidism, unspecified; Z79.899 Other long term (current) drug therapy; Z79.82 Long term (current) use of aspirin; Z90.49 Acquired absence of other specified parts of digestive tract
CPT/HCPCS: 43239; G0105; 88305; 88313; 88342; J2003; J2704; J3010

== ENCOUNTER 2025-04-08 12:58 | Outpatient (REF) | payer SELFPAY ==
--- NOTE | 2025-04-08 15:12 | MHC.AU.HA1 ---
Hearing Aid Evaluation Date of Visit: 04/08/25 Historical Information: Description of Hearing: Mild sloping to severe sensorineural hearing loss, bilaterally Current personal amplification information: Oticon OPN 1 miniRITE-Rs fit in 2017 Summary: Hearing test and medical clearance [facility]. Long-time HENNESSY user. Reported hx of ear infections in 5th grade resulting in TM perforations and erosion of ossicles; surgery resolved issues at that time. Then started to lose hearing in 40s. Subsequently fit with HAs and has been using them ever since. Reported Dr. Arteaga offered additional surgery to place prosthetic middle ear bones; however, would likely still need HAs so Tr opted to forgo surgery. 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 Particularly helpful during confessions. Discussed options including manufacturers, styles, technology. Tr opted for same accounting software specialist and style with domes in highest technology. Hearing Aid Prescription: Based on the individual?s shared listening needs, communication environments, dexterity, desire for connectivity, and personal preferences, the following prescription for amplification has been made: Right ear: Make, Model, Color: Oticon Intent 1 miniRITE-R Color: Blue Battery Size: Rechargeable Ampoule Inspector/Slim Tube: 3/85 Type of Earmold/Dome/CShell/SlimTip: 10mm vented dome with retention tail Left ear: Left ear prescription to be same as Right Hearing Aid above: Make, Model, Color: Oticon Intent 1 miniRITE-R Color: Blue Battery Size: Rechargeable Ampoule Inspector/Slim Tube: 3/85 Type of Earmold/Dome/CShell/SlimTip: 10mm vented dome with retention tail Accessories/Assistive Technology: Paintings Restorer Plan of Care: Patient wishes to purchase hearing aids as prescribed Action Taken/Action Needed: Hearing Instrument Fitting to be scheduled when materials arrive Primary Diagnosis: H90.6 Mixed Hearing Loss, Bilateral Signature: Provider: Venancio Conklin, [facility]
--- OUTSIDE RECORDS SUMMARY | 2025-04-09 04:26 | XMS_ITS | Clinical Summary ---
Author Organization [facility] Address [address] [place] [address] Phone Care Team Providers Care Pig Casting Machine Operator Name Role Phone Edd Benitez MD Primary Care Provider Encounters Date Type Department Care Team Description 01/15/2025 Lab Requisition [facility] Lab [address] [place] [phone] Antonio Puentes MD Urinary tract infection, site not specified 01/10/2025 Lab Requisition [facility] Lab [address] [place] [address] Buster Wilburn PA Urinary tract [...] Health Screening 01/10/2025 COVID-19 Vaccine (1 - 2024-2 6 season) 2025 Influenza Vaccine (#1) 2025 RSV [...] Urine No growth 01/16/2025 1:56 PM EDT [facility] Urine Urine specimen obtained by clean catch procedure / Unknown 01/15/2025 01/15/2025 5:55 PM EDT us Antonio Puentes MD LAB MICROBIOLOGY - GENERAL [facility] Final Result [facility] [address] [place] [address], [place] [phone] from Last 3 Months Insurance MEDICAID - [place] MEDICARE Care Teams Pig Casting Machine Operator Relationship Specialty Start Date End Date Edd Benitez MD [address] [place] [address] PCP - General Internal Medicine 01/10/25
--- OUTSIDE RECORDS SUMMARY | 2025-04-09 04:26 | XMS_ITS | Patient Health Record ---
Author Organization [facility] Address [address] [facility] [place] [address] Care Team Providers Care Inspector Eyeglass Frames Name Role Phone Edd Benitez MD Primary Care Provider Haleigh Rodriguez Unavailable [phone] Allergies No Known Allergies Reason For Referral [...] Problem Acquired hammer toe of right foot (0704912281625086 ) Other hammer toe(s) (acquired), right foot (M20.41) Active confirmed Problem Gout (13716687) Gout of left foot (M10.9) Active confirmed Rx drug management (4) Problem Gout (10056595) Gout of right foot (M10.9) Active confirmed Rx drug management (4) Problem Localized, primary osteoarthritis of the ankle and/or foot (769578117) Arthritis of big toe (M19.079) Active confirmed Problem Acquired hallux varus (22828279) Hallux malleus of right foot (M20.31) Active confirmed Problem Localized, primary osteoarthritis of the ankle and/or foot (697506062) Arthritis of joint of lesser toe, right (M19.071) Active confirmed Vital Signs Blood pressure diastolic 65 mm Hg 06/07/2024 Height 5ft 10in in 06/07/2024 Blood pressure systolic 129 mm Hg 06/07/2024 Weight 235 lbs 06/07/2024 BMI 33.72 kg/m2 06/07/2024 Encounters Encounter [facility] [address] [facility]/07/2024 Haleigh Banks Pain in joint involving left ankle and foot M25.572 and Gout of left foot M10.[address] [address] 06/04/2024 Haleigh Banks [address] [address] 06/20/2024 Haleigh Banks Assessments Encounter Date Diagnosis (ICD Code) Assessment Notes Treatment Notes Treatment Clinical Notes Section Notes 06/07/2024 Gout of left foot (ICD-10 - M10.9) Rx drug management (4) Patient Educated with: GOUT.pdf (GOUT.pdf) Patient Educated with: LOW PURINE DIET.pdf (LOW PURINE DIET.pdf) 06/07/2024 Pain in joint involving left ankle and foot (ICD-10 - M25.572) 06/07/2024 Other Patient Educated with: GOUT.pdf (GOUT.pdf) [...] Medicare National [employer] [address] [place] [address] [id number] Tr Kim Self - patient is the insured Medical (General) History Medical History History ICD Code Back,Hip,and Knee pain Diverticulosis Gall bladder problems Gout High Blood Pressure Reflux ( GERD) Sciatica thyroid Measles Mumps Hearing loss Surgical History Surgery Date(Month/Year) Gall bladder removal 1994 tympanoplasty 1966
--- OUTSIDE RECORDS SUMMARY | 2025-04-09 04:27 | XMS_ITS | Patient Health Record ---
Author Organization [facility] Address [address] [place] [address] Support Name Relationship Address Phone Tr Kim Guarantor Unknown [phone] Reason For Referral No Information Medications Medication [...]
--- OUTSIDE RECORDS SUMMARY | 2025-04-09 04:27 | XMS_ITS | Encounter Summary ---
Author Organization [facility] Address [address] [place] [address] Care Team Providers Care Business Taxes Specialist Name Role Phone Edd Benitez MD Primary Care Provider Encounter Details Date Type Department Care Team (Late st Contact Info) Description 01/10/[address] [facility] [address] [facility] [place] [address] Buster Wilburn, PA [address] [place], [place] [phone] Urinary tract infection, site not specified Social [...] Escherichia coli(A) KANDICE 01/12/2025 9:06 AM EDT [facility] Urine Urine specimen obtained by [...] Escherichia coli Trimethoprim/Sulfamethoxazole KANDICE <=20 ug/ml: Susceptible [facility] LAB MICROBIOLOGY - [facility] Final Result Performing Organization Address City/State/[facility] Co de Phone Number [facility] [address] [place] [address], documented in this encounter Visit Diagnoses Diagnosis Urinary tract infection, site not specified documented in this encounter Care Teams Business Taxes Specialist Relationship Specialty Start Date End Date Edd Benitez MD [address] [place] [address] PCP - General Internal Medicine 01/10/25 documented as of this encounter
--- OUTSIDE RECORDS SUMMARY | 2025-04-09 04:27 | XMS_ITS | Encounter Summary ---
Author Organization [facility] Address [address] [place] [address] Care Team Providers Care Grill Cook Name Role Phone Edd Benitez MD Primary Care Provider Encounter Details Date Type Department Care Team (Late st Contact Info) Description 01/15/2025 Lab Requisition [facility] Lab [address] [facility] [address] [address] Antonio Puentes MD [address] [place] [phone] Urinary tract infection, site not specified Social [...] Urine No growth 01/16/2025 1:56 PM EDT [facility] Urine Urine specimen obtained by clean catch procedure / Unknown 01/15/2025 01/15/2025 5:55 PM EDT Antonio Puentes MD LAB MICROBIOLOGY - GENERAL [facility] Final Result [facility] LAB [address] [place] [address], documented in this encounter Visit Diagnoses Diagnosis Urinary tract infection, site not specified documented in this encounter Care Teams Grill Cook Relationship Specialty Start Date End Date Edd Benitez MD [address] [place] [address] [address] [place] [address] PCP - General Internal Medicine 01/10/25 documented as of this encounter
--- OUTSIDE RECORDS SUMMARY | 2025-04-09 04:27 | XMS_ITS | Patient Health Record ---
Author Organization [facility] Address [address] [place] [address] Support Name Relationship Address Phone Unavailable Emergency Contact Unknown [id number] Tr Kim Guarantor Unknown [phone] Reason For Referral No Information Medications Medication SIG (Take, Route, Frequency, Duration) Notes Start Date End Date Status Omeprazole 20 MG Oral Prescription/Di yola arge Order 12/06/2010 Active Plan Of Treatment No Information Insurance Providers Payer Name Payer Address Payer Phone Subscriber Number Group Number Insured Name Patient Relationship to Insured Coverage Start Date Coverage End Date Cigrad Reddy [id number] CHAO Jung [id number] Tr Kim Self - patient is the insured 6
== END 2025-04-08 12:59 | disposition home or self-care (01) ==
LOC: HO.HAP 12:58
PROVIDERS: Visit Provider Internal Medicine
DX: Z46.1 Encounter for fitting and adjustment of hearing aid (principal); H90.6 Mixed conductive and sensorineural hearing loss, bilateral
CPT/HCPCS: 92590

== ENCOUNTER 2025-05-07 15:55 | Outpatient (REF) | payer SELFPAY ==
--- OUTSIDE RECORDS SUMMARY | 2021-08-12 06:20 | XMS_ITS | Continuity of Care Document ---
Author Organization [facility] Address [facility] [place] [address] Phone Care Team Providers Care Supervisor Customer Services Name Role Phone Niall CAMPBELL, Tanner Unavailable Unavailable Allergies, Adverse Reactions, Alerts Substance Reaction Status Criticality No Known Allergies Active No Inform ation Medications Medication Instructions Dosage Dose Quantity Effective Dates (start - stop) Status Indication Fill Status Comments Flomax 0.4 mg capsule take 1 capsule by oral route every day 1/2 hour following the same meal each day 100 MG 1 tablet 1 - Active Bactrim DS 800 mg-160 mg tablet take 1 tablet by oral route every 12 hours 100 MG 1 tablet 0 - Active allopurinol 100 mg tablet take 1 tablet by oral route 3 times every day 100 MG 1 tablet - Active amlodipine 5 mg tablet take 1 tablet by oral route every day 100 MG 1 tablet - Active omeprazole 20 mg capsule,jennifer yed release take 1 capsule by oral route every day before a meal 100 MG 1 tablet - Active atorvastatin 40 mg tablet take 1 tablet by oral route every day 100 MG 1 tablet - Active Procedures Procedure Date Office E&m Estab Mod-hi 2 Advance Directives Directive Yes / No Effective Date File Name No Information Encounters Encounter Description Practice Location Reason(s) For Visit Diagnoses Date Provider Encounter Disposition Office E&m Estab Mod-hi 2 [facility], [address] [place] [address], [id number] , tel:[phone] [facility] BPH (chief complaint) Enlarged prostate without lower urinary tract symptoms [address], [address], [address], . tel:[phone] [facility], [address] [place], [place], [id number] , tel: [phone] [facility] BPH (chief complaint) Enlarged prostate without lower urinary tract symptoms [address], [address], [facility], . tel:[phone] [facility], [address] [place], [place], [id number] , [place] tel: [phone] [facility] Kidney stones (chief complaint) Elevated prostate specific antigen [PSA]Calculus of kidneyEnlarged prostate without lower urinary tract symptoms 1 [address], [address], [facility], . tel:[phone] [facility], [address] [place], [place], [id number] , tel: [phone] [facility] Kidney stones (chief complaint) Calculus of kidney 1 [facility] Tanner[address], [address], [facility], . tel:[phone] [facility], [address] [place], [place], [id number] , tel: [phone] [facility] No Information [address], [address], [address], . tel:[phone] [facility], [address] [place], [place], [id number] , tel: [phone] [facility] BPH (chief complaint)Er ectile dysfunction (chief complaint)Pr ostate cancer (chief complaint) Dietary counseling and surveillanceCal culus of kidney [address], [place] [address], [place], [place], [facility], . tel:[phone] [facility], [address] [place], [place], [id number] , tel: [phone] [facility] Elevated PSA (chief complaint) Elevated prostate specific antigen [PSA] Dec-2 3- [address], [place] [address], [place], [place], [facility], . tel:[phone] [facility], [address] [place], [place], [id number] , [place] tel: [phone] [facility] BPH (chief complaint)Er ectile dysfunction (chief complaint)Pr ostate cancer (chief complaint) Enlarged prostate without lower urinary tract symptoms Sep-0 9- [address], [address], [facility], . tel:[phone] [facility], [address] [place], [place], [id number] , tel: [phone] [facility] No Information Sep-[address], [address], [facility], . tel:[phone] [facility], [address] [place], [place], [id number] , tel: [phone] [facility] BPH (chief complaint)El evated PSA (chief complaint) Elevated prostate specific antigen [PSA] Juan Diego-[address], [address], [facility], . tel:[phone] [facility], [address] [place], [place], [id number] , tel: [phone] [facility] Flank pain (chief complaint) Enlarged prostate without lower urinary tract symptoms Dec-0 3-[address], [address], [facility], [place]. tel:[phone] [facility], [address] [place], [place], [id number] , [place] tel: [phone] [facility] Calculus of kidney [address], [address], [address], . tel:[phone] [facility], [address] [place], [place], [id number] , [place] tel: [phone] [facility] Flank pain (chief complaint) Calculus of kidney [address], [address], [address], . tel:[phone] [facility], [address] [place] [address], [id number] , [place] tel: [phone] [facility] Elevated PSA (chief complaint) Dietary counseling and surveillanceEss ential (primary) hypertensionEnl arged prostate without lower urinary tract symptoms [address], [address], [address], . tel:[phone] [facility], [address] [place], [place], [id number] , [place] tel: [phone] [facility] Elevated prostate specific antigen [PSA] [address], [address], [address], [place]. tel:[phone] [facility], [address] [place] [address], [id number] , [place] tel: [phone] [facility] BPH (chief complaint)Ki dney stones (chief complaint) Elevated prostate specific antigen [PSA] [address], [address], [address], . tel:[phone] [facility], [address] [place] [address], [id number] , tel: [phone] [facility] Enlarged prostate without lower urinary tract symptoms [address], [address], [address], . tel:[phone] [facility], [address] [place], [place], [id number] , tel: [phone] [facility] BPH (chief complaint)Ki dney stones (chief complaint) Calculus of kidney [address], [address], [address], . tel:[phone] [facility], [address] [place], [place], [id number] , tel: [phone] [facility] Enlarged prostate without lower urinary tract symptoms [address], [address], [address], . tel:[phone] [facility], [facility] [place], [place], [id number] , tel: [phone] [facility] BPH (chief complaint) Enlarged prostate without lower urinary tract symptoms [address], [address], [address], . tel:[phone] [facility], [address] [place], [place], [id number] , tel: [phone] [facility] Elevated prostate specific antigen [PSA] [address], [address], [address], . tel:[phone] [facility], [address] [place], [place], [id number] , tel: [phone] [facility] BPH (chief complaint)El evated PSA (chief complaint)Pr ostatitis (chief complaint) Elevated prostate specific antigen [PSA]Dietary counseling and surveillanceEss ential (primary) hypertension [address], [address], [address], [place]. tel:[phone] [facility], [address] [place], [place], [id number] , [place] tel: [phone] [facility] No Information [address], [facility] [address], [place], [address], [place]. tel:[phone] [facility], [address] [place], [place], [id number] , [place] tel: [phone] [facility] Prostate Screening for Cancer 3-[address], [address], [address], [place]. tel:[phone] [facility], [address] [place], [place], [id number] , [place] tel: [phone] [facility] Renal Calculus Sep-2 5-[address], [address], [address], [place]. tel:[phone] [facility], [address] [place] [address], [id number] , [place] tel: [phone] [facility]. Renal Calculus Sep-1 7-200 9 [facility] [address]rae. [address] [place], [address], [place]. tel:[phone] [facility], [address] [place], [place], [id number] , [place] tel: [phone] [facility] No Information Sep-1 0-[address], [address], [address], [place]. tel:[phone] [facility], [address] [place], [place], [id number] , [place] tel:[phone] [facility] Renal Calculus 9 Ramo Abebe. [address] [facility], [place], [address], [place]. tel:[phone] [facility], [address], [place], [place], [id number] , [place] tel:[phone] [facility] No Information 9 Niall Hart. [address] [facility], [address], [place], [address], [place]. tel:[phone] Family History Family Member Type Diagnosis Age At Onset Brother Problem (finding) Cancer, unknown Sister Problem (finding) malignant neoplasm of o vary Brother Problem (finding) Cancer, kidney Mother Problem (finding) Cardiovascular disease Sister Problem (finding) Cancer, unknown Father Problem (finding) gallbladder Father Problem (finding) Cancer, unknown Mother Problem (finding) Stroke Father Problem (finding) cancer of colon Family h/o Problem (finding) Cancer - prostate Immunizations Vaccine Date Status Comments influenza, high dose seasona l, preservative-free administered Source: Other Provid er Payers Payer name Insurance type Identifiers Authorization(s) Com garrykash Doris PPO CI er ID: [id number] Name: Coverage Status Eligibility Check on: UnknownRelationship to Subscriber: selfPayer Address: [place] [address], [place], [place], [id number], [facility] Phone: [phone] Social History Type Description Quantity Date Captured Comments Alcohol Use Details Unknown Caffeine Use Details Unknown Tobacco Use Status No Information Smoking Status Never smoker Sex Male Gender Identity Male Current Gender Male (finding) Chief Complaint And Reason For Visit From encounter dated '08/12/2021 11:20'. BPH (chief complaint). Description: Additional information: discussed mri and psa s. Plan Of Treatment Date Type Action Status Patient Education Body Mass Index: Care I nstructions completed Patient Education Learning About High Blo od Pressure completed Patient Education Body Mass Index: Care I nstructions completed Patient Education Body Mass Index: Care I nstructions completed Patient Education Kidney Disease and High Blood Pressure completed Patient Education Body Mass Index: Care I nstructions completed Future Order: Lab Order Calculi, Urinary ([id number]), Ordered on: Ordered History Of Present Illness Encounter Date Complaint History Of Prese nt Illness BPH Additional infor mation: discussed mri and psa s. BPH Kidney stones Onset was gradua l. Pertinent negatives include lower back pain, chills, constipation, diarrhea, dysuria, fever, hematuria, nausea, pain, pelvic pain, dribbling (urinary), frequency (urinary) and vomiting. Kidney stones Pertinent negati ves include chills, constipation, diarrhea, dysuria, fever, hematuria, nausea and vomiting. BPH Onset was days a go. Associated symptoms include incomplete emptying, nocturia, slow stream, urinary frequency and urinary straining. Pertinent negatives include chills, constipation, dysuria, fever, hematuria and urgency. Erectile dysfunction Pertinent h istory includes hypertension but not diabetes or neurologic disease. He denies depression, morning erections or nocturnal erections. Prostate cancer The patient is e xperiencing nocturia, problem urinating, slow stream, urinary frequency and urinary straining but denies abdominal pain, chills, constipation, diarrhea, dysuria, fatigue, a fever, flank pain, hematuria, night sweats, urinary urgency or vomiting. Pertinent history does not include a family history of prostate cancer. Elevated PSA Pertinent histor y includes age over 50, family history of prostate cancer, prior prostatitis and prior UTIs. Pertinent negatives include dysuria, chills, fever, hematuria and urinary incontinence. Additional information: the patient is not sexually active. The patient has not had a recent PSA recorded this encounter. BPH Onset was days a go. Associated symptoms include incomplete emptying, nocturia, slow stream and urinary straining. Pertinent negatives include chills, hematuria, urgency and urinary incontinence. Erectile dysfunction Pertinent h istory includes hypertension but not diabetes or neurologic disease. He denies morning erections or nocturnal erections. Prostate cancer The patient is e xperiencing nocturia, problem urinating, slow stream, urinary frequency and urinary straining but denies chills, hematuria, urinary incontinence or urinary urgency. Pertinent history does not include a family history of prostate cancer. Elevated PSA Pertinent histor y includes age over 50, family history of prostate cancer, prior prostatitis and prior UTIs. Associated symptoms include nocturia . Pertinent negatives include dysuria, chills, fever, hematuria, incomplete emptying, urinary incontinence, slow stream, urinary urgency and urinary frequency. Additional information: the patient is not sexually active. The patient has not had a recent PSA recorded this encounter. BPH Onset was gradua l. Associated symptoms include nocturia and sexually active. Pertinent negatives include chills, constipation, dysuria, fever, hematuria, incomplete emptying, slow stream, urgency, urinary incontinence and urinary frequency. Flank pain Onset was gradua l. The problem is resolved. Pertinent negatives include lower back pain, chills, constipation, diarrhea, dysuria, fever, hematuria, nausea, pain, urinary blood clots, dribbling (urinary), frequency (urinary) and vomiting. Flank pain Onset was gradua l. Location of pain is right flank., dull Associated symptoms include lower back pain. Pertinent negatives include chills, constipation, diarrhea, dysuria, fever, hematuria, nausea, pelvic pain, suprapubic pain, frequency (urinary) and vomiting. Elevated PSA The onset of sym ptoms was gradual. The problem is currently stable. Pertinent history includes age over 50, family history of prostate cancer, prior prostatitis and prior UTIs. Pertinent negatives include dysuria, chills, fever, hematuria, urinary incontinence, pelvic pain, pressure and recurrent UTIs. Additional information: the patient is not sexually active. The patient has not had a recent PSA recorded this encounter. BPH The problem is w ith no change. Pertinent negatives include chills, constipation, dysuria, fever, hematuria and urinary incontinence. Kidney stones The problem is w ith no change. Pertinent negatives include chills, constipation, diarrhea, dysuria, fever, hematuria, nausea and vomiting. BPH Onset was gradua l. Associated symptoms include nocturia. Pertinent negatives include abnormal ejaculation, chills, constipation, dysuria, fever, hematuria, incomplete emptying, pelvic pressure, slow stream, suprapubic pain, urgency, urinary incontinence and urinary frequency. Kidney stones Pertinent negati ves include chills, constipation, diarrhea, dysuria, fever, hematuria, nausea, suprapubic pain, frequency (urinary) and vomiting. Additional information: no pain at all. BPH Onset was gradua l. Associated symptoms include nocturia. Pertinent negatives include abnormal ejaculation, constipation, dysuria, hematuria, incomplete emptying, pelvic pressure, slow stream, suprapubic pain, urgency and urinary frequency. Elevated PSA Pertinent histor y includes age over 50, family history of prostate cancer, prior prostatitis and prior UTIs. Associated symptoms include back pain, nocturia 2 times per night and urinary urgency. Pertinent negatives include dysuria, hematospermia, hematuria, incomplete emptying, urinary incontinence, recurrent UTIs, sexually active, slow stream, straining to urinate and urinary frequency. Additional information: the patient is not sexually active and inc psa // now 3.1 was 2.7 age 61 .. was 3.2 2013. The patient has not had a recent PSA recorded this encounter. Prostatitis Pertinent histor y includes being over 50 and alcohol consumption. Pertinent history does not include diabetes, prostatitis or being sexual active. Associated symptoms include nocturia and urinary urgency. Pertinent negatives include dysuria, hematuria, incomplete emptying, recurrent UTIs, slow stream and urinary frequency. Additional information: psa in 2008 11.8!!!! biopsy was negative. BPH Onset was gradua l. Associated symptoms include nocturia and urgency. Pertinent negatives include dysuria, hematuria, incomplete emptying, slow stream, urinary incontinence, urinary frequency and urinary straining. Functional Status Date Description Comments No Information Instructions Date Instruction Additional Infor javed Giving encouragement to exercise Related to Dietary Surveil/adoption counselor Giving encouragement to exercise Related to Hypertension, Unspecified Giving encouragement to exercise Related to Dietary Surveil/adoption counselor emigdio SHEPARD on kub offe red litho no pain wants to wait psa end 2017 Related to Calculus of kidney tiny sebaceous cyst perineum no infection looks niormal normal layne Related to Elevated prostate specific antigen [PSA] Giving encouragement to exercise Related to Hypertension, Unspecified Giving encouragement to exercise Related to Dietary Surveil/adoption counselor Assessments Type Assessment Date assessment Enlarged prostate without lower urinary tract symptoms impression flow good except in am no heme gets erections psa in 5 mo no change of sig x 13 yrs no fh Mental Status Date Description Comments Orientation - Oriented to time, place, person, situation.
--- OUTSIDE RECORDS SUMMARY | 2023-12-25 06:16 | XMS_ITS ---
Author Organization Edd Benitez MD Address [address] [place] [address] [place] [id number] Care Team Providers Care Headmaster/Mistress Name Role Phone Edd Benitez Primary Care Provider [phone] Results Component Value Reference Range Notes Occult Blood, Stool, Guaiac Reviewed date:01/15/2024 02:57:39 PM Interpretation:Negative Performing Lab: Notes/Report: Negative Occult Blood, Stool, Guaiac Neg x2 REASON FOR VISIT Stool cards Encounters Encounter Location Date Provider Diagnosis Edd Benitez MD [address] [place] [address] [place] [phone] 12/25/2023 Edd Benitez Colon cancer screening Z12.11 Assessments Encounter Date Diagnosis (ICD Code) Assessment Notes Treatment Notes Treatment Clinical Notes Section Notes 12/25/2023 Colon cancer screening (ICD-10 - Z12.11) Plan Of Treatment Next Appt Details Provider Name:Edd escamilla, 06/20/2025 08:00:00 AM, [address] [place] [address], [address], [phone], Provider Name:Edd escamilla, 06/27/2025 10:00:00 AM, [address] [place] [address], [address], [id number], Provider Name:Edd escamilla, 11/24/2025 07:15:00 AM, [address] [place] [address], [address], [id number], Provider Name:Edd escamilla, 12/26/2025 09:30:00 AM, [address], [address], [place], [place], [phone], Progress Notes * EMILIA CASILLAS ADOB:1955 (68 yo M)Acc No.[id number]:12/25/2023 Patient: EMILIA MONTIEL :1955 A ge:68 Y S ex:Male Address:[address] [place] [address], [address] Subjective: * Chief Complaints: * S tool cards * Medical History: * Surgical History: * Hospitalization/Major Diagno stic Procedure: * Medications: Objective: Assessment: * Assessment: 1. C caraon cancer screening - Z12.11 (Primary) Plan: * Treatment: Value Reference Range O ccult Blood, Stool, Guaiac Neg x2 * Procedure Codes: 8 2270 TEST FOR BLOOD, FECES * true * Date: Generated for You harris/Phoenix/eTransmitting on: 07/08/2024 08:44 PM EST
--- OUTSIDE RECORDS SUMMARY | 2024-01-08 09:30 | XMS_ITS ---
Author Organization Edd Benitez MD Address [address] [place] [phone] Care Team Providers Care Speech Communication Professor Name Role Phone Edd Benitez Primary Care Provider Allergies No Known Allergies REASON FOR VISIT right great toe gout swollen and red x 6 days Medications Medication SIG (Take, Route, Frequency, Duration) Notes Start Date End Date Status Indomethacin 50 MG 1 capsule with food or milk Orally 3 times a day for 10 days 01/08/2024 Active Omeprazole 20 MG 1 capsule 30 minutes before morning meal Orally Once a day 06/15/2023 Active Levothyroxine Sodium 100 MCG TAKE 1 TABL ET BY MOUTH EVERY DAY IN THE MORNING ON EMPTY STOMACH Active Atorvastatin Calcium 40 MG TAKE 1 TABLET BY MOUTH EVERY DAY FOR 90 DAYS Orally Once a day Active amLODIPine Besylate 5 MG TAKE 1 TABLET B Y MOUTH EVERY DAY FOR 90 DAYS Active Problems Problem Type SNOMED Code ICD Code Onset Dates Problem Status W/U Status Risk Notes Problem [id number] Acute idiopathic gout involving toe, unspecified laterality (M10.079) Active confirmed Vital Signs Blood pressure systolic 122 mm Hg 01/08/20 24 Blood pressure diastolic 80 mm Hg 024 Height 70.5 in 01/08/2024 Weight 245 lbs 01/08/2024 BMI 34.65 kg/m2 01/08/2024 weight is down 5 pounds [facility] e 12-15-23 Encounters Encounter Location Date Provider Diagnosis Edd Benitez MD [address] [place] [phone] 01/08/2024 Edd Benitez Acute idiopathic gout involving toe, unspecified laterality M10.079 Assessments Encounter Date Diagnosis (ICD Code) Assessment Notes Treatment Notes Treatment Clinical Notes Section Notes 01/08/2024 Acute idiopathic gout involving toe, unspecified laterality (ICD-10 - M10.079) patient verbalized understanding of medication and directions for use Plan Of Treatment Medication Medication Name Sig Start Date Stop Date Notes Indomethacin 50 MG 1 capsule with food or milk Orally 3 times a day for 10 days 01/08/2024 Treatment Notes Assessment Notes Acute idiopathic gout involv ing toe, unspecified laterality patient verbalized understanding of medication and directions for use Next Appt Details Provider Name:Edd escamilla, 06/20/2025 08:00:00 AM, [address] [place] [address], [address], [phone], Provider Name:Edd escamilla, 06/27/2025 10:00:00 AM, [address] [place] [address], [address], [phone], Provider Name:Edd escamilla, 11/24/2025 07:15:00 AM, [address] [place] [address], [address], [phone], Provider Name:Edd escamilla, 12/26/2025 09:30:00 AM, [address] [place] [address], [address] [place] [address], [phone], Progress Notes * EMILIA CASILLAS ADOB:1955 (68 yo M)Acc No.[id number]:01/08/2024 Progress Notes Patient: EMILIA MONTIEL Provider: Maria Fernanda Benitez MD :1955 A ge:68 Y S ex:Male Date:01/08/2024 Address:[address] [place], [place] [id number] Subjective: * Chief Complaints: * R ight great toe gout swollen and red x 6 days * HPI: S ymptom(s): patient is a 68 yo male here with complaint of right great toe swollen and red for 6 days, is not very painful but is swollen/ had been on allopurinol for 10 years and off of it for at least 4 years. * ROS: G eneral/Constitutional: Denies C hills. D enies F atigue. D enies F ever. D enies H eadache. E NT: Patient denies d ecreased sense of smell , any loss of taste , sore throat. D enies S ore throat. R espiratory: Denies C ough. D enies S hortness of breath at rest. D enies S hortness of breath with exertion. G astrointestinal: Denies D iarrhea. D enies N ausea. M usculoskeletal: Patient denies m uscle aches. P eripheral Vascular: Patient denies r ed and blue toes. * Medical History: * Surgical History: * Hospitalization/Major Diagno stic Procedure: * Medications: T akingamLODIPine Besylate 5 MG Tablet TAKE 1 TABLET BY MOUTH EVERY DAY FOR 90 DAYS Levothyroxine Sodium 100 MCG Tablet TAKE 1 TABLET BY MOUTH EVERY DAY IN THE MORNING ON EMPTY STOMACH Atorvastatin Calcium 40 MG Tablet TAKE 1 TABLET BY MOUTH EVERY DAY FOR 90 DAYS Orally Once a dayOmeprazole 20 MG Capsule Delayed Release 1 capsule 30 minutes before morning meal Orally Once a dayMedication List reviewed and reconciled with the patientTaking amLODIPine Besylate 5 MG Tablet TAKE 1 TABLET BY MOUTH EVERY DAY FOR 90 DAYS Taking Levothyroxine Sodium 100 MCG Tablet TAKE 1 TABLET BY MOUTH EVERY DAY IN THE MORNING ON EMPTY STOMACH Taking Atorvastatin Calcium 40 MG Tablet TAKE 1 TABLET BY MOUTH EVERY DAY FOR 90 DAYS Orally Once a dayTaking Omeprazole 20 MG Capsule Delayed Release 1 capsule 30 minutes before morning meal Orally Once a dayMedication List reviewed and reconciled with the patient * Allergies: N .K.D.A.yes[Allergies Verified] Objective: * Vitals: H t: 70.5, Wt:245, BMI:34.65, BP:122/80 weight is down 5 pounds since 12-15-23. * Examination: G eneral Examination: GENERAL APPEARANCE: alert, well hydrated, in no distress . EXTREMITIES: rt great toe with dorsum which is swollen and not tender .. Assessment: * Assessment: 1. A cute idiopathic gout involving toe, unspecified laterality - M10.079 (Primary) Plan: * Treatment: * Procedure Codes: * * Sign off status: Completed true * Provider: Maria Fernanda Benitez MD Date: 0 01/08/2024 Generated for You harrsi/Phoenix/Moni on: 1 07/08/2024 08:45 PM EST History and Physical Notes * HPI (History of Present Illness) Category Sub-Category Detail Notes Category Not es Symptom(s) patient is a 68 yo male here with complaint of right great toe swollen and red for 6 days, is not very painful but is swollen/ had been on allopurinol for 10 years and off of it for at least 4 years. Examination Category Sub-Category Detail Notes Category Not es General Examination GENERAL APPEARANCE: alert, w ell hydrated, in no distress EXTREMITIES: rt great toe with do rsum which is swollen and not tender .
--- OUTSIDE RECORDS SUMMARY | 2024-02-16 04:06 | XMS_ITS ---
Author Organization Edd Benitez MD Address [address] [place] [address] [place] [phone] Care Team Providers Care Vehicle Refinisher Name Role Phone Edd Benitez Primary Care Provider REASON FOR VISIT refill Medications Medication SIG (Take, Route, Frequency, Duration) Notes Start Date End Date Status Levothyroxine Sodium 100 MCG TAKE 1 TABL ET BY MOUTH EVERY DAY IN THE MORNING ON EMPTY STOMACH Orally Once a day for 90 days Active Encounters Encounter Location Date Provider Diagnosis Edd Benitez MD [address] [place] [phone] 02/16/2024 Edd Benitez Acquired hypothyroidism E03.9 Assessments Encounter Date Diagnosis (ICD Code) Assessment Notes Treatment Notes Treatment Clinical Notes Section Notes 02/16/2024 Acquired hypothyroidism (ICD-10 - E03.9) Plan Of Treatment Medication Medication Name Sig Start Date Stop Date Notes Levothyroxine Sodium 100 MCG TAKE 1 TABL ET BY MOUTH EVERY DAY IN THE MORNING ON EMPTY STOMACH Orally Once a day for 90 days Next Appt Details Provider Name:Edd escamilla, 06/20/2025 08:00:00 AM, [address] [place] [address], [address], [phone], Provider Name:Edd escamilla, 06/27/2025 10:00:00 AM, [address] [place] [address], [address], [phone], Provider Name:Edd escamilla, 11/24/2025 07:15:00 AM, [address] [place] [address], [address], [phone], Provider Name:Edd Briggs kimr, 12/26/2025 09:30:00 AM, [address], [address], [place], [phone], Progress Notes * EMILIA CASILLAS ADOB:1955 (68 yo M)Acc No.[id number]:02/16/2024 Patient: EMILIA MONTIEL :1955 A ge:68 Y S ex:Male Address:[address] [place] [address], [id number] * Refills Refill Levothyroxine Sodium Tablet, 100 MCG, Orally, 90, TAKE 1 TABLET BY MOUTH EVERY DAY IN THE MORNING ON EMPTY STOMACH, Once a day, 90 days, Refills=3 * true * Date: Generated for You harris/Phoenix/Benitting on: 1 07/08/2024 08:43 PM EST
--- OUTSIDE RECORDS SUMMARY | 2024-03-21 09:45 | XMS_ITS ---
Author Organization Edd Benitez MD Address [address] [place] [address] [address] [place] [phone] Care Team Providers Care Plan Rep Name Role Phone Edd Benitez Primary Care Provider Medications Medication SIG (Take, Route, Fr equency, Duration) Notes Start Date End Date Status Omeprazole 20 MG 1 capsule 30 minutes before morning meal Orally Once a day for 90 days 06/15/2023 Active Encounters Encounter Location Date Provider Diagnosis Edd Benitez MD [address] [place] [address] [place] [phone] 03/21/2024 Edd Benitez Gastroesophageal ref lux disease with esophagitis without hemorrhage K21.00 Assessments Encounter Date Diagnosis (ICD Code) Assessment Notes Treatment Notes Treatment Clinical Notes Section Notes 03/21/2024 Gastroesophageal reflux disease with esophagitis without hemorrhage (ICD-10 - K21.00) Plan Of Treatment Medication Medication Name Sig Start Date Stop Date Notes Omeprazole 20 MG 1 capsule 30 minutes before morning meal Orally Once a day for 90 days 06/15/2023 Next Appt Details Provider Name:Edd escamilla, 06/20/2025 08:00:00 AM, [address] [place] [address], [address], [phone], Provider Name:Edd escamilla, 06/27/2025 10:00:00 AM, [address] [place] [address], [address], [phone], Provider Name:Edd escamilla, 11/24/2025 07:15:00 AM, [address] [place] [address], [address], [phone], Provider Name:Edd Briggs kimr, 12/26/2025 09:30:00 AM, [address], [address], [place]ann[place], [phone], Progress Notes * EMILIA CASILLAS ADOB:1955 (68 yo M)Acc No.[id number]:03/21/2024 Patient: EMILIA MONTIEL :1955 A ge:68 Y S ex:Male Address:[address] [place] [address], [address] * Refills Refill Omeprazole Capsule Delayed Release, 20 MG, Orally, 90, 1 capsule 30 minutes before morning meal, Once a day, 90 days, Refills=4 * true * Date: Generated for You harris/Phoenix/Benitting on: 07/08/2024 08:44 PM EST
--- OUTSIDE RECORDS SUMMARY | 2024-04-09 04:19 | XMS_ITS ---
Author Organization Edd Benitez MD Address [address] [place] [phone] Care Team Providers Care Claim Examiner Name Role Phone Edd Benitez Primary Care Provider [phone] REASON FOR VISIT refill Medications Medication SIG (Take, Route, Frequency, Duration) Notes Start Date End Date Status amLODIPine Besylate 5 MG TAKE 1 TABLET B Y MOUTH EVERY DAY FOR 90 DAYS Orally Once a day for 90 days Active Encounters Encounter Location Date Provider Diagnosis Edd Benitez MD [address] [place] [address] [phone] 04/09/2024 Edd Benitez Primary hypertension I10 Assessments Encounter Date Diagnosis (ICD Code) Assessment Notes Treatment Notes Treatment Clinical Notes Section Notes 04/09/2024 Primary hypertension (ICD-10 - I10) Plan Of Treatment Medication Medication Name Sig Start Date Stop Date Notes amLODIPine Besylate 5 MG TAKE 1 TABLET B Y MOUTH EVERY DAY FOR 90 DAYS Orally Once a day for 90 days Next Appt Details Provider Name:Edd escamilla, 06/20/2025 08:00:00 AM, [address] [place] [address], [address], [phone], Provider Name:Edd escamilla, 06/27/2025 10:00:00 AM, [address] [place] [address], [address], [phone], Provider Name:Edd escamilla, 11/24/2025 07:15:00 AM, [address] [place] [address], [phone], Provider Name:Edd Briggs francine, 12/26/2025 09:30:00 AM, [address], [address], [place], [place], [phone], Progress Notes * EMILIA CASILLAS ADOB:1955 (68 yo M)Acc No.[id number]:04/09/2024 Patient: EMILIA MONTIEL :1955 A ge:68 Y S ex:Male Address:[address] [place] [address], [address] * Refills Refill amLODIPine Besylate Tablet, 5 MG, Orally, 90, TAKE 1 TABLET BY MOUTH EVERY DAY FOR 90 DAYS, Once a day, 90 days, Refills=3 * true * Date: Generated for You harris/Phoenix/Benitting on: 1 07/08/2024 08:42 PM EST
--- OUTSIDE RECORDS SUMMARY | 2024-06-18 02:00 | XMS_ITS ---
Author Organization Edd Benitez MD Address [address] [place], [place] [phone] Care Team Providers Care Car Attendant Name Role Phone Edd Benitez Primary Care Provider Results Component Value Reference Range Notes Liver Panel Reviewed date:06/18/2024 02:31:04 PM Interpretation: Performing Lab:[facility], [address] [place] [phone] Notes/Report: Bilirubin Total 0.7 0.0-1.0 mg/dL Bilirubin Direct 0.2 0.0-0.5 mg/dL Aspartate Amino Transferase 29 5-37 U/L Alanine Aminotransferase 29 0-40 U/L Total Protein 7.7 6.5-8.0 g/dL Albumin Level 4.1 3.5-5.0 g/dL Alkaline Phosphatase 69 39-117 U/L Lipid Panel with Reflex Reviewed date:06/18/2024 04:29:16 PM Interpretation: Performing Lab:[facility], [address] [place] [phone] Notes/Report: Triglycerides 187 <150 mg/dL Desirable Triglyceride: less than 150 mg/dL Borderline High Triglyceride 150-199 mg/dL High Triglyceride: 200-499 mg/dL Very High Triglyceride: greater than or equal to 5OO mg/dL Cholesterol 182 <200 mg/dL Desirable Cholesterol: less than 200 mg/dL Borderline High Cholesterol: 200-239 mg/dL High Cholesterol: greater than 239 mg/dL LDL Cholesterol Calculated 95 <100 mg/dL Desirable LDL: less than 100 mg/dL Near Optimal/Above Optimal LDL: 110-129 mg/dL Borderline High LDL: 130-159 mg/dL High LDL: 160-189 mg/dL Very High LDL: greater than or equal to 190 mg/dL HDL Cholesterol 50 >40 mg/dL Desirable HDL: greater than 40 mg/dL Note: This HDL assay may give artificially low results in patients with liver disease. REASON FOR VISIT FASTING LIPIDS Encounters Encounter Location Date Provider Diagnosis Edd Benitez MD [address] [place] [address] [place] [phone] 06/18/2024 Edd Benitez Hypercholesteremia E 78.00 Assessments Encounter Date Diagnosis (ICD Code) Assessment Notes Treatment Notes Treatment Clinical Notes Section Notes 06/18/2024 Hypercholesteremia (ICD-10 - E78.00) Plan Of Treatment Next Appt Details Provider Name:Edd escamilla, 06/20/2025 08:00:00 AM, [address] [place] [address], [address], [phone], Provider Name:Edd escamilla, 06/27/2025 10:00:00 AM, [address] [place] [address], [address], [phone], Provider Name:Edd escamilla, 11/24/2025 07:15:00 AM, [address] [place] [address], [address], [phone], Provider Name:Edd escamilla, 12/26/2025 09:30:00 AM, [address] [place] [address], [address], [phone], Progress Notes * EMILIA CASILLAS ADOB:1955 (69 yo M)Acc No.[id number]:06/18/2024 Progress Note Patient: EMILIA MONTIEL Provider: Maria Fernanda Benitez MD :1955 A ge:69 Y S ex:Male Date:06/18/2024 Address:[address] [place], [place] [phone] Subjective: * Chief Complaints: * 1 . FASTING LIPIDS. * HPI: C ommunication Needs: Communication Needs D oes the patient have a hearing impairment Y es, I f yes, what is the hearing impairment? O ther, D oes the patient have a vision impairment? N o, D oes the patient have a cognition impairment? N o. * Medical History: Objective: * Vitals: Assessment: * Assessment: 1. H ypercholesteremia - E78.00 (Primary) Plan: * Treatment: * Procedure Codes: 3 6415 VENIPUNCT, ROUTINE* * * The named appointment provid er may or may not be the originator of this progress note, and it is not deemed complete until electronically signed by the appointment provider. Sign off status: Pending * Provider: Maria Fernanda Benitez MD Date: 0 06/18/2024 Generated for You harris/Phoenix/Moni on: 1 07/08/2024 08:42 PM EST History and Physical Notes * HPI (History of Present Illness) Category Sub-Category Detail Notes Category Not es Communication Needs Communication Needs Does the patient have a hearing impairment: Yes If yes, what is the hearing impairment?: Other Does the patient have a vision impairmen t?: No Does the patient have a cognition impair ment?: No
--- OUTSIDE RECORDS SUMMARY | 2024-06-21 05:45 | XMS_ITS ---
Author Organization Edd Benitez MD Address [address] [place], [place] [id number] Care Team Providers Care Supervisor Tubing Name Role Phone Edd Benitez Primary Care Provider [phone] Allergies No Known Allergies Reason For Referral Reason HYPERCHOLESTERIMIA Diagnosis 1 Hypercholesteremia ( E78.00) Referral Organization Edd Benitez MD Referring Provider First Name Edd Referring Provider Last Name Emmanuel Referring Provider Speciality Internal M edicine Referred Provider AUGUSTINA WARE Referred Provider Specialty Cardiology General Notes Sondra Workman 06/21/2024 11:22:25 AM >REFERRAL FAXED TO [facility], Sondra Workman 07/30/2024 10:05:35 AM >I CHECKED WITH KAILYN, HE HAS NOT BEEN SCHEDULED YET , WILL RECHECK, Sondra Workman 08/22/2024 01:25:40 PM >PER KAILYN AT [facility] , THEY HAVE LEFT HIM 2 MESSAGES AND HAVE NOT HEARD BACK YET. KAILYN SAID THEY WILL LEAVE ONE MORE MESSAGE, Sondra Workman 08/22/2024 01:31:56 PM >I ALSO LEFT FATHER SONJA A MESSAGE TO [facility] Patti A 08/26/2024 09:45:18 AM >APPT SCHEDULED WITH [facility] PER KAILYN, PATIENT IS AWARE Referral Priority Routine Referral Appointment Date 08/27/2024 REASON FOR VISIT 6 MO F/U Medications Medication SIG (Take, Route, Frequency, Duration) Notes Start Date End Date Status amLODIPine Besylate 5 MG TAKE 1 TABLET B Y MOUTH EVERY DAY FOR 90 DAYS Orally Once a day for 90 days Active Indomethacin 50 MG 1 capsule with food or milk Orally 3 times a day for 10 days 06/21/2024 Active Levothyroxine Sodium 100 MCG TAKE 1 TABLET BY MOUTH EVERY DAY IN THE MORNING ON EMPTY STOMACH Orally Once a day for 90 days Active Atorvastatin Calcium 40 MG TAKE 1 TABLET BY MOUTH EVERY DAY FOR 90 DAYS Orally Once a day Active Indomethacin 50 MG 1 capsule with food or milk Orally 3 times a day for 10 days 01/08/2024 Not-Taking Omeprazole 20 MG 1 capsule 30 minutes before morning meal Orally Once a day for 90 days 06/15/2023 Active Problems Problem Type SNOMED Code ICD Code Onset Dates Problem Status W/U Status Risk Notes Problem 60995105 Controlled gout (M10.9) Active confirmed Vital Signs Blood pressure systolic 122 mm Hg 06/21/19 Blood pressure diastolic 78 mm Hg 025 Height 70.5 in 06/21/2024 Weight 239 lbs 06/21/2024 BMI 33.8 kg/m2 06/21/2024 weight is down 6 [facility] 01-08-24 Encounters Encounter Location Date Provider Diagnosis Edd Benitez MD [address] [place] [address] [address] [place], [place] [phone] 06/21/2024 Edd Benitez Gastroesophageal ref lux disease with esophagitis without hemorrhage K21.00 ; Controlled gout M10.9 and Hypercholesteremia E78.00 Assessments Encounter Date Diagnosis (ICD Code) Assessment Notes Treatment Notes Treatment Clinical Notes Section Notes 06/21/2024 Gastroesophageal reflux disease with esophagitis without hemorrhage (ICD-10 - K21.00) 06/21/2024 Controlled gout (ICD-10 - M10.9) discussed the treatment and doesn't appear to need an allopurinal 06/21/2024 Hypercholesteremia (ICD-10 - E78.00) referral to dr ellis/ REFERRAL FAXED TO [facility] Plan Of Treatment Medication Medication Name Sig Start Date Stop Date Notes Indomethacin 50 MG 1 capsule with food or milk Orally 3 times a day for 10 days 06/21/2024 Omeprazole 20 MG 1 capsule 30 minutes before morning meal Orally Once a day for 90 days 06/15/2023 Treatment Notes Assessment Notes Controlled gout discussed the treatm ent and doesn't appear to need an allopurinal Hypercholesteremia referral to dr ellis / REFERRAL FAXED TO [facility] Referrals Referral Date Details 06/21/2024 06/21/2024, HYPERCHO ALEYDATERIMIA, DENITANATALIE WARE Next Appt Details Provider Name:Edd Briggs ier, 06/20/2025 08:00:00 AM, [address], [address], [place], [place], [phone], Provider Name:Edd Briggs ier, 06/27/2025 10:00:00 AM, [address], [address], [place], [place], [phone], Provider Name:Edd Briggs ier, 11/24/2025 07:15:00 AM, [address], [address], [place], [place], [phone], Provider Name:Edd Briggs kimr, 12/26/2025 09:30:00 AM, [address], [address], [place], [place], [phone], Progress Notes * EMILIA CASILLAS ADOB:1955 (69 yo M)Acc No.[id number]:06/21/2024 Progress Notes Patient: EMILIA MONTIEL Provider: Maria Fernanda Benitez MD :1955 A ge:69 Y S ex:Male Date:06/21/2024 Address:[address] [place], [place] [id number] Subjective: * Chief Complaints: * 6 MO F/U * HPI: S ymptom(s): patient is a 69 yo male here for 6 month follow up visit. feeling great. had something that was gout. went to pulp drier and put on prednisone. * ROS: G eneral/Constitutional: Denies C hills. D enies F atigue. D enies F ever. D enies H eadache. E NT: Patient denies d ecreased sense of smell, any loss of taste, sore throat. D enies S ore throat. R espiratory: Denies C ough. D enies S hortness of breath at rest. D enies S hortness of breath with exertion. C ardiovascular: Denies C hest pain at rest. D enies C hest pain with exertion. D enies D izziness. D enies P alpitations. D enies S hortness of breath. G astrointestinal: Denies D iarrhea. D enies N ausea. M usculoskeletal: Patient denies m uscle aches. P eripheral Vascular: Patient denies r ed and blue toes. * Medical History: * Surgical History: * Hospitalization/Major Diagno stic Procedure: * Medications: T akingAtorvastatin Calcium 40 MG Tablet TAKE 1 TABLET BY MOUTH EVERY DAY FOR 90 DAYS Orally Once a day Levothyroxine Sodium 100 MCG Tablet TAKE 1 TABLET BY MOUTH EVERY DAY IN THE MORNING ON EMPTY STOMACH Orally Once a day Omeprazole 20 MG Capsule Delayed Release 1 capsule 30 minutes before morning meal Orally Once a day amLODIPine Besylate 5 MG Tablet TAKE 1 TABLET BY MOUTH EVERY DAY FOR 90 DAYS Orally Once a day Taking Atorvastatin Calcium 40 MG Tablet TAKE 1 TABLET BY MOUTH EVERY DAY FOR 90 DAYS Orally Once a day Taking Levothyroxine Sodium 100 MCG Tablet TAKE 1 TABLET BY MOUTH EVERY DAY IN THE MORNING ON EMPTY STOMACH Orally Once a day Taking Omeprazole 20 MG Capsule Delayed Release 1 capsule 30 minutes before morning meal Orally Once a day Taking amLODIPine Besylate 5 MG Tablet TAKE 1 TABLET BY MOUTH EVERY DAY FOR 90 DAYS Orally Once a day Not-Taking/PRNIndomethacin 50 MG Capsule 1 capsule with food or milk Orally 3 times a day Medication List reviewed and reconciled with the patientNot-Taking/PRN Indomethacin 50 MG Capsule 1 capsule with food or milk Orally 3 times a day Medication List reviewed and reconciled with the patient * Allergies: N .K.D.A.yes[Allergies Verified] Objective: * Vitals: H t: 70.5, Wt: 239, BMI:33.8, BP:122/78, Wt-k.41. weight is down 6 pounds since 01-08-24. * P ast Orders: L ab:Liver Panel (Order Date - 06/18/2024) (Collection Date & Time - 06/18/2024 07:00 AM) Value Reference Range Bilirubin Total 0.7 0.0-1.0 - mg/dL Bilirubin Direct 0.2 0.0-0.5 - mg/dL Aspartate Amino Transferase 29 5-37 - U/L Alanine Aminotransferase 29 0-40 - U/L Total Protein 7.7 6.5-8.0 - g/dL Albumin Level 4.1 3.5-5.0 - g/dL Alkaline Phosphatase 69 39-117 - U/L L ab:Lipid Panel with Reflex (Order Date - 06/18/2024) (Collection Date & Time - 06/18/2024 07:00 AM) Value Reference Range Triglycerides 187 H <150 - mg/dL Cholesterol 182 <200 - mg/dL LDL Cholesterol Calculated 95 <100 - mg/dL HDL Cholesterol 50 >40 - mg/dL * Examination: G eneral Examination: GENERAL APPEARANCE: a lert, well hydrated, in no distress.? HEAD: n ormocephalic. SKIN: g ood turgor. HEART: n o murmurs, rubs, gallops, regular rate and rhythm.? LUNGS: n o wheezes, rales, rhonchi, good air movement, clear to auscultation bilaterally. Assessment: * Assessment: 1. G astroesophageal reflux disease with esophagitis without hemorrhage - K21.00 (Primary) 2 . C ontrolled gout - M10.9 3 . H ypercholesteremia - E78.00? Plan: * Treatment: 2. C ontrolled gout Start Indomethacin Capsule, 50 MG, 1 capsule with food or milk, Orally, 3 times a day, 10 days, 30 Capsule, Refills 1. Notes: discussed the treatment and doesn't appear to need an allopurinal 3. H ypercholesteremia Notes: referral to dr ellis/ REFERRAL FAXED TO [facility] ? Referral To:[facility] Reason:HYPERCHOLESTERIMIA * Procedure Codes: * * Sign off status: Completed true * Provider: Maria Fernanda Benitez MD Date: 0 06/21/2024 Generated for You harris/[place]/eTransmitting on: 1 07/08/2024 08:43 PM EST History and Physical Notes * HPI (History of Present Illness) Category Sub-Category Detail Notes Category Not es Symptom(s) patient is a 69 yo male here for 6 month follow up visit. feeling great. had something that was gout. went to pulp drier and put on prednisone Examination Category Sub-Category Detail Notes Category Not es General Examination GENERAL APPEARANCE: alert, w ell hydrated, in no distress HEAD: normocephalic HEART: no murmurs, rubs, ga llops, regular rate and rhythm LUNGS: no wheezes, rales, r honchi, good air movement, clear to auscultation bilaterally SKIN: good turgor Consultation Request Notes Referral Date Referring Provider Referred Provider Not es 06/21/2024 Edd Benitez HARIHARAN H YPERCHOLESTERIMIA
--- OUTSIDE RECORDS SUMMARY | 2024-12-13 03:00 | XMS_ITS ---
Author Organization Edd Benitez MD Address [address] [place], [place] [phone] Care Team Providers Care Employment Specialist/Program Manager Name Role Phone Edd Benitez Primary Care Provider Results Component Value Reference Range Notes Complete Blood Count Auto Di ff Reviewed date:12/13/2024 09:31:02 PM Interpretation: Performing Lab:[facility], [address] [place] [phone] Notes/Report: White Blood Count 5.6 4.8-10.8 X10*3/uL Red Blood Count 4.40 4.60-5.80 X10*6/uL Hemoglobin 14.6 14.0-18.0 g/dl Hematocrit 43.6 42.0-52.0 % Mean Corpuscular Volume 99.1 80.0-98.0 fL Mean Corpuscular Hemoglobin 33.2 27.0-33.0 pg Mean Corpuscular HGB Conc 33.5 31.0-36.0 g/dl Red Cell Distribution Width 12.6 11.0-16.0 % Platelet Count 232 160-400 X10*3/uL Mean Platelet Volume 10.9 9.4-12.4 fL Neutrophils Percent Auto 53.8 45-73 % Imm Gran Pct Auto 0.2 0.0-0.4 % Lymphocytes Percent Auto 27.4 20-40 % Monocytes Percent Auto 13.2 2-11 % Eosinophils Percent Auto 4.7 0-4 % Basophils Percent Auto 0.7 0-2 % NRBC Pct Auto 0.0 0.0-0.2 /100WBC Neutrophils Absolute Auto 3.0 2.0-8.3 x10*3/u L Imm Gran Abs Auto 0.01 0.00-0.03 X10*3/uL Lymphocytes Absolute Auto 1.5 1.2-4.9 X10*3/u L Monocytes Absolute Auto 0.7 0.1-1.2 X10*3/uL Eosinophils Absolute Auto 0.3 0.0-0.4 X10*3/u L Basophils Absolute Auto 0.0 0.0-0.2 X10*3/uL NRBC Abs Auto 0.000 0.0-0.012 X10*3/uL Comprehensive [place]. Panel Fa st Reviewed date:12/20/2024 11:37:38 AM Interpretation:soha 12/20/24 Performing Lab:[facility], [address] [place] [phone] Notes/Report: Sodium 140 135-145 mmol/L Potassium 4.1 3.3-5.1 mmol/L Chloride 106 96-108 mmol/L Carbon Dioxide 24 22-29 mmol/L Anion Gap 14 12-20 Blood Urea Nitrogen 12 9-16 mg/dL Creatinine 1.09 0.5-1.4 mg/dL Estimated Glomerular Filt Rate > 60 Chronic Kidney Disease: Estimated GFR < 60 mL/min/1.73m2 Severe Kidney Disease: Estimated GFR < 15 mL/min/1.73m2 Glucose Fasting 86 60-99 mg/dL Calcium 9.5 8.4-10.2 mg/dL Bilirubin Total 1.2 0.0-1.0 mg/dL Aspartate Amino Transferase 50 5-37 U/L Alanine Aminotransferase 46 0-40 U/L Total Protein 7.7 6.5-8.0 g/dL Albumin Level 4.8 3.5-5.0 g/dL Alkaline Phosphatase 71 39-117 U/L Lipid Panel Reviewed date:12/13/2024 09:07:24 PM Interpretation: Performing Lab:[address] [phone] Notes/Report: Triglycerides 104 <150 mg/dL Desirable Triglyceride: less than 150 mg/dL Borderline High Triglyceride 150-199 mg/dL High Triglyceride: 200-499 mg/dL Very High Triglyceride: greater than or equal to 5OO mg/dL Cholesterol 146 <200 mg/dL Desirable Cholesterol: less than 200 mg/dL Borderline High Cholesterol: 200-239 mg/dL High Cholesterol: greater than 239 mg/dL LDL Cholesterol Calculated 69 <100 mg/dL Desirable LDL: less than 100 mg/dL Near Optimal/Above Optimal LDL: 110-129 mg/dL Borderline High LDL: 130-159 mg/dL High LDL: 160-189 mg/dL Very High LDL: greater than or equal to 190 mg/dL HDL Cholesterol 57 >40 mg/dL Desirable HDL: greater than 40 mg/dL Note: This HDL assay may give artificially low results in patients with liver disease. PSA,Total (Free>4and<10) Reviewed date:12/20/2024 11:53:37 AM Interpretation:12-20-2024 Performing Lab:[facility], [address] [place] [phone] Notes/Report: PSA,Total (Free>4and<10) 8.39 0.00-4.00 ng/mL PSA methodology: [place] Alinity i Chemiluminescent Microparticle Immunoassay (CMIA) TSH reflex Free T4 Reviewed date:12/13/2024 09:07:33 PM Interpretation: Performing Lab:[facility], [address] [place] [phone] Notes/Report: TSH reflex Free T4 3.29 0.32-4.0 uIU/mL UA ClnCatch+Micro w/rflx Cul t Reviewed date:12/13/2024 09:09:08 PM Interpretation: Performing Lab:[facility], [address] [place] [phone] Notes/Report: Urine, Clean Catch Color Urine Yellow Appearance Urine Clear PH 6.0 5.0-9.0 Glucose Urine UA Negative Negative mg/dL Urine Blood Negative Negative Specific [place] - Urine 1.010 1.005-1.025 Urine Protein Negative Neg-Trace mg/dL Urine Ketones Trace Negative mg/dL Nitrite Urine Negative Negative Leukocyte Esterase Urine Negative Negative RBC Urine 0-2 0-2 /HPF WBC Urine 0-5 0-5 /HPF Squamous Epithelial Cell Urine 0-2 0-2 /HPF Bacteria Urine None Seen None Seen Hyaline Casts Urine 0-2 0-2 /LPF REASON FOR VISIT FASTING LABS PSA Encounters Encounter Location Date Provider Diagnosis Edd Benitez MD [address] [place] [phone] 12/13/2024 Edd Benitez Hypercholesteremia E 78.00 ; Acquired hypothyroidism E03.9 and Primary hypertension I10 Assessments Encounter Date Diagnosis (ICD Code) Assessment Notes Treatment Notes Treatment Clinical Notes Section Notes 12/13/2024 Hypercholesteremia (ICD-10 - E78.00) 12/13/2024 Acquired hypothyroidism (ICD-10 - E03.9) 12/13/2024 Primary hypertension (ICD-10 - I10) Plan Of Treatment Next Appt Details Provider Name:Edd escamilla, 06/20/2025 08:00:00 AM, [address] [place] [address], [address] [place] [address], [phone], Provider Name:Edd escamilla, 06/27/2025 10:00:00 AM, [address] [place] [address], [address], [phone], Provider Name:Edd escamilla, 11/24/2025 07:15:00 AM, [address] [place] [address], [address], [phone], Provider Name:Edd escamilla, 12/26/2025 09:30:00 AM, [address] [place] [address], [address], [phone], Progress Notes * EMILIA CASILLAS ADOB:1955 (69 yo M)Acc No.[id number]:12/13/2024 Progress Note Patient: EMILIA MONTIEL Provider: Maria Fernanda Benitez MD :1955 A ge:69 Y S ex:Male Date:12/13/2024 Address:[address] [place], [place] [phone] Subjective: * Chief Complaints: * 1 . FASTING LABS PSA. * Medical History: Objective: * Vitals: Assessment: * Assessment: 1. H ypercholesteremia - E78.00 (Primary) 2 . A cquired hypothyroidism - E03.9 3 . P rimary hypertension - I10 Plan: * Treatment: 2. A cquired hypothyroidism L AB: Complete Blood Count Auto Diff (Collection Date & Time - 12/13/2024 08:00 AM) L AB: Comprehensive [place]. Panel Fast (Collection Date & Time - 12/13/2024 08:00 AM) L AB: Lipid Panel (Collection Date & Time - 12/13/2024 08:00 AM) L AB: PSA,Total (Free>4and<10) (Collection Date & Time - 12/13/2024 08:00 AM) L AB: TSH reflex Free T4 (Collection Date & Time - 12/13/2024 08:00 AM) L AB: UA ClnCatch+Micro w/rflx Cult (Collection Date & Time - 12/13/2024 08:00 AM) 3. P rimary hypertension L AB: Complete Blood Count Auto Diff (Collection Date & Time - 12/13/2024 08:00 AM) L AB: Comprehensive [place]. Panel Fast (Collection Date & Time - 12/13/2024 08:00 AM) L AB: Lipid Panel (Collection Date & Time - 12/13/2024 08:00 AM) L AB: PSA,Total (Free>4and<10) (Collection Date & Time - 12/13/2024 08:00 AM) L AB: TSH reflex Free T4 (Collection Date & Time - 12/13/2024 08:00 AM) L AB: UA ClnCatch+Micro w/rflx Cult (Collection Date & Time - 12/13/2024 08:00 AM) * Procedure Codes: 3 6415 VENIPUNCT, ROUTINE* * * The named appointment provid er may or may not be the originator of this progress note, and it is not deemed complete until electronically signed by the appointment provider. Sign off status: Pending * Provider: Maria Fernanda Benitez MD Date: 0 12/13/2024 Generated for You harris/Phoenix/Benitting on: 1 07/08/2024 08:42 PM EST
--- OUTSIDE RECORDS SUMMARY | 2024-12-20 06:00 | XMS_ITS ---
Author Organization Edd Benitez MD Address [address] [place], [place] [phone] Care Team Providers Care Field Pipe Lines Supervisor Name Role Phone Edd Benitez Primary Care Provider [phone] Allergies No Known Allergies REASON FOR VISIT review labs/ must see PSA labs Medications Medication SIG (Take, Route, Frequency, Duration) Notes Start Date End Date Status Levothyroxine Sodium 100 MCG TAKE 1 TABLET BY MOUTH EVERY DAY IN THE MORNING ON EMPTY STOMACH Orally Once a day for 90 days Active Ezetimibe 10 MG 1 tablet Orally Once a day Active Indomethacin 50 MG 1 capsule with food or milk Orally 3 times a day for 10 days 01/08/2024 Not-Taking Atorvastatin Calcium 40 MG TAKE 1 TABLET BY MOUTH EVERY DAY for 90 Active Indomethacin 50 MG 1 capsule with food or milk Orally 3 times a day for 10 days 06/21/2024 Active Omeprazole 20 MG 1 capsule 30 minutes before morning meal Orally Once a day for 90 days 06/15/2023 Active amLODIPine Besylate 5 MG TAKE 1 TABLET B Y MOUTH EVERY DAY FOR 90 DAYS Orally Once a day for 90 days Active Social History Tobacco Use: Social [...] Never (0 point) Points 1 Interpretation Negative Vital Signs Blood pressure systolic 122 mm Hg 12/21/19 25 Blood pressure diastolic 78 mm Hg 025 Height 70.5 in 12/20/2024 Weight 239 lbs 12/20/2024 BMI 33.8 kg/m2 12/20/2024 Encounters Encounter Location Date Provider Diagnosis Edd Benitez MD [address] [place] [address] Drive [address] [place], [place] [phone] 12/20/2024 Edd Benitez Controlled gout M10. 9 ; Primary hypertension I10 ; Hypercholesteremia E78.00 ; Acquired hypothyroidism E03.9 ; Gastroesophageal reflux disease without esophagitis K21.9 ; Colon cancer screening Z12.11 ; Depression screening Z13.31 and Elevated LFTs R79.89 Assessments Encounter Date Diagnosis (ICD Code) Assessment Notes Treatment Notes Treatment Clinical Notes Section Notes 12/20/2024 Controlled gout (ICD-10 - M10.9) 12/20/2024 Primary hypertension (ICD-10 - I10) well controlled 12/20/2024 Hypercholesteremia (ICD-10 - E78.00) cholesterol is good on meds 12/20/2024 Acquired hypothyroidism (ICD-10 - E03.9) tsh is good 12/20/2024 Gastroesophageal reflux disease without esophagitis (ICD-10 - K21.9) takig omeoprazole 12/20/2024 Colon cancer screeni ng (ICD-10 - Z12.11) getting colooscopy in 2 mo 12/20/2024 Depression screening (ICD-10 - Z13.31) 12/20/2024 Elevated LFTs (ICD-1 0 - R79.89) thinks he may be drinking too much and is going to change that. may be related to the statins and his obesity Plan Of Treatment Treatment Notes Assessment Notes Primary hypertension well controlled Hypercholesteremia cholesterol is good on meds Acquired hypothyroidism tsh is good Gastroesophageal reflux dise ase without esophagitis takig omeoprazole Colon cancer screening getting colooscop y in 2 mo Elevated LFTs thinks he may be dri nking too much and is going to change that. may be related to the statins and his obesity Next Appt Details Follow Up: 6 Months, Reason: Provider Name:Edd Briggs ier, 06/20/2025 08:00:00 AM, [address], [address], [place], [place], [phone], Provider Name:Edd Briggs kimr, 06/27/2025 10:00:00 AM, [address], [address], [place], [id number], Provider Name:Edd Briggs kimr, 11/24/2025 07:15:00 AM, [address], [address], [place], [phone], Provider Name:Edd Briggs kimr, 12/26/2025 09:30:00 AM, [address], [address], [place], [id number], Progress Notes * EMILIA CASILLAS ADOB:1955 (69 yo M)Acc No.[id number]:12/20/2024 Patient: EMILIA MONTIEL Provider: Maria Fernanda Benitez MD :1955 A ge:69 Y S ex:Male Date:12/20/2024 Address:[address] [place], [place] [id number] Subjective: * Chief Complaints: * r eview labs/ must see PSA labs * HPI: D epression Screening: PHQ-9 L ittle interest or pleasure in doing things N ot at all, F eeling down, depressed, or hopeless N ot at all, T rouble falling or staying asleep, or sleeping too much N ot at all, F eeling tired or having little energy N ot at all, P oor appetite or overeating N ot at all, F eeling bad about yourself or that you are a failure, or have let yourself or your family down N ot at all, T rouble concentrating on things, such as reading the newspaper or watching television N ot at all, M oving or speaking so slowly that other people could have noticed; or the opposite, being so fidgety or restless that you have been moving around a lot more than usual N ot at all, T houghts that you would be better off or of hurting yourself in some way N ot at all, T otal Score 0 . I nterpretation and Intervention D epression Screening Findings N egative, F ollow-Up for Depression : review of PHQ-9 found negative result, no follow-up needed. C ommunication Needs: Communication Needs D oes the patient have a hearing impairment Y es, I f yes, what is the hearing impairment? H lina of hearing, Hearing Aids, D oes the patient have a vision impairment? Y es, I f yes, what is the vision impairment? G lasses, D oes the patient have a cognition impairment? N o. F all Risk: History H ave you had any falls with injury in the past year? N o, H ave you had two or more falls in the past year? N o. S NIKO Questions: SDOH Questions I n the past year have you been worried about losing housing? N o, I n the past year have you or any family members you live with been unable to get any of the following when it was really needed? Check all that apply: N one. S ymptom(s): patient is a 69 yo male here for yearly evaluation. had a stress test and echo. had a cardiocath. * ROS: G eneral/Constitutional: Change in appetite d enies. C hills d enies. F ever d enies. O phthalmologic: Blurred vision d enies. D ischarge d enies. P ain d enies. E NT: Decreased hearing d enies. S ore throat d enies.?Swollen glands d enies. E ndocrine: Cold intolerance d enies. E xcessive thirst d enies. H eat intolerance d enies. W eight loss d enies. R espiratory: Cough d enies. S hortness of breath at rest d enies. S hortness of breath with exertion d enies. W heezing d enies. C ardiovascular: Chest pain at rest d enies. C hest pain with exertion?denies. I rregular heartbeat d enies. S hortness of breath d enies. ? G astrointestinal: Abdominal pain d enies. C hange in bowel habits d enies. D iarrhea d enies. N ausea d enies. R ectal bleeding d enies. V omiting d enies . G enitourinary: Blood in urine d enies. D ifficulty urinating d enies. F requent urination d enies. M usculoskeletal: Painful joints d enies. W eakness d enies. ? S kin: Dry skin d enies. I tching d enies. D enies?Mole(s), changes in moles, new moles or any lesions of concern. D enies P hotosensitivity. R donis d enies. N eurologic: Dizziness d enies. F ainting d enies. H eadache?denies. * Medical History: * Surgical History: * Hospitalization/Major Diagno stic Procedure: * Family History: F ather: . M other: . father with colon cancer and gallbladder cancer sister with breast cancer and bile duct cancer twin brother with melanoma and kidney cancer sster with breast and ovarian, Denies mental health/substance abuse family history. * Social History: T obacco Use: T obacco Use/Smoking P atient is a n onsmoker, A dditional Findings: Tobacco Non-User C urrent non-smoker, currently using no form of tobacco. D rugs/Alcohol: A lcohol Screen D id you have a drink containing alcohol in the past year? Y es, H ow often did you have a drink containing alcohol in the past year? M onthly or less (1 point), H ow many drinks did you have on a typical day when you were drinking in the past year? 1 or 2 drinks (0 point), H ow often did you have 6 or more drinks on one occasion in the past year? N ever (0 point), P oints 1 , I nterpretation N egative. M iscellaneous: C affeine: yes, frequency:, 1-2 cups per day. Community involvements: yes. Exercise: yes, walks 3 miles 2 times a week. Home smoke detector use: yes. Marital status: single. Travel outside of the [place]: no. * Medications: T akingEzetimibe 10 MG Tablet 1 tablet Orally Once a day Levothyroxine Sodium 100 MCG Tablet TAKE 1 TABLET BY MOUTH EVERY DAY IN THE MORNING ON EMPTY STOMACH Orally Once a day amLODIPine Besylate 5 MG Tablet TAKE 1 TABLET BY MOUTH EVERY DAY FOR 90 DAYS Orally Once a day Omeprazole 20 MG Capsule Delayed Release 1 capsule 30 minutes before morning meal Orally Once a day Indomethacin 50 MG Capsule 1 capsule with food or milk Orally 3 times a day Atorvastatin Calcium 40 MG Tablet TAKE 1 TABLET BY MOUTH EVERY DAY Taking Ezetimibe 10 MG Tablet 1 tablet Orally Once a day Taking Levothyroxine Sodium 100 MCG Tablet TAKE 1 TABLET BY MOUTH EVERY DAY IN THE MORNING ON EMPTY STOMACH Orally Once a day Taking amLODIPine Besylate 5 MG Tablet TAKE 1 TABLET BY MOUTH EVERY DAY FOR 90 DAYS Orally Once a day Taking Omeprazole 20 MG Capsule Delayed Release 1 capsule 30 minutes before morning meal Orally Once a day Taking Indomethacin 50 MG Capsule 1 capsule with food or milk Orally 3 times a day Taking Atorvastatin Calcium 40 MG Tablet TAKE 1 TABLET BY MOUTH EVERY DAY Not-Taking/PRNIndomethacin 50 MG Capsule 1 capsule with food or milk Orally 3 times a day Not-Taking/PRN Indomethacin 50 MG Capsule 1 capsule with food or milk Orally 3 times a day * Allergies: N .K.D.A.yes[Allergies Verified] Objective: * Vitals: H t: 70.5, Wt: 239, BMI:33.8, BP:122/78, Wt-k.41. * P ast Orders: L ab:Complete Blood Count Auto Diff (Order Date - 12/13/2024) (Collection Date & Time - 12/13/2024 08:00 AM) Value Reference Range White Blood Count 5.6 4.8-10.8 - X10*3/uL Red Blood Count 4.40 L 4.60-5.80 - X10*6/uL Hemoglobin 14.6 14.0-18.0 - g/dl Hematocrit 43.6 42.0-52.0 - % Mean Corpuscular Volume 99.1 H 80.0-98.0 - fL Mean Corpuscular Hemoglobin 33.2 H 27.0-33.0 - pg Mean Corpuscular HGB Conc 33.5 31.0-36.0 - g/ dl Red Cell Distribution Width 12.6 11.0-16.0 - % Platelet Count 232 160-400 - X10*3/uL Mean Platelet Volume 10.9 9.4-12.4 - fL Neutrophils Percent Auto 53.8 45-73 - % Imm Gran Pct Auto 0.2 0.0-0.4 - % Lymphocytes Percent Auto 27.4 20-40 - % Monocytes Percent Auto 13.2 H 2-11 - % Eosinophils Percent Auto 4.7 H 0-4 - % Basophils Percent Auto 0.7 0-2 - % NRBC Pct Auto 0.0 0.0-0.2 - /100WBC Neutrophils Absolute Auto 3.0 2.0-8.3 - x10* 3/uL Imm Gran Abs Auto 0.01 0.00-0.03 - X10*3/uL Lymphocytes Absolute Auto 1.5 1.2-4.9 - X10* 3/uL Monocytes Absolute Auto 0.7 0.1-1.2 - X10*3/ uL Eosinophils Absolute Auto 0.3 0.0-0.4 - X10* 3/uL Basophils Absolute Auto 0.0 0.0-0.2 - X10*3/ uL NRBC Abs Auto 0.000 0.0-0.012 - X10*3/uL L ab:Lipid Panel (Order Date - 12/13/2024) (Collection Date & Time - 12/13/2024 08:00 AM) Value Reference Range Triglycerides 104 <150 - mg/dL Cholesterol 146 <200 - mg/dL LDL Cholesterol Calculated 69 <100 - mg/dL HDL Cholesterol 57 >40 - mg/dL L ab:TSH reflex Free T4 (Order Date - 12/13/2024) (Collection Date & Time - 12/13/2024 08:00 AM) Value Reference Range TSH reflex Free T4 3.29 0.32-4.0 - uIU/mL L ab:UA ClnCatch+Micro w/rflx Cult (Order Date - 12/13/2024) (Collection Date & Time - 12/13/2024 08:00 AM) Value Reference Range Color Urine Yellow - Appearance Urine Clear - PH 6.0 5.0-9.0 - Glucose Urine UA Negative Negative - mg/dL Urine Blood Negative Negative - Specific [place] - Urine 1.010 1.005-1.025 - Urine Protein Negative Neg-Trace - mg/dL Urine Ketones Trace Negative - mg/dL Nitrite Urine Negative Negative - Leukocyte Esterase Urine Negative Negative - RBC Urine 0-2 0-2 - /HPF WBC Urine 0-5 0-5 - /HPF Squamous Epithelial Cell Urine 0-2 0-2 - /HP F Bacteria Urine None Seen None Seen - Hyaline Casts Urine 0-2 0-2 - /LPF L ab:PSA Free and Total (Order Date - 12/13/2024) (Collection Date & Time - 12/13/2024 11:12 AM) Value Reference Range Prostate Specific Ag Total 7.1 A < OR = 4.0 - ng/mL Percent Free Prostate Spec Ag 18 A >25 - % (c alc) Free Prostate Spec Ag 1.3 - ng/mL * Examination: G eneral Examination: GENERAL APPEARANCE: w ell developed, well nourished, in no acute distress. HEAD: n ormocephalic, atraumatic. EYES: p upils equal, round, reactive to light and accommodation, sclera non-icteric. EARS: n ormal. ORAL CAVITY: m ucosa moist. THROAT: c lear. NECK/THYROID: n chiki supple, full range of motion, no cervical lymphadenopathy, no bruits. SKIN: w arm and dry, no suspicious lesions rt calf with lesion like a wart. HEART: r egular rate and rhythm, S1, S2 normal, no murmurs.? LUNGS: c lear to auscultation bilaterally. ABDOMEN: s oft, nontender, nondistended, bowel sounds present, normal, no organomegaly , no masses palpable. RECTAL EXAM: n ormal tone, no external hemorrhoids, no masses palpable, prostate normal, stool guaiac negative. MALE GENITOURINARY: c ircumcised, no penile lesions or discharge, testes descended bilaterally, no testicular mass. EXTREMITIES: n o clubbing, cyanosis, or edema. NEUROLOGIC: n onfocal, motor strength normal upper and lower extremities, sensory exam intact. Assessment: * Assessment: 1. C ontrolled gout - M10.9 (Primary) 2 . P rimary hypertension - I10 ? 3 . H ypercholesteremia - E78.00 4 . A cquired hypothyroidism - E03.9 5 . G astroesophageal reflux disease without esophagitis - K21.9 6 . C olon cancer screening - Z12.11 7 . D epression screening - Z13.31 8 . E levated LFTs - R79.89 Plan: * Treatment: 2. H ypercholesteremia Notes: cholesterol is good on meds 3. A cquired hypothyroidism Notes: tsh is good 4. G astroesophageal reflux disease without esophagitis Notes: takig omeoprazole 5. C olon cancer screening Notes: getting colooscopy in 2 mo 6. E levated LFTs Notes: thinks he may be drinking too much and is going to change that. may be related to the statins and his obesity * Procedure Codes: * Preventive Medicine: Counseling: C are goal follow-up plan: C ounseling for abnormal BMI provided?Yes, A get Normal BMI Follow-up G iving encouragement to exercise. * Follow Up: 6 Months * * Sign off status: Completed true * Provider: Maria Fernanda Benitez MD Date: 0 12/20/2024 Generated for You harris/Phoenix/Bneitting on: 1 07/08/2024 08:43 PM EST History and Physical Notes * HPI (History of Present Illness) Category Sub-Category Detail Notes Category Not es Symptom(s) patient is a 69 yo male here for yearly evaluation. had a stress test and echo. had a cardiocath Depression Screening PHQ-9 Little inte rest or pleasure in doing things: Not at all Feeling down, depressed, or hopeless: No t at all Trouble falling or staying asleep, or sl eeping too much: Not at all Feeling tired or having little energy: N ot at all Poor appetite or overeating: Not at all Feeling bad about yourself o r that you are a failure, or have let yourself or your family down: Not at all Trouble concentrating on thi ngs, such as reading the newspaper or watching television: Not at all Moving or speaking so slowly that other people could have noticed; or the opposite, being so fidgety or restless that you have been moving around a lot more than usual: Not at all Thoughts that you would be b richard off or of hurting yourself in some way: Not at all Total Score: 0 Interpretation and Intervention Depression Marifere bhavya Findings: Negative Follow-Up for Depression: : review of PH Q-9 found negative result, no follow-up needed SDOH Questions SDOH Questions In the past year have you been worried about losing housing?: No In the past year have you or any family members you live with been unable to get any of the following when it was really needed? Check all that apply:: None Fall Risk History Have you had any falls with injury i n the past year?: No Have you had two or more falls in the year?: No Communication Needs Communication Needs Does the patient have a hearing impairment: Yes If yes, what is the hearing impairment?: Hard of hearing, Hearing Aids Does the patient have a vision impairmen t?: Yes If yes, what is the vision impairment?: Glasses Does the patient have a cognition impair ment?: No Examination Category Sub-Category Detail Notes Category Not es General Examination GENERAL APPEARANCE: well dev eloped, well nourished, in no acute distress HEAD: normocephalic, atrau matic EYES: pupils equal, round, reactive to light and accommodation, sclera non-icteric EARS: normal THROAT: clear NECK/THYROID: neck supple, full ra nge of motion, no cervical lymphadenopathy, no bruits HEART: regular rate and rhy thm, S1, S2 normal, no murmurs LUNGS: clear to auscultatio n bilaterally ABDOMEN: soft, nontender, non distended, bowel sounds present, normal, no organomegaly , no masses palpable NEUROLOGIC: nonfocal, motor stre ngth normal upper and lower extremities, sensory exam intact SKIN: warm and dry, no rachel picious lesions rt calf with lesion like a wart EXTREMITIES: no clubbing, cyanosi s, or edema MALE GENITOURINARY: circumcised, no peni le lesions or discharge, testes descended bilaterally, no testicular mass RECTAL EXAM: normal tone, no exte rnal hemorrhoids, no masses palpable, prostate normal, stool guaiac negative ORAL CAVITY: mucosa moist
--- OUTSIDE RECORDS SUMMARY | 2024-12-24 09:51 | XMS_ITS ---
Author Organization Edd Benitez MD Address [address] [place] [address] [place] [phone] Care Team Providers Care Traffic Control Signaler Name Role Phone Edd Benitez Primary Care Provider REASON FOR VISIT ct heart order for 2025 Encounters Encounter Location Date Provider Diagnosis Edd Benitez MD [address] [place] [address] [place] [phone] 12/24/2024 Edd Benitez Hyperlipidemia E78.5 Assessments Encounter Date Diagnosis (ICD Code) Assessment Notes Treatment Notes Treatment Clinical Notes Section Notes 12/24/2024 Hyperlipidemia (ICD-10 - E78.5) Plan Of Treatment Pending Test Test Name Order Date CT Coronary Calcium Score 12/24/2024 Next Appt Details Provider Name:Edd escamilla, 06/20/2025 08:00:00 AM, [address] [place] [address], [address], [id number], Provider Name:Edd escamilla, 06/27/2025 10:00:00 AM, [address] [place] [address], [address], [id number], Provider Name:Edd escamilla, 11/24/2025 07:15:00 AM, [address] [place] [address], [address], [id number], Provider Name:Edd escamilla, 12/26/2025 09:30:00 AM, [address] [place] [address], [id number], Progress Notes * EMILIA CASILLAS ADOB:1955 (69 yo M)Acc No.[id number]:12/24/2024 Patient: EMILIA MONTIEL :1955 A ge:69 Y S ex:Male Address:[address] [place] [address], [place] [address] Subjective: * Chief Complaints: * C t heart order for 2025 * Medical History: * Surgical History: * Hospitalization/Major Diagno stic Procedure: * Medications: Objective: * Vitals: * Physical Examination: Assessment: * Assessment: 1. H erlipidemia - E78.5 Plan: * Treatment: * Procedure Codes: * true * Date: Generated for You harris/Phoenix/Moni on: 07/08/2024 08:44 PM EST
--- OUTSIDE RECORDS SUMMARY | 2025-02-28 04:30 | XMS_ITS ---
Author Organization [facility] Address [address] [place] [address] Care Team Providers Care Fiction Writer Name Role Phone Emmanuel CAMPBELL, Edd Primary Care Provider Lamont Hodgson [phone] REASON FOR VISIT screening,fam hx colon ca in father Encounters Encounter Location Date Provider Diagnosis [facility] [place] Outpatient [address] [place] [phone] 02/28/2025 Lamont Moran Plan Of Treatment No Information Progress Notes * EMILIA CASILLASDOB:1955 ( 69 yo M)Acc No.[id number]:02/28/2025 EGD and COL/MAC Patient: EMILIA MONTIEL Provider: Clint Moran MD :1955 A ge:69 Y S ex:Male Date:02/28/2025 Address:[address] [place], [place] [id number] Pcp:Edd Benitez MD Subjective: * Chief Complaints: * S creening,fam hx colon ca in father Billing Information: * Procedure Codes: * The named appointment provid er may or may not be the originator of this progress note, and it is not deemed complete until electronically signed by the appointment provider. Sign off status: Pending * Provider: Clint Moran MD Date: 1 Generated for Billyi ng/Faxing/eTransmitting on: 1 07/08/2024 08:42 PM EST
--- NOTE | 2025-05-07 16:54 | MHC.AU.HA2 ---
Hearing Instrument Fitting- Adult- Binaural Date of Visit: 05/07/25 Hearing Instruments Dispensed: Right Ear: Make, Model, Color, Serial Number: Oticon Intent 1 miniRITE-R SN: [id number] Color: Blue Foot And Ankle Surgeon Repair Warranty: 05/08/2028 Foot And Ankle Surgeon Loss and Damage Warranty: 05/08/2028 [facility] Service Plan: 05/07/2028 Battery Size: Rechargeable Power Plant Engineer/Slim Tube: 3/85 Earmold/Dome/CShell/SlimTip: 10mm vented dome with retention tail Type of Wax Guard: miniFit Left Ear: Make, Model, Color, Serial Number: Oticon Intent 1 miniRITE-R SN: [id number] Color: Blue Foot And Ankle Surgeon Repair Warranty: 05/08/2028 Foot And Ankle Surgeon Loss and Damage Warranty: 05/08/2028 [facility] Service Plan: 05/07/2028 Battery Size: Rechargeable Power Plant Engineer/Slim Tube: 3/85 Earmold/Dome/CShell/SlimTip: 10mm vented dome with retention tail Type of Wax Guard: miniFit Accessories/Assistive Technology: Oticon Sirius SmartCharger SN: [id number] Summary of Fitting: Could not perform feedback analyzer or real ear measures due to technical difficulties. HAs preprogrammed prior to appointment, set at initial fit settings. Per Tr, noticeable improvement in sound quality compared to old HAs, sound clearer. Discussed care, use, and rechargeability including manually turning on/off. Reviewed cleaning. As a long-time H[employer]NESSY user, Tr familiar with general maintenance, insertion/removal, etc. Paired to cellphone and Oticon Naphthalene Still Operator doug. Recommendations: A hearing instrument follow-up was scheduled. Diagnosis Code(s): Primary Diagnosis: H90.3 Bilateral Sensorineural Hearing Loss Signature: Provider: Venancio Conklin, [facility]
--- OUTSIDE RECORDS SUMMARY | 2025-05-07 20:42 | XMS_ITS | Continuity of Care Document ---
Author Organization [place] - [facility], [facility] Address [address] [place] [address] Care Team Providers Care Computer Programming Professor Name Role Phone LEAHANNELIESE USN Primary Care Provider [phone] Assessment Encounter Date Assessment Date Assessment LastModified [...] He is medically cleared for amplification bilaterally. [email or web address] Not available 02/13/2025 14:49:55 Plan of Treatment Reminders Order Date Submit Date Provider Last Modified By Organization Details Last Modified Time Details Appointments None record ed. Lab None record ed. Referral None record ed. Procedures None record ed. Surgeries None record ed. Imaging None record ed. Medication Orders None record ed. Patient TargetsNo targets recorded. Patient InstructionsNo instructions [...] Mixed conductive and sensorineural hearing loss, bilateral 076129260 Active 2023 AWA BAILEY MD [address], [place], [address], [place] [facility] 14:50:29 Partial loss of ear ossicles 32941181 Active 2023 AWA BAILEY MD [address], [place], [address], [place] - [facility] 5 22:39:07 Hoarse 90121713 Active 2024 Romeo Enriquez, DO [address] [facility] [address], [place], [address], [facility] - [facility] 5 23:00:34 Laryngopharyng eal reflux 875028033 Active 2024 Romeo Enriquez, DO [address] [facility] [address], [place], [address], [place] [facility] 5 09:38:34 Gastroesophage al reflux disease without esophagitis 287445752 Active 2024 Romeo Enriquez DO [address] [facility], [place], [address], [facility] - [facility] 09:38:34 Edema of larynx 89792075 Active 2024 Romeo Enriquez, DO [address] [facility], [place], [address], [facility] - [facility] 09:38:34 Mixed conductive AND sensorineural hearing loss 82459783 Active 2024 MARIA ISABEL PATE [address], [place], [address], [place] [facility] 5 13:42:36 Sensorineural hearing loss of bilateral ears 179341249 Active 2024 PACO ZHANG AUD [address] [facility] [address], [place], [address], [place] [facility] 13:59:00 Disorder of the larynx 31034335 Active 2024 Romeo Enriquez [address] [place] [address], [place], [address], [place] [facility] 08:43:21 Problem Notes None recorded. Procedures Surgical History Date Name Laterality Status Provider Name and Address Organization Details Recorded Time 02/14/20 Comp Audio with Tymps - 66786 & 45771 completed MARIA ISABEL PATE [address] [place] [address], [address], [facility] - [facility] 02/13/2025 13:40:23 01/15/20 FOL_Reflux_DHL completed Romeo Enriquez DO [address] [place] [address], [address], [facility] - [facility] 01/14/2025 09:40:56 02/22/20 CT temporal bones - Xoran completed AWA BAILEY MD [address] [place] [address], [address], [facility] - [facility] 02/22/2024 13:36:35 02/22/20 24 Air & Bone Audio - 00523 completed AWA BAILEY MD [address] [place] [place] [address], [address], [facility] - [facility] 02/21/2024 21:34:31 02/22/20 24 Tymps & Reflexes - 37140 completed AWA BAILEY MD [address] [place] [place] [address], [address], [facility] - [facility] 02/21/2024 21:34:32 02/22/20 24 SRT & Speech Recognition - 69078 completed AWA BAILEY MD [address] [place] [place] [address], [address], [place] - [facility] 02/21/2024 21:34:32 11/09/19 24 Air & Bone Audio - 56273 completed Carin Sanchez [facility] 11/09/2023 16:52:09 11/09/19 24 Tymps & Reflexes - 44989 completed Carin Sanchez [place] - [facility] 11/09/2023 16:51:42 11/09/19 24 SRT & Speech Recognition - 32091 completed Carin Sanchez [facility] 11/09/2023 16:52:24 Ear Surgery completed AWA BAILEY MD [address] [place] [address], [place], [address], [place] [facility] 11/09/2023 16:55:22 cholecystectomy completed Connie Garber [facility] 11/09/2023 15:35:12 Imaging Results None recorded. [...] Available omeprazole 20 mg capsule,jennifer yed release TAKE 1 CAPSULE BY MOUTH TWICE A DAY 2024 active Not Available Not Available Not [...] Tobacco Smoking Status Never Smoker Connie jones [facility] 11/09/2023 15:34:59 What Type Of Chief Sustainability Officer Do You Use? None Information not available 02/13/2025 Do You Have Any Pets? No [email or web address] Information not available 02/13/2025 Are You Passively Exposed To Smoke? No [email or web address] Information not available 02/13/2025 Are There Any Smokers In Your House? Yes [email or web address] Information not available 02/13/2025 Sex: Unknown Functional Status Question Answer Note LastModified by Organizat ion Details LastModified Time Do you use any illicit or recreational drugs? No [email or web address] Information not available 02/13/2025 Do you or have you ever used any other forms of tobacco or nicotine? No [email or web address] Information not available 02/13/2025 What is your level of alcohol consumption? Moderate [email or web address] Information not available 02/13/2025 Mental Status None recorded. Family History Nothing Reported. Medical History Condition Response Allergies/Hayfever N Heart Problems N Anxiety N Tonsil Infections N Emphysema N Migraines N Thyroid Problems Y Glaucoma N Developmental Delay N Depression N COPD N Nasal or Sinus Problems N Anemia N Immune System Disorder N Anesthesia Complications N Heart Attack (SC) N Other Skin Condition N Diabetes N [...] ICD10 Code Diagnosis IMO Codes Diagnosis Note [id number] Romeo Enriquez DO [facility] of [address] [address] 01/14/2025 09:05:04 01/14/2025 09:42:05 Hoarse 82150307 R49.0 124504 Laryngopha ryngeal reflux 981500179 K21.9 4888033 Edema of larynx 42597124 J38.4 99330 [id number] AWA BAILEY MD [facility] of [address] [address] 02/13/2025 13:21:36 02/14/2025 14:08:49 Partial loss of ear ossicles 94861086 H74.323 Mixed cond uctive and sensorineural hearing loss, bilateral 352129794 H90.6 Right Ear:Normal hearing through 500 Hz sloping to a profound SNHL with excellent speech discrimina tion.Type A tympanogra m.Left Ear:Normal hearing through 1K Hz sloping to a mild SNHL with excellent speech discrimina tion.Type A tympanogra m. 31646 MARIA ISABEL PATE [facility] of [address] [address] 02/13/2025 13:36:30 02/14/2025 12:35:44 Mixed conductive AND sensorineural hearing loss 59984535 H90.A32 35236546 Sensorineu ral hearing loss of bilateral ears 309870375 H90.3 97901545 Right Ear:Normal hearing through 500 Hz sloping [...] Ramirez Member ID Guarantor Name 02/13/2025 2 [place]: [facility] Tr Kim [id number] Tr Kim 02/13/2025 1 MEDICARE B-[place]: [employer] Tr Kim [id number] Tr Kim Notes Date Note Type Note [...] third set of hearing aids, managed through [email or web address]. The right device is currently broken. I [...] aid has been broken. AWA BAILEY MD [address] [place] [address], [address], [facility] - [facility] 02/13/2025 14:50:38
--- OUTSIDE RECORDS SUMMARY | 2025-05-07 20:42 | XMS_ITS | Continuity of Care Document ---
Author Organization [place] - [facility], [facility] Address [address] [place] [address] Care Team Providers Care Phys Therapist Name Role Phone HAILY KRISHNA Primary Care [...] Mixed conductive and sensorineural hearing loss, bilateral 276584068 Active 2023 AWA BAILEY MD [address] [place] [address], [address], [facility] - [facility] 14:50:29 Partial loss of ear ossicles 67465135 Active 2023 AWA BAILEY MD [address] [place] [address], [place], [address], [facility] - [facility] 5 22:39:07 Hoarse 95411544 Active 2024 Romeo Enriquez DO [address] [place] [address] [place], [address], [facility] - [facility] 5 23:00:34 Laryngopharyng eal reflux 396751666 Active 2024 Romeo Enriquez, DO [address] [facility] [place], [facility] [place], [address], [facility] - [facility] 5 09:38:34 Gastroesophage al reflux disease without esophagitis 580996125 Active 2024 Romeo Enriquez, DO 100 [facility], [facility] [place], [address], [place] - [facility] 5 09:38:34 Edema of larynx 72936123 Active 2024 Romeo Enriquez, DO 100 [facility], [place], [address], [facility] - [facility] 5 09:38:34 Mixed conductive AND sensorineural hearing loss 44641706 Active 2024 PACO ZHANG, AUD [address] [facility] [place], [facility], [address], [facility] - [facility] 5 13:42:36 Sensorineural hearing loss of bilateral ears 235423633 Active 2024 PACO ZHANG, AUD [address] [facility] [place], [place], [address], [facility] - [facility] 5 13:59:00 Disorder of the larynx 90311622 Active 2024 Romeo Enriquez, DO [address] [facility] [place], [facility] [place], [address], [facility] - [facility] 5 08:43:21 Problem Notes None recorded. Procedures Surgical History Date Name Laterality Status Provider Name and Address Organization Details Recorded Time 02/14/20 Comp Audio with Tymps - 24750 & 44581 completed PACO ZHANG, AUD [address] [facility] [place], [place], [address], [place] - [facility] 02/13/2025 13:40:23 01/15/20 25 FOL_Reflux_DHL completed Romeo Enriquez DO [address] [place] [address],[address], [address], [place] - [facility] 01/14/2025 09:40:56 02/22/[address] temporal bones - Xoran completed AWA BAILEY MD [address] [place] [address],[address], [address], [place] [facility] 02/22/2024 13:36:35 02/22/20 24 Air & Bone Audio - 82906 completed AWA BAILEY MD [address] [place] [address],[address], [address], [place] [facility] 02/21/2024 21:34:31 02/22/20 24 Tymps & Reflexes - 74131 completed AWA BAILEY MD [address] [place] [address],[address], [address], [place] [facility] 02/21/2024 21:34:32 02/22/20 24 SRT & Speech Recognition - 36311 completed AWA BAILEY MD [address] [place] [address],[address], [address], [place] - [facility] 02/21/2024 21:34:32 11/09/19 24 Air & Bone Audio - 48218 completed Carin Sanchez [place] - [facility] 11/09/2023 16:52:09 11/09/19 24 Tymps & Reflexes - 52994 completed Carin Sanchez [place] - [facility] 11/09/2023 16:51:42 11/09/19 24 SRT & Speech Recognition - 25429 completed Carin Sanchez [place] - [facility] 11/09/2023 16:52:24 Ear Surgery completed AWA BAILEY MD [address] [place] [address],[address], [address], [place] - [facility] 11/09/2023 16:55:22 cholecystectomy completed Connie Garber [place] - [facility] 11/09/2023 15:35:12 Imaging Results None recorded. Procedure [...] Tobacco Smoking Status Never Smoker Connie jones [place] - [facility] 11/09/2023 15:34:59 What Type Of Plate Sensitizer Do You Use? None [email or web address] Information not available 02/13/2025 Do You Have Any Pets? No [email or web address] Information not available 02/13/2025 Are You Passively Exposed To Smoke? No [email or web address] Information not available 02/13/2025 Are There Any Smokers In Your House? Yes [email or web address] Information not available 02/13/2025 Sex: Unknown Functional Status Question Answer Note LastModified by Organizat ion Details LastModified Time Do you use any illicit or recreational drugs? No [email or web address] Information not available 02/13/2025 Do you or have you ever used any other forms of tobacco or nicotine? No [email or web address] Information not available 02/13/2025 What is your level of alcohol consumption? Moderate [email or web address] Information not available 02/13/2025 Mental Status None recorded. Family History Nothing Reported. Medical History Condition Response Allergies/Hayfever N Heart Problems N Anxiety N Tonsil Infections N Emphysema N Migraines N Thyroid Problems Y Depression N COPD N Developmental Delay N Glaucoma N Nasal or Sinus Problems N Anemia N Immune System Disorder N Anesthesia Complications N Heart Attack ([place]) N Other Skin Condition N Diabetes N [...] ICD10 Code Diagnosis IMO Codes Diagnosis Note [id number] Romeo Enriquez DO [facility] of [address] [address] 01/14/2025 09:05:04 01/14/2025 09:42:05 Hoarse 53001374 R49.0 272955 Laryngopha ryngeal reflux 538836508 K21.9 3104402 Edema of larynx 98438885 J38.4 10354 [id number] AWA BAILEY MD [facility] [address] [address] 02/13/2025 13:21:36 02/14/2025 14:08:49 Partial loss of ear ossicles 78488138 H74.323 Mixed cond uctive and sensorineural hearing loss, bilateral 486177573 H90.6 Right Ear:Normal hearing through 500 Hz sloping to a profound SNHL with excellent speech discrimina tion.Type A tympanogra m.Left Ear:Normal hearing through 1K Hz sloping to a mild SNHL with excellent speech discrimina tion.Type A tympanogra m. 31746 MARIA ISABEL PATE [facility] [address] [address] 02/13/2025 13:36:30 02/14/2025 12:35:44 Mixed conductive AND sensorineural hearing loss 44023682 H90.A32 42882376 Sensorineu ral hearing loss of bilateral ears 427851035 H90.3 63293777 Right Ear:Normal hearing through 500 Hz sloping [...] Member ID Guarantor Name 02/13/2025 2 [place] [facility] Tr Kim [id number] Tr Kim 02/13/2025 1 MEDICARE B-[place]: [employer] Tr Kim [id number] Tr Kim Notes Date Note Type Note [...] third set of hearing aids, managed through [employer]. The right device is currently broken. I [...] aid has been broken. AWA BAILEY MD [address] [place] [address], [place], [address], [place] - [facility] 02/13/2025 14:50:38
--- OUTSIDE RECORDS SUMMARY | 2025-05-07 20:43 | XMS_ITS | Patient Health Record ---
Author Organization [facility] Address [address] [place] [address] Care Team Providers Care Hog Grader Name Role Phone Edd Benitez MD Primary Care Provider Lamont Hodgson Unavailable [phone] Allergies No Known Allergies Results Component Value Reference Range Notes Pathology Reviewed date:03/25/2025 07:05:40 PM Interpretation: Performing Lab:[facility], [address] [place] [address] Notes/Report: Reason For Referral No Information Medications Medication SIG (Take, Route, Frequency, Duration) Notes Start Date End Date Status Omeprazole 10 MG Capsule Delayed Release 1 capsule 1/2 to 1 hour before morning meal Orally Once a day; Duration: 30 day(s) 11/20/2024 Unknown Aspirin 81 81 MG Tablet Delayed Release 1 tablet Orally Once a day; Duration: 30 day(s) 11/20/2024 Unknown Levothyroxine Sodium 100 MCG Tablet 1 tablet in the morning on an empty stomach Orally Once a day; Duration: 30 day(s) 11/20/2024 Unknown amLODIPine Besylate 5 MG Tablet 1 tablet Orally Once a day; Duration: 30 day(s) 11/20/2024 Unknown Atorvastatin Calcium 40 MG Tablet 1 tablet Orally Once a day; Duration: 30 day(s) 11/20/2024 Unknown Immunizations Vaccine Route Administration Date Status Comme nts Influenza Unknown 02/06/2024 Administered Social History Tobacco Use: Social History Observation Description Date Details (start date - stop date) Never Smoker NA - NA Social History Drug/Alcohol: Social Info Question Answer Notes AUDIT-C (Standard) Did you have a drink containing alcohol in the past year? Yes How often did you have a drink containing alcohol in the past year? Daily or almost daily (4 points) How many drinks did you have on a typical day when you were drinking in the past year? 1 or 2 drinks (0 point) How often did you have six or more drinks on one occasion in the past year? 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 Problems Problem Type SNOMED Code ICD Code Onset Dates Problem Status W/U Status Risk Notes Problem Colon cancer screening (503162625) Colon cancer screening (Z12.11) Active confirmed Problem Preprocedural examination (591009402915544) Preprocedural examination (Z01.818) Active confirmed Problem Long-term current use of aspirin (631237823337475) Aspirin long-term use (Z79.82) Active confirmed Problem Family history of malignant neoplasm of gastrointestinal tract (438021393) Family history of colon cancer in father (Z80.0) Active confirmed Vital Signs Temperature 98.0 degrees Fahrenheit 11/20/2024 Blood pressure diastolic 01 mm Hg 11/20/2024 Height 70.5 in 11/20/2024 Blood pressure systolic 001 mm Hg 11/20/2024 Weight 240 lbs 11/20/2024 BMI 33.95 kg/m2 11/20/2024 Procedures Procedure Date Ordered Date Performed Result Body Sit e COLONOSCOPY 11/20/2024 N/A Encounters Encounter Location Date Provider Diagnosis [facility] [address] [place] [id number] 02/28/2025 Lamont Moran [facility] [address] [place] [address] 11/20/2024 Lamont Moran Preprocedural examination Z01.818 ; Aspirin long-term use Z79.82 ; Family history of colon cancer in father Z80.0 and Colon cancer screening Z12.11 [facility] [address] [place] [address] 11/20/2024 Lamont Moran [facility] [address] [place] [address] 11/20/2024 Lamont Moran [facility] [address] [place] [address] [place] [address] 11/20/2024 Lamont Pugh [facility] [address] [place] [address] 02/24/2025 Lamont Pugh [facility] [address] [place] [address] 03/25/2025 Lamont Pugh [facility] [address] [place] [address] 04/24/2025 Lamont Moran Assessments Encounter Date Diagnosis (ICD Code) Assessment [...] Test Test Name Order Date COLONOSCOPY 11/20/2024 Insurance Providers Payer Name Payer Address Payer Phone Subscriber Number Group Number Insured Name Patient Relationship to Insured Coverage Start Date Coverage End Date [place] [address] [place] [id number] EMILIA CASILLAS Self - patient is the insured 2 [facility] [address] [place] [address] [phone] [id number] EMILIA CASILLAS Self - patient is the insured Medical (General) History Medical History History ICD Code Kidney stones HTN Hyperlipidemia GERD Having cardiac w/u with Dr. Ellis Summer 2024 Hypothyroidism Denies [place],DM,CVA,Lung disease,renal dise ase Elevated PSA-sees Urologist Negative colonoscopies in 2010, 2014, an d 2019 in [place] Surgical History Surgery Date(Month/Year) Cholecystectomy 1994 Ear surgery as a child
--- OUTSIDE RECORDS SUMMARY | 2025-05-07 20:43 | XMS_ITS | Continuity of Care Document ---
Author Organization [place] - [facility], [facility] Address [address] [place] [address] Care Team Providers Care Seed Mill Superintendent Name Role Phone HAILY KRISHNA Primary Care Provider [phone] Assessment Encounter Date Assessment Date Assessment LastModified by Organization Details LastModified Time 03/26/2025 03/26/2025 Tr is a 69-year-old male who presents today with weeks of dysphonia and globus sensation. 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 We discussed vocal hygiene today and the importance of this for his job and livelihood. Flexible laryngoscopy revealed mild laryngopharyngeal reflux as well as an anterior glottic gap. And a possible left anterior sulcus. Worked with Rosalinda Richmond in December 2024 and underwent 8 weeks of speech therapy and SOVTE - Significantly improved with PPI and Weight loss - Avoidance of reflux foods which he is already started - Follow-up prn [email or web address] Not available 03/26/2025 14:20:05 Plan of Treatment Reminders Order Date Submit Date Provider Last Modified By Organization Details Last Modified Time Details Appointments None record ed. Lab None record ed. Referral None record ed. Procedures None record ed. Surgeries None record ed. Imaging None record ed. Medication Orders None record ed. Patient TargetsNo targets recorded. Patient InstructionsNo instructions recorded. Reason for Referral None Reported. Problems Name Problem SNOMED Code Status Onset Date Resolution Date Notes Provider Name and Address Organization Details Recorded Time Mixed conductive and sensorineural hearing loss, bilateral 728953952 Active 2023 AWA BAILEY MD [address], [address] [place] - [facility] 14:50:29 Partial loss of ear ossicles 13476647 Active 2023 AWA BAILEY MD 100 [facility],[address], [place], [address], [facility] - [facility] 22:39:07 Hoarse 71608974 Active 2024 Romeo Enriquez DO 100 [facility],[address] [facility], [place], [address], [facility] - [facility] 5 23:00:34 Laryngopharyng eal reflux 437432711 Active 2024 Romeo Enriquez DO 100 [facility], E [facility], [facility] [place], [address], [facility] - [facility] 09:38:34 Gastroesophage al reflux disease without esophagitis 590166743 Active 2024 Romeo Enriquez DO 100 [facility], E [facility], [facility] [place], [address], [facility] - [facility] 09:38:34 Edema of larynx 98199102 Active 2024 Romeo Enriquez DO 100 [facility], E [facility], [place], [address], [facility] - [facility] 09:38:34 Mixed conductive AND sensorineural hearing loss 75282600 Active 2024 PACO ZHANG, AUD 100 [facility], [facility] [place], [address], [facility] - [facility] 13:42:36 Sensorineural hearing loss of bilateral ears 920110243 Active 2024 PACO ZHANG, AUD 100 [facility],[address], [place], [address], [facility] - [facility] 13:59:00 Disorder of the larynx 08138181 Active 2024 Romeo Enriquez DO 100 [facility] 100[place], [address], [place] - [facility] 08:43:21 Problem Notes None recorded. Procedures Surgical History Date Name Laterality Status Provider Name and Address Organization Details Recorded Time 02/14/20 25 Comp Audio with Tymps - 07992 & 45077 completed PACO ZHANG, AUD 100 [facility],[address], [address], [place] - [facility] 02/13/2025 13:40:23 01/15/20 25 FOL_Reflux_DHL completed Romeo Enriquez, DO 100 [facility],[address], [address], [place] - [facility] 01/14/2025 09:40:56 02/22/[address] temporal bones - Xoran completed AWA BAILEY MD [address] [place] [address],[address], [address], [place] - [facility] 02/22/2024 13:36:35 02/22/20 24 Air & Bone Audio - 83534 completed AWA BAILEY MD 100 [facility],[address], [address], [place] - [facility] 02/21/2024 21:34:31 02/22/20 24 Tymps & Reflexes - 06635 completed AWA BAILEY MD [address], [address], [place] - [facility] 02/21/2024 21:34:32 02/22/20 24 SRT & Speech Recognition - 64400 completed AWA BAILEY MD 100 [facility],[address], [address], [place] - [facility] 02/21/2024 21:34:32 11/09/19 24 Air & Bone Audio - 62515 completed Carin Sanchez [place] - [facility] 11/09/2023 16:52:09 11/09/19 24 Tymps & Reflexes - 44508 completed Carin Sanchez [place] - [facility] 11/09/2023 16:51:42 11/09/19 SRT & Speech Recognition - 06912 completed Carin Sanchez [place] - [facility] 11/09/2023 16:52:24 Ear Surgery completed AWA BAILEY MD [address] [place] [address], [address], [facility] - [facility] 11/09/2023 16:55:22 cholecystectomy completed Connie Garber [place] - [facility] 11/09/2023 15:35:12 Imaging Results None recorded. Procedure [...] Time Tobacco Smoking Status Never Smoker [facility] [place] - [facility] 11/09/2023 15:34:59 What Type Of Controls Design Engineer Do You Use? None [email or web address] Information not available 02/13/2025 Do You Have Any Pets? No [email or web address] Information not available 02/13/2025 Are You Passively Exposed To Smoke? No [email or web address] Information not available 02/13/2025 Are There Any Smokers In Your House? Yes Information not available 02/13/2025 Sex: Unknown Functional Status Question Answer Note LastModified by Organizat ion Details LastModified Time Do you use any illicit or recreational drugs? No [email or web address] Information not available 02/13/2025 Do you or have you ever used any other forms of tobacco or nicotine? No [email or web address] Information not available 02/13/2025 What is your level of alcohol consumption? Moderate [email or web address] Information not available 02/13/2025 Mental Status None recorded. Family History Nothing Reported. Medical History Condition Response Allergies/Hayfever N Heart Problems N Anxiety N Tonsil Infections N Emphysema N Migraines N Thyroid Problems Y Glaucoma N Developmental Delay N Depression N COPD N Nasal or Sinus Problems N Anemia N Immune System Disorder N Anesthesia Complications N Heart Attack (ID) N Other Skin Condition N Diabetes N [...] ICD10 Code Diagnosis IMO Codes Diagnosis Note [id number] Romeo Enriquez DO [facility] of [address] [address] 03/26/2025 13:51:13 03/26/2025 14:17:31 Hoarse 11664053 R49.0 254590 Laryngopha ryngeal reflux 269856685 K21.9 6327615 Edema of larynx 12073271 J38.4 12985 Health Concerns Section Related Observation LastModified by Organization Detai ls LastModified Time None Recorded Concern Status LastModified by Organization Details LastModified Time None Recorded Payers Encounter Date Sequence Insurance Name Policy Number Policy Ramirez Covered Member ID Ramirez Member ID Guarantor Name 03/26/2025 2 [place] [facility] Tr Kim [id number] Tr Kim 03/26/2025 1 MEDIC[place] B-[place]: [employer] Tr Kim [id number] Tr Kim Notes Date Note Type Note Provider Name and Address Organization Details Recorded Time 03/26/2025 text/html ROS as noted in the HPI Interval history:Worked with Rosalinda Richmond in December 2024 and underwent 8 weeks of speech therapy and SOVTE. Still one more session. Doing omeprazole. Losing some weight. Feeling better overall. EGD performed with bx no concerns. Tr is a 69M presenting with concerns of hoarseness. The patient presents with throat concerns today. 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 Romeo Enriquez, DO 100 [facility],[place] [address], [place], [address], [facility] - [facility] 03/26/2025 14:20:15
--- OUTSIDE RECORDS SUMMARY | 2025-05-07 20:44 | XMS_ITS | Patient Health Record ---
Author Organization [facility] Address [address] [place] [address] Support Name Relationship Address Phone Tr Kim Guarantor Unknown [phone] Reason For Referral No Information Medications Medication [...]
--- OUTSIDE RECORDS SUMMARY | 2025-05-07 20:44 | XMS_ITS | Patient Health Record ---
Author Organization [facility] Address [address] [place] [address] Care Team Providers Care Forecast Analyst Name Role Phone Emmanuel CAMPBELL, Edd Primary Care Provider Haleigh Rodriguez Unavailable [phone] Allergies No Known Allergies Reason For Referral [...] Problem Acquired hammer toe of right foot (2015108561647831 ) Other hammer toe(s) (acquired), right foot (M20.41) Active confirmed Problem Gout (66116355) Gout of left foot (M10.9) Active confirmed Rx drug management (4) Problem Gout (60111152) Gout of right foot (M10.9) Active confirmed Rx drug management (4) Problem Localized, primary osteoarthritis of the ankle and/or foot (046742823) Arthritis of big toe (M19.079) Active confirmed Problem Acquired hallux varus (67204775) Hallux malleus of right foot (M20.31) Active confirmed Problem Localized, primary osteoarthritis of the ankle and/or foot (513135221) Arthritis of joint of lesser toe, right (M19.071) Active confirmed Vital Signs Blood pressure diastolic 65 mm Hg 06/07/2024 Height 5ft 10in in 06/07/2024 Blood pressure systolic 129 mm Hg 06/07/2024 Weight 235 lbs 06/07/2024 BMI 33.72 kg/m2 06/07/2024 [facility]counters [facility] [address] [facility] Haleigh Banks Pain in joint involving left ankle and foot M25.572 and Gout of left foot M10.[address] [address] 06/04/2024 Haleigh Banks [address] [address] 06/20/2024 Haleigh Banks Assessments Encounter Date Diagnosis [...] Inc [address] [place] [address] [id number] Tr Kim Self - patient is the insured Medical (General) History Medical History History ICD Code Back,Hip,and Knee pain Diverticulosis Gall bladder problems Gout High Blood Pressure Reflux ( GERD) Sciatica thyroid Measles Mumps Hearing loss Surgical History Surgery Date(Month/Year) Gall bladder removal 1994 tympanoplasty 1966
--- OUTSIDE RECORDS SUMMARY | 2025-05-07 20:44 | XMS_ITS | Patient Health Record ---
Author Organization [facility] Address [address] [address] [place] [address] Care Team Providers Care Regional Economic Liaison Name Role Phone Gareth Baker Unavailable [phone] Allergies No Known Allergies Reason For Referral [...] W/U Status Risk Notes Problem Postnasal drip (52967832) Postnasal drip (R09.82) Active confirmed Problem Allergic rhinitis (45872839) Allergic rhinitis (J30.9) Active confirmed Problem Laryngopharyngeal reflux (706935449) LPRD (laryngophary ngeal reflux disease) (K21.9) Active confirmed Plan Of Treatment No Information Insurance Providers Payer Name Payer Address Payer Phone Subscriber Number Group Number Insured Name Patient Relationship to Insured Coverage Start Date Coverage End Date [employer] [address] [place] [address] [id number] Tr Kim Self - patient is the insured Medical (General) History Medical History History ICD Code Chronic GERD K21.9 Surgical History Surgery Date(Month/Year)
--- OUTSIDE RECORDS SUMMARY | 2025-05-07 20:44 | XMS_ITS | Data Portability ---
Author Organization [place] - [facility], Allergy Address [address] [address] Care Team Providers Care Almond Sorter Name Role Phone HAILY KRISHNA Primary Care Provider [phone] Assessment Encounter Date Assessment Date Assessment LastModified by Organization Details LastModified Time 02/22/2024 02/22/2024 Both tympanic membranes show some [...] hearing aid evaluation or proceed with surgery. [email or web address] Not available 02/22/2024 14:25:44 01/14/2025 01/14/2025 Tr is a 69-year-old male who presents today with weeks of dysphonia and globus sensation. 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 We discussed vocal hygiene today and the importance of this for his job and livelihood. Flexible laryngoscopy revealed mild laryngopharyngeal reflux as well as an anterior glottic gap. And a possible left anterior sulcus. 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 [email or web address] Not available 02/13/2025 14:49:55 03/26/2025 03/26/2025 Tr is a 69-year-old male who presents today with weeks of dysphonia and globus sensation. 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 We [...] Appointments None recorded. Lab None recorded. Referral speech therapy referral 2024 025 ATHENAFAX Rosalinda Richmond, [address] [facility], [place], [address], 12:00:06 Procedures None recorded. Surgeries None recorded. Imaging None recorded. Medication Orders omeprazole 20 mg tablet,del ayed release 2024 025 [email or web address] [address] [facility]/Pharmacy #[id number], [address] [place] [address], [address], 14:10:02 Patient TargetsNo targets recorded. Patient InstructionsNo instructions recorded. Reason for Referral Referring Physician: Romeo Enriquez, Otolaryngology, Encounter Date: 01/14/2025 Results Created Date Observation Date Name Description Value Unit Range Abnormal Flag Note LastModifiedBy Organization Detail LastModifiedTime 03/11/2002/22/2024 CT, tempo ral bone, w/o contr ast No observ ation record ed. [email or web address] [facility] [address], [place], [address], 03/12/2024 08:28:57 02/14/20 audio gram No observ ation record ed. BARCODE Not Available 2024 15:08:55 Result Notes None recorded. Problems Name Problem SNOMED Code Status Onset Date Resolution Date Notes Provider Name and Address Organization Details Recorded Time Mixed conductive and sensorineural hearing loss, bilateral 159639756 Active 2023 AWA BAILEY MD [address] [place] [address], [address], [place] - [facility] 14:50:29 Partial loss of ear ossicles 13794274 Active 2023 AWA BAILEY MD [address] [facility], [place], [address], [facility] - [facility] 22:39:07 Hoarse 48375482 Active 2024 Romeo Enriquez, DO [address] [facility],[address], [place], [address], [facility] - [facility] 23:00:34 Laryngopharyng eal reflux 692730250 Active 2024 Romeo Enriquez, DO [address] [facility] [place], [place], [address], [place] - [facility] 09:38:34 Gastroesophage al reflux disease without esophagitis 560560388 Active 2024 Romeo Enriquez, DO [address] [facility] [place], [place], [address], [facility] - [facility] 09:38:34 Edema of larynx 45288645 Active 2024 Romeo Enriquez, DO [address] [facility] [place], [place], [address], [place] - [facility] 09:38:34 Mixed conductive AND sensorineural hearing loss 70224262 Active 2024 PACO ZHANG, AUD [address] [facility], [place], [address], [place] - [facility] 13:42:36 Sensorineural hearing loss of bilateral ears 886577004 Active 2024 PACO ZHANG, AUD [address] [facility] [place], [place], [address], [place] - [facility] 13:59:00 Disorder of the larynx 68688023 Active 2024 Romeo Enriquez, DO 100 [facility],[address], [address], [place] - [facility] 08:43:21 Problem Notes None recorded. Procedures Surgical History Date Name Laterality Status Provider Name and Address Organization Details Recorded Time 02/14/20 Comp Audio with Tymps - 53406 & 65795 completed MARIA ISABEL PATE 100 [facility],[address], [address], [place] - [facility] 02/13/2025 13:40:23 01/15/20 FOL_Reflux_DHL completed Romeo Enriquez [address], [address], [facility] - [facility] 01/14/2025 09:40:56 02/22/20 CT temporal bones - Xoran completed AWA BAILEY MD [address] [place] [address], [address], [facility] - [facility] 02/22/2024 13:36:35 02/22/20 24 Air & Bone Audio - 26805 completed AWA BAILEY MD [address] [place] [address], [address], [facility] - [facility] 02/21/2024 21:34:31 02/22/20 24 Tymps & Reflexes - 95933 completed AWA BAILEY MD [address] [place] [address], [address], [facility] - [facility] 02/21/2024 21:34:32 02/22/20 24 SRT & Speech Recognition - 98391 completed AWA BAILEY MD [address] [place] [address],[address], [address], [place] - [facility] 02/21/2024 21:34:32 11/09/19 24 Air & Bone Audio - 45152 completed Carin Sanchez [place] - [facility] 11/09/2023 16:52:09 11/09/19 24 Tymps & Reflexes - 33218 completed Carin Sanchez [place] - [facility] 11/09/2023 16:51:42 11/09/19 24 SRT & Speech Recognition - 41513 completed Carin Sanchez [place] - [facility] 11/09/2023 16:52:24 Ear Surgery completed AWA BAILEY MD [address] [place] [address], [address], [facility] - [facility] 11/09/2023 16:55:22 cholecystectomy completed Connie Garber [place] - [facility] 11/09/2023 15:35:12 Imaging Results None recorded. Procedure [...] Details Last Updated DateTime 02/22/2024 179.07 cm 023929.13 g Connie Garber [place] - [facility] 02/22/2024 13:59:32 Social History Question Answer Notes LastModified by Organizat ion Details LastModified Time Tobacco Smoking Status Never Smoker Connie jones [place] - [facility] 11/09/2023 15:34:59 What Type Of Wireless Watcher Do You Use? None [email or web address] Information not available 02/13/2025 Do You Have Any Pets? No [email or web address] Information not available 02/13/2025 Are You Passively Exposed To Smoke? No [email or web address] Information not available 02/13/2025 Are There Any Smokers In Your House? Yes [email or web address] Information not available 02/13/2025 Sex: Unknown Functional Status Question Answer Note LastModified by Andre Phillipeizat ion Details LastModified Time Do you use any illicit or recreational drugs? No [email or web address] Information not available 02/13/2025 Do you or have you ever used any other forms of tobacco or nicotine? No [email or web address] Information not available 02/13/2025 What is your level of alcohol consumption? Moderate [email or web address] Information not available 02/13/2025 Mental Status None [...] Note [id number] AWA BAILEY MD [facility] [address] [address] 11/09/2023 14:56:16 11/09/2023 17:03:18 Mixed conductive and sensorineural hearing loss, bilateral 981774904 H90.6 Audiologic al evaluation results: Right ear: Normal sloping to profound mixed hearing loss with excellent word recognitio n. Left ear: Mild sloping to severe mixed hearing loss with excellent word recognitio n. Tympanomet ry: Right Ear:Type A Left Ear:Type A AWA BAILEY MD [facility] [address] [address] 02/22/2024 12:53:08 02/22/2024 14:24:26 Mixed conductive and sensorineural hearing loss, bilateral 961951365 H90.6 Partial lo ss of ear ossicles 77484086 H74.323 [id number] Romeo Enriquez DO [facility] [address] [address] 01/14/2025 09:05:04 01/14/2025 09:42:05 Hoarse 92562696 R49.0 356078 Laryngopha ryngeal reflux 801126561 K21.9 9946758 Edema of larynx 10593058 J38.4 39711 [id number] AWA BAILEY MD [facility] [address] [address] 02/13/2025 13:21:36 02/14/2025 14:08:49 Partial loss of ear ossicles 28211851 H74.323 Mixed cond uctive and sensorineural hearing loss, bilateral 296888787 H90.6 Right Ear:Normal hearing through 500 Hz sloping to a profound SNHL with excellent speech discrimina tion.Type A tympanogra m.Left Ear:Normal hearing through 1K Hz sloping to a mild SNHL with excellent speech discrimina tion.Type A tympanogra m. [id number] MARIA ISABEL PATE [facility] [address] [address] 02/13/2025 13:36:30 02/14/2025 12:35:44 Mixed conductive AND sensorineural hearing loss 59419401 H90.A32 97419279 Sensorineu ral hearing loss of bilateral ears 168081197 H90.3 58185775 Right Ear:Normal hearing through 500 Hz sloping to a profound SNHL with excellent speech discrimina tion.Type A tympanogra m.Left Ear:Mild to profound SNHL with excellent speech discrimina tion.Type A tympanogra m. [id number] Romeo Enriquez DO [facility] [address] [address] 03/26/2025 13:51:13 03/26/2025 14:17:31 Hoarse 76722699 R49.0 960215 Laryngopha ryngeal reflux 892247758 K21.9 4961905 Edema of larynx 36578870 J38.4 92533 Health Concerns Section Related Observation LastModified by Organization Detai ls LastModified Time None Recorded Concern Status LastModified by Organization Details LastModified Time None Recorded Advance Directives Directive None Recorded Payers Insurance Date Sequence Insurance Name Policy Number Policy Ramirez Covered Member ID Ramirez Member ID Guarantor Name 03/28/2025 2 [place] [facility] Tr Kim [id number] Tr Kim 03/26/2025 1 MED[place] B[place] [facility] [employer] Tr Kim [id number] Tr Kim Notes Date Note Type Note Provider Name and Address Organization Details Recorded Time 02/22/2024 text/html 68-year-old male referred for evaluation of his hearing. Patient had chronic childhood ear infections requiring operations on both of his ears when he was in grade school. He began wearing hearing aids in his early 50s and is now on his third set of hearing aids. Currently moved to the area and establish care with [facility]. Audiogram back in October showed bilateral mixed hearing loss with a rather significant conductive component bilaterally. Patient comes in today for CAT scan of the temporal bones to assess for the cause of the conductive component of his hearing loss in anticipation of possible surgical interventionThat currently using binaural BTE amplification better about 6 years old. Devices are being managed through [facility]. 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 Romeo Enriquez, 100 [facility],[address], [address], [place] - [facility] 01/14/2025 09:42:36 02/13/2025 text/html 69-year-old male referred for evaluation of his hearing. Patient had chronic childhood ear infections requiring operations on both of his ears when he was in grade school. He began wearing hearing aids in his early 50s and is now on his third set of hearing aids, managed through [facility]. The right device is currently broken. I [...] has been broken. 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 Romeo Enriquez, [address] [facility],[place] [address], [place], [address], [place] [facility] 03/26/2025 14:20:15
--- OUTSIDE RECORDS SUMMARY | 2025-05-07 20:45 | XMS_ITS | Encounter Summary ---
Author Organization [facility] Address [address] [place] [address] Care Team Providers Care Curtain Stitcher Name Role Phone Edd Benitez MD Primary Care Provider Encounter Details Date Type Department Care Team (Late st Contact Info) Description 01/15/2025 Lab Requisition [facility] - Main Lab [address] [facility] [place] [address] Antonio Puentes MD [address] [place] [phone] Urinary tract infection, site not specified Social [...] Urine No growth 01/16/2025 1:56 PM EDT [facility] Urine Urine specimen obtained by clean catch procedure / Unknown 01/15/2025 01/15/2025 5:55 PM EDT Antonio Puentes MD LAB MICROBIOLOGY - [facility] Final Result [facility] H[facility]PITAL LAB [address] [place] [address], documented in this encounter Visit Diagnoses Diagnosis Urinary tract infection, site not specified documented in this encounter Care Teams Curtain Stitcher Relationship Specialty Start Date End Date Edd Benitez MD [address] [place] [address] [address] [place] [address] PCP - General Internal Medicine 01/10/25 documented as of this encounter
--- OUTSIDE RECORDS SUMMARY | 2025-05-07 20:45 | XMS_ITS | Patient Health Record ---
Author Organization Edd Benitez MD Address [address] [place], [place] [address] Care Team Providers Care Radiotelephone Operator Name Role Phone Edd Benitez Primary Care Provider [phone] Allergies No Known Allergies Results Component Value Reference Range Notes Uric Acid Reviewed date:06/18/2024 04:29:05 PM Interpretation: Performing Lab:[facility], [address] [place] [phone] Notes/Report: Uric Acid 9.7 3.4-7.0 mg/dL Hold Gold Reviewed date:06/18/2024 01:00:20 PM Interpretation: Performing Lab:[address] [phone] Notes/Report: Hold Gold See Note Specimen held untested for 24 hours; Call to request Chemistry testing. Liver Panel Reviewed date:06/18/2024 02:31:04 PM Interpretation: Performing Lab:[facility], [address] [place] [phone] Notes/Report: Bilirubin Total 0.7 0.0-1.0 mg/dL Bilirubin Direct 0.2 0.0-0.5 mg/dL Aspartate Amino Transferase 29 5-37 U/L Alanine Aminotransferase 29 0-40 U/L Total Protein 7.7 6.5-8.0 g/dL Albumin Level 4.1 3.5-5.0 g/dL Alkaline Phosphatase 69 39-117 U/L Lipid Panel with Reflex Reviewed date:06/18/2024 04:29:16 PM Interpretation: Performing Lab:[facility], [address] [place] [phone] Notes/Report: Triglycerides 187 <150 mg/dL Desirable Triglyceride: [...] Panel Reviewed date:11/20/2024 06:16:10 PM Interpretation: Performing Lab:[facility], [address] [place] [phone] Notes/Report: Sodium 140 135-145 mmol/L Potassium 3.8 [...] Panel Reviewed date:11/20/2024 06:15:40 PM Interpretation: Performing Lab:[facility], [address] [place] [phone] Notes/Report: Triglycerides 89 <150 mg/dL Desirable Triglyceride: [...] ff Reviewed date:12/13/2024 09:31:02 PM Interpretation: Performing Lab:[facility], [address] [place] [phone] Notes/Report: White Blood Count 5.6 4.8-10.8 X10*3/uL [...] 0.0-0.2 /100WBC Neutrophils Absolute Auto 3.0 2.0-8.3 x10*3/uL Imm Gran Abs Auto 0.01 0.00-0.03 X10*3/uL Lymphocytes Absolute Auto 1.5 1.2-4.9 X10*3/uL Monocytes Absolute Auto 0.7 0.1-1.2 X10*3/uL Eosinophils Absolute Auto 0.3 0.0-0.4 X10*3/uL Basophils Absolute Auto 0.0 0.0-0.2 X10*3/uL NRBC Abs Auto 0.000 0.0-0.012 X10*3/uL Comprehensive [place]. Panel Fa st Reviewed date:12/20/2024 11:37:38 AM Interpretation:soha 12/20/24 Performing Lab:[facility], [address] [place] [phone] Notes/Report: Sodium 140 135-145 mmol/L Potassium 4.1 [...] Panel Reviewed date:12/13/2024 09:07:24 PM Interpretation: Performing Lab:[facility], [address] [place] [phone] Notes/Report: Triglycerides 104 <150 mg/dL Desirable Triglyceride: [...] (Free>4and<10) Reviewed date:12/20/2024 11:53:37 AM Interpretation:12-20-2024 Performing Lab:[facility], [address] [place] [phone] Notes/Report: PSA,Total (Free>4and<10) 8.39 0.00-4.00 ng/mL PSA methodology: Peraza Alinity i Chemiluminescent Microparticle Immunoassay (CMIA) TSH reflex Free T4 Reviewed date:12/13/2024 09:07:33 PM Interpretation: Performing Lab:[facility], [address] [place] [phone] Notes/Report: TSH reflex Free T4 3.29 0.32-4.0 uIU/mL UA ClnCatch+Micro w/rflx Cul t Reviewed date:12/13/2024 09:09:08 PM Interpretation: Performing Lab:[facility], [address] [place] [phone] Notes/Report: Urine, Clean Catch Color Urine Yellow Appearance Urine Clear PH 6.0 5.0-9.0 Glucose Urine UA Negative Negative mg/dL Urine Blood Negative Negative Specific [place] - Urine 1.010 1.005-1.025 Urine Protein Negative Neg-Trace mg/dL Urine Ketones Trace Negative mg/dL Nitrite Urine Negative Negative Leukocyte Esterase Urine Negative Negative RBC Urine 0-2 0-2 /HPF WBC Urine 0-5 0-5 /HPF Squamous Epithelial Cell Urine 0-2 0-2 /HPF Bacteria Urine None Seen None Seen Hyaline Casts Urine 0-2 0-2 /LPF PSA Free and Total Reviewed date:12/16/2024 05:35:03 PM Interpretation: Performing Lab:[facility], [address] [place] [phone] Notes/Report: Prostate Specific Ag Total 7.1 < OR = 4.0 ng/mL Percent Free Prostate Spec Ag 18 >25 % (calc) PSA(ng/mL) Free PSA(%) Estimated(x) Probability of Cancer(as%) 0-2.5 (*) Approx. 1 2.6-4.0(1) 0-27(2) 24(3) 4.1-10(4) 0-10 56 11-15 28 16-20 20 21-25 16 >or =26 8 >10(+) N/A >50 References:(1)Scar leroy et al.:Urology 60: 469-474 (2001) (2)Yang et al.:J.Urol 168: 922-925 (2001) Free PSA(%) Sensitivity(%) Specificity(%) < or = 25 85 19 < or = 30 93 9 (3)Yang et al.:AMISHA 277: 6439-6964 (1996) (4)Catalona et al.:AMISHA 279: 6059-8157 (1997) (x)These estimates vary with age, ethnicity, [...] mind. PSA was performed using the Tomi Bryant Immunoassay method. Values obtained from different assay methods cannot be used interchangeably. PSA levels, regardless of value, should not be interpreted as absolute evidence of the presence or absence of disease. THIS TEST WAS PERFORMED AT: [facility] [address] [address] VAN RAMIREZ MD Free Prostate Spec Ag 1.3 Pathology Reviewed date:03/05/2025 05:21:00 PM Interpretation: Performing Lab:[facility], [address] [place] [phone] Notes/Report: ------ Name: Emilia Casillas Age/Sex: 69/M : 1955 [facility]#: [id number] Unit#: [id number] Attend Dr: Lamont Moran MD Re02/28/25 Status : [facility] Location: [facility] Disch: ------ SPEC : [id number] RECD : 02/28/25 STATUS: ROBERTA SHEPPARD NUM: [id number] [place]: 02/28/25 [facility] DR: Lamont Moran MD ENTERED: 02/28/25- 18 SP TYPE: Surgical OTHR DR: Edd Benitez MD ORDERED: HE Stain/6, Gross Micro L4/2, IHC, Special st. 2, H. pylori, AB/PAS Diagnosis A. Esophagogastric junction, at 39 cm, biopsy: Squamocolumnar mucosa with mild chronic inflammation; negati ve for intestinal metaplasia and dysplasia. B. Gastric antrum, b iopsy: Reactive gastropathy with ectatic mucosal vessels and minimal chronic inac tive inflammation; negative for H. pylori, intestinal metaplasia and dysplasia. Clinical History Pre-Op Dx: Screening, GERD Post-Op Dx: Gastriti s, hiatal hernia, reflux, hemorrhoids, diverticulosis Microscopic Description Microscopic sections reviewed. Immunostain for H. pylori on B is negative. AB/PAS on A is negative for intesti nal metaplasia. Controls stain appropriately. Material Received A. EG junction at 39 cm B. Gastric antrum Gross Description A. Received in forma genaro are 4 campos 2-4 mm soft tissue fragments, totally submitted in cassette A1. B. Received in forma genaro are 4 campos 1-5 mm soft tissue fragments, totally submitted in cassette B1. (DTL) Special studies orde red and performed: Immunostain for H. pylori on B1; AB/PAS stains on A1. IHC S/NG Disclaimer NOTE: Unless otherwi se stated, all tissue is formalin-fixed and paraffin-embedded. Some or all of the immunohistochemical tests reported herein may have been developed and their performance characteristics determined by [facility]. They have not been cleared or appr raymundo by the U.S. Food and Drug Administration (FDA). However, the FDA has determined that such clearance or approval is not necessary. This laboratory is certified under the Clinical Laboratory Improvement Amendments of 1988 (CLIA) as qualified to perform high comp lexity clinical laboratory testing. CONTINUED ON NEXT PAGE ------ Name: Emilia Casillas Age/Sex: 69/M : 1955 Unit#: [id number] Attend Dr: Lamont Moran MD Re02/28/25 Status : [facility] Location: [facility] Disch: ------ SPEC : [id number] RECD : 02/28/25 STATUS: ROBERTA SHEPPARD NUM: [id number] [place]: 02/28/25 [facility] DR: Lamont Moran MD ENTERED: 02/28/25 18 SP TYPE: Surgical OTHR DR: Edd Benitez MD ORDERED: HE Stain/6, Gross Micro L4/2, IHC, Special st. 2, H. pylori, AB/PAS Copies To: Edd Benitez MD [facility] [address] [place] [address] [place] [facility] [address] [place] [address] [phone] Lamont Moran MD [place] [address] [place] [address] ------ Signed (signature on file) [place] 03/05/25 1205 ------ END OF REPORT Reason For Referral Reason HYPERCHOLESTERIMIA Diagnosis 1 Hypercholesteremia ( E78.00) Referral Organization Edd Benitez MD Referring Provider First Name Edd Referring Provider Last Name Emmanuel Referring Provider Speciality Internal M edicine Referred Provider AUGUSTINA WARE Referred Provider Specialty Cardiology General Notes Sondra Wokrman 06/21/2024 11:22:25 AM >REFERRAL FAXED TO [facility], Sondra Workman 07/30/2024 10:05:35 AM >I CHECKED WITH KAILYN, HE HAS NOT BEEN SCHEDULED YET , WILL RECHECK, Sondra Workman 08/22/2024 01:25:40 PM >PER KAILYN AT [facility] , THEY HAVE LEFT HIM 2 MESSAGES AND HAVE NOT HEARD BACK YET. KAILYN SAID THEY WILL LEAVE ONE MORE MESSAGE, Sondra Workman 08/22/2024 01:31:56 PM >I ALSO LEFT FATHER SONJA A MESSAGE TO CALL [facility] Patti A 08/26/2024 09:45:18 AM >APPT SCHEDULED WITH [facility] PER KAILYN, PATIENT IS AWARE Referral [...] MORNING ON EMPTY STOMACH for 90 Active amLODIPine Besylate 5 MG TAKE 1 TABLET B Y MOUTH EVERY DAY for 90 Active Ezetimibe 10 MG 1 [...] Problem Status W/U Status Risk Notes Problem 279894941 Lumbar disc dise ase (M51.9) Active confirmed Problem 064219909 Gastroesophageal reflux disease without esophagitis (K21.9) Active confirmed Problem 362738803 Acquired hypothyroidism (E03.9) Active confirmed Problem Hyperlipidemia (16051220) Hyperlipidemia (E78.5) Active confirmed Problem 58025121 Hypercholesterem ia (E78.00) Active confirmed Problem 74761104 Acute idiopathic gout involving toe, unspecified laterality (M10.079) Active confirmed Problem 104200925 Gastroesophageal reflux disease with esophagitis without hemorrhage (K21.00) Active confirmed Problem 40257848 Primary hyperten yusef (I10) Active confirmed Problem 42129852 Disc disease, degenerative, lumbar or lumbosacral (M51.37) Active confirmed Problem 50920527 Controlled gout (M10.9) Active confirmed Vital Signs Blood pressure diastolic 78 mm Hg 12/20/2024 Height 70.5 in 12/20/2024 Blood pressure systolic 122 mm Hg 12/20/2024 Weight 239 lbs 12/20/2024 BMI 33.8 kg/m2 12/20/2024 Encounters Encounter Location Date Provider Diagnosis Edd Benitez MD [address] [place] [id number] 06/18/2024 Edd Benitez Hypercholesteremia E 78.00 Edd Benitez MD [address] [place] [id number] 12/13/2024 Edd Benitez Hypercholesteremia E 78.00 ; Acquired hypothyroidism E03.9 and Primary hypertension I10 Edd Benitez MD [address] [place] [id number] 06/21/2024 Edd Benitez Gastroesophageal ref lux disease with esophagitis without hemorrhage K21.00 ; Controlled gout M10.9 and Hypercholesteremia E78.00 Edd Benitez MD [address] [place] [id number] 12/20/2024 Edd Benitez Controlled gout M10. 9 ; Primary hypertension I10 ; Hypercholesteremia E78.00 ; Acquired hypothyroidism E03.9 ; Gastroesophageal reflux disease without esophagitis K21.9 ; Colon cancer screening Z12.11 ; Depression screening Z13.31 and Elevated LFTs R79.89 Edd Benitez MD [address] [place] [id number] 12/24/2024 Edd Benitez Hyperlipidemia E78.5 Assessments Encounter [...] Primary hypertension (ICD-10 - I10) well controlled 12/24/2024 Hyperlipidemia (ICD-10 - E78.5) 12/13/2024 Acquired hypothyroidism (ICD-10 - E03.9) 06/21/2024 Hypercholesteremia (ICD-10 - E78.00) referral to dr peres/ REFERRAL FAXED TO [facility] 12/20/2024 Hypercholesteremia (ICD-10 - E78.00) cholesterol [...] Calcium Score 12/24/2024 Next Appt Details Provider Name:Eddsolange Briggs ier, 06/20/2025 08:00:00 AM, [address] [place] [address], Suite [facility], [place], [place], [id number], Provider Name:Edd Briggs ier, 06/27/2025 10:00:00 AM, [address] [place] [address], Suite [facility], [place], [place], [id number], Provider Name:Edd La Nena Chester ier, 11/24/2025 07:15:00 AM, [address] [place] [address], Suite [facility], [place], [place], [phone], Provider Name:Edd Briggs ier, 12/26/2025 09:30:00 AM, [address] [place] [address], Suite [facility], [place], [place], [id number], Insurance Providers Payer Name Payer Address Payer Phone Subscriber Number Group Number Insured Name Patient Relationship to Insured Coverage Start Date Coverage End Date [employer] [address] [place] [address] [id number] EMILIA CASILLAS Self - patient is the insured [facility] [address] [place] [address] [id number] EMILIA CASILLAS Self - patient is the insured Medical (General) History Medical History History ICD Code colonoscopy 2020 due in 2024 psa 2020 was 4
--- OUTSIDE RECORDS SUMMARY | 2025-05-07 20:45 | XMS_ITS | Encounter Summary ---
Author Organization [facility] Address [address] [place] [address] Care Team Providers Care Bee Breeder Name Role Phone Edd Benitez MD Primary Care Provider Encounter Details Date Type Department Care Team (Late st Contact Info) Description 01/10/2025 Lab Requisition [facility] - Main Lab [address] [place] [address] Buster Wilburn, PA [address] [place], [place] [phone] Urinary tract infection, site not specified Social [...] Escherichia coli(A) KANDICE 01/12/2025 9:06 AM EDT [facility] Urine Urine specimen obtained by [...] Escherichia coli Trimethoprim/Sulfamethoxazole KANDICE <=20 ug/ml: Susceptible [facility]OLOGY - [facility] Final Result Performing Organization Address City/State/[facility] Co de Phone Number [facility] [address] [place] [address], documented in this encounter Visit Diagnoses Diagnosis Urinary tract infection, site not specified documented in this encounter Care Teams Bee Breeder Relationship Specialty Start Date End Date Edd Benitez MD [address] [place] [address] PCP - General Internal Medicine 01/10/25 documented as of this encounter
--- OUTSIDE RECORDS SUMMARY | 2025-05-07 20:45 | XMS_ITS | Patient Health Record ---
Author Organization [facility] Address [address] [facility] [address] [place] [address] Phone [phone] Care Team Providers Care Maintenance And Custodian Supervisor Name Role Phone Iveth CAMPBELL, Humble Unavailable Preeti CAMPBELL, Tyree Unavailable Unavailabl e Reason For Referral No Information Medications Medication SIG (Take, Route, Frequency, Duration) Notes Start Date End Date Diagnosis (ICD Code) Status Advil oral *please review for potential _update for e-prescription and drug interaction check* 0 Active Levothyroxine Sodium 100 MCG Tablet Oral 0 Active Allopurinol 100 MG Tablet Oral 0 Active Famotidine 20 MG Tablet TAKE 1 TABLET BY MOUTH EVERY DAY AT BEDTIME NEEDED Active PriLOSEC oral *please review for potential _update for e-prescription and drug interaction check* 0 Active amLODIPine Besylate 5 MG Tablet 1 tablet Orally Once a day Active Atorvastatin Calcium 40 MG Tablet 1 tablet Orally Once a day Active Social History Sex Observation Social History Observation Description Sex Observation Male Social History Alcohol: Social Info Question Answer [...] Problems Problem Type SNOMED Code ICD Code Dates Problem Status W/U Status Risk Notes Problem Gastroesophageal reflux disease (584508290) GERD without esophagitis (K21.9) Added On:10/21 Active confirmed even on PPI. Will initiate nightly H2 blockers. Discussed lifestyle changes. Will do EGD for evaluation. Problem Globus sensation (835451396) Globus sensation (R09.89) Added On:10/21 Onset Date: 020 Active confirmed Due to post-nasal drainage, or more likely, stress-rela oziel. Problem Family history of malignant neoplasm of gastrointestinal tract (034934225) Family history of colon cancer in father (Z80.0) Added On:10/21 Active confirmed father at age 50. Will do colonoscopy . Encounters Date Time Type Facility Location Provider Diagnosis 11/20/2024 09:51 AM Telephone Encounter [facility] [address] [facility] [address] [place], [place] [phone] Humble Lazaro Plan Of Treatment No Information Insurance Providers Payer Name Payer Address Payer Phone Subscriber Number Group Number Insured Name Patient Relationship to Insured Coverage Start Date Coverage End Date Doris Del [place] G033 [address] [place] [phone] [id number] EMILIA CASILLAS Self - patient is the insured Medical (General) History Medical History History ICD Code Diverticulosis; GERD; Hypothyroidism Hypertension Surgical History Surgery Date(Month/Year) Colonoscopy; tics 2014-07-03 Gallbladder Surgery; 2014-05-13
--- OUTSIDE RECORDS SUMMARY | 2025-05-07 20:45 | XMS_ITS | Patient Health Record ---
Author Organization [facility] Address [address] [place] [address] Support Name Relationship Address Phone Unavailable Emergency Contact Unknown [id number] Tr Kim Guarantor Unknown [phone] Reason For Referral No Information Medications Medication SIG (Take, Route, Frequency, Duration) Notes Start Date End Date Status Omeprazole 20 MG Oral Prescription/Di yola arge Order 12/06/2010 Active Plan Of Treatment No Information Insurance Providers Payer Name Payer Address Payer Phone Subscriber Number Group Number Insured Name Patient Relationship to Insured Coverage Start Date Coverage End Date Cigrad Reddy [id number] [place] [id number] Tr Kim Self - patient is the insured 6
--- OUTSIDE RECORDS SUMMARY | 2025-05-07 20:45 | XMS_ITS | Clinical Summary ---
Author Organization [facility] Address [address] [place] [phone] Phone Care Team Providers Care Hand Hide Stretcher Name Role Phone Edd Benitez MD Primary Care Provider Social History Tobacco Use Types Packs/Day Years [...] on patient's age to complete this topic Insurance [place] - [place] MEDICARE Care Teams Hand Hide Stretcher Relationship Specialty Start Date End Date Edd Benitez MD [address] [place] [address] [address] [place] [address] PCP - General Internal Medicine 01/10/25
== END 2025-05-07 15:56 | disposition home or self-care (01) ==
LOC: HO.HAP 15:55
PROVIDERS: Visit Provider Student in an Organized Health Care Education/Training Program
DX: H90.3 Sensorineural hearing loss, bilateral (principal)
CPT/HCPCS: V5262; V5299